=== PATIENT | female | born 1950 | race Two or more races ===

== ENCOUNTER 2020-11-07 08:40 | Outpatient (REF) | payer MEDICARE, SELFPAY ==
--- NOTE | ~2020-11-07 | MM_ITS ---
EXAMINATION: MM SCREENING DIGITAL BREAST TOMOSYNTHESIS, BILATERAL CLINICAL INFORMATION: Screening. Asymptomatic. Family history breast cancer, 2 sisters. The lifetime risk of breast cancer based on the Tyrer-Cuzick Model is 8%. COMPARISON: Mammography: 11/02/2019, 10/28/2018, 10/08/2017 TECHNIQUE: Digital breast tomosynthesis is performed in both the craniocaudal and mediolateral oblique views along with computer-aided detection (CAD). Synthesized 2D images are generated from the tomosynthesis. FINDINGS: There are scattered areas of fibroglandular density (ACR BI-RADS breast composition Category b). There are no significant masses, abnormal calcifications, or other abnormalities. There are scattered bilateral round, coarse, ductal, and vascular calcifications. No significant changes from prior studies. MM/MM tomosynthesis screening BI IMPRESSION: No mammographic evidence of malignancy. ASSESSMENT: BI-RADS 2: Benign RECOMMENDATION: Routine annual mammography screening. This patient's information was entered into a reminder system with a target due date for their next mammogram.
== END 2020-11-07 08:41 | disposition home or self-care (01) ==
LOC: HO.MAMMO 08:40
PROVIDERS: PCP General Practice; Visit Provider General Practice
DX: Z12.31 Encounter for screening mammogram for malignant neoplasm of breast (principal)
CPT/HCPCS: 77063; 77067

== ENCOUNTER → 2021-04-18 10:02 | Outpatient (BNVA) | payer MEDICARE, SELFPAY | PROVIDERS: PCP General Practice; Referring Provider General Practice; Visit Provider Nurse Practitioner | DX: K31.89 Other diseases of stomach and duodenum (principal); K59.00 Constipation, unspecified; K21.9 Gastro-esophageal reflux disease without esophagitis | CPT/HCPCS: 99212 ==

== ENCOUNTER 2021-06-08 09:55 | Outpatient (REF) | payer MEDICARE, SELFPAY ==
--- NOTE | 2021-06-08 14:35 | MHC.AU.ANR ---
Adult Audiological Evaluation Date of Visit: 06/08/21 Surveillance Director Used: Kosovan- By Phone Reason for Appointment: Audiological evaluation due to history of hearing loss. Ms. Philip reports bilateral hearing loss, worse in her right ear. She notes that she previously used a hearing aid in the left ear only. She notes that the hearing aid has been lost and she is interested in obtaining a new one. She notes that she struggles to hear in most situations and often has to ask people for repetition. Does patient feel they have a hearing loss?: Yes If Yes, Which Ear?: Both Ears Has hearing been tested previously?: Yes Previous Hearing Test Results: She notes that she was previously tested somewhere in [place], [place], but results are not available to be reviewed today. Ear History: Bothersome Tinnitus/Ringing/Noises in Ears: Both Ears Medical History: Medical History: Diabetes, Thyroid Disease, Arthritis, poor circulation Allergies: Acetaminophen, ibuprofen, tramadol Medication List: See list Otoscopy: Right Ear: Unremarkable Left Ear: Unremarkable Tympanometry: Tympanometry performed due to: To assess integrity of the middle ear system Right Ear: Non-compliant Middle Ear System (Type B) Left Ear: Reduced Middle Ear Compliance (Type As) Hearing Evaluation: Transducer(s) Used: Circumaural Headphones, Bone Conduction Method: Conventional Audiometry Stimuli Used: Pure Tones Right Ear: Description of Hearing: Severe to profound sensorineural hearing loss from 250-8000 Hz. Hearing in the right ear is 15-80+ dBHL worse than that in the left ear across the frequency range. Left Ear: Description of Hearing: Moderately-severe sensorineural hearing loss from 250-500 Hz, rising to moderate sensorineural hearing loss from 750-1000 Hz and mild sensorineural hearing loss from 6448-0933 Hz, then sloping to severe hearing loss from 3321-5959 Hz. Speech Recognition Threshold (SRT): Method Used: Recorded Lists Stimuli Used: Spondee Words Right Ear: 95 dBHL Left Ear: 55 dBHL Word Discrimination: Method: Recorded Lists Word Lists Used: Lista Bisil?bica (Kosovan) Right Ear: 28% at 100 dBHL with masking Left Ear: 92% at 90 dBHL Recommendations: Audiological re-evaluation in one year. Trial with amplification is recommended. Medical clearance from a physician is required before fitting. Referral to Ear, Nose, and Throat is recommended due to asymmetrical hearing loss. Discussed hearing aid options with Ms. Philip. Recommend a CROS system, with a hearing aid on the left ear and a CROS aid on the right ear given poor speech discrimination in the right ear. She was agreeable to this plan. Medical clearance is being requested from her PCP and prior authorization will be submitted to [facility]. Diagnosis: Primary Diagnosis: H90.3 Bilateral Sensorineural Hearing Loss Services Performed: Services Performed: Comprehensive Audiological Evaluation (CPT 57545) Tympanometry (CPT 70774) Signature: Provider: Tanya Mendiola, CCC-A
--- NOTE | 2021-06-08 14:37 | MHC.AU.HAS ---
Hearing Aid Evaluation Date of Visit: 06/08/21 Faculty Member Used: Telugu- By Phone Historical Information: Description of Hearing: Severe to profound sensorineural hearing loss in the right ear with poor speech discrimination. Moderately severe rising to mild SNHL hearing, then sloping to severe hearing loss. Current personal amplification information, if applicable: States she had an ITE style aid in the left ear only. Summary: Given the type, degree, and configuration of Ms. Philip's hearing loss, a BiCROS hearing aid system is recommended to help facilitate improved communication. Recommend rechargeable REBEL style aids. Ms. Philip was agreeable to this plan. Hearing Aid Prescription: Based on the individual?s shared listening needs, communication environments, dexterity, desire for connectivity, and personal preferences, the following prescription for amplification has been made: Right ear: Spot Worker: Phonak Model: CROS P-R Battery Size: Rechargeable Color: P6 - Silver Owens Institutional Research Director: Size 0 CROS wire Type of Dome: Open Left ear: Left ear prescription to be same as Right Hearing Aid above: Spot Worker: Phonak Model: Audeo P70-R Battery Size: Rechargeable Color: P6 - Silver Owens Institutional Research Director: Size 0 M Type of Dome: Power Plan of Care: Prior authorization to be requested. Medical Clearance to be requested from PCP/ENT. Hearing Instrument Fitting to be scheduled when materials arrive. Hearing aids will be ordered once PA is approved. Primary Diagnosis: H90.3 Bilateral Sensorineural Hearing Loss Signature: Provider: aTnya Mendiola, CCC-A
--- NOTE | 2021-06-08 14:39 | MHC.AU.MED ---
Medical Clearance for Hearing Instrumentation Date: 06/08/21 Patient Name: Tennille hPilip Date of : 1950 Referring Provider: Germaine Martinez MD We have seen your patient on 06/08/21 and have determined that they are a candidate for amplification (See accompanying report). Specifically, they would benefit from: Hearing aid use in both ears (BiCROS system) There is a statute that addresses Medical Evaluation Requirements prior to fitting a patient with a hearing aid. According to [place] statute 265 CMR:6.03(1), (a) General. Except as provided in 265 CMR 6.03(1)(b), a hearing aid assembly supervisor shall not sell a hearing aid unless the prospective user has presented to the hearing aid assembly supervisor a written statement signed by a licensed physician that states that the patient's hearing loss has been medically evaluated and the patient may be considered a candidate for a hearing aid. The medical evaluation must have taken place within the preceding six months. Please note: Due to the [place] Statute referenced above, we cannot accept a signature other than that of a licensed physician. SOCIAL STUDIES DEPARTMENT CHAIR and PA signatures cannot be accepted. I am in agreement with the above recommendation. There is no medical contraindication for hearing instrumentation. Physician Signature Date Physician Name (Printed)
== END 2021-06-08 09:56 | disposition home or self-care (01) ==
LOC: HO.SH 09:55
PROVIDERS: Visit Provider General Practice
DX: H91.91 Unspecified hearing loss, right ear (principal)
CPT/HCPCS: 92557; 92567; 92591

== ENCOUNTER 2021-07-26 09:09 | Outpatient (REF) | payer MEDICARE, SELFPAY | END 2021-07-26 09:10 | disposition home or self-care (01) | LOC: HO.HAP 09:09 | PROVIDERS: Visit Provider General Practice | DX: Z46.1 Encounter for fitting and adjustment of hearing aid (principal); H90.3 Sensorineural hearing loss, bilateral | CPT/HCPCS: V5011; V5020; V5221; V5240 ==

== ENCOUNTER 2021-08-17 11:03 | Outpatient (REF) | payer MEDICARE, SELFPAY | END 2021-08-17 11:04 | disposition home or self-care (01) | LOC: HO.HAP 11:03 | PROVIDERS: Visit Provider General Practice | DX: Z46.1 Encounter for fitting and adjustment of hearing aid (principal); H90.3 Sensorineural hearing loss, bilateral | CPT/HCPCS: V5275 ==

== ENCOUNTER 2021-08-21 10:56 | Outpatient (REF) | payer MEDICARE, SELFPAY | END 2021-08-21 10:57 | disposition home or self-care (01) | LOC: HO.HAP 10:56 | PROVIDERS: Visit Provider General Practice | DX: Z13.89 Encounter for screening for other disorder (principal) ==

== ENCOUNTER 2021-09-21 10:37 | Outpatient (REF) | payer MEDICARE, SELFPAY ==
--- NOTE | 2021-09-21 11:36 | MHC.AU.HFU ---
Hearing Instrument Follow-Up- Binaural Date of Visit: 09/21/21 Machine Plug Shaper Used: Urdu- In Person Right Ear: Patrol Police Lieutenant: Phonak Model: CROS P-R Serial Number: [id number] Repair Warranty: 10/12/2024 Loss and Damage Warranty: 10/12/2024 Battery Size: Rechargeable Color: P6 - Silver Owens Acute Dialysis Registered Nurse: Size 0 CROS wire Type of Mold: CROS Tip #[id number] Warranty 12/22/2021 Type of Wax Guard: Cerushield Dispensed By: [facility] Date of Fittin07/26/2021 Left Ear: Patrol Police Lieutenant: Phonak Model: Audeo P70-R Serial Number: [id number] Repair Warranty: 10/12/2024 Loss and Damage Warranty: 10/12/2024 Battery Size: Rechargeable Color: P6 - Silver Owens Acute Dialysis Registered Nurse: Size 0 M Type of Mold: cShell #[id number] Warranty 12/22/2021 Type of Wax Guard: Cerushield Dispensed By: [facility] Date of Fittin07/26/2021 Follow-Up Summary: Patient arrived to slate picker her loss and damage replacement instrument (left hearing aid) and the new cShell/CROS tips. The CROS tip was placed on the right instrument. Patient reports they feel comfortable and more secure. When the patient handed me the right instrument, it would not turn on. Plugged it in using her bead supervisor, and it began blinking red. Patient reports that she had charged the CROS last night so it would be ready for today's appointment. When she first plugged it in, it was blinking red, but then after a few hours turned solid green as expected. The battery should not have drained that fast if it was fully charged last night. The right instrument will be sent for repair. Recommendations: Recommendations: Patient will be contacted when materials have arrived. Diagnosis Code(s): Primary Diagnosis: H90.3 Bilateral Sensorineural Hearing Loss Signature: Provider: Tanya Renee, [facility]
== END 2021-09-21 10:38 | disposition home or self-care (01) ==
LOC: HO.HAP 10:37
PROVIDERS: Visit Provider General Practice
DX: Z46.1 Encounter for fitting and adjustment of hearing aid (principal); H90.3 Sensorineural hearing loss, bilateral
CPT/HCPCS: V5264

== ENCOUNTER 2021-10-11 10:49 | Outpatient (REF) | payer SELFPAY | END 2021-10-11 10:50 | disposition home or self-care (01) | LOC: HO.HAP 10:49 | PROVIDERS: Visit Provider General Practice | DX: Z13.89 Encounter for screening for other disorder (principal) ==

== ENCOUNTER 2021-11-10 07:58 | Outpatient (REF) | payer MEDICARE, SELFPAY ==
--- NOTE | ~2021-11-10 | MM_ITS ---
EXAMINATION: MM SCREENING DIGITAL BREAST TOMOSYNTHESIS, BILATERAL CLINICAL INFORMATION: Screening. Asymptomatic. Remote history benign bilateral excisional biopsy 2004. Family history breast cancer, 2 views sisters. The lifetime risk of breast cancer based on the Tyrer-Cuzick Model is 7%. COMPARISON: Mammography: The 11/07/2020, 8 11/02/2019, 10/28/2018 TECHNIQUE: Digital breast tomosynthesis is performed in both the craniocaudal and mediolateral oblique views along with computer-aided detection (CAD). Synthesized 2D images are generated from the tomosynthesis. FINDINGS: There are scattered areas of fibroglandular density (ACR BI-RADS breast composition Category b). There are no significant masses, abnormal calcifications, or other abnormalities. Parenchymal pattern is similar to prior studies. Again, there are scattered bilateral round and vascular, coarse, and some ductal secretory calcifications. There are no significant changes. MM/MM tomosynthesis screening BI IMPRESSION: No mammographic evidence of malignancy. ASSESSMENT: BI-RADS 2: Benign RECOMMENDATION: Routine annual mammography screening. This patient's information was entered into a reminder system with a target due date for their next mammogram.
== END 2021-11-10 07:59 | disposition home or self-care (01) ==
LOC: HO.MAMMO 07:58
PROVIDERS: Visit Provider General Practice
DX: Z12.31 Encounter for screening mammogram for malignant neoplasm of breast (principal)
CPT/HCPCS: 77063; 77067

== ENCOUNTER → 2021-11-23 08:57 | Outpatient (BNVA) | payer MEDICARE, SELFPAY | PROVIDERS: PCP General Practice; Visit Provider Nurse Practitioner | DX: K21.9 Gastro-esophageal reflux disease without esophagitis (principal); K59.00 Constipation, unspecified; K31.89 Other diseases of stomach and duodenum | CPT/HCPCS: 99212 ==

== ENCOUNTER → 2022-05-22 08:56 | Outpatient (BNVA) | payer MEDICARE, SELFPAY | PROVIDERS: PCP General Practice; Visit Provider Nurse Practitioner | DX: K21.9 Gastro-esophageal reflux disease without esophagitis (principal); K59.00 Constipation, unspecified; K31.89 Other diseases of stomach and duodenum; Z79.899 Other long term (current) drug therapy | CPT/HCPCS: 99212 ==

== ENCOUNTER 2022-06-27 09:11 | Outpatient (REF) | payer OTHER, SELFPAY ==
[2022-06-27 10:11] LABS: Alanine Aminotransferase 14 U/L (0-31); Albumin Level 4.2 g/dL (3.5-5.0); Alkaline Phosphatase 91 U/L (39-117); Anion Gap 14 (12-20); Aspartate Amino Transferase 18 U/L (5-31); Bilirubin Total 0.8 mg/dL (0.0-1.0); Blood Urea Nitrogen 15 mg/dL (9-16); Calcium 9.7 mg/dL (8.4-10.2); Carbon Dioxide 28 mmol/L (22-29); Chloride 103 mmol/L (96-108); Estimated Glomerular Filt Rate 57; Glucose Random 181 mg/dL (60-115); Potassium 4.7 mmol/L (3.3-5.1); Sodium 140 mmol/L (135-145); Total Protein 7.4 g/dL (6.5-8.0)
== END 2022-06-27 09:12 | disposition home or self-care (01) ==
LOC: HO.LAB 09:11
PROVIDERS: PCP General Practice; Visit Provider Nurse Practitioner
DX: Z01.818 Encounter for other preprocedural examination (principal)
CPT/HCPCS: 36415; 80053

== ENCOUNTER 2022-10-18 06:58 | Day surgery (SDC) | payer OTHER, SELFPAY ==
[2022-10-18 07:08] VITALS: BP 144/69; PULSE 70; RESP 16; TEMP 36; O2SAT 97
[2022-10-18 07:33] VITALS: BMI 31.8
--- NOTE | 2022-10-18 07:42 | HO.ANESPROP2 ---
HPI - Anesthesia Eval Consult details Narrative: [facility] Active Problems Active Problems: All Active Problems (Updated 10/12/22 @ 11:00 by Radha Vazquez RN) GERD (gastroesophageal reflux disease) (Acute) Constipation (Acute) Intestinal metaplasia of gastric mucosa (Acute) Pre-op examination (Acute) Diabetes (Acute) Peripheral vascular disease (Acute) Hypothyroid (Acute) Diabetic neuropathy (Acute) Multiple lipomas (Acute) Past Medical History Medical History Chronic back pain DM type 2 (diabetes mellitus, type 2) Elevated cholesterol GERD (gastroesophageal reflux disease) H/O degenerative disc disease [place] (hard of hearing) Hypothyroid Osteoarthritis Family History Family History Father Cardiac arrest Mother No problems noted. Son Diabetes Sister Diabetes Stomach cancer Family history of problems with anesthesia: No Surgical History Surgical History H/O breast biopsy H/O esophagogastroduodenoscopy History of section History of varicose vein ligation and stripping Hx of colonoscopy S/P cataract extraction History of Problems with Anesthesia: No Social History Social History Household Members: Spouse Alcohol intake: current Alcohol intake frequency: does not drink Patient Tobacco Use Status: Never used Tobacco Use of substances other than those prescribed or required for medical reasons: No Are you DNR?: No Advance Directives: No Advance Directives Information Provided: Yes Meds Allergies Allergy/AdvReac Type Severity Reaction Status Date / Time naproxen Allergy Itching Verified 10/18/22 07:24 Active Medications: Current Medications Lactated Ringer's (Lr) 1,000 mls @ 50 mls/hr IVCONT .Q20H [facility] Home Medications Medication Instructions Recorded Confirmed Last Taken Type calcium carbonate 200 mg calcium 200 mg PO BID 08/15/20 10/12/22 Unknown History (500 mg) chewable tablet (Tums) methylcellulose (laxative) 500 mg 500 mg PO DAILY 08/15/20 10/12/22 Unknown History tablet (Citrucel) cholecalciferol (vitamin D3) 25 25 mcg PO QAM 04/18/21 10/12/22 Unknown History mcg (1,000 unit) tablet metformin 500 mg tablet 500 mg PO BID 04/18/21 10/12/22 Unknown History ramelteon 8 mg tablet 8 mg PO BEDTIME PRN insomnia 04/18/21 10/12/22 Unknown History sertraline 25 mg tablet 50 mg PO QAM 04/18/21 10/12/22 Unknown History aspirin 81 mg tablet,delayed 81 mg PO DAILY 11/23/21 10/12/22 10/15/22 History release levothyroxine 75 mcg tablet 75 mcg PO DAILY 11/23/21 10/12/22 Unknown History nortriptyline 10 mg capsule 10 mg PO BID 11/23/21 10/12/22 Unknown History cilostazol 100 mg tablet 100 mg PO 05/22/22 Unknown History doxepin 25 mg capsule 25 mg PO BEDTIME 05/22/22 10/12/22 Unknown History fluticasone propionate 50 1 spray intranasal BID 05/22/22 10/12/22 Unknown History mcg/actuation nasal spray,suspension gabapentin 400 mg capsule 400 mg PO TID 05/22/22 10/12/22 Unknown History insulin aspart U-100 100 unit/mL 15 unit subcut TID 05/22/22 10/12/22 Unknown History (3 mL) subcutaneous pen (Novolog FlexPen U-100 Insulin aspart) insulin glargine 100 unit/mL (3 12 unit subcut BEDTIME 05/22/22 10/12/22 Unknown History mL) subcutaneous pen (Lantus Solostar U-100 Insulin) oxycodone 5 mg tablet 5 - 10 mg PO Q8H 05/22/22 10/12/22 Unknown History rosuvastatin 40 mg tablet 40 mg PO DAILY 05/22/22 10/12/22 Unknown History Exam Exam Date and Time: October 18, 2022 0742 Height,Weight and Vital Signs: Height 5 ft Weight 73.936 kg Last Vital Signs Temp 96.8 F 10/18/22 07:08 Pulse 70 10/18/22 07:08 Resp 16 10/18/22 07:08 BP 144/69 H 10/18/22 07:08 Pulse Ox 97 10/18/22 07:08 O2 Del Method 10/18/22 07:08 Airway Mallampati Class: II TM Dist: >3cm Neck ROM: Limited Heart: rrr Lungs: cta Assessment and Plan Assessment Anesthesia Assessment: Anesthesia Plan Discussed and Chart Reviewed Final Anesthetic Review Family History of Problems with Anesthesia: No History of Problems with Anesthesia: No NPO: Yes ASA Class: III Final Preanesthetic Review: No Changes in Pt Med Stat, Meds/Allgs Chart Reviewed and Anes Risks/Benef Reviewed Patient Risk: Intermediate Procedure Risk: Low Anesthetic Plan Anesthetic Plan: MAC: and Agree w/ Assess. and Plan Disposition: Standard PACU
[2022-10-18] MEDS: Lactated Ringers 1,000 ML 50 ML IVCONT (07:47)
[2022-10-18 08:01] LABS: Glucose, Whole Blood 229 mg/dL (60-115)
--- NOTE | 2022-10-18 08:09 | MHC.SHP ---
Pre-Procedural Eval Section A Date of Service: 10/18/22 Section B Chief Complaint: Gastro-esophageal reflux disease without esophagit Relevant Family History (Specify if Yes): No Relevant Social History: None Present Medications: see Short Stay Collaborative assessment Medical History: Significant History (Chronic back pain DM type 2 (diabetes mellitus, type 2) Elevated cholesterol GERD (gastroesophageal reflux disease) H/O degenerative disc disease [place] (hard of hearing) Hypothyroid Osteoarthritis) History of Previous Operations: Relevant previous surgery/procedure and date(s) (H/O breast biopsy H/O esophagogastroduodenoscopy History of section History of varicose vein ligation and stripping Hx of colonoscopy S/P cataract extraction) Allergies: Allergies Allergy/AdvReac Type Severity Reaction Status Date / Time naproxen Allergy Itching Verified 10/18/22 07:24 Review of Systems Sugical H&P ROS: Negative: Constitution, Cardiovascular, Respiratory, Neurological, Psychiatric, Hem-Onc, Allergic/Immunologic, Gastrointestinal, Genitourinary, Musculoskeletal, Integumentary, Endocrine and Eyes/Ears/Nose/Throat Exam Surgical H&P Exam: Normal: HEENT, Normal: Heart, Normal: Lungs, Normal: Extremities, Normal: Abdomen, Normal: Skin and Normal: Neurological Plan Diagnosis/Plan: Unchanged I have reviewed the history and physical and performed a pertinent physical examination on my patient. No changes have occurred unless specified. Time Spent With Patient Time: Total time managing care of this patient today ____ minutes.
--- NOTE | 2022-10-18 08:10 | W.PM.OPN ---
Operative Note Operative Note Date of Service: 10/18/22 Narrative: Procedure Description: EGD Indication: hx of GERD and intestinal metaplasia Anesthesia: MAC FLEXIBLE TRANSORAL UPPER GASTROINTESTINAL ENDOSCOPY UPPER ENDOSCOPY Consent: Indications for the procedure and potential complications of bleeding, perforation, reaction to medications and missed diagnosis were discussed with the patient and informed consent was obtained. Instrument: Olympus GIF H 190 J mid size upper endoscope Monitoring: Vital signs and clinical assessment, continuous EKG monitoring, Pulse oximetry, Carbon Dioxide monitoring and blood pressure monitoring were done throughout the procedure. Procedure: The patient was placed in the left lateral decubitis position and pre-procedure medications were administered and a bite block was placed. The endoscope was inserted into the mouth and advanced under direct vision to the third part of duodenum. A careful inspection was made as the upper endoscope was withdrawn including a retroflexed examination of the proximal stomach; Findings and interventions are described below. Findings: Larynx:normal Esophagus: GE junction at 31 cm, diaphragm hiatus at 34 cm, consistent with 3 cm sliding hiatal hernia. Irregular z line with patches of salmon pink tissue, bx taken to r/o barretts esophagus. There was also an incompetent LES with tertiary contractions. Stomach: Patchy gastric erythema. Biopsies were obtained. Grade 2 flap valve on retroflexed examination of the cardia. There appeared to be reduced gastric movement Duodenum: Normal bulb and descending duodenum, bx taken Intervention: Biopsies as noted above Impression/Findings: gastritis haital hernia incompetent LES possible barretts possible gastroparesis esophageal dysmotility probably from acid reflux and diabetes, maybe opiate use as well PLAN: reflux precautions optimize PPI consider gastric emptying study
--- NOTE | 2022-10-18 08:13 | P.CONAN_ITS ---
HPI - Anesthesia Eval Consult details Narrative: egd [facility] Active Problems Active Problems: All Active Problems (Updated 10/12/22 @ 11:00 by Radha Vazquez RN) GERD (gastroesophageal reflux disease) (Acute) Constipation (Acute) Intestinal metaplasia of gastric mucosa (Acute) Pre-op examination (Acute) Diabetes (Acute) Peripheral vascular disease (Acute) Hypothyroid (Acute) Diabetic neuropathy (Acute) Multiple lipomas (Acute) Past Medical History Medical History Chronic back pain DM type 2 (diabetes mellitus, type 2) Elevated cholesterol GERD (gastroesophageal reflux disease) H/O degenerative disc disease [place] (hard of hearing) Hypothyroid Osteoarthritis Family History Family History Father Cardiac arrest Mother No problems noted. Son Diabetes Sister Diabetes Stomach cancer Family history of problems with anesthesia: No Surgical History Surgical History H/O breast biopsy H/O esophagogastroduodenoscopy History of section History of varicose vein ligation and stripping Hx of colonoscopy S/P cataract extraction History of Problems with Anesthesia: No Social History Social History Household Members: Spouse Alcohol intake: current Alcohol intake frequency: does not drink Patient Tobacco Use Status: Never used Tobacco Use of substances other than those prescribed or required for medical reasons: No Are you DNR?: No Advance Directives: No Advance Directives Information Provided: Yes Meds Allergies Allergy/AdvReac Type Severity Reaction Status Date / Time naproxen Allergy Itching Verified 10/18/22 07:24 Active Medications: Current Medications Lactated Ringer's (Lr) 1,000 mls @ 50 mls/hr IVCONT .Q20H [place] Last Admin: 10/18/22 07:47 Dose: 50 mls/hr Home Medications Medication Instructions Recorded Confirmed Last Taken Type calcium carbonate 200 mg calcium 200 mg PO BID 08/15/20 10/12/22 Unknown History (500 mg) chewable tablet (Tums) methylcellulose (laxative) 500 mg 500 mg PO DAILY 08/15/20 10/12/22 Unknown History tablet (Citrucel) cholecalciferol (vitamin D3) 25 25 mcg PO QAM 04/18/21 10/12/22 Unknown History mcg (1,000 unit) tablet metformin 500 mg tablet 500 mg PO BID 04/18/21 10/12/22 Unknown History ramelteon 8 mg tablet 8 mg PO BEDTIME PRN insomnia 04/18/21 10/12/22 Unknown History sertraline 25 mg tablet 50 mg PO QAM 04/18/21 10/12/22 Unknown History aspirin 81 mg tablet,delayed 81 mg PO DAILY 11/23/21 10/12/22 10/15/22 History release levothyroxine 75 mcg tablet 75 mcg PO DAILY 11/23/21 10/12/22 Unknown History nortriptyline 10 mg capsule 10 mg PO BID 11/23/21 10/12/22 Unknown History cilostazol 100 mg tablet 100 mg PO 05/22/22 Unknown History doxepin 25 mg capsule 25 mg PO BEDTIME 05/22/22 10/12/22 Unknown History fluticasone propionate 50 1 spray intranasal BID 05/22/22 10/12/22 Unknown History mcg/actuation nasal spray,suspension gabapentin 400 mg capsule 400 mg PO TID 05/22/22 10/12/22 Unknown History insulin aspart U-100 100 unit/mL 15 unit subcut TID 05/22/22 10/12/22 Unknown History (3 mL) subcutaneous pen (Novolog FlexPen U-100 Insulin aspart) insulin glargine 100 unit/mL (3 12 unit subcut BEDTIME 05/22/22 10/12/22 Unknown History mL) subcutaneous pen (Lantus Solostar U-100 Insulin) oxycodone 5 mg tablet 5 - 10 mg PO Q8H 05/22/22 10/12/22 Unknown History rosuvastatin 40 mg tablet 40 mg PO DAILY 05/22/22 10/12/22 Unknown History Exam Exam Date and Time: October 18, 2022812 Height,Weight and Vital Signs: Height 5 ft Weight 73.936 kg Last Vital Signs Temp 96.8 F 10/18/22 07:08 Pulse 70 10/18/22 07:08 Resp 16 10/18/22 07:08 BP 144/69 H 10/18/22 07:08 Pulse Ox 97 10/18/22 07:08 O2 Del Method 10/18/22 07:08 Pertinent Lab Results Pertinent Lab Results: Laboratory Tests 10/18/22 07:32 POC Glucose 229 H Airway Mallampati Class: II Heart: rrr Lungs: cta Assessment and Plan Assessment Anesthesia Assessment: Anesthesia Plan Discussed and Chart Reviewed Final Anesthetic Review Family History of Problems with Anesthesia: No History of Problems with Anesthesia: No NPO: Yes ASA Class: III Final Preanesthetic Review: No Changes in Pt Med Stat, Meds/Allgs Chart Reviewed , Consent Obtained/Reviewed and Anes Risks/Benef Reviewed Patient Risk: Intermediate Procedure Risk: Low Anesthetic Plan Anesthetic Plan: MAC: Disposition: Standard PACU
[2022-10-18 08:42] VITALS: BP 103/51; PULSE 75; RESP 16; TEMP 36.6; O2SAT 100
[2022-10-18 08:53] VITALS: BP 114/73; PULSE 72; RESP 16; TEMP 36.6; O2SAT 97
== END 2022-10-18 09:20 | disposition home or self-care (01) ==
PROVIDERS: PCP General Practice; Visit Provider Internal Medicine Gastroenterology
PROC: 0DJ08ZZ Inspection of Upper Intestinal Tract, Via Natural or Artificial Opening Endoscopic (ICD-10-PCS; CPT 43235; principal; 2022-10-18 08:20)
DX: K21.9 Gastro-esophageal reflux disease without esophagitis (principal); K29.50 Unspecified chronic gastritis without bleeding; K22.70 Barrett's esophagus without dysplasia; K22.4 Dyskinesia of esophagus; K44.9 Diaphragmatic hernia without obstruction or gangrene; E11.9 Type 2 diabetes mellitus without complications; E78.00 Pure hypercholesterolemia, unspecified; G89.29 Other chronic pain; M54.9 Dorsalgia, unspecified; Z79.82 Long term (current) use of aspirin; Z79.4 Long term (current) use of insulin; Z79.899 Other long term (current) drug therapy; Z88.8 Allergy status to other drugs, medicaments and biological substances
CPT/HCPCS: 43239; 82947; 88305; 88342

== ENCOUNTER → 2022-10-30 08:48 | Outpatient (BNVA) | payer OTHER, SELFPAY | PROVIDERS: PCP Internal Medicine; Visit Provider Nurse Practitioner | DX: K22.70 Barrett's esophagus without dysplasia (principal); K21.9 Gastro-esophageal reflux disease without esophagitis; K59.00 Constipation, unspecified | CPT/HCPCS: 99212 ==

== ENCOUNTER 2022-11-12 10:05 | Outpatient (REF) | payer OTHER, SELFPAY ==
--- NOTE | ~2022-11-12 | MM_ITS ---
EXAMINATION: MM SCREENING DIGITAL BREAST TOMOSYNTHESIS, BILATERAL CLINICAL INFORMATION: Screening. Asymptomatic. History bilateral remote excisional biopsy, 2004. Family history breast cancer. TC score 5%. COMPARISON: Mammography: 11/10/2021, 11/07/2020, 11/02/2019 TECHNIQUE: Digital breast tomosynthesis is performed in both the craniocaudal and mediolateral oblique views along with computer-aided detection (CAD). Synthesized 2D images are generated from the tomosynthesis. FINDINGS: There are scattered areas of fibroglandular density (ACR BI-RADS breast composition Category b). There are no significant masses, abnormal calcifications, or other abnormalities. Parenchymal pattern is similar to prior studies. There is no developing density or architectural abnormality. There are scattered bilateral round, ductal secretory, coarse, and some vascular calcifications. The axilla and skin contours are unremarkable. No significant changes from prior studies. MM/MM tomosynthesis screening BI IMPRESSION: No mammographic evidence of malignancy. ASSESSMENT: BI-RADS 2: Benign RECOMMENDATION: Routine annual mammography screening. This patient's information was entered into a reminder system with a target due date for their next mammogram.
== END 2022-11-12 10:06 | disposition home or self-care (01) ==
LOC: HO.MAMMO 10:05
PROVIDERS: PCP General Practice; Visit Provider General Practice
DX: Z12.31 Encounter for screening mammogram for malignant neoplasm of breast (principal)
CPT/HCPCS: 77063; 77067

== ENCOUNTER 2023-04-23 08:58 | Outpatient (AMB) | payer OTHER, SELFPAY ==
--- NOTE | 2023-04-23 09:02 | MHC.OFFVIS ---
Intake Vital Signs 04/23/23 09:03 Height 5 ft Weight 171 lb BMI 33.4 BP 153/69 H Blood Pressure Location Lt brachial Position Sitting Pulse 76 Intake Visit Reasons: 6 month follow up Intake Note: Patient presents to in office visit today in follow up of constipation. CC: Patient reports constipation. Denies any new GI symptoms or concerns. 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 She tolerated the procedure well. She says that her swallowing is doing well with the Dexilant and she has not had N/V. The bisacodyl continues to control her CIC.? She denies nausea or vomiting so I do not think a gastric emptying study is necessary at this time. ROV 6 mos. (2) GERD (gastroesophageal reflux disease): ?Code(s): K21.9 - Gastro-esophageal reflux disease without esophagitis (3) Constipation: ?Code(s): K59.00 - Constipation, unspecified TODAY'S VISIT Oscar Mccloud LIve She says she is much better on the Dexilant w/o any N/V. We again review the EGD since her dtr was not here at the last visit - all ok but she does have SSBE. She has not received the bisacodyl yet, so she is not moving her bowels well. She may need to buy it OTC. She was advised of this it is agreeable if it is not dispense by her pharmacy. She has her medications dispensed in tell pack so she is not exactly sure if it is not covered or if she simply has not received her newest refills. ROV 4 weeks. [facility] Medical History Chronic back pain DM type 2 (diabetes mellitus, type 2) Elevated cholesterol GERD (gastroesophageal reflux disease) H/O degenerative disc disease [place] (hard of hearing) Hypothyroid Intestinal metaplasia of gastric mucosa Osteoarthritis Surgical History H/O breast biopsy H/O esophagogastroduodenoscopy History of section History of varicose vein ligation and stripping Hx of colonoscopy S/P cataract extraction Family History Father Cardiac arrest Mother No problems noted. Son Diabetes Sister Diabetes Stomach cancer Social History Household Members: Spouse Alcohol intake: current Alcohol intake frequency: does not drink Patient Tobacco Use Status: Never used Tobacco Review of Systems Const Denies fatigue, Denies fever(s), Denies night sweats, Denies poor appetite and Denies weight loss ENT Reports Normal hearing present, Denies dental pain, Denies dysphagia, Denies hearing loss, Denies mouth pain, Denies odynophagia, Denies throat swelling, Denies tongue swelling and Reports other (Dentition adequate) Card Reports no additional complaints Resp Reports no additional complaints GI Denies abdominal pain, Denies melena, Denies bloating, Denies hematochezia, Reports constipation, Denies GI cramping, Denies dysphagia, Denies excessive flatus, Denies early satiety, Reports heartburn, Denies diarrhea, Denies nausea, Denies odynophagia, Denies vomiting and Denies hematemesis Skin/Breast Denies pruritus, Denies lesions, Denies rash and Denies jaundice Neuro Reports Normal hearing present and Denies Abnormal speech present Endo Denies fatigue Aller/Immun Denies throat swelling and Denies tongue swelling Physical Exam Vital Signs: Last Vital Signs Pulse 76 04/23/23 09:03 BP 153/69 H 04/23/23 09:03 BMI result Body Mass Index 33.4 Const General: cooperative, no acute distress, well developed and well groomed Nutritional Appearance: well nourished and obese Orientation/consciousness: oriented to person, oriented to place and oriented to time Limitations: language barrier HEENT Head: Yes normocephalic and Yes atraumatic Eyes General: appearance normal, both eyes and all related structures Pupils: Equal, round and reactive pupils present Neck Neck: Yes normal visual inspection and Yes no lymphadenopathy Thyroid: Thyroid normal Resp Effort & Inspection: normal respiratory effort and able to speak in complete sentences Auscultation: clear to auscultation bilaterally Cardio Rate: regular rate Rhythm: regular rhythm Heart sounds: Normal, physiologic split S2 sound present Peripheral pulses: radial pulses present and posterior tibial pulses present GI Inspection: No distended, No Abdominal panniculus present and Yes obesity Palpation (GI): Soft to palpation, nontender, no guarding, not rigid and No hepatosplenomegaly present Percussion: Yes normal to percussion Auscultation: normal bowel sounds Rectal Exam - Female: deferred Skin General skin exam: no rashes or lesions noted, turgor normal, skin not dry, no jaundice, No spider nevi and no striae Rashes: no rashes Nails: normal Neuro General: oriented to person, oriented to place and oriented to time Cranial nerves: Yes Equal, round and reactive pupils present and Yes Normal hearing present Speech: No Abnormal speech present Extrem General: Yes normal to inspection, No clubbing, No cyanosis and No edema Psych Appearance: grossly normal and well kempt Mental Status: mental status grossly normal Speech and movement: Normal speech and movement present Affect: normal affect Attitude: cooperative Thought process: Normal thought process present and not confabulating Thought content: Normal thought content present Insight: Limited insight present (Psych) Judgement: Limited judgement present (Psych) Assessment & Plan Assessment & Plan (1) Constipation: Code(s): K59.00 - Constipation, unspecified Plan: [place] #Tyler LIve She says she is much better on the Dexilant w/o any N/V. We again review the EGD since her dtr was not here at the last visit - all ok but she does have SSBE. She has not received the bisacodyl yet, so she is not moving her bowels well. She may need to buy it OTC. She was advised of this it is agreeable if it is not dispense by her pharmacy. She has her medications dispensed in tell pack so she is not exactly sure if it is not covered or if she simply has not received her newest refills. ROV 4 weeks. (2) GERD (gastroesophageal reflux disease): Code(s): K21.9 - Gastro-esophageal reflux disease without esophagitis (3) Esposito's esophagus determined by biopsy: Comment: Last EGD 10/2022 and there was Barretts metaplasia with no dysplasia, repeat in 2024 Code(s): K22.70 - Esposito's esophagus without dysplasia Coding Level of Care Code Est Pt Level 3 (07764) Diagnoses Constipation K59.00 GERD (gastroesophageal reflux disease) K21.9 Esposito's esophagus determined by biopsy K22.70
[2023-04-23 09:03] VITALS: BP 153/69; PULSE 76; BMI 33.4
== END 2023-04-23 09:30 | disposition home or self-care (01) ==
PROVIDERS: Visit Provider Nurse Practitioner
DX: K59.00 Constipation, unspecified (principal); K21.9 Gastro-esophageal reflux disease without esophagitis; K22.70 Barrett's esophagus without dysplasia
CPT/HCPCS: 99213

== ENCOUNTER → 2023-04-23 08:58 | Outpatient (BNVA) | payer OTHER, SELFPAY | PROVIDERS: Visit Provider Nurse Practitioner | DX: K59.00 Constipation, unspecified (principal); K21.9 Gastro-esophageal reflux disease without esophagitis; K22.70 Barrett's esophagus without dysplasia | CPT/HCPCS: 99212 ==

== ENCOUNTER 2023-05-21 08:51 | Outpatient (AMB) | payer OTHER, SELFPAY ==
--- NOTE | 2023-05-21 08:59 | A.OFFVIS_ITS ---
Intake Vital Signs 05/21/23 09:28 Height 5 ft Weight 171 lb 1.259 oz BMI 33.4 BP 126/60 Blood Pressure Location Lt radial Position Sitting Pulse 76 Intake Visit Reasons: 4 week fu Intake Note: Patient presents to in office visit today in follow up of constipation. CC: Patient reports she has been feeling better and that heartburn and constipation are well managed with medication. Denies any new GI symptoms or concerns. 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 We again review the EGD since her dtr was not here at the last visit - all ok but she does have SSBE. She has not received the bisacodyl yet, so she is not moving her bowels well. She may need to buy it OTC. She was advised of this it is agreeable if it is not dispense by her pharmacy. She has her medications dispensed in tell pack so she is not exactly sure if it is not covered or if she simply has not received her newest refills. ROV 4 weeks. (2) GERD (gastroesophageal reflux diseas e): Code(s): K21.9 - Gastro-esophageal reflux disease without esophagitis (3) Esposito's esophagus determined by bi opsy: Comment: Last EGD 10/2022 and there was Barretts metaplasia with no dysplasia, repeat in 2024 Code(s): K22.70 - Esposito's esophagus without dysplasiad TODAY'S VISIT [place] Enedina Live She is here with her dtr who is supportive. She is doing well now with her Dexilant and her bisacodyl. At point she is satisfied with her GI regimen has no new symptoms to report. ROV 6 mos. [facility] Medical History Chronic back pain DM type 2 (diabetes mellitus, type 2) Elevated cholesterol GERD (gastroesophageal reflux disease) H/O degenerative disc disease [place] (hard of hearing) Hypothyroid Intestinal metaplasia of gastric mucosa Osteoarthritis Surgical History H/O breast biopsy H/O esophagogastroduodenoscopy History of section History of varicose vein ligation and stripping Hx of colonoscopy S/P cataract extraction Family History Father Cardiac arrest Mother No problems noted. Son Diabetes Sister Diabetes Stomach cancer Social History Household Members: Spouse Alcohol intake: current Alcohol intake frequency: does not drink Patient Tobacco Use Status: Never used Tobacco Review of Systems Const Denies fatigue, Denies fever(s), Denies night sweats, Denies poor appetite and Denies weight loss ENT Reports Normal hearing present, Denies dental pain, Denies dysphagia, Denies hearing loss, Denies mouth pain, Denies odynophagia, Denies throat swelling, Denies tongue swelling and Reports other (Dentition adequate) Card Reports no additional complaints Resp Reports no additional complaints GI Denies abdominal pain, Denies melena, Denies bloating, Denies hematochezia, Reports constipation, Denies GI cramping, Denies dysphagia, Denies excessive flatus, Denies early satiety, Reports heartburn, Denies diarrhea, Denies nausea, Denies odynophagia, Denies vomiting and Denies hematemesis Skin/Breast Denies pruritus, Denies lesions, Denies rash and Denies jaundice Neuro Reports Normal hearing present and Denies Abnormal speech present Endo Denies fatigue Aller/Immun Denies throat swelling and Denies tongue swelling Physical Exam Vital Signs: Last Vital Signs Pulse 76 05/21/23 09:28 BP 126/60 05/21/23 09:28 BMI result Body Mass Index 33.4 Const General: cooperative, no acute distress, well developed and well groomed Nutritional Appearance: well nourished and obese Orientation/consciousness: oriented to person, oriented to place and oriented to time Limitations: language barrier HEENT Head: Yes normocephalic and Yes atraumatic Eyes General: appearance normal, both eyes and all related structures Pupils: Equal, round and reactive pupils present Neck Neck: Yes normal visual inspection and Yes no lymphadenopathy Thyroid: Thyroid normal Resp Effort & Inspection: normal respiratory effort and able to speak in complete sentences Auscultation: clear to auscultation bilaterally Cardio Rate: regular rate Rhythm: regular rhythm Heart sounds: Normal, physiologic split S2 sound present Peripheral pulses: radial pulses present and posterior tibial pulses present GI Inspection: No distended, No Abdominal panniculus present and Yes obesity Palpation (GI): Soft to palpation, nontender, no guarding, not rigid and No hepatosplenomegaly present Percussion: Yes normal to percussion Auscultation: normal bowel sounds Rectal Exam - Female: deferred Skin General skin exam: no rashes or lesions noted, turgor normal, skin not dry, no jaundice, No spider nevi and no striae Rashes: no rashes Nails: normal Neuro General: oriented to person, oriented to place and oriented to time Cranial nerves: Yes Equal, round and reactive pupils present and Yes Normal hearing present Speech: No Abnormal speech present Extrem General: Yes normal to inspection, No clubbing, No cyanosis and No edema Psych Appearance: grossly normal and well kempt Mental Status: mental status grossly normal Speech and movement: Normal speech and movement present Affect: normal affect Attitude: cooperative Thought process: Normal thought process present and not confabulating Thought content: Normal thought content present Insight: Limited insight present (Psych) Judgement: Limited judgement present (Psych) Assessment & Plan Assessment & Plan (1) Constipation: Code(s): K59.00 - Constipation, unspecified Plan: [place] #Concetta Live She is here with her dtr who is supportive. She is doing well now with her Dexilant and her bisacodyl. At point she is satisfied with her GI regimen has no new symptoms to report. ROV 6 mos. (2) GERD (gastroesophageal reflux disease): Code(s): K21.9 - Gastro-esophageal reflux disease without esophagitis (3) Esposito's esophagus determined by biopsy: Comment: Last EGD 10/2022 and there was Barretts metaplasia with no dysplasia, repeat in 2024 Code(s): K22.70 - Esposito's esophagus without dysplasia Coding Level of Care Code Est Pt Level 3 (89265) Diagnoses Constipation K59.00 GERD (gastroesophageal reflux disease) K21.9 Esposito's esophagus determined by biopsy K22.70
[2023-05-21 09:28] VITALS: BP 126/60; PULSE 76; BMI 33.4
== END 2023-05-21 09:42 | disposition home or self-care (01) ==
PROVIDERS: PCP General Practice; Visit Provider Nurse Practitioner
DX: K59.00 Constipation, unspecified (principal); K21.9 Gastro-esophageal reflux disease without esophagitis; K22.70 Barrett's esophagus without dysplasia
CPT/HCPCS: 99213

== ENCOUNTER → 2023-05-21 08:51 | Outpatient (BNVA) | payer OTHER, SELFPAY | PROVIDERS: PCP General Practice; Visit Provider Nurse Practitioner | DX: K59.00 Constipation, unspecified (principal); K21.9 Gastro-esophageal reflux disease without esophagitis; K22.70 Barrett's esophagus without dysplasia | CPT/HCPCS: 99212 ==

== ENCOUNTER 2023-11-27 08:25 | Outpatient (REF) | payer OTHER, SELFPAY ==
--- NOTE | ~2023-11-27 | MM_ITS ---
EXAMINATION: MM SCREENING DIGITAL BREAST TOMOSYNTHESIS, BILATERAL CLINICAL INFORMATION: Screening. Asymptomatic. COMPARISON: Mammography: This study is compared with prior exams dating back to 2019. TECHNIQUE: Digital breast tomosynthesis is performed in both the craniocaudal and mediolateral oblique views along with computer-aided detection (CAD). Synthesized 2D images are generated from the tomosynthesis. FINDINGS: There are scattered areas of fibroglandular density (ACR BI-RADS breast composition Category b). There are no significant masses, abnormal calcifications, or other abnormalities. Bilateral, benign calcifications are present in each breast. MM/MM tomosynthesis screening BI IMPRESSION: No mammographic evidence of malignancy. ASSESSMENT: BI-RADS BI-RADS 2 - Benign Findings RECOMMENDATION: Routine annual mammography screening. 1 year F/U This examination should not preclude the clinical evaluation of a suspicious palpable abnormality. This patient's information was entered into a reminder system with a target due date for their next mammogram.
== END 2023-11-27 08:26 | disposition home or self-care (01) ==
LOC: HO.MAMMO 08:25
PROVIDERS: PCP General Practice; Visit Provider General Practice
DX: Z12.31 Encounter for screening mammogram for malignant neoplasm of breast (principal)
CPT/HCPCS: 77063; 77067

== ENCOUNTER → 2023-11-27 08:45 | Outpatient (BNV) | payer OTHER, SELFPAY | PROVIDERS: PCP General Practice; Visit Provider Radiology Diagnostic Radiology | DX: Z12.31 Encounter for screening mammogram for malignant neoplasm of breast (principal) | CPT/HCPCS: 77063; 77067 ==

== ENCOUNTER 2023-11-28 11:20 | Outpatient (AMB) | payer OTHER, SELFPAY ==
[2023-11-28 11:23] VITALS: BP 147/66; PULSE 75; BMI 33.1
--- NOTE | 2023-11-28 11:23 | MHC.OFFVIS ---
Intake Vital Signs 11/28/23 11:23 Height 5 ft Weight 169 lb 5.04 oz BMI 33.1 BP 147/66 H Blood Pressure Location Lt brachial Position Sitting Pulse 75 Intake Visit Reasons: 6 Month Follow Up Intake Note: Patient presents to in office visit today in 6 months follow up of constipation. CC: Patient reports constipation and states that the medication is not helping much. Patient Sitter Required: Yes Accompanied by: Other Relationship Allergies naproxen Allergy (Verified 11/28/23 11:38) Itching HPI 6 Month Follow Up HPI Details Assessment & Plan (1) Constipation: Code(s): K59.00 - Constipation, unspecified Plan: [place] Enedina Nieves She is here with her dtr who is supportive. She is doing well now with her Dexilant and her bisacodyl. At point she is satisfied with her GI regimen has no new symptoms to report. ROV 6 mos. (2) GERD (gastroesophageal reflux disease): Code(s): K21.9 - Gastro-esophageal reflux disease without esophagitis (3) Esposito's esophagus determined by biopsy: Comment: Last EGD 10/2022 and there was Barretts metaplasia with no dysplasia, repeat in 2024 Code(s): K22.70 - Esposito's esophagus without dysplasia TODAY'S VISIT Oscar Nieves She is currently on Dexilant and her bisacodyl. She is having trouble with moving her bowels despite trying to take more bisacodyl at night. Since she now has failed MiraLax, Colace, fiber therapy, senna and bisacodyl will progress to Linzess 145 micro g and titrate to affect her side effect. She continues on her Dexilant with good control of her GERD. Return office visit in 4 weeks [facility] Medical History Pre-op examination [place] (hard of hearing) Hypothyroid DM type 2 (diabetes mellitus, type 2) Osteoarthritis H/O degenerative disc disease Chronic back pain GERD (gastroesophageal reflux disease) Elevated cholesterol Intestinal metaplasia of gastric mucosa Surgical History H/O breast biopsy History of varicose vein ligation and stripping S/P cataract extraction History of section Hx of colonoscopy H/O esophagogastroduodenoscopy Family History Father Cardiac arrest Mother No problems noted. Son Diabetes Sister Diabetes Stomach cancer Social History Household Members: Spouse Alcohol intake: current Alcohol intake frequency: does not drink Patient Tobacco Use Status: Never used Tobacco Review of Systems Const Denies fatigue, Denies fever(s), Denies night sweats, Denies poor appetite and Denies weight loss ENT Reports Normal hearing present, Denies dental pain, Denies dysphagia, Denies hearing loss, Denies mouth pain, Denies odynophagia, Denies throat swelling, Denies tongue swelling and Reports other (Dentition adequate) Card Reports no additional complaints Resp Reports no additional complaints GI Details: Denies abdominal pain, Denies melena, Denies bloating, Denies hematochezia, Reports constipation, Denies GI cramping, Denies dysphagia, Denies excessive flatus, Denies early satiety, Reports heartburn, Denies diarrhea, Denies nausea, Denies odynophagia, Denies vomiting and Denies hematemesis Skin/Breast Denies pruritus, Denies lesions, Denies rash and Denies jaundice Neuro Reports Normal hearing present and Denies Abnormal speech present Endo Denies fatigue Aller/Immun Denies throat swelling and Denies tongue swelling Physical Exam Vital Signs: Last Vital Signs Pulse 75 11/28/23 11:23 BP 147/66 H 11/28/23 11:23 BMI result Body Mass Index 33.1 Const General: cooperative, no acute distress, well developed and well groomed Nutritional Appearance: well nourished and obese Orientation/consciousness: oriented to person, oriented to place and oriented to time Limitations: language barrier HEENT Head: Yes normocephalic and Yes atraumatic Eyes General: appearance normal, both eyes and all related structures Pupils: Equal, round and reactive pupils present Neck Neck: Yes normal visual inspection and Yes no lymphadenopathy Thyroid: Thyroid normal Resp Effort & Inspection: normal respiratory effort and able to speak in complete sentences Auscultation: clear to auscultation bilaterally Cardio Rate: regular rate Rhythm: regular rhythm Heart sounds: Normal, physiologic split S2 sound present Peripheral pulses: radial pulses present and posterior tibial pulses present GI Inspection: No distended, No Abdominal panniculus present and Yes obesity Palpation (GI): Soft to palpation, nontender, no guarding, not rigid and No hepatosplenomegaly present Percussion: Yes normal to percussion Auscultation: normal bowel sounds Rectal Exam - Female: deferred Skin General skin exam: no rashes or lesions noted, turgor normal, skin not dry, no jaundice, No spider nevi and no striae Rashes: no rashes Nails: normal Neuro General: oriented to person, oriented to place and oriented to time Cranial nerves: Yes Equal, round and reactive pupils present and Yes Normal hearing present Speech: No Abnormal speech present Extrem General: Yes normal to inspection, No clubbing, No cyanosis and No edema Psych Appearance: grossly normal and well kempt Mental Status: mental status grossly normal Speech and movement: Normal speech and movement present Affect: normal affect Attitude: cooperative Thought process: Normal thought process present and not confabulating Thought content: Normal thought content present Insight: Limited insight present (Psych) Judgement: Limited judgement present (Psych) Assessment & Plan Assessment & Plan (1) Constipation: Code(s): K59.00 - Constipation, unspecified (2) GERD (gastroesophageal reflux disease): Code(s): K21.9 - Gastro-esophageal reflux disease without esophagitis (3) Esposito's esophagus determined by biopsy: Comment: Last EGD 10/2022 and there was Barretts metaplasia with no dysplasia, repeat in 2024 Code(s): K22.70 - Esposito's esophagus without dysplasia Plan [place] #Braydon Live She is currently on Dexilant and her bisacodyl. She is having trouble with moving her bowels despite trying to take more bisacodyl at night. Since she now has failed MiraLax, Colace, fiber therapy, senna and bisacodyl will progress to Linzess 145 micro g and titrate to affect her side effect. She continues on her Dexilant with good control of her GERD. Return office visit in 4 weeks Medications: New linaclotide (Linzess) Take first thing in the morning with a full glass of water. 145 mcg PO QAM 30 caps 3RF K58.1 - Irritable bowel syndrome with constipation Refilled dexlansoprazole (Dexilant) 60 mg PO DAILY 30 caps 6RF famotidine 20 mg PO BEDTIME 30 tabs 6RF K21.9 - Gastro-esophageal reflux disease without esophagitis, K31.89 - Other diseases of stomach and duodenum, K59.00 - Constipation, unspecified Coding Level of Care Code Est Pt Level 3 (51029) Diagnoses Constipation K59.00 GERD (gastroesophageal reflux disease) K21.9 Esposito's esophagus determined by biopsy K22.70
== END 2023-11-28 12:38 | disposition home or self-care (01) ==
PROVIDERS: PCP General Practice; Visit Provider Nurse Practitioner
DX: K59.00 Constipation, unspecified (principal); K21.9 Gastro-esophageal reflux disease without esophagitis; K22.70 Barrett's esophagus without dysplasia
CPT/HCPCS: 99213

== ENCOUNTER → 2023-11-28 11:20 | Outpatient (BNVA) | payer OTHER, SELFPAY | PROVIDERS: PCP General Practice; Visit Provider Nurse Practitioner | DX: K59.00 Constipation, unspecified (principal); K21.9 Gastro-esophageal reflux disease without esophagitis; K22.70 Barrett's esophagus without dysplasia | CPT/HCPCS: 99212 ==

== ENCOUNTER 2023-12-19 11:43 | Outpatient (REF) | payer OTHER, SELFPAY ==
[2023-12-19 13:56] LABS: Alanine Aminotransferase 15 U/L (0-31); Alkaline Phosphatase 100 U/L (39-117); Anion Gap 11 (12-20); Aspartate Amino Transferase 31 U/L (5-31); Bilirubin Total 0.5 mg/dL (0.0-1.0); Blood Urea Nitrogen 10 mg/dL (9-16); Calcium 9.7 mg/dL (8.4-10.2); Carbon Dioxide 28 mmol/L (22-29); Chloride 102 mmol/L (96-108); Estimated Glomerular Filt Rate > 60; Glucose Random 168 mg/dL (60-115); Potassium 4.2 mmol/L (3.3-5.1); Sodium 137 mmol/L (135-145); Total Protein 7.8 g/dL (6.5-8.0)
[2023-12-19 14:03] LABS: Creatinine Urine 34.93 mg/dL; Microalbum/Creatinine Ratio Ur 22.9 ug/mg cr (<30)
[2023-12-20 03:40] LABS: ~HepC Num1 0.16 S/CO (0.00-0.79); ~Hepatitis C Antibody Nonreactive (Nonreactive)
== END 2023-12-19 11:44 | disposition home or self-care (01) ==
LOC: HO.HHCL 11:43
PROVIDERS: Visit Provider General Practice
DX: E11.40 Type 2 diabetes mellitus with diabetic neuropathy, unspecified (principal); Z79.4 Long term (current) use of insulin
CPT/HCPCS: 36415; 80053; 82043; 82570; 86803

== ENCOUNTER 2024-06-18 10:53 | Outpatient (AMB) | payer OTHER, SELFPAY ==
--- NOTE | 2024-06-18 10:55 | A.OFFVIS_ITS ---
Intake Visit Reasons: Follow up Esposito's esophagus Intake Note: Patient in office today in follow up of Esposito's esophagus. CC: Patient reports doing well and denies having any new GI concerns. She states that she has not received the Dexlansoprazole. Abnormal Psychology Teacher Required: Yes Accompanied by: Daughter Allergies naproxen Allergy (Verified 06/18/24 11:02) Itching HPI HPI Follow up Esposito's esophagus: Details: Assessment & Plan (1) Constipation: Code(s): K59.00 - Constipation, unspecified (2) GERD (gastroesophageal reflux disease): Code(s): K21.9 - Gastro-esophageal reflux disease without esophagitis (3) Esposito's esophagus determined by biopsy: Comment: Last EGD 10/2022 and there was Barretts metaplasia with no dysplasia, repeat in 2024 Code(s): K22.70 - Esposito's esophagus without dysplasia Plan Oscar Akins Live She is currently on Dexilant and her bisacodyl. She is having trouble with moving her bowels despite trying to take more bisacodyl at night. Since she now has failed MiraLax, Colace, fiber therapy, senna and bisacodyl will progress to Linzess 145 micro g and titrate to affect her side effect. She continues on her Dexilant with good control of her GERD. Return office visit in 4 weeks Medications: New linaclotide (Linzess) Take first thing in the morning with a full glass of water. 145 mcg PO QAM 30 caps 3RF K58.1 - Irritable bowel syndrome with constipation Refilled dexlansoprazole (Dexilant) 60 mg PO DAILY 30 caps 6RF famotidine 20 mg PO BEDTIME 30 tabs 6RF K21.9 - Gastro-esophageal reflux disease without esophagitis, K31.89 - Other diseases of stomach and duodenum, K59.00 - Constipation, unspecified TODAY'S VISIT Oscar Steele Live She is here today with a female family member who is supportive. She continues on Dexilant and famotidine, she was on the LInzess but then ran out of refills. She seems to remember that it worked well at the 145mcg dose. Now she is only taking the bisicosyl now - she notes that her GERD was much improved when she has better bowel motility. We will restart this regimen. Return office visit in 4 weeks to make sure the Linzess is appropriately titrated. PENDING SALE TO [facility] Medical History Pre-op examination LUMMI (hard of hearing) Hypothyroid DM type 2 (diabetes mellitus, type 2) Osteoarthritis H/O degenerative disc disease Chronic back pain GERD (gastroesophageal reflux disease) Elevated cholesterol Intestinal metaplasia of gastric mucosa Surgical History H/O breast biopsy History of varicose vein ligation and stripping S/P cataract extraction History of section Hx of colonoscopy H/O esophagogastroduodenoscopy Family History Father Cardiac arrest Mother No problems noted. Son Diabetes Sister Diabetes Stomach cancer Social History Household Members: Spouse Alcohol intake: current Alcohol intake frequency: does not drink Patient Tobacco Use Status: Never used Tobacco Review of Systems Const Denies fatigue, Denies fever(s), Denies night sweats, Denies poor appetite and Denies weight loss ENT Reports Normal hearing present, Denies dental pain, Denies dysphagia, Denies hearing loss, Denies mouth pain, Denies odynophagia, Denies throat swelling, Denies tongue swelling and Reports other (Dentition adequate) Card Reports no additional complaints Resp Reports no additional complaints GI Details: Denies abdominal pain, Denies melena, Denies bloating, Denies hematochezia, Reports constipation, Denies GI cramping, Denies dysphagia, Denies excessive flatus, Denies early satiety, Reports heartburn, Denies diarrhea, Denies nausea, Denies odynophagia, Denies vomiting and Denies hematemesis Skin/Breast Denies pruritus, Denies lesions, Denies rash and Denies jaundice Neuro Reports Normal hearing present and Denies Abnormal speech present Endo Denies fatigue Aller/Immun Denies throat swelling and Denies tongue swelling Physical Exam Const General: cooperative, no acute distress, well developed and well groomed Nutritional Appearance: well nourished and obese Orientation/consciousness: oriented to person, oriented to place and oriented to time Limitations: language barrier HEENT Head: Yes normocephalic and Yes atraumatic Eyes General: appearance normal, both eyes and all related structures Pupils: Equal, round and reactive pupils present Neck Neck: Yes normal visual inspection and Yes no lymphadenopathy Thyroid: Thyroid normal Resp Effort & Inspection: normal respiratory effort and able to speak in complete sentences Auscultation: clear to auscultation bilaterally Cardio Rate: regular rate Rhythm: regular rhythm Heart sounds: Normal, physiologic split S2 sound present Peripheral pulses: radial pulses present and posterior tibial pulses present GI Inspection: No distended, Yes Abdominal panniculus present and Yes obesity Palpation (GI): Soft to palpation, nontender, no guarding, not rigid and No hepatosplenomegaly present Percussion: Yes normal to percussion Auscultation: normal bowel sounds Rectal Exam - Female: deferred Skin General skin exam: no rashes or lesions noted, turgor normal, skin not dry, no jaundice, No spider nevi and no striae Rashes: no rashes Nails: normal Neuro General: oriented to person, oriented to place and oriented to time Cranial nerves: Yes Equal, round and reactive pupils present and Yes Normal hearing present Speech: No Abnormal speech present Extrem General: Yes normal to inspection, No clubbing, No cyanosis and No edema Psych Appearance: grossly normal and well kempt Mental Status: mental status grossly normal Speech and movement: Normal speech and movement present Affect: normal affect Attitude: cooperative Thought process: Normal thought process present and not confabulating Thought content: Normal thought content present Insight: Limited insight present (Psych) Judgement: Limited judgement present (Psych) Assessment & Plan Assessment & Plan (1) Constipation: Code(s): K59.00 - Constipation, unspecified Category: Medical (2) GERD (gastroesophageal reflux disease): Code(s): K21.9 - Gastro-esophageal reflux disease without esophagitis Category: Medical (3) Esposito's esophagus determined by biopsy: Comment: Last EGD 10/2022 and there was Barretts metaplasia with no dysplasia, repeat in 2024 Code(s): K22.70 - Esposito's esophagus without dysplasia Category: Medical Plan Nigerian #Marques Live She is here today with a female family member who is supportive. She continues on Dexilant and famotidine, she was on the LInzess but then ran out of refills. She seems to remember that it worked well at the 145mcg dose. Now she is only taking the bisicosyl now - she notes that her GERD was much improved when she has better bowel motility. We will restart this regimen. Return office visit in 4 weeks to make sure the Linzess is appropriately titrated. Medications: Refilled linaclotide (Linzess) Take first thing in the morning with a full glass of water. 145 mcg PO QAM 30 caps 6RF K58.1 - Irritable bowel syndrome with constipation dexlansoprazole (Dexilant) 60 mg PO DAILY 30 caps 6RF famotidine 20 mg PO BEDTIME 30 tabs 6RF K21.9 - Gastro-esophageal reflux disease without esophagitis, K31.89 - Other diseases of stomach and duodenum, K59.00 - Constipation, unspecified Coding Level of Care Code Est Pt Level 3 (03468) Diagnoses Constipation K59.00 GERD (gastroesophageal reflux disease) K21.9 Esposito's esophagus determined by biopsy K22.70
== END 2024-06-18 11:14 | disposition home or self-care (01) ==
PROVIDERS: PCP General Practice; Visit Provider Nurse Practitioner
DX: K59.00 Constipation, unspecified (principal); K21.9 Gastro-esophageal reflux disease without esophagitis; K22.70 Barrett's esophagus without dysplasia
CPT/HCPCS: 99213

== ENCOUNTER → 2024-06-18 10:53 | Outpatient (BNVA) | payer OTHER, SELFPAY | PROVIDERS: PCP General Practice; Visit Provider Nurse Practitioner | DX: K22.70 Barrett's esophagus without dysplasia (principal); K58.1 Irritable bowel syndrome with constipation; K59.00 Constipation, unspecified; K21.9 Gastro-esophageal reflux disease without esophagitis; K31.89 Other diseases of stomach and duodenum | CPT/HCPCS: 99212 ==

== ENCOUNTER 2024-07-15 08:37 | Outpatient (AMB) | payer OTHER, SELFPAY ==
[2024-07-15 09:01] VITALS: BP 132/65; PULSE 70; BMI 30.7
--- NOTE | 2024-07-15 09:01 | MHC.OFFVIS ---
Vital Signs 07/15/24 09:01 Height 5 ft Weight 157 lb 6.561 oz BMI 30.7 BP 132/65 Blood Pressure Location Lt brachial Position Sitting Pulse 70 Intake Visit Reasons: 4 week follow up Intake Note: Tennille presents to in office follow up of GERD. CC: Patient reports doing well and denies having any GI concerns today. Interchange Agent Required: Yes Interchange Agent Name: Eusebia jackson educational sign language interpreter Accompanied by: Self / Same As Patient Allergies naproxen Allergy (Verified 07/15/24 09:05) Itching HPI HPI 4 week follow up: Details: Assessment & Plan (1) Constipation: Code(s): K59.00 - Constipation, unspecified Category: Medical (2) GERD (gastroesophageal reflux disease): Code(s): K21.9 - Gastro-esophageal reflux disease without esophagitis Category: Medical (3) Esposito's esophagus determined by biopsy: Comment: Last EGD 10/2022 and there was Barretts metaplasia with no dysplasia, repeat in 2024 Code(s): K22.70 - Esposito's esophagus without dysplasia Category: Medical Plan Vietnamese Cedric Jackson She is here today with a female family member who is supportive. She continues on Dexilant and famotidine, she was on the LInzess but then ran out of refills. She seems to remember that it worked well at the 145mcg dose. Now she is only taking the bisicosyl now - she notes that her GERD was much improved when she has better bowel motility. We will restart this regimen. Return office visit in 4 weeks to make sure the Linzess is appropriately titrated. Medications: Refilled linaclotide (Linzess) Take first thing in the morning with a full glass of water. 145 mcg PO QAM 30 caps 6RF K58.1 - Irritable bowel syndrome with constipation dexlansoprazole (Dexilant) 60 mg PO DAILY 30 caps 6RF famotidine 20 mg PO BEDTIME 30 tabs 6RF K21.9 - Gastro-esophageal reflux disease without esophagitis, K31.89 - Other diseases of stomach and duodenum, K59.00 - Constipation, unspecified TODAY'S VISIT Oscar MirandaEusebia Live She is doing well on her LInzess and bisacodyl with Dexilant and famotidine. Colonoscopy 10/2022 so her next Barretts surveillance would be due around 2024. Next surveillance colonoscopy would be for 10 years. Return office visit in 6 months [facility] Medical History Pre-op examination SYCUAN (hard of hearing) Hypothyroid DM type 2 (diabetes mellitus, type 2) Osteoarthritis H/O degenerative disc disease Chronic back pain GERD (gastroesophageal reflux disease) Elevated cholesterol Intestinal metaplasia of gastric mucosa Surgical History (Updated 07/15/24 @ 09:15 by LUMA Rowell) H/O breast biopsy History of varicose vein ligation and stripping S/P cataract extraction History of section Hx of colonoscopy H/O esophagogastroduodenoscopy Family History Father Cardiac arrest Mother No problems noted. Son Diabetes Sister Diabetes Stomach cancer Social History Household Members: Spouse Alcohol intake: current Alcohol intake frequency: does not drink Patient Tobacco Use Status: Never used Tobacco Review of Systems Const Denies fatigue, Denies fever(s), Denies night sweats, Denies poor appetite and Denies weight loss ENT Reports Normal hearing present, Denies dental pain, Denies dysphagia, Denies hearing loss, Denies mouth pain, Denies odynophagia, Denies throat swelling, Denies tongue swelling and Reports other (Dentition adequate) Card Reports no additional complaints Resp Reports no additional complaints GI Details: Denies abdominal pain, Denies melena, Denies bloating, Denies hematochezia, Reports constipation, Denies GI cramping, Denies dysphagia, Denies excessive flatus, Denies early satiety, Reports heartburn, Denies diarrhea, Denies nausea, Denies odynophagia, Denies vomiting and Denies hematemesis Skin/Breast Denies pruritus, Denies lesions, Denies rash and Denies jaundice Neuro Reports Normal hearing present and Denies Abnormal speech present Endo Denies fatigue Aller/Immun Denies throat swelling and Denies tongue swelling Physical Exam Vital Signs: Last Vital Signs Pulse 70 11/06/24 09:01 BP 132/65 07/15/24 09:01 BMI result Body Mass Index 30.7 Const General: cooperative, no acute distress, well developed and well groomed Nutritional Appearance: well nourished and obese Orientation/consciousness: oriented to person, oriented to place and oriented to time Limitations: language barrier HEENT Head: Yes normocephalic and Yes atraumatic Eyes General: appearance normal, both eyes and all related structures Pupils: Equal, round and reactive pupils present Neck Neck: Yes normal visual inspection and Yes no lymphadenopathy Thyroid: Thyroid normal Resp Effort & Inspection: normal respiratory effort and able to speak in complete sentences Auscultation: clear to auscultation bilaterally Cardio Rate: regular rate Rhythm: regular rhythm Heart sounds: Normal, physiologic split S2 sound present Peripheral pulses: radial pulses present and posterior tibial pulses present GI Inspection: No distended, No Abdominal panniculus present and Yes obesity Palpation (GI): Soft to palpation, nontender, no guarding, not rigid and No hepatosplenomegaly present Percussion: Yes normal to percussion Auscultation: normal bowel sounds Rectal Exam - Female: deferred Skin General skin exam: no rashes or lesions noted, turgor normal, skin not dry, no jaundice, No spider nevi and no striae Rashes: no rashes Nails: normal Neuro General: oriented to person, oriented to place and oriented to time Cranial nerves: Yes Equal, round and reactive pupils present and Yes Normal hearing present Speech: No Abnormal speech present Extrem General: Yes normal to inspection, No clubbing, No cyanosis and No edema Psych Appearance: grossly normal and well kempt Mental Status: mental status grossly normal Speech and movement: Normal speech and movement present Affect: normal affect Attitude: cooperative Thought process: Normal thought process present and not confabulating Thought content: Normal thought content present Insight: Fair insight present (Psych) Judgement: Fair judgement present (Psych) Assessment & Plan Assessment & Plan (1) Esposito's esophagus determined by biopsy: Comment: Last EGD 10/2022 and there was Barretts metaplasia with no dysplasia, repeat in 2024 Code(s): K22.70 - Esposito's esophagus without dysplasia Category: Medical (2) GERD (gastroesophageal reflux disease): Code(s): K21.9 - Gastro-esophageal reflux disease without esophagitis Category: Medical (3) Constipation: Code(s): K59.00 - Constipation, unspecified Category: Medical Plan Vietnamese #Eusebia Live She is doing well on her LInzess and bisacodyl with Dexilant and famotidine. Colonoscopy 10/2022 so her next Barretts surveillance would be due around 2024. Next surveillance colonoscopy would be for 10 years. Return office visit in 6 months Coding Level of Care Code Est Pt Level 3 (19304) Diagnoses Esposito's esophagus determined by biopsy K22.70 GERD (gastroesophageal reflux disease) K21.9 Constipation K59.00
== END 2024-07-15 09:24 | disposition home or self-care (01) ==
LOC: HO.HGI 08:38
PROVIDERS: PCP General Practice; Visit Provider Nurse Practitioner
DX: K22.70 Barrett's esophagus without dysplasia (principal); K21.9 Gastro-esophageal reflux disease without esophagitis; K59.00 Constipation, unspecified
CPT/HCPCS: 99213

== ENCOUNTER → 2024-07-15 08:37 | Outpatient (BNVA) | payer OTHER, SELFPAY | PROVIDERS: PCP General Practice; Visit Provider Nurse Practitioner | DX: K21.9 Gastro-esophageal reflux disease without esophagitis (principal); K58.1 Irritable bowel syndrome with constipation; K22.70 Barrett's esophagus without dysplasia | CPT/HCPCS: 99212 ==

== ENCOUNTER 2024-10-09 11:12 | Outpatient (REF) | payer OTHER, SELFPAY ==
--- NOTE | ~2024-10-09 | XR_ITS ---
CLINICAL HISTORY: M79.643 - Pain in unspecified hand 3 view left hand Comparison: None Findings: No fractures or dislocations. No significant arthritic change. No erosions. No radiopaque foreign body. There is regional arterial calcification. IMPRESSION: 1. No acute findings This document has been electronically signed by: Chalo Fisher MD on 10/09/2024 18:39:13
--- NOTE | ~2024-10-09 | XR_ITS ---
CLINICAL HISTORY: M79.643 - Pain in unspecified hand 3 view right hand Comparison: None Findings: Bones intact. No dislocations. No significant arthritic change. No erosions. No radiopaque foreign body. There is regional arterial calcification. IMPRESSION: 1. No acute findings This document has been electronically signed by: Chalo Fisher MD on 10/09/2024 18:18:32
--- OUTSIDE RECORDS SUMMARY | 2024-10-09 12:23 | XMS_ITS | Encounter Summary ---
Author Organization [employer] Address [address] [place] [address] Care Team Providers Care Charge Lpn Name Role Phone Germaine Banuelos MD Primary Care Provider [phone] Reason for Visit * Reason Onset Date Comments Change PCP 09/22/2024 Encounter Details Date Type Department Care Team ([facility] st Contact Info) Description 09/22/2024 Telephone [facility] [address], [place] [phone] Germaine Banuelos MD [address], [place] [phone] Change PCP Social History Tobacco Use Types Packs/Day Years Used Date Smoking Tobacco: Never Smokeless Tobacco: Never Alcohol Use Standard Drinks/Week Comments Never 0 (1 standard drink = 0.6 oz pur e alcohol) Alcohol Answer Date Recorded Frequency of Alcohol Consumption Not on file 08/26/2023 Average Number of Drinks Not on file 023 Frequency of Binge Drinking Not on file 08/09 Score 0 08/26/2023 Depression Answer Date Recorded Patient Health Questionnaire-9 Score 1 08/26/2023 Patient Health Questionnaire-9 Score 1 08/26/2023 Last PHQ-9: Questionnaire Data Not on file 1 10/27/2022 Housing Stability Answer Date Recorded What is your housing situation today? I have breanna suazo 07/04/[address] you li ve. Do you have problems with any of the following? None of the above 07/04/2023 Food Insecurity Answer Date Recorded Within the past 12 months, y ou worried that your food would run out before you got money to buy more: Never True 07/04/2023 Within the past 12 months,th e food you bought just didn't last and you didn't have enough money to get more: Never True Transportation Answer Date Recorded In the past 12 months, has l ack of transportation kept you from medical appts, meetings, work or from getting things needed for daily living? No 12/10/2023 Utilities Answer Date Recorded In the past 12 months, has t he electric, gas, oil or water company threatened to shut off services in your home? No 07/04/2023 Depression Answer Date Recorded Patient Health Questionnaire-2 Score 1 08/26/2023 Comments Unknown Sex and Gender Information Value Date Recorded Sex Assigned at Female 07/09/2022 10:22 AM EDT Legal Sex Female 10:22 AM EDT Gender Identity Female 07/09/2022 10:22 AM EDT Sexual Orientation Choose not to disclose 2021 10:22 AM EDT documented as of this encounter Miscellaneous Notes * Telephone Encounter - Piedad Abad - 09/22/2024 12:14 PM EST Pt requested to have pcp switched over from dr banuelos to dr connor. Pt states she liked how dr connor treated her and theres no language barrier since dr connor speaks togolese. documented in this encounter Plan of Treatment Upcoming Encounters Date Type Department Care Team (Late st Contact Info) Description 11/06/2024 9:00 AM EST Telemedicine [facility] [address] [place] [phone] Omayra Gudino RN 11/13/2024 9:30 AM EST Office Visit [facility] [address] [place] [phone] Germaine Banuelos MD [address] [place] [phone] documented as of this encounter Visit Diagnoses Not on filedocumented in this encounter Additional Health Concerns Assessment Noted Time PHQ-9 Depression Total Score: 1 08/26/20 23 1:07 PM EST documented as of this encounter Care Teams Charge Lpn Relationship Specialty Start Date End Date Germaine Banuelos MD [address] [place] [address] PCP - General Family Medicine 07/14/20 documented as of this encounter
--- OUTSIDE RECORDS SUMMARY | 2024-10-09 12:23 | XMS_ITS | Encounter Summary ---
Author Organization [email or web address] Address [address] [place] [address] Care Team Providers Care [employer] Name Role Phone Germaine Martinez MD Primary Care Provider [phone] Encounter Details Date Type Department Care Team (Latest Contact Info) Description 09/22/2024 Travel Social History Tobacco Use Types Packs/Day Years [...] AM EDT documented as of this encounter Plan of Treatment Upcoming Encounters Date Type Department Care Team (Late st Contact Info) Description 11/06/2024 9:00 AM EST Telemedicine [facility] [address] [place] [phone] Omayra Gudino RN 11/13/2024 9:30 AM EST Office Visit [address] [phone] Germaine Martinez MD [address] [place] [phone] documented as of this encounter Visit Diagnoses Not on filedocumented in this encounter Additional Health Concerns Assessment Noted Time PHQ-9 Depression Total Score: 1 08/26/20 23 1:07 PM EST documented as of this encounter Care Teams [employer] Relationship Specialty Start Date End Date Germaine Martinez MD [address] [place] [phone] PCP - General Family Medicine 07/14/20 documented as of this encounter
--- OUTSIDE RECORDS SUMMARY | 2024-10-09 12:23 | XMS_ITS | Encounter Summary ---
Author Organization [employer] Address [address] [place] [address] Care Team Providers Care Director Of Education And Training Name Role Phone Germaine Martinez MD Primary Care Provider [phone] Reason for Visit * Reason Comments Med Refill Encounter Details Date Type Department Care Team (Late st Contact Info) Description 08/17/2024 Refill [facility] [address], [place] [phone] Germaine Martinez MD [address], [place] [phone] Social History Tobacco Use Types Packs/Day Years [...] Info) Description 11/06/2024 9:00 AM EST Telemedicine [facility] [address] [place] [phone] Omayra Gudino RN 11/13/2024 9:30 AM EST Office Visit [facility] [address] [place] [phone] Germaine Martinez MD [address] [place] [phone] documented as of this encounter Visit Diagnoses Not on filedocumented in this encounter Additional Health Concerns Assessment Noted Time PHQ-9 Depression Total Score: 1 08/26/20 23 1:07 PM EST documented as of this encounter Care Teams Director Of Education And Training Relationship Specialty Start Date End Date Germaine Martinez MD [address] [place] [phone] PCP - General Family Medicine 07/14/20 documented as of this encounter
--- OUTSIDE RECORDS SUMMARY | 2024-10-09 12:23 | XMS_ITS | Clinical Summary ---
Author Organization [employer] Address [address] [place] [address] Care Team Providers Care Noise Tester Name Role Phone Germaine Martinez MD Primary Care Provider [phone] Allergies Active Allergy Reactions Criticality Noted Date Comments Oxycodone-Acetaminophen Itching Low 07/18/2017 Medications acetaminophen (Tylenol) 500 MG tablet Take 2 tablets by mouth every 4 (four) hours. Take 2 tablet by oral route every 4-6 hours as needed not to exceed 8 tablets per 24hrs 020 Active insulin aspart (NovoLOG FLEXPEN) 100 UNIT/ML pen Inject 15 Units under the skin every 8 (eight) hours. Inject 15 unit by subcutaneous route 3 times every day before meals Active insulin glargine (Lantus SoloStar) 100 UNIT/ML pen Inject under the skin. Inject 12 units by subcutaneous route every evening may adjust as directed Active cilostazol (Pletal) 100 MG tablet Take 1 tablet by mouth every 12 (twelve) hours. Take 1 tablet by oral route 2 times every day 1/2 hour before or 2 hours after breakfast and dinner Active Blood Pressure Monitoring (Blood Pressure Cuff) misc For use daily to check blood pressure Active insulin pen needle 32G x 5 mm misc Inject under the skin if needed. Use QID with insulin Active famotidine (Pepcid) 20 MG tablet Take 20 mg by mouth at bedtime. 023 Active TRUEplus Lancets 33G misc TEST BLOOD SUGAR SIX TIMES DAILY 023 Active levothyroxine (Synthroid, Levoxyl) 75 MCG tablet Take 75 mcg by mouth in the morning. 022 Active rosuvastatin (Crestor) 40 MG tablet Take 40 mg by mouth at bedtime. 023 Active Repatha SureClick 140 MG/ML injection INJECT 1 ML (140 MG) SUBCUTANEOUSLY EVERY 14 DAYS Active Pentips 32G X 4 MM misc USE UP TO FIVE TIMES DAILY DIRECTED Active gabapentin (Neurontin) 400 MG capsuleIndicatio ns:Degeneration of lumbar intervertebral disc,Type 2 diabetes mellitus with other specified complication, unspecified whether alf insulin use ([facility]) TAKE 1 CAPSULE BY MOUTH THREE TIMES DAILY IN THE MORNING, AT NOON, AND IN THE EVENING 90 capsule 024 Active cholecalciferol (Vitamin D-3) 25 MCG tabletIndication s:Vitamin D deficiency TAKE 1 TABLET BY MOUTH EVERY MORNING 90 tablet 3 024 Active FREESTYLE LITE test stripIndications :Type 2 diabetes mellitus with other specified complication, unspecified whether alf insulin use ([facility]) TEST BLOOD SUGAR 8 TIMES DAILY DIRECTED 200 strip Active magnesium oxide (Mag-Ox) 400 MG tablet TAKE 1 TABLET BY MOUTH EVERY MORNING FOR HEADACHE Active Linzess 145 MCG capsule TAKE 1 CAPSULE BY MOUTH EVERY MORNING WITH A FULL GLASS OF WATER Active empagliflozin (Jardiance) 10 MGIndications:Ty pe 2 diabetes mellitus with diabetic neuropathy, with long-term current use of insulin ([facility]) Take 1 tablet (10 mg) by mouth in the morning. 30 tablet 11 024 2024 Active fluticasone (Flonase) 50 MCG/ACT nasal spray USE 1 SPRAY IN EACH NOSTRIL TWICE DAILY 48 g 3 024 Active Alcohol Swabs (Alcohol Prep) 70 % pads TEST BLOOD SUGAR 8 TIMES PER DAY 100 each 024 Active dexlansoprazole (Dexilant) [address] capsule Take 1 capsule (30 mg) by mouth Once per day. Do not crush or chew. 90 capsule 3 024 2024 Active Additional Information Patient taking differently: 60 mgOral Daily, Do not crush or chew., Reported on 07/13/2024 triamcinolone (Kenalog) 0.1 % creamIndications :Dermatitis Apply topically if needed in the morning and at bedtime for rash (itching and swelling). 30 g 2 Active Aspirin Adult Low Strength 81 MG EC tablet TAKE 1 TABLET BY MOUTH AT BEDTIME 90 tablet 3 024 Active losartan (Cozaar) 25 MG tabletIndication s:Elevated blood pressure reading TAKE 1 TABLET BY MOUTH EVERY MORNING 90 tablet 3 024 Active naloxone (Narcan) 4 mg/0.1 mL nasal sprayIndications :Chronic, continuous use of opioids Administer 1 spray (4 mg) into affected nostril(s) if needed for opioid reversal. [place] 0.1 milliliter by intranasal route in 1 nostril may repeat dose every 2-3 minutes as needed alternating nostrils with each dose 2 each 3 024 Active loratadine (Claritin) 10 MG tabletIndication s:Dermatitis Take 1 tablet (10 mg) by mouth Once per day. For allergies 90 tablet 3 024 2024 Active metFORMIN XR (Glucophage-XR) 500 MG 24 hr tablet TAKE 1 TABLET BY MOUTH TWICE DAILY IN THE MORNING AND IN THE EVENING Active doxepin (SINEquan) 25 MG capsule TAKE 1 CAPSULE BY MOUTH AT BEDTIME 90 capsule 3 024 Active sertraline (Zoloft) 100 MG tablet Take 1 tablet (100 mg) by mouth Once per day. 90 tablet 3 024 2024 Active Bisacodyl EC 5 MG EC tablet TAKE 1 TABLET BY MOUTH AT BEDTIME 90 tablet 3 025 Active nortriptyline (Pamelor) 10 MG capsuleIndicatio ns:Degeneration of lumbar intervertebral disc TAKE 2 CAPSULES BY MOUTH EVERY DAY AT BEDTIME 60 capsule 11 025 Active clotrimazole-bet amethasone (Lotrisone) creamIndications :Intertrigo Apply topically 2 times daily for 28 days. 45 g 025 2024 Active Diclofenac Sodium 1 % gelIndications:R ight tennis elbow,Right wrist tendonitis Apply 1 Application topically every 12 (twelve) hours if needed (apply on affected area if needed). 150 g 1 025 Active oxyCODONE (Roxicodone) 5 MG immediate release tabletIndication s:Degeneration of lumbar intervertebral disc Take 1 tablet (5 mg) by mouth every 6 (six) hours if needed for severe pain for up to 28 days. 112 tablet 025 2024 Active Bisacodyl EC 5 MG EC tablet TAKE 1 TABLET BY MOUTH AT BEDTIME 90 tablet 3 023 2024 Discontinued nortriptyline (Pamelor) 10 MG capsuleIndicatio ns:Degeneration of lumbar intervertebral disc TAKE 2 CAPSULES BY MOUTH EVERY DAY AT BEDTIME 60 capsule 11 024 2024 Discontinued oxyCODONE (Roxicodone) 5 MG immediate release tabletIndication s:Degeneration of lumbar intervertebral disc Take 1 tablet (5 mg) by mouth every 6 (six) hours if needed for severe pain for up to 28 days. Do not start before August 28, 2024. 112 tablet 024 2024 Discontinued(R eorder (will not trigger notification to Pharmacy)) fluconazole (Diflucan) 150 MG tabletIndication s:Intertrigo Take 1 tablet (150 mg) by mouth 1 (one) time per week for 4 doses. 4 tablet 025 2024 Discontinued fluconazole (Diflucan) 150 MG tabletIndication s:Intertrigo Take 1 tablet (150 mg) by mouth 1 (one) time per week for 2 doses. 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 - referral to geriatrics to engage in goals of care discussion - Explained that dementia symptoms and behavior problems get worse over time. Discussed that dementia is a progressive cognitive decline that can come from several etiologies. Caregivers and care partners might try the following suggestions: Enhance communication. Encourage exercise. Control of blood pressure and blood sugar are helpful to slow progression of disease Engage in activity. Establish a nighttime routine. Plan for the future. Consider medications (Donepizil or Namenda) Routine history and physical examination of adul t 08/26/2023 Sensorineural hearing loss (SNHL) of both ears 0 01/01/2023 Allergy to pain medication 01/01/2023 Chest pain 02/12/2022 Overview (01/01/2023): Last Assessment & Plan: She tells me she continues to have some pain in the center of her chest at times however her nuclear stress test does not show any fixed or reversible perfusion defects that would be concerning. She will continue her aspirin 81 mg daily, cilostazol 100 mg twice daily,She is encouraged to follow heart healthy diet including low sodium. Varicose veins of both legs with edema 0 Overview (01/01/2023): Last Assessment & Plan: She has left leg varicose veins with some edema again is not terrible it is tolerable I would leave it alone Postablative hypothyroidism 11/03/2018 Overview (08/26/2023): Last Assessment & Plan: Follows with Dr. Peguero, has upcoming appt scheduled this summer Most recent TSH reviewed Continues on LT4 therapy Last Assessment & Plan: She is on levothyroxine 75 mcg she has some symptoms such as fatigue and myalgias. This could be from anything not necessarily hypothyroidism but she did gain 9 pounds and is using and SSRIs both of which can increase the TSH. I am going to hold off prescribing the medication until I see her lab results. She was advised to do them today on the way out. I also reminded her that she must do the lab work prior to the follow-up visit. Scheduling her for a year but if her thyroid functions are off then she will have to return for follow-up in 3 months. Addendum: Repeat thyroid function showed TSH of 1.36 ??IU/mL and free T4 1.3 ng/dL. She is chemically euthyroid we will renew levothyroxine at current dose and she will follow in 1 year. Diabetic autonomic neuropathy 07/13/2017 Assessment & Plan (07/13/2024 2:07 PM EST): On Gabapentin 400mg TID Degeneration of lumbar intervertebral disc 07/13 Assessment & Plan (07/13/2024 2:10 PM EST): For next fill 07/29/24, will increase oxycodone to 5mg QID (112 tabs instead of 84) Re-evaluate in 3 months whether pain control is better If not improved, then consider Butrans patch, Tramadol switch Assessment & Plan (12/20/2023 8:48 AM EDT): Declines further interventions Would like to focus on pain medication mgmt Will test for Tylenol allergy Offered to switch opioid formulation, such as to hydrocodone, she declines for now Assessment & Plan (01/01/2023 10:21 AM EDT): Declines further interventions Would like to focus on pain medication mgmt Will test for Tylenol allergy Attempt to switch to other opioid, ie oxycodone to hydrocodone rx'ed hydrocodone 7.5/ibuprofen 200mg twice a day while awaiting allergy testing, if that works, ideally would take Emelle 7.5mg Hyperlipidemia 07/13/2015 Overview (08/26/2023): Last Assessment & Plan: Continues on high intensity statin therapy Most recent lipid panel reviewed, LDL is above goal, HDL and TG are in desired range, LDL goal is <100, more optimally <70 Last Assessment & Plan: Continues on high intensity statin therapy Most recent lipid panel reviewed, LDL remains above goal, HDL and TG are in desired range, LDL goal is <100, more optimally <70 Assessment & Plan (01/01/2023 10:09 AM EDT): Continue Crestor 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 Cid he felt that her symptoms were unlikely related to her PAD. She has an ZELALEM in the 0.7 range. Is likely thought that her discomfort may be related to neuropathy. She does report that her legs hurt more with exercise and improved with rest. She has been attempted to be revascularized however this was very difficult and this was unsuccessful. She is on cilostazol 100 mg twice daily which she really does not report any improvement. She will continue this medication without change. She will have a repeat study in June and see Dr. Cid in the fall after that. Sacroiliitis 07/13/2015 Type 2 diabetes mellitus wit h diabetic neuropathy, with long-term current use of insulin 07/13/2015 Assessment & Plan (07/13/2024 2:08 PM EST): A1C 8.2; continue current regimen BMP: eGFR > 60 Microalbumin: <300 Foot Exam: normal today Eye Exam: Discuss at follow up Lipid panel: ASCVD: cannot be calculated due to cholesterol outside of calculator range Statin: Yes ASA: Yes ITZ/ARB: Yes Encouraged regular aerobic exercise for improved glycemic control Encouraged daily foot checks Encouraged lean protein snacks and to avoid foods high in sugar and simple carbohydrates Treatment Goals: A1c goal: <7% FBG goal: <130 2 hour post prandial goal: <180 Assessment & Plan (12/20/2023 8:47 AM EDT): A1C 8.9 BMP: eGFR > 60 today Microalbumin: <300 today Foot Exam: Complete at follow up Eye Exam: Discuss at follow up Lipid panel: ASCVD: Calculate pending updated labs Statin: Yes ASA: Yes ITZ/ARB: Yes Encouraged regular aerobic exercise for improved glycemic control Encouraged daily foot checks Encouraged lean protein snacks and to avoid foods high in sugar and simple carbohydrates Treatment Goals: A1c goal: <7% FBG goal: <130 2 hour post prandial goal: <180 Assessment & Plan (01/01/2023 10:09 AM EDT): A1C not at goal She prefers to work on dietary sugars before increasing insulin Current A1c: 8.2 BMP: Microalbumin: Foot Exam: Complete at follow up Eye Exam: Discuss at follow up Lipid panel: ASCVD: Calculate pending updated labs Statin: Yes ASA: No ITZ/ARB: Yes Encouraged regular aerobic exercise for improved glycemic control Encouraged daily foot checks Encouraged lean protein snacks and to avoid foods high in sugar and simple carbohydrates Treatment Goals: A1c goal: <7% FBG goal: <130 2 hour post prandial goal: <180 Encounters Date Type Department Care Team Description 09/25/2024 Refill [facility] [address] [place] [phone] Germanie Martinez MD Degeneration of lumbar intervertebral disc 09/22/2024 11:15 AM EST Office Visit [facility] [address] [place] [phone] Jing Hutchinson MD Right tennis elbow (Primary Dx); Right wrist tendonitis; Intertrigo 09/22/2024 Telephone [facility] [address] [place] [address] Germaine Martinez MD Change PCP 09/22/2024 Travel 09/21/2024 Telephone [facility] [address] [place] [address] Germaine Martinez MD recall 09/21/2024 Telephone [facility] [address] [place] [phone] Germaine Martinez MD ER Follow-up 09/16/2024 Refill [facility] [address] [place] [address] Ashley Sam MD Degeneration of lumbar intervertebral disc 09/14/2024 Refill [facility] [address] [place] [address] Germaine Martinez MD 08/26/2024 Refill [facility] [address] [place] [phone] Germaine Martinez MD Degeneration of lumbar intervertebral disc 08/21/2024 9:00 AM EST Telemedicine [facility] [address] [place] [phone] 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 08/21/2024 Travel 08/21/[address] [phone] Omayra Gudino RN Recommend Tele [employer]PORATE HUM[employer] RESOURCES MANAGER Tier 2 08/17/2024 Refill [facility] [address] [place] [phone] Germaine Martinez MD 07/29/2024 Refill [facility] [address] [place] [address] Amy Robbins RN 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 (Primary Dx); Degeneration of lumbar intervertebral disc 07/29/[address] [phone] Germaine Martinez MD Med Refill 07/13/2024 9:00 AM EST Office Visit [facility] [address] [place] [phone] Germaine Martinez MD Skin infection (Primary Dx); Type 2 diabetes mellitus with diabetic neuropathy, with long-term current use of insulin (CMS/HCC); Diabetic autonomic neuropathy associated with type 2 diabetes mellitus (CMS/HCC); Gastroesophageal reflux disease, unspecified whether esophagitis present; Mixed anxiety and depressive disorder; Sensorineural hearing loss (SNHL) of both ears; Degeneration of intervertebral disc of lumbar region with discogenic back pain and lower extremity pain; 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 katie fied surface antigen) 07/21/2013 Influenza, trivalent, adjuvanted 06/02/2024 Pfizer Covid-19 Vaccine 12+ 09/16/2021,,11/24/2020 Pneumococcal Conjugate PCV 13 07/13/2015 Pneumococcal Polysaccharide PPSV23 07/12/2016, TD (adult), 2 Lf tetanus tox oid, preservative free, adsorbed 05/01/2006 Tdap 05/08/2013 Typhoid, ViCPs 01/02/2016 Zoster, Recombinant 12/28/2021,10/23/2021 Zoster, live 10/14/2014 Social History Tobacco Use Types Packs/Day Years Used Date Smoking Tobacco: Never Smokeless Tobacco: Never Tobacco Cessation:Counseling Given: Not Answered Alcohol Use Standard Drinks/Week Comments Never 0 [...] not to disclose 2021 10:22 AM EDT Last Filed Vital Signs Vital Sign Reading Time Taken Comments Blood Pressure 144/70 09/22/2024 11:16 AM EST Pulse 76 09/22/2024 11:16 AM EST Temperature 37.1 ??C (98.8 ??F) 09/22/2024 11:[address] Respiratory Rate 17 09/22/2024 11:16 AM EST Oxygen Saturation 98% 03/27/2024 9:47 AM EDT Inhaled Oxygen Concentration - - Weight 71 kg (156 lb 9.6 oz) 09/22/2024 11:16 AM EST Height 152.4 cm (5') 09/22/2024 11:16 AM EST Body Mass Index 30.58 09/22/2024 11:16 AM EST Plan of Treatment Upcoming Encounters Date Type Department Care Team (Late st Contact Info) Description 11/06/2024 9:00 AM EST Telemedicine [facility] [address] [place] [phone] Omayra Gudino, [place] 11/13/2024 9:30 AM EST Office Visit [facility] [address] [place] [phone] Germaine Martinez MD [address] [place] [address] Health Maintenance Due Date Last Done Comments Eye Exam 1960 Alcohol/Substance Use Screening 1962 DTaP/Tdap/Td Vaccines (2 - Td or Tdap) 05/08/2023 05/08/2013, 05/01/2006 RSV Patients and Patients Aged 60 years or older (1 - 1-dose 75+ series) 2023 Lipid Panel 01/31/2024 01/30/2023, 04/11, 11/01/2020 COVID-19 Vaccine (2023- season) 2024 09/16/2021, 12/15/2020, 11/24/2020 Depression Screening 08/26/2024 08/26/2023, 08/26/20 23 Diabetes: Hemoglobin A1C 10/13/2024 024, 04/10/2024, 03/27/2024, Additional history exists Mammogram 11/26/2024 11/27/2023, 03/0 02/2023, 11/12/2022, Additional history exists SDOH Screening 12/09/2024 12/10/2023 Diabetes: Urine Protein Screening 12/18/2024 12/19/2023, 05/09/2021, 11/02/2020, Additional history exists Diabetes: Foot Exam 07/13/2025 07/13/2024, 07/13/2024, 12/19/2023 Tobacco Screening 09/22/2025 09/22/2024 Colonoscopy Discontinued 03/23/2013 Colorectal Cancer Screening Discontinued Hepatitis B Vaccines Completed 05/03/2016, 02/01/2016, 12/29/2015 Hepatitis A Vaccines Aged Out 06/29/2016, 12/29/19 16 No longer eligible based on patient's age to complete this topic Pneumococcal Vaccine: 50+ Years Completed 07/12/2016, 07/13/2015, 03/13/2007 Zoster Vaccines Completed 12/28/2021, 10/10, 10/14/2014 Hepatitis C Screening Completed 12/19/2023 Influenza Vaccine Completed 06/02/2024, , 06/27/2022, Additional history exists CT Colonography Discontinued FIT DNA/Cologuard Discontinued FIT Discontinued FOBT Discontinued HIB Vaccines Aged Out No longer eligi ble based on patient's age to complete this topic HPV Vaccines Aged Out No longer eligi ble based on patient's age to complete this topic IPV Vaccines Aged Out No longer eligi ble based on patient's age to complete this topic Meningococcal Vaccine Aged Out No elise dedrick eligible based on patient's age to complete this topic RSV under 20 months Aged Out No longe r eligible based on patient's age to complete this topic Rotavirus Vaccines Aged Out No longer eligible based on patient's age to complete this topic Sigmoidoscopy Discontinued Procedures Procedure Name Priority Date/Time Associated Diagnosis Comments POCT GLYCATED HEMOGLOBIN, TOTAL Routine 07/13/2024 9:26 AM EST Type 2 diabetes mellitus with diabetic neuropathy, with long-term current use of insulin (CMS/HCC) POCT GLUCOSE Routine 07/13/2024 9:24 AM EST Type 2 diabetes mellitus with diabetic neuropathy, with long-term current use of insulin (CMS/HCC) HEPATITIS C AB W/REFL TO HCV RNA, QN, PCR Routine 12/19/2023 11:46 AM EDT Type 2 diabetes mellitus with diabetic neuropathy, with long-term current use of insulin (CMS/HCC) ALBUMIN, RANDOM URINE W/CREATININE Routine 12/19/2023 11:46 AM EDT Type 2 diabetes mellitus with diabetic neuropathy, with long-term current use of insulin (CMS/HCC) BI MAMMOGRAM SCREENING TOMOSYNTHESIS BILATERAL Routine 11/27/2023 8:50 AM EDT LIPID PANEL, STANDARD Routine 01/30/2023 9:44 AM EDT Type 2 diabetes mellitus without complication, unspecified whether 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 (CMS/HCC) HM COLONOSCOPY Routine 03/23/2013 8:10 AM EDT from Last 3 Months or Most Recently Relevant to Health Maintenance Results * (ABNORMAL) POCT A1C (07/13/2024 9:26 AM EST) Hemoglobin A1C 8.2(A) 4.0 - 6.0 % QC Media Lot # [id number] Lot# Expiration Date Blood 07/13/2024 9:26 AM EST Germaine Martinez MD POINT OF CARE TEST ENTER/EDIT ORDERABLES Final Result * (ABNORMAL) POCT glucose manually resulted (07/13/2024 9:24 AM EST) Glucose Blood, POC 271(A) 60 - 200 mg/dL Comment:random QC Media Lot # [id number] Lot# Expiration Date Blood Capillary blood specimen / Unknown 07/13/2024 9:24 AM EST Germaine Martinez MD POINT OF CARE TEST ENTER/EDIT ORDERABLES Final Result * Albumin, Random Urine W/Creatinine (12/19/2023 11:46 AM EDT) Creatinine, Urine 34.93 mg/dL [facility] Microalbumin Urine 8.0 mg/L [facility] Microalbum Creatinine Ratio Ur 22.9 <30 ug/mg cr [facility] Comment:Albumin/Creatinine R atio Reference Ranges: Normal: < 30 ug/mg creatinine Microalbuminuria: 30 - 300 ug/mg creatinineClinical Albuminuria: > 300 ug/mg creatinine Urine (Urine, Random) 12/19/2023 11:46 AM EDT 12/19/2023 1:10 PM EDT Germaine Martinez MD LAB URINE ORDERABLES Final Res ult [facility] [address] [place] [phone] * Hepatitis C Antibody with Reflex to HCV, RNA, Quantitative, Real-Time PCR (12/19/2023 11:46 AM EDT) Hepatitis C Antibody Nonreactive Nonreactive [facility] Comment:Antibodies to HCV no t detected; does not exclude early acuteHCV infection. Blood Venous blood specimen / Unknown 12/19/2023 11:46 AM EDT 12/19/2023 1:16 PM EDT us Germaine Martinez MD LAB BLOOD ORDERABLES Final Res ult [facility] [address] [place] [address] [phone] * BI Mammogram Screening Tomosynthesis Bilateral (11/27/2023 8:50 AM EDT) Anatomical Region Laterality Modality Breast Bilateral Mammography 11/27/2023 8:50 AM EDT Narrative 12/19/2023 5:29 AM EDT ? [facility] ? [address] ?[place] [address] ? Mammography Report ? Signed ? Patient: Philip,Tennille ?MR#: [id number] ?? [id number] ? : 1950 ?Acct:[id number] ? Age/Sex: 73 / F ?ADM Date: 03/20/24 ? Loc: HO.MAMMO ? Attending Dr: Germaine Martinez MD ? Ordering Physician: Germaine Martinez ?Results: 2Benign F ?? indings ? Date of Service: //24 ?Follow Up: 1 Year From Orig ?? inal Mammogram ? Procedure(s): MM tomosynthesis screening BI ?? Accession Number(s): [id number] ? cc: Germaine Martinez ? EXAMINATION: ?? MM SCREENING DIGITAL BREAST TOMOSYNTHESIS, BILATERAL ? CLINICAL INFORMATION: ? Screening. Asymptomatic. ? COMPARISON: ?? Mammography: This study is compared with prior exams dating back to ?? 2018. ? TECHNIQUE: ?? Digital breast tomosynthesis is performed in both the craniocaudal and ?? mediolateral oblique views along with computer-aided detection (CAD). ?? Synthesized 2D images are generated from the tomosynthesis. ? FINDINGS: ?? There are scattered areas of fibroglandular density (ACR BI-RADS breast ?? composition Category b). ? There are no significant masses, abnormal calcifications, or other ?? abnormalities. ?? Bilateral, benign calcifications are present in each breast. ? MM/MM tomosynthesis screening BI ?? IMPRESSION: ?? No mammographic evidence of malignancy. ? ASSESSMENT: ? BI-RADS BI-RADS 2 - Benign Findings ? RECOMMENDATION: ?? Routine annual mammography screening. ? 1 year F/U ? This examination should not preclude the clinical evaluation of a ?? suspicious palpable abnormality. ? This patient's information was entered into a reminder system with a ?? target due date for their next mammogram. ? Dictated By: ?Tierra Leahy MD ? Signed By: ?<Electronically signed by Tierra Leahy MD in OV> ? 12/19/23 05 ? DD/ 0850 ? TD/TT: ? Laser Operator: ? Procedure Note Jayden, Robin - 12/19/2023 [facility] [address] [place] [address] Mammography Report Signed Patient: Darrell PhilipAmina#: [id number] : 8Acct:[id number] Age/Sex: 73 / FADM Date: 11/27/23 Loc: HO.MAMMO Attending Dr: Germaine Martinez MD Ordering Physician: Abdirizak Martinezults: 2Bwes tapia Date of Service: 11/27/23Follow Up: 1 Year From Orig ina Mammogram Procedure(s): MM tomosynthesis screening BI Accession Number(s): [id number] cc: Germaine Martinez EXAMINATION: MM SCREENING DIGITAL BREAST TOMOSYNTHESIS, BILATERAL CLINICAL INFORMATION: Screening. Asymptomatic. COMPARISON: Mammography: This study is compared with prior exams dating back to 2019. TECHNIQUE: Digital breast tomosynthesis is performed in both the craniocaudal and mediolateral oblique views along with computer-aided detection (CAD). Synthesized 2D images are generated from the tomosynthesis. FINDINGS: There are scattered areas of fibroglandular density (ACR BI-RADS breast composition Category b). There are no significant masses, abnormal calcifications, or other abnormalities. Bilateral, benign calcifications are present in each breast. MM/MM tomosynthesis screening BI IMPRESSION: No mammographic evidence of malignancy. ASSESSMENT: BI-RADS BI-RADS 2 - Benign Findings RECOMMENDATION: Routine annual mammography screening. 1 year F/U This examination should not preclude the clinical evaluation of a suspicious palpable abnormality. This patient's information was entered into a reminder system with a target due date for their next mammogram. Dictated By: Tierra Leahy MD Signed By: <Electronically signed by Tierra Leahy MD in OV> 12/19/23 0525 DD/ 0850 TD/TT: Laser Operator: Germaine Martinez MD IM BI PROCEDURES Final Result * (ABNORMAL) Lipid Panel, Standard (01/30/2023 9:44 AM EDT) Cholesterol, Total 333(H) <200 mg/dL [facility] HDL Cholesterol 73 > OR = 50 mg/dL [facility] Triglycerides 107 <150 mg/dL [facility] LDL Cholesterol 236(H) mg/dL (calc) [facility] Comment: LDL-C levels > or = 190 mg/dL may indicate familial hypercholesterolemia (FH). Clinical assessment and measurement of blood lipid levels should be considered for all first degree relatives of patients with an FH diagnosis. LDL Cholesterol (LDL-C) levels > or = 300 mg/dL may indicate homozygous familial hypercholesterolemia (HoFH). Untreated, these extremely high LDL-C levels can result in premature CV events and mortality. Patients should be identified early and provided appropriate interventions to reduce the cumulative LDL-C burden from . For questions about testing for familial hypercholesterolemia, please call [facility] at [email or web address].INFO. Lawrence Dejesus, et al. J National Lipid Association Recommendations for Patient-Centered Management of Dyslipidemia: Part 1 Journal of Clinical Lipidology 2015;9(2), 129-169. Timothy Perez. et al. (2014). Homozygous familial hypercholesterolaemia: new insights and guidance for clinicians to improve detection and clinical management. Heart Journal, 35(32), 5355-1530. Reference range: <100 Desirable range <100 mg/dL for primary prevention; ?? <70 mg/dL for patients with CHD or diabetic patients with > or = 2 CHD risk factors. LDL-C is now calculated using the Lokesh-Ohara calculation, which is a validated novel method providing better accuracy than the Friedewald equation in the estimation of LDL-C. Lokesh SS et al. ESTHER. 2013;310(19): 2876-7948 (http://education.[employer]/faq/EXF455) Chol/HDLC Ratio 4.6 <5.0 (calc) [facility] Non-HDL Cholesterol 260(H) <130 mg/dL (calc) STEARCLEAR Comment: Non-HDL level > or = 220 is very high and may indicate genetic familial hypercholesterolemia (FH). Clinical assessment and measurement of blood lipid levels should be considered for all first-degree relatives of patients with an FH diagnosis. For patients with diabetes plus 1 major ASCVD risk factor, treating to a non-HDL-C goal of <100 mg/dL (LDL-C of <70 mg/dL) is considered a therapeutic option. Blood Venous blood specimen / Unknown 01/30/2023 9:44 AM EDT 01/30/2023 9:45 AM EDT Narrative [facility] - 01/30/2023 7:51 PM EDT FASTING:YES PATIENT UNABLE TO VOID; ADVISED TO RETURN FOR COLLECTION. FASTING: YES us Germaine Martinez MD LAB BLOOD ORDERABLES Final Res ult [facility] [address] [facility], [facility], [place] [address] [facility] [address] [place] [address] * Hm Colonoscopy (03/23/2013 8:10 AM EDT) us Historical Provider HEALTH MAINTENANCE Final Result from Last 3 Months or Most Recently Relevant to Health Maintenance Insurance Care Teams Noise Tester Relationship Specialty Start Date End Date Germaine Martinez MD [address] [place] [address] PCP - General Family Medicine 07/14/20
--- OUTSIDE RECORDS SUMMARY | 2024-10-09 12:23 | XMS_ITS | Encounter Summary ---
Author Organization [employer] Address [address] [place] [address] Care Team Providers Care Director Food Safety Name Role Phone Germaine Martinez MD Primary Care Provider [phone] Reason for Visit * Reason Onset Date Comments Med Refill 07/29/2024 Encounter Details Date Type Department Care Team ([facility] st Contact Info) Description 07/29/2024 Telephone [facility] MEDICINE [address] [place], [place] [phone] Germaine Martinez MD [address] [place], [place] [phone] Med Refill Social History Tobacco Use Types Packs/Day Years [...] encounter Miscellaneous Notes * Telephone Encounter - Austen Hanson - 07/29/2024 10:16 AM EST TC from pt requesting medication refill. Medications needing refill : oxyCODONE (Roxicodone) 5 MG immediate release tablet To be sent to: [facility] - [place], [place] - [address] [place] [address] documented in this encounter Plan of Treatment Upcoming Encounters Date Type Department Care Team ([facility] st Contact Info) Description 11/06/2024 9:00 AM EST Telemedicine [facility] MEDICINE [address] [place] [phone] Omayra Gudino RN 11/13/2024 9:30 AM EST Office Visit [facility] MEDICINE [address] [place] [phone] Germaine Martinez MD [address] [place] [address] documented as of this encounter Visit Diagnoses Not on filedocumented in this encounter Additional Health Concerns Assessment Noted Time PHQ-9 Depression Total Score: 1 08/26/20 23 1:07 PM EST documented as of this encounter Care Teams Director Food Safety Relationship Specialty Start Date End Date Germaine Martinez MD [address] [place] [address] PCP - General Family Medicine 07/14/20 documented as of this encounter
--- OUTSIDE RECORDS SUMMARY | 2024-10-09 12:23 | XMS_ITS | Encounter Summary ---
Author Organization [employer] Address [address] [facility] 7t [place] [address] Care Team Providers Care Television Analyzer Name Role Phone Germaine Martinez MD Primary Care Provider [phone] Reason for Referral * Consultation (Routine) - Authorized Specialty Diagnoses / Procedures Referred By Nadira reeves Referred To Contact Orthopaedic Surgery Diagnoses Right tennis elbow Right wrist tendonitis Jing Hutchinson MD [address] [place] [address] Phone: tel: fax: [facility] [address] [place] [address] Drive [address] [place], [place] Phone: tel: fax: Referral ID Status Reason Start Date Expiration Date Visits Requested Visits Authorized [id number] Authorized Specialty Services Required 09/22/2024 09/22/2025 1 1 Encounter Details Date Type Department Care Team ([facility] st Contact Info) Description 09/22/2024 11:15 AM EST Office Visit [facility] MEDICINE [address] [place], [place] [phone] Jing Hutchinson MD [address] [place] [address] Right tennis elbow (Primary Dx); Right wrist tendonitis; Intertrigo Social History Tobacco Use Types Packs/Day Years [...] AM EDT documented as of this encounter Last Filed Vital Signs Vital Sign Reading Time Taken Comments Blood Pressure 144/70 09/22/2024 11:16 AM EST Pulse 76 09/22/2024 11:16 AM EST Temperature 37.1 ??C (98.8 ??F) 09/22/2024 11:[address] Respiratory Rate 17 09/22/2024 11:16 AM EST Oxygen Saturation - - Inhaled Oxygen Concentration - - Weight 71 kg (156 lb 9.6 oz) 09/22/2024 11:16 AM EST Height 152.4 cm (5') 09/22/2024 11:16 AM EST Body Mass Index 30.58 09/22/2024 11:16 AM EST documented in this encounter Progress Notes * Jing Reyes MD - 09/22/2024 11:15 AM EST Images from the original note were not included. SUBJECTIVE: Tennille Philip is a 74 y.o. year old female who presents for sick visit . 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 Review of Systems Constitutional: Negative. HENT: Negative. Respiratory: Negative. Cardiovascular: Negative. Musculoskeletal: Positive for arthralgias and myalgias. Skin: Positive for rash. OBJECTIVE: Vitals: 09/22/24 1116 BP: (!) 144/70 BP Location: Right arm Patient Position: Sitting BP Cuff Size: Adult Pulse: 76 Resp: 17 Temp: 98.8 ??F (37.1 ??C) TempSrc: Oral Weight: 156 lb 9.6 oz (71 kg) Height: 5' (1.524 m) Physical Exam Constitutional: Appearance: Normal appearance. Cardiovascular: Rate and Rhythm: Normal rate and regular rhythm. Pulmonary: Effort: Pulmonary effort is normal. Breath sounds: Normal breath sounds. Abdominal: General: Abdomen is flat. Palpations: Abdomen is soft. Musculoskeletal: Right elbow: Decreased range of motion. Tenderness present. Right wrist: Tenderness present. Arms: Comments: Tenderness Skin: Findings: Rash present. Rash is urticarial. Comments: Severe eythema Neurological: Mental Status: She is alert. Follow Up: No follow-ups on file. Current Outpatient Medications on File Prior to Visit Medication Sig Dispense Refill acetaminophen (Tylenol) 500 MG tablet Take 2 tablets by mouth every 4 (four) hours. Take 2 tablet by oral route every 4-6 hours as needed not to exceed 8 tablets per 24hrs Alcohol Swabs (Alcohol Prep) 70 % pads TEST BLOOD SUGAR 8 TIMES PER DAY 100 each 11 Aspirin Adult Low Strength 81 MG EC tablet TAKE 1 TABLET BY MOUTH AT BEDTIME 90 tablet 3 Bisacodyl EC 5 MG EC tablet TAKE 1 TABLET BY MOUTH AT BEDTIME 90 tablet 3 Blood Pressure Monitoring (Blood Pressure Cuff) [facility] [place] daily to check blood pressure cholecalciferol (Vitamin D-3) 25 MCG tablet TAKE 1 TABLET BY MOUTH EVERY MORNING 90 tablet 3 cilostazol (Pletal) 100 MG tablet Take 1 tablet by mouth every 12 (twelve) hours. Take 1 tablet by oral route 2 times every day 1/2 hour before or 2 hours after breakfast and dinner dexlansoprazole (Dexilant) [address] capsule Take 1 capsule (30 mg) by mouth Once per day. Do not crush or chew. (Patient taking differently: Take 60 mg by mouth Once per day. Do not crush or chew.) 90 capsule 3 doxepin (SINEquan) 25 MG capsule TAKE 1 CAPSULE BY MOUTH AT BEDTIME 90 capsule 3 empagliflozin (Jardiance) 10 MG Take 1 tablet (10 mg) by mouth in the morning. 30 tablet 11 famotidine (Pepcid) 20 MG tablet Take 20 mg by mouth at bedtime. fluticasone (Flonase) 50 MCG/ACT nasal spray USE 1 SPRAY IN EACH NOSTRIL TWICE DAILY 48 g 3 FREESTYLE LITE test strip TEST BLOOD SUGAR 8 TIMES DAILY DIRECTED 200 strip 11 gabapentin (Neurontin) 400 MG capsule TAKE 1 CAPSULE BY MOUTH THREE TIMES DAILY IN THE MORNING, AT NOON, AND IN THE EVENING 90 capsule 11 insulin aspart (NovoLOG FLEXPEN) 100 UNIT/ML pen Inject 15 Units under the skin every 8 (eight) hours. Inject 15 unit by subcutaneous route 3 times every day before meals insulin glargine (Lantus SoloStar) 100 UNIT/ML pen Inject under the skin. Inject 12 units by subcutaneous route every evening may adjust as directed insulin pen needle 32G x 5 mm misc Inject under the skin if needed. Use QID with insulin levothyroxine (Synthroid, Levoxyl) 75 MCG tablet Take 75 mcg by mouth in the morning. Linzess 145 MCG capsule TAKE 1 CAPSULE BY MOUTH EVERY MORNING WITH A FULL GLASS OF WATER loratadine (Claritin) 10 MG tablet Take 1 tablet (10 mg) by mouth Once per day. For allergies 90 tablet 3 losartan (Cozaar) 25 MG tablet TAKE 1 TABLET BY MOUTH EVERY MORNING 90 tablet 3 magnesium oxide (Mag-Ox) 400 MG tablet TAKE 1 TABLET BY MOUTH EVERY MORNING FOR HEADACHE metFORMIN XR (Glucophage-XR) 500 MG 24 hr tablet TAKE 1 TABLET BY MOUTH TWICE DAILY IN THE MORNING AND IN THE EVENING naloxone (Narcan) 4 mg/0.1 mL nasal spray Administer 1 spray (4 mg) into affected nostril(s) if needed for opioid reversal. Gould 0.1 milliliter by intranasal route in 1 nostril may repeat dose every2-3 minutes as needed alternating nostrils with each dose 2 each 3 nortriptyline (Pamelor) 10 MG capsule TAKE 2 CAPSULES BY MOUTH EVERY DAY AT BEDTIME 60 capsule 11 oxyCODONE (Roxicodone) 5 MG immediate release tablet Take 1 tablet (5 mg) by mouth every 6 (six) hours if needed for severe pain for up to 28 days. Do not start before August 28, 2024. 112 tablet 0 Pentips 32G X 4 MM misc USE UP TO FIVE TIMES DAILY DIRECTED Repatha SureClick 140 MG/ML injection INJECT 1 ML (140 MG) SUBCUTANEOUSLY EVERY 14 DAYS rosuvastatin (Crestor) 40 MG tablet Take 40 mg by mouth at bedtime. sertraline (Zoloft) 100 MG tablet Take 1 tablet (100 mg) by mouth Once per day. 90 tablet 3 triamcinolone (Kenalog) 0.1 % cream Apply topically if needed in the morning and at bedtime for rash (itching and swelling). 30 g 2 TRUEplus Lancets 33G misc TEST BLOOD SUGAR SIX TIMES DAILY [DISCONTINUED] nortriptyline (Pamelor) 10 MG capsule TAKE 2 CAPSULES BY MOUTH EVERY DAY AT BEDTIME 60 capsule 11 No current facility-administered medications on file prior to visit. Problem List Items Addressed This Visit Right tennis elbow - Primary Relevant Medications Diclofenac Sodium 1 % gel Other Relevant Orders Referral to Orthopaedic Surgery Right wrist tendonitis Relevant Medications Diclofenac Sodium 1 % gel Other Relevant Orders Referral to Orthopaedic Surgery Intertrigo Maintain area dry and clean Relevant Medications clotrimazole-betamethasone (Lotrisone) cream fluconazole (Diflucan) 150 MG tablet documented in this encounter Miscellaneous Notes * Assessment & Plan Note - Jing Reyes MD - 09/22/2024 4:29 PM EST Associated Problem(s): Intertrigo Maintain area dry and clean documented in this encounter Plan of Treatment Upcoming Encounters Date Type Department Care Team (Late st Contact Info) Description 11/06/2024 9:00 AM EST Telemedicine [facility] MEDICINE [address] [place] [phone] Omayra Gudino RN 11/13/2024 9:30 AM EST Office Visit [address] [address] Germaine Martinez MD [address] [place] [address] Scheduled Referrals Name Type Priority Associated Diagnoses Order Schedule Referral to Orthopaedic Surgery Outpatient Referral Routine Right tennis elbow Right wrist tendonitis Expected: 09/22/2024 (Approximate), Expires: 09/22/2025 documented as of this encounter Visit Diagnoses Diagnosis Right tennis elbow- Primary Right wrist tendonitis Intertrigo Other specified erythematous condition documented in this encounter Additional Health Concerns Assessment Noted Time PHQ-9 Depression Total Score: 1 08/26/20 23 1:07 PM EST documented as of this encounter Care Teams Television Analyzer Relationship Specialty Start Date End Date Germaine Martinez MD [address] [place] [phone] PCP - General Family Medicine 07/14/20 documented as of this encounter
--- OUTSIDE RECORDS SUMMARY | 2024-10-09 12:23 | XMS_ITS | Encounter Summary ---
Author Organization [facility] Address [address] [place] [address] Care Team Providers Care Food Packer Name Role Phone Germaine Martinez MD Primary Care Provider [phone] Encounter Details Date Type Department Care Team (Late st Contact Info) Description 09/05/2022 Telephone [facility] MEDICINE [address] [place] [address] [phone] Germaine Martinez MD [address] [place] [address] [phone] Social History Tobacco Use Types Packs/Day Years Used Date Smoking Tobacco: Never Assessed Comments Unknown Sex and Gender Information Value Date Recorded Sex Assigned at Female 07/09/2022 10:22 AM EDT Legal Sex Female 10:22 AM EDT Gender Identity Female 07/09/2022 10:22 AM EDT Sexual Orientation Choose not to disclose 2021 10:22 AM EDT COVID-19 Exposure Response Date Recorded In the last 10 days, have yo u been in contact with someone who was confirmed or suspected to have Coronavirus/COVID-19? No / Unsure 08/21/2022 8:52 AM EST documented as of this encounter Plan of Treatment Upcoming Encounters Date Type Department Care Team (Late st Contact Info) Description 11/06/2024 9:00 AM EST Telemedicine [facility] MEDICINE [address] [place] [address] [phone] Omayra Gudino RN 11/13/2024 9:30 AM EST Office Visit [facility] MEDICINE [address] [place] [address] [phone] Germaine Martinez MD [address] [place] [phone] documented as of this encounter Visit Diagnoses Not on filedocumented in this encounter Care Teams Food Packer Relationship Specialty Start Date End Date Germaine Martinez MD [address] [place] [address] [place] [address] PCP - General Family Medicine 07/14/20 documented as of this encounter
--- OUTSIDE RECORDS SUMMARY | 2024-10-09 12:23 | XMS_ITS | Encounter Summary ---
Author Organization [employer] Address [address] [place] [address] Care Team Providers Care Heat Treating Operator Name Role Phone Germaine Martinez MD Primary Care Provider [phone] Reason for Visit * Reason Comments Med Refill Encounter Details Date Type Department Care Team (Late st Contact Info) Description 09/16/2024 Refill [facility] MEDICINE [address] [place], [place] [phone] Ashley Sam MD [address] [place], [place] [phone] Degeneration of lumbar intervertebral disc Social History Tobacco Use Types Packs/Day Years [...] Info) Description 11/06/2024 9:00 AM EST Telemedicine [facility] MEDICINE [address] [place] [phone] Omarya Gudino RN 11/13/2024 9:30 AM EST Office Visit [facility] MEDICINE [address] [place] [phone] Germaine Martinez MD [address] [place] [phone] documented as of this encounter Visit Diagnoses Diagnosis Degeneration of lumbar intervertebral disc Degeneration of lumbar or lumbosacral intervertebral disc documented in this encounter Additional Health Concerns Assessment Noted Time PHQ-9 Depression Total Score: 1 08/26/20 23 1:07 PM EST documented as of this encounter Care Teams Heat Treating Operator Relationship Specialty Start Date End Date Germaine Martinez MD [address] [place] [phone] PCP - General Family Medicine 07/14/20 documented as of this encounter
--- OUTSIDE RECORDS SUMMARY | 2024-10-09 12:23 | XMS_ITS | Encounter Summary ---
Author Organization [employer] Address [address] [place] [address] Care Team Providers Care Contact Center Professional Name Role Phone Germaine Martinez MD Primary Care Provider [phone] Reason for Visit * Reason Comments Med Refill Encounter Details Date Type Department Care Team (Late st Contact Info) Description 09/14/2024 Refill [facility] [address] [place], [place] [phone] Germaine Martinez MD [address] [place] [address] Social History Tobacco Use Types Packs/Day Years [...] 11/06/2024 9:00 AM EST Telemedicine [facility] MEDICINE [address] [place] [phone] Omayra Gudino RN 11/13/2024 9:30 AM EST Office Visit [facility] MEDICINE [address] [place] [phone] Germaine Martinez MD [address] [place] [phone] documented as of this encounter Visit Diagnoses Not on filedocumented in this encounter Additional Health Concerns Assessment Noted Time PHQ-9 Depression Total Score: 1 08/26/20 23 1:07 PM EST documented as of this encounter Care Teams Contact Center Professional Relationship Specialty Start Date End Date Germaine Martinez MD [address] [place] [address] [phone] PCP - General Family Medicine 07/14/20 documented as of this encounter
--- OUTSIDE RECORDS SUMMARY | 2024-10-09 12:23 | XMS_ITS | Encounter Summary ---
Author Organization [employer] Address [address] [facility] [address] 7t [place] [address] Care Team Providers Care Peoplesoft Business Analyst Name Role Phone Germaine Martinez MD Primary Care Provider Reason for Visit * Reason Onset Date Comments ER Follow-up 09/21/2024 Encounter Details Date Type Department Care Team ([facility] st Contact Info) Description 09/21/2024 Telephone [facility] MEDICINE [address] [place], [place] [phone] Germaine Martinez MD 230 [place], [place] [phone] ER Follow-up Social History Tobacco Use Types Packs/Day Years [...] encounter Miscellaneous Notes * Telephone Encounter - Neva Huitron RN - 09/21/2024 1:02 PM EST TC placed to daughter [phone] (on HIPAA) in regards to below message. Daughter reports the patient was seen at [facility] on 09/15/24 and dx with fungal infection. Patient was given powder RX to use TID (note in chart)however daughter reports no improvement in rash. Daughter advised patient is scheduled for an appointment with PCP tomorrow and rash will be evaluated to see if POC should be changed orif new RX can be given. Daughter verbalized understanding and did not have any further questions. Daughter to f/u PRN. * Telephone Encounter - Tyree Shahid - 09/21/2024 11:21 AM EST Patient calling to report ED visit on : Date: 09/15/2024 [facility]: [facility] Seen for: RASH Symptomatic No *if yes message should go to Triage Patient advised will forward to team nurse for follow up documented in this encounter Plan of Treatment Upcoming Encounters Date Type Department Care Team (Late st Contact Info) Description 11/06/2024 9:00 AM EST Telemedicine [facility] MEDICINE [address] [place] [address] Omayra Gudino, RN 11/13/2024 9:30 AM EST Office Visit [facility] MEDICINE [address] [place] [address] Germaine Martinez MD [address] [place] [address] documented as of this encounter Visit Diagnoses Not on filedocumented in this encounter Additional Health Concerns Assessment Noted Time PHQ-9 Depression Total Score: 1 08/26/20 23 1:07 PM EST documented as of this encounter Care Teams Peoplesoft Business Analyst Relationship Specialty Start Date End Date Germaine Martinez MD [address] [place] [address] PCP - General Family Medicine 07/14/20 documented as of this encounter
--- OUTSIDE RECORDS SUMMARY | 2024-10-09 12:23 | XMS_ITS | Encounter Summary ---
Author Organization [employer] Address [address] [facility] [address] 7t [place] [address] Care Team Providers Care Communication Manager Name Role Phone Germaine Martinez MD Primary Care Provider [phone] Reason for Visit * Reason Onset Date Comments Med Refill 09/25/2024 Encounter Details Date Type Department Care Team (Late st Contact Info) Description 09/25/2024 Refill [facility] MEDICINE 230 [place], [place] [phone] Germaine Martinez MD 230 [place], [place] [phone] Degeneration of lumbar intervertebral disc Social History [...] encounter Miscellaneous Notes * Telephone Encounter - Alex Andino - 09/25/2024 11:58 AM EST TC from pt requesting medication refill. Medications needing refill : oxyCODONE (Roxicodone) 5 MG immediate release tablet To be sent to: [facility] documented in this encounter Plan of Treatment Upcoming Encounters Date Type Department Care Team (Late st Contact Info) Description 11/06/2024 9:00 AM EST Telemedicine [facility] MEDICINE [address] [place] [address] Omayra Gudino RN 11/13/2024 9:30 AM EST Office Visit [facility] MEDICINE [address] [place] [address] Germaine Martinez MD [address] [place] [address] documented as of this encounter Visit Diagnoses Diagnosis Degeneration of lumbar intervertebral disc Degeneration of lumbar or lumbosacral intervertebral disc documented in this encounter Additional Health Concerns Assessment Noted Time PHQ-9 Depression Total Score: 1 08/26/20 23 1:07 PM EST documented as of this encounter Care Teams Communication Manager Relationship Specialty Start Date End Date Germaine Martinez MD 230 [place] [address] PCP - General Family Medicine 07/14/20 documented as of this encounter
--- OUTSIDE RECORDS SUMMARY | 2024-10-09 12:23 | XMS_ITS | Encounter Summary ---
Author Organization [employer] Address [address] [facility] [address] 7t [place] [address] Care Team Providers Care Cold Rolling Coordinator Name Role Phone Germaine Martinez MD Primary Care Provider [phone] Reason for Visit * Reason Onset Date Comments recall 09/21/2024 Encounter Details Date Type Department Care Team ([facility] st Contact Info) Description 09/21/2024 Telephone [facility] MEDICINE 230 [place], [place] [phone] Germaine Martinez MD 230 [place], [place] [phone] recall Social History Tobacco Use Types Packs/Day Years [...] encounter Miscellaneous Notes * Telephone Encounter - Deidre Chilel MA - 09/24/2024 2:09 PM EST T/C placed spoke with pt, pt agreed to come in on 11/13/24 at 9:30am * Telephone Encounter - Niecy Ceja RN - 09/21/2024 11:59 AM EST Triage call with [facility] [place] [place] [id number], [place]. Pt daughter , Sylvia, is speaking for Pt. Pt reports bilateral hand pain which includes right elbow and wrist. Pt does have some swelling of joints in bilateral hands, and the veins on top are dark and swollen . Pt denies numbness, has some immobility but, is able to hold a cup in hand though it is painful. Pt isn't dropping things. Pt is taking oxycodone for pain with little to no relief . ASK apt with Dr. Whittaker 09/22/24 @ 1115am. Pt agrees with disposition. Insurance is verified as active prior to booking. Protocol Used: Hand Pain (Adult) Protocol-Based Disposition: See in Office or Video Visit within 3 Days Video visit not offered Positive Triage Questions: * Moderate pain (e.g., interferes with normal activities) and present > 3 days * Patient wants to be seen * All higher-acuity triage questions were negative Care Advice Discussed: * Reassurance and Education - Hand Pain * Pain Medicines * Reasons To Call Back - Moderate pain (such as interferes with normal activities) lasts over 3 days - Mild pain lasts over 7 days - Signs of infection occur (such as spreading redness, warmth, fever) - You become worse * Telephone Encounter - Tyree Shahid - 09/21/2024 11:22 AM EST Symptom: Hand or Wrist Pain - Not From Injury Outcome: Schedule an urgent appointment (within 1 hour) or talk to a nurse or provider soon Reason: Severe pain now The caller accepted this outcome. documented in this encounter Plan of Treatment Upcoming Encounters Date Type Department Care Team (Late st Contact Info) Description 11/06/2024 9:00 AM EST Telemedicine [facility] MEDICINE [address] [place] [address] Omayra Gudino RN 11/13/2024 9:30 AM EST Office Visit [facility] MEDICINE [address] [place] [address] Germaine Martinez MD [address] [place] [address] documented as of this encounter Visit Diagnoses Not on filedocumented in this encounter Additional Health Concerns Assessment Noted Time PHQ-9 Depression Total Score: 1 08/26/20 23 1:07 PM EST documented as of this encounter Care Teams Cold Rolling Coordinator Relationship Specialty Start Date End Date Germaine Martinez MD [address] [place] [address] PCP - General Family Medicine 07/14/20 documented as of this encounter
--- OUTSIDE RECORDS SUMMARY | 2024-10-09 12:24 | XMS_ITS | Encounter Summary ---
Author Organization [facility] [facility] Address [address] [facility] 7t [place] [address] Care Team Providers Care Highway Worker Name Role Phone Germaine Martinez MD Primary Care Provider [phone] Reason for Visit * Reason Comments Med Refill Encounter Details Date Type Department Care Team ([facility] Contact Info) Description 12/03/2022 Refill [facility] MEDICINE [address] [place] [address] [phone] Germaine Martinez MD [address] [place] [address] [phone] Sacroiliitis (CMS/HCC) Social History Tobacco Use Types Packs/Day Years [...] Upcoming Encounters Date Type Department Care Team ([facility] Contact Info) Description 11/06/2024 9:00 AM EST Telemedicine [facility] MEDICINE [address] [place] [address] [phone] Omayra Gudino RN 11/13/2024 9:30 AM EST Office Visit [facility] MEDICINE [address] [place] [address] [phone] Germaine Martinez MD [address] [place] [address] [phone] documented as of this encounter Visit Diagnoses Diagnosis Sacroiliitis (CMS/HCC) Sacroiliitis, not elsewhere classified documented in this encounter Care Teams Highway Worker Relationship Specialty Start Date End Date Germaine Martinez MD 230 [place] [address] PCP - General Family Medicine 07/14/20 documented as of this encounter
--- OUTSIDE RECORDS SUMMARY | 2024-10-09 12:24 | XMS_ITS | Encounter Summary ---
Author Organization [employer] Address [address] [facility] [address] 7t [place] [address] Care Team Providers Care Re Recording Mixer Name Role Phone Germaine Martinez MD Primary Care Provider [phone] Encounter Details Date Type Department Care Team (Late st Contact Info) Description 01/15/2024 Orders Only [facility] MEDICINE 230 [place], [place] [phone] ProviderRodrigo MD Social History Tobacco Use Types Packs/Day Years [...] 11/06/2024 9:00 AM EST Telemedicine [facility] MEDICINE [address] [place] [address] Omayra Gudino RN 11/13/2024 9:30 AM EST Office Visit [facility] MEDICINE [address] [place] [address] Germaine Martinez MD [address] [place] [address] documented as of this encounter Procedures Procedure Name Priority Date/Time Associated Diagnosis Comments HM COLONOSCOPY Routine 03/23/2013 8:10 AM EDT documented in this encounter Results * Hm Colonoscopy (03/23/2013 8:10 AM EDT) Historical Provider HEALTH MAINTENANCE Final Result documented in this encounter Visit Diagnoses Not on filedocumented in this encounter Additional Health Concerns Assessment Noted Time PHQ-9 Depression Total Score: 1 08/26/20 23 1:07 PM EST documented as of this encounter Care Teams Re Recording Mixer Relationship Specialty Start Date End Date Germaine Martinez MD [address] [place] [address] PCP - General Family Medicine 07/14/20 documented as of this encounter
--- OUTSIDE RECORDS SUMMARY | 2024-10-09 12:24 | XMS_ITS | Encounter Summary ---
Author Organization [employer] Address [address] [facility] [facility] [address] 7t [place] [address] Care Team Providers Care Maintenance Department Technician Name Role Phone Germaine Martinez MD Primary Care Provider [phone] Reason for Visit * Reason Onset Date Comments Med Refill 09/04/2022 Encounter Details Date Type Department Care Team ([facility] st Contact Info) Description 09/04/2022 Telephone [facility] MEDICINE 230 [place], [place] [phone] Germaine Martinez MD 230 [place], [place] [phone] Med Refill Social History Tobacco Use Types Packs/Day Years Used Date Smoking Tobacco: Never Assessed Alcohol Answer Date Recorded Frequency of Alcohol [...] suspected to have Coronavirus/COVID-19? No / Unsure 12/27/2022 11:06 AM EDT documented as of this encounter Miscellaneous Notes * Telephone Encounter - Madeleine Ruby - 09/04/2022 11:54 AM EST Tc from pt requesting a med refill for oxycodone 5 mg. Please contact at [phone] Spe[employer] K[place]z documented in this encounter Plan of Treatment Upcoming Encounters Date Type Department Care Team (Late st Contact Info) Description 11/06/2024 9:00 AM EST Telemedicine [facility] MEDICINE [address] [place] [address] Omayra Gudino RN 11/13/2024 9:30 AM EST Office Visit [facility] MEDICINE [address] [place] [address] Germaine Martinez MD [address] [place] [address] documented as of this encounter Visit Diagnoses Not on filedocumented in this encounter Care Teams Maintenance Department Technician Relationship Specialty Start Date End Date Germaine Martinez MD 230 [place] [address] PCP - General Family Medicine 07/14/20 documented as of this encounter
--- OUTSIDE RECORDS SUMMARY | 2024-10-09 12:24 | XMS_ITS | Encounter Summary ---
Author Organization [email or web address] [facility] Address [address] [facility] [address] 7t [place] [address] Care Team Providers Care Wet Cotton Feeder Name Role Phone Germaine Martinez MD Primary Care Provider Encounter Details Date Type Department Care Team (Late st Contact Info) Description 01/02/2023 Orders Only [facility] MEDICINE [address] [place] [address] [phone] Germaine Martinez MD [address] [place] [address] [phone] Degeneration of lumbar intervertebral disc (Primary Dx) Social History Tobacco Use Types Packs/Day Years Used Date Smoking Tobacco: Never Smokeless Tobacco: Never Alcohol Use Standard Drinks/Week Comments Never 0 (1 standard drink = 0.6 oz pur e alcohol) PHQ-2 Answer Date Recorded Patient Health Questionnaire-2 Score 2 12/27/2022 Depression Answer Date Recorded Patient Health Questionnaire-2 Score 2 12/27/2022 Comments Unknown Sex and Gender Information Value [...] Info) Description 11/06/2024 9:00 AM EST Telemedicine [facility] MEDICINE [address] [place] [phone] Omayra Gudino, RN 11/13/2024 9:30 AM EST Office Visit [facility] MEDICINE [address] [place] [address] Germaine Martinez MD 230 [place] [address] documented as of this encounter Visit Diagnoses Diagnosis Degeneration of lumbar intervertebral disc- Primary Degeneration of lumbar or lumbosacral intervertebral disc documented in this encounter Care Teams Wet Cotton Feeder Relationship Specialty Start Date End Date Germaine Martinez MD [address] [place] [address] PCP - General Family Medicine 07/14/20 documented as of this encounter
--- OUTSIDE RECORDS SUMMARY | 2024-10-09 12:24 | XMS_ITS | Encounter Summary ---
Author Organization [employer] Address [address] [facility] [address] 7t [place] [address] Care Team Providers Care Crossing Guard Name Role Phone Germaine Martinez MD Primary Care Provider [phone] Reason for Visit * Reason Comments Med Refill Encounter Details Date Type Department Care Team (Late st Contact Info) Description 06/20/2023 Refill [facility] MEDICINE 230 [place], [place] [phone] Germaine Martinez MD 230 [place], [place] [phone] Degeneration of lumbar intervertebral disc Social History Tobacco Use Types Packs/Day Years Used Date Smoking Tobacco: Never Smokeless Tobacco: Never Alcohol Use Standard Drinks/Week Comments Never 0 (1 standard drink = 0.6 oz pur e alcohol) PHQ-2 Answer Date Recorded Patient Health Questionnaire-2 Score 2 12/27/2022 Housing Stability Answer Date Recorded What is your housing situation today? I have breannakinza suazo 06/17/[address] you li ve. Do you have problems with any of the following? None of the above 06/17/2023 Food Insecurity Answer Date Recorded Within the past 12 months, y ou worried that your food would run out before you got money to buy more: Never True 06/17/2023 Within the past 12 months,th e food you bought just didn't last and you didn't have enough money to get more: Never True 05/2023 Transportation Answer Date Recorded In the past 12 months, has l ack of transportation kept you from medical appts, meetings, work or from getting things needed for daily living? Yes, it has kept me from medical appointments or getting medications. 06/17/2023 Utilities Answer Date Recorded In the past 12 months, has t he electric, gas, oil or water company threatened to shut off services in your home? No 06/17/2023 Depression Answer Date Recorded Patient Health Questionnaire-2 Score 2 12/27/2022 Comments Unknown Sex and Gender Information Value Date Recorded Sex Assigned at Female 07/09/2022 10:22 AM EDT Legal Sex Female 10:22 AM EDT Gender Identity Female 07/09/2022 10:22 AM EDT Sexual Orientation Choose not to disclose 2021 10:22 AM EDT documented as of this encounter Miscellaneous Notes * Telephone Encounter - Elizabeth Valadez - 06/20/2023 1:54 PM EDT Tc from patients daughter requesting the status of script for medication oxyCODONE (Roxicodone) 5 MG immediate release tablet. Marine Geologist sees script sent to pharmacy on 06/14/23, however lead technical writer called pharmacy and they don't have a script on file. Patient has been out of medication since 06/19/23. Please advise. documented in this encounter Plan of Treatment Upcoming Encounters Date Type Department Care Team (Late st Contact Info) Description 11/06/2024 9:00 AM EST Telemedicine [facility] MEDICINE [address] [place] [phone] Omayra Gudino RN 11/13/2024 9:30 AM EST Office Visit [facility] MEDICINE [address] [place] [address] Germaine Martinez MD [address] [place] [address] documented as of this encounter Visit Diagnoses Diagnosis Degeneration of lumbar intervertebral disc Degeneration of lumbar or lumbosacral intervertebral disc documented in this encounter Care Teams Crossing Guard Relationship Specialty Start Date End Date Germaine Martinez MD [address] [place] [address] 11679 PCP - General Family Medicine 07/14/20 documented as of this encounter
--- OUTSIDE RECORDS SUMMARY | 2024-10-09 12:24 | XMS_ITS | Encounter Summary ---
Author Organization [employer] Address [address] [facility] [address] 7t [place] [address] Care Team Providers Care Dental Surgeon Name Role Phone Germaine Martinez MD Primary Care Provider [phone] Reason for Visit * Reason Comments Med Refill Encounter Details Date Type Department Care Team (Late st Contact Info) Description 06/19/2023 Refill [facility] MEDICINE 230 [place], [place] [phone] Germaine Martinez MD 230 [place], [place] [phone] Degeneration of lumbar intervertebral disc Social History [...] Info) Description 11/06/2024 9:00 AM EST Telemedicine [address] [address] Omayra Gudino RN 11/13/2024 9:30 AM EST Office Visit [address] [address] Germaine Martinez MD [address] [place] [address] documented as of this encounter Visit Diagnoses Diagnosis Degeneration of lumbar intervertebral disc Degeneration of lumbar or lumbosacral intervertebral disc documented in this encounter Care Teams Dental Surgeon Relationship Specialty Start Date End Date Germaine Martinez MD [address] [place] [address] PCP - General Family Medicine 07/14/20 documented as of this encounter
--- OUTSIDE RECORDS SUMMARY | 2024-10-09 12:24 | XMS_ITS | Encounter Summary ---
Author Organization [employer] Address [address] [facility] [address] [facility] [address] 7t [place] [address] Care Team Providers Care Woodworking Belt Sander Name Role Phone Germaine Martinez MD Primary Care Provider [phone] Encounter Details Date Type Department Care Team ([facility] st Contact Info) Description 2023 Orders Only [facility] MEDICINE 230 [place], [place] [phone] Germaine Martinez MD 230 [place], [place] [phone] Elevated blood pressure reading (Primary Dx) Social History Tobacco Use Types [...] Info) Description 11/06/2024 9:00 AM EST Telemedicine [address] [address] Omayra Gudino RN 11/13/2024 9:30 AM EST Office Visit [address] [address] Germaine Martinez MD [address] [place] [place] [address] documented as of this encounter Visit Diagnoses Diagnosis Elevated blood pressure reading- Primary Elevated blood pressure reading without diagnosis of hypertension documented in this encounter Care Teams Woodworking Belt Sander Relationship Specialty Start Date End Date Germaine Martinez MD [address] [place] [place] [address] PCP - General Family Medicine 07/14/20 documented as of this encounter
--- OUTSIDE RECORDS SUMMARY | 2024-10-09 12:24 | XMS_ITS | Encounter Summary ---
Author Organization [employer] [facility] Address [address] [facility] 7t [place] [address] Care Team Providers Care Sound Assistant Name Role Phone Germaine Martinez MD Primary Care Provider [phone] Reason for Visit * Reason Comments Med Refill Encounter Details Date Type Department Care Team (Late Contact Info) Description 11/07/2022 Refill [facility] MEDICINE [address] [place] [address] [phone] Germaine Martinez MD [address] [place] [address] [phone] Sacroiliitis (CMS/HCC) Social History Tobacco Use Types [...] suspected to have Coronavirus/COVID-19? No / Unsure 10/23/2022 9:05 AM EST documented as of this encounter Plan of Treatment Upcoming Encounters Date Type Department Care Team (Late Contact Info) Description 11/06/2024 9:00 AM EST Telemedicine [facility] MEDICINE [address] [place] [address] [phone] Omayra Gudino RN 11/13/2024 9:30 AM EST Office Visit [facility] MEDICINE [address] [place] [address] [phone] Germaine Martinez MD 230 [place] [address] documented as of this encounter Visit Diagnoses Diagnosis Sacroiliitis (CMS/HCC) Sacroiliitis, not elsewhere classified documented in this encounter Care Teams Sound Assistant Relationship Specialty Start Date End Date Germaine Martinez MD 230 [place] [address] PCP - General Family Medicine 07/14/20 documented as of this encounter
--- OUTSIDE RECORDS SUMMARY | 2024-10-09 12:24 | XMS_ITS | Encounter Summary ---
Author Organization [employer] Address [address] [facility] [address] 7[address] [place] [address] Care Team Providers Care Preservative Filler Machine Operator Name Role Phone Germaine Martinez MD Primary Care Provider [phone] Reason for Visit * Reason Comments Med Refill Encounter Details Date Type Department Care Team (Late st Contact Info) Description 09/13/2023 Refill [facility] MEDICINE 230 [place], [place] [phone] Germaine Martinez MD 230 [place], [place] [phone] Degeneration of lumbar intervertebral disc; Type 2 diabetes mellitus with other specified complication, unspecified whether bed bug exterminator insulin use ([facility]) Social History Tobacco Use Types Packs/Day Years [...] the past 12 months, has t he [employer], gas, oil or water company threatened to [...] Info) Description 11/06/2024 9:00 AM EST Telemedicine [facility] MEDICINE [address] [place] [address] Omayra Gudino RN 11/13/2024 9:30 AM EST Office Visit [facility] MEDICINE [address] [place] [address] Germaine Martinez MD [address] [place] [address] documented as of this encounter Visit Diagnoses Diagnosis Degeneration of lumbar intervertebral disc Degeneration of lumbar or lumbosacral intervertebral disc Type 2 diabetes mellitus with other specified complication, unspecified whether bed bug exterminator insulin use ([facility]) documented in this encounter Additional Health Concerns Assessment Noted Time PHQ-9 Depression Total Score: 1 08/26/20 23 1:07 PM EST documented as of this encounter Care Teams Preservative Filler Machine Operator Relationship Specialty Start Date End Date Germaine Martinez MD [address] [place] [address] PCP - General Family Medicine 11/5/20 documented as of this encounter
--- OUTSIDE RECORDS SUMMARY | 2024-10-09 12:24 | XMS_ITS | Encounter Summary ---
Author Organization [employer] Address [address] [place] [address] Care Team Providers Care Collar Fuser Name Role Phone Germaine Martinez MD Primary Care Provider [phone] Reason for Visit * Reason Comments Med Refill Encounter Details Date Type Department Care Team (Late st Contact Info) Description 06/18/2023 Refill [facility] [address] [place], [place] [phone] Germaine Martinez MD [address] [place], [place] [phone] Degeneration of lumbar intervertebral disc Social History [...] Info) Description 11/06/2024 9:00 AM EST Telemedicine [address] [address] Omayra Gudino RN 11/13/2024 9:30 AM EST Office Visit [address] [address] Germaine Martinez MD [address] [place] [phone] documented as of this encounter Visit Diagnoses Diagnosis Degeneration of lumbar intervertebral disc Degeneration of lumbar or lumbosacral intervertebral disc documented in this encounter Care Teams Collar Fuser Relationship Specialty Start Date End Date Germaine Martinez MD [address] [place] [phone] PCP - General Family Medicine 07/14/20 documented as of this encounter
--- OUTSIDE RECORDS SUMMARY | 2024-10-09 12:24 | XMS_ITS | Encounter Summary ---
Author Organization [employer] Address [address] [place] [address] Care Team Providers Care Lap Cutter Truer Operator Name Role Phone Germaine Martinez MD Primary Care Provider [phone] Reason for Visit * Reason Comments Med Refill Encounter Details Date Type Department Care Team (Late st Contact Info) Description 07/25/2023 Refill [facility] [address] [place], [place] [phone] Germaine Martinez MD [address] [place] [address] Recurrent major depressive disorder, in partial remission (CMS/HCC) Social History Tobacco Use Types Packs/Day [...] Info) Description 11/06/2024 9:00 AM EST Telemedicine [facility] [address] [place] [phone] Omayra Gudino RN 11/13/2024 9:30 AM EST Office Visit [facility] [address] [place] [phone] Germaine Martinez MD [address] [place] [phone] documented as of this encounter Visit Diagnoses Diagnosis Recurrent major depressive disorder, in partial remission (CMS/HCC) documented in this encounter Care Teams Lap Cutter Truer Operator Relationship Specialty Start Date End Date Germaine Martinez MD [address] [place] [address] [phone] PCP - General Family Medicine 07/14/20 documented as of this encounter
== END 2024-10-09 11:13 | disposition home or self-care (01) ==
LOC: HO.HOSX 11:12
PROVIDERS: PCP General Practice; Visit Provider Physical Medicine & Rehabilitation
DX: M79.641 Pain in right hand (principal); M79.642 Pain in left hand; R20.0 Anesthesia of skin; M79.643 Pain in unspecified hand
CPT/HCPCS: 73130; 99202

== ENCOUNTER → 2024-10-09 11:48 | Outpatient (BNV) | payer OTHER, SELFPAY | PROVIDERS: PCP General Practice; Visit Provider Specialist | DX: M79.642 Pain in left hand (principal); M79.641 Pain in right hand | CPT/HCPCS: 73130 ==

== ENCOUNTER 2025-01-14 10:15 | Outpatient (AMB) | payer OTHER, SELFPAY ==
--- NOTE | 2025-01-14 10:52 | A.OFFVIS_ITS ---
Vital Signs 01/14/25 11:13 Height 5 ft Weight 157 lb BMI 30.7 BP 116/56 L Blood Pressure Location Rt brachial Position Sitting Pulse 68 Pulse Source Pulse Oximeter Pulse Oximetry (%) 100 Oxygen Delivery Method Room Air Intake Visit Reasons: 6 mo Gerd, CIC Intake Note: ESTABLISHED PATIENT for mgmt of GERD + CIC. CC; C/O RLQ and generalized abd pain which seems to be consistent with BMs as of the last few weeks. Pt denies any evidence of hematochezia / melena at this time. No additional sx or concerns. GERD is still well controlled. Shear Assembler Required: Yes Shear Assembler Services: Shear Assembler Present Shear Assembler Name: [facility] Dionne Beck [id number] Information Interpreted: clinical only Accompanied by: Self / Same As Patient Allergies acetaminophen [From Percocet] Allergy (Unknown, Verified 01/14/25 11:08) Hives oxycodone [From Percocet] Allergy (Unknown, Verified 01/14/25 11:08) Hives naproxen Allergy (Verified 01/14/25 11:08) Itching HPI HPI 6 mo Gerd, CIC: Details: Assessment & Plan (1) Esposito's esophagus determined by biopsy: Comment: Last EGD 10/2022 and there was Barretts metaplasia with no dysplasia, repeat in 2024 Code(s): K22.70 - Esposito's esophagus without dysplasia Category: Medical (2) GERD (gastroesophageal reflux disease): Code(s): K21.9 - Gastro-esophageal reflux disease without esophagitis Category: Medical (3) Constipation: Code(s): K59.00 - Constipation, unspecified Category: Medical Plan [place] #Eusebia Live She is doing well on her LInzess and bisacodyl with Dexilant and famotidine. Colonoscopy 10/2022 so her next Barretts surveillance would be due around 2024. Next surveillance colonoscopy would be for 10 years. Return office visit in 6 months TODAY'S VISIT [place] #[id number] She is here today with her daughter who is supportive. She is doing well on her LInzess and bisacodyl with Dexilant and famotidine. She says that the Dexilant works well but the famotidine qhs is not working. They believe this is r/t it coming in a pill pack and she can't separate it out ot take ac. She is agreeable to scheduling her EGD for SSBE surveillance There are no prior problems with anesthesia or sedation. She denies any cardiac or resp problems NO ID problems. Next avail to eval changing famotidine to bottle out of pill pack PFSH Medical History (Updated 01/14/25 @ 11:36 by LUMA Rowell) Pre-op examination [place] (hard of hearing) Hypothyroid DM type 2 (diabetes mellitus, type 2) Osteoarthritis H/O degenerative disc disease Chronic back pain GERD (gastroesophageal reflux disease) Elevated cholesterol Intestinal metaplasia of gastric mucosa Surgical History H/O breast biopsy History of varicose vein ligation and stripping S/P cataract extraction History of section Hx of colonoscopy H/O esophagogastroduodenoscopy Family History Father Cardiac arrest Mother No problems noted. 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 Review of Systems Const Denies fatigue, Denies fever(s), Denies night sweats, Denies poor appetite and Denies weight loss ENT Reports Normal hearing present, Denies dental pain, Denies dysphagia, Denies hearing loss, Denies mouth pain, Denies odynophagia, Denies throat swelling, Denies tongue swelling and Reports other (Dentition adequate) Card Reports no additional complaints Resp Reports no additional complaints GI Details: Denies abdominal pain, Denies melena, Denies bloating, Denies hematochezia, Reports constipation, Denies GI cramping, Denies dysphagia, Denies excessive flatus, Denies early satiety, Reports heartburn, Denies diarrhea, Denies nausea, Denies odynophagia, Denies vomiting and Denies hematemesis Skin/Breast Denies pruritus, Denies lesions, Denies rash and Denies jaundice Neuro Reports Normal hearing present and Denies Abnormal speech present Endo Denies fatigue Aller/Immun Denies throat swelling and Denies tongue swelling Physical Exam Vital Signs: Last Vital Signs Pulse 68 01/14/25 11:13 BP 116/56 L 01/14/25 11:13 Pulse Ox 100 01/14/25 11:13 Oxygen Delivery Method Room Air 01/14/25 11:13 BMI result Body Mass Index 30.7 Const General: cooperative, no acute distress, well developed and well groomed Nutritional Appearance: well nourished and obese Orientation/consciousness: oriented to person, oriented to place and oriented to time Limitations: language barrier HEENT Head: Yes normocephalic and Yes atraumatic Eyes General: appearance normal, both eyes and all related structures Pupils: Equal, round and reactive pupils present Neck Neck: Yes normal visual inspection and Yes no lymphadenopathy Thyroid: Thyroid normal Resp Effort & Inspection: normal respiratory effort and able to speak in complete sentences Auscultation: clear to auscultation bilaterally Cardio Rate: regular rate Rhythm: regular rhythm Heart sounds: Normal, physiologic split S2 sound present Peripheral pulses: radial pulses present and posterior tibial pulses present GI Inspection: No distended and No Abdominal panniculus present Palpation (GI): Soft to palpation, nontender, no guarding, not rigid and No hepatosplenomegaly present Percussion: Yes normal to percussion Auscultation: normal bowel sounds Rectal Exam - Female: deferred Skin General skin exam: no rashes or lesions noted, turgor normal, skin not dry, no jaundice, No spider nevi and no striae Rashes: no rashes Nails: normal Neuro General: oriented to person, oriented to place and oriented to time Cranial nerves: Yes Equal, round and reactive pupils present and Yes Normal hearing present Speech: No Abnormal speech present Extrem General: Yes normal to inspection, No clubbing, No cyanosis and No edema Psych Appearance: grossly normal and well kempt Mental Status: mental status grossly normal Speech and movement: Normal speech and movement present Affect: normal affect Attitude: cooperative Thought process: Normal thought process present and not confabulating Thought content: Normal thought content present Insight: Limited insight present (Psych) Judgement: Limited judgement present (Psych) Assessment & Plan Assessment & Plan (1) GERD (gastroesophageal reflux disease): Code(s): K21.9 - Gastro-esophageal reflux disease without esophagitis Category: Medical (2) Pre-op examination: Code(s): Z01.818 - Encounter for other preprocedural examination Category: Medical (3) Esposito's esophagus determined by biopsy: Comment: Last EGD 10/2022 and there was Barretts metaplasia with no dysplasia, repeat in 2024 Code(s): K22.70 - Esposito's esophagus without dysplasia Category: Medical Plan [place] #[id number] She is here today with her daughter who is supportive. She is doing well on her LInzess and bisacodyl with Dexilant and famotidine. She says that the Dexilant works well but the famotidine qhs is not working. They believe this is r/t it coming in a pill pack and she can't separate it out ot take ac. She is agreeable to scheduling her EGD for SSBE surveillance There are no prior problems with anesthesia or sedation. She denies any cardiac or resp problems NO ID problems. Next avail to pawel changing famotidine to bottle out of pill pack Orders: Orders Comprehensive Met. Panel Today K21.9 - Gastro-esophageal reflux disease without esophagitis, K22.70 - Esposito's esophagus without dysplasia, Z01.818 - Encounter for other preprocedural examination Complete Blood Count Auto Diff Today K21.9 - Gastro-esophageal reflux disease without esophagitis, K22.70 - Esposito's esophagus without dysplasia, Z01.818 - Encounter for other preprocedural examination EGD - GI Use Only Today K21.9 - Gastro-esophageal reflux disease without esophagitis, K22.70 - Esposito's esophagus without dysplasia, Z01.818 - Encounter for other preprocedural examination Medications: New famotidine (Pepcid) PLEASE DO NOT PUT IN PILL PACK, SEND IN A SEPARATE BOTTLE 40 mg PO .qac supper 30 tabs 12RF K21.9 - Gastro-esophageal reflux disease without esophagitis Refilled dexlansoprazole (Dexilant) 60 mg PO DAILY 30 caps 6RF linaclotide (Linzess) 145 mcg PO QAM 30 caps 6RF K58.1 - Irritable bowel syndrome with constipation dexlansoprazole (Dexilant) 60 mg PO DAILY 30 caps 6RF bisacodyl (Dulcolax (bisacodyl)) 10 mg (2 x 5 mg) PO BEDTIME 60 tabs 6RF 30 days K59.00 - Constipation, unspecified Coding Level of Care Code Est Pt Level 3 (64901) Diagnoses GERD (gastroesophageal reflux disease) K21.9 Pre-op examination Z01.818 Esposito's esophagus determined by biopsy K22.70
[2025-01-14 11:13] VITALS: BP 116/56; PULSE 68; O2SAT 100; BMI 30.7
--- OUTSIDE RECORDS SUMMARY | 2025-01-14 11:26 | XMS_ITS | Encounter Summary ---
Author Organization [employer] [facility] Address [address] [facility] [address] [place] [address] Care Team Providers Care Laboratory Immunologist Name Role Phone Germaine Martinez MD Primary Care Provider [phone] Reason for Visit * Reason Comments Med Refill Encounter Details Date Type Department Care Team ([facility] Contact Info) Description 12/03/2022 Refill [facility] [address] [place] [address] [phone] Germaine Martinez MD [address] [place] [address] [phone] Sacroiliitis (CMS/HCC) Social History Tobacco Use Types [...] Upcoming Encounters Date Type Department Care Team ([facility] Contact Info) Description 02/02/2025 11:00 AM EDT Office Visit [facility] [address] [place] [phone] Germaine Martinez MD [address] [place] [address] [phone] documented as of this encounter Visit Diagnoses Diagnosis Sacroiliitis (CMS/HCC) Sacroiliitis, not elsewhere classified documented in this encounter Care Teams Laboratory Immunologist Relationship Specialty Start Date End Date Germaine Martinez MD [address] [place] [address] PCP - General Family Medicine 07/14/20 documented as of this encounter
--- OUTSIDE RECORDS SUMMARY | 2025-01-14 11:26 | XMS_ITS | Encounter Summary ---
Author Organization [employer] Address [address] [place] [address] Care Team Providers Care Mix House Tender Name Role Phone Germaine Martinez MD Primary Care Provider [phone] Encounter Details Date Type Department Care Team (Late Contact Info) Description 01/02/2023 Orders Only [facility]INE [address] [place] [address] [phone] Germaine Martinez MD [address] [place] [address] [phone] Degeneration of lumbar intervertebral disc (Primary Dx) [...] Department Care Team (Late Contact Info) Description 02/02/2025 11:00 AM EDT Office Visit [facility] [address] [place] [address] Germaine Martinez MD [address] [place] [address] documented as of this encounter Visit Diagnoses Diagnosis Degeneration of lumbar intervertebral disc- Primary Degeneration of lumbar or lumbosacral intervertebral disc documented in this encounter Care Teams Mix House Tender Relationship Specialty Start Date End Date Germaine Martinez MD [address] [place] [address] PCP - General Family Medicine 07/14/20 documented as of this encounter
--- OUTSIDE RECORDS SUMMARY | 2025-01-14 11:26 | XMS_ITS | Encounter Summary ---
Author Organization [employer] Address [address] [place] [address] Care Team Providers Care Food Safety Coordinator Name Role Phone Germaine Martinez MD Primary Care Provider [phone] Reason for Visit * Reason Onset Date Comments Med Refill 07/29/2024 Encounter Details Date Type Department Care Team ([facility] st Contact Info) Description 07/29/2024 Telephone [facility] [address] [place], [place] [phone] Germaine Martinez MD [address] [place], [place] [phone] Med Refill Social History Tobacco Use Types [...] immediate release tablet To be sent to: [facility] - [place], [place] - [address] [place] [address] documented in this encounter Plan of Treatment Upcoming Encounters Date Type Department Care Team ([facility] st Contact Info) Description 02/02/2025 11:00 AM EDT Office Visit [facility] [address] [place] [address] Germaine Martinez MD [address] [place] [address] documented as of this encounter Visit Diagnoses Not on filedocumented in this encounter Additional Health Concerns Assessment Noted Time PHQ-9 Depression Total Score: 1 08/26/20 23 1:07 PM EST documented as of this encounter Care Teams Food Safety Coordinator Relationship Specialty Start Date End Date Germaine Martinez MD [address] [place] [address] PCP - General Family Medicine 07/14/20 documented as of this encounter
--- OUTSIDE RECORDS SUMMARY | 2025-01-14 11:26 | XMS_ITS | Clinical Summary ---
Author Organization [employer] Address [address] [facility] 7t [place] [address] Care Team Providers Care Corn Press Operator Name Role Phone Germaine Martinez MD Primary Care Provider [phone] Allergies Active Allergy Reactions Criticality Noted Date [...] Active Blood Pressure Monitoring (Blood Pressure Cuff) [facility] For use daily to check blood pressure [...] Take 40 mg by mouth at bedtime. Active Repatha SureClick 140 MG/ML injection INJECT 1 ML (140 MG) SUBCUTANEOUSLY EVERY 14 DAYS Active Pentips 32G X 4 MM misc USE UP TO FIVE TIMES DAILY DIRECTED Active magnesium oxide (Mag-Ox) 400 MG tablet TAKE 1 TABLET BY MOUTH EVERY MORNING FOR HEADACHE Active Linzess 145 MCG capsule TAKE 1 CAPSULE BY MOUTH EVERY MORNING WITH A FULL GLASS OF WATER Active fluticasone (Flonase) 50 MCG/ACT nasal spray USE 1 SPRAY IN EACH NOSTRIL TWICE DAILY 48 g 3 Active Alcohol Swabs (Alcohol Prep) 70 % pads TEST BLOOD SUGAR 8 TIMES PER DAY 100 each 11 Active dexlansoprazole (Dexilant) [address] capsule [...] BY MOUTH AT BEDTIME 90 tablet 3 Active losartan (Cozaar) 25 MG tabletIndication s:Elevated blood pressure reading TAKE 1 TABLET BY MOUTH EVERY MORNING 90 tablet 3 Active naloxone (Narcan) 4 mg/0.1 mL nasal sprayIndications :Chronic, continuous use of opioids Administer 1 spray (4 mg) into affected nostril(s) if needed for opioid reversal. Compton 0.1 milliliter by intranasal route in 1 nostril may repeat dose every 2-3 minutes as needed alternating nostrils with each dose 2 each 3 Active loratadine (Claritin) 10 MG tabletIndication s:Dermatitis [...] MOUTH EVERY DAY AT BEDTIME 60 capsule Active Diclofenac Sodium 1 % gelIndications:R ight tennis elbow,Right wrist tendonitis Apply 1 Application topically every 12 (twelve) hours if needed (apply on affected area if needed). 150 g 025 Active gabapentin (Neurontin) 400 MG capsuleIndicatio ns:Degeneration of lumbar intervertebral disc,Type 2 diabetes mellitus with other specified complication, unspecified whether intermediate card tender insulin use ([facility]) TAKE 1 CAPSULE BY MOUTH THREE TIMES DAILY IN THE MORNING, AT NOON, AND IN THE EVENING 90 capsule Active cholecalciferol (Vitamin D3) 25 MCG (1000 UT) tabletIndication s:Vitamin D deficiency TAKE 1 TABLET BY MOUTH EVERY MORNING 90 tablet 025 Active FREESTYLE LITE test stripIndications :Type 2 diabetes mellitus with other specified complication, unspecified whether senior care insulin use ([facility]) TEST BLOOD SUGAR 8 TIMES EVERY DAY DIRECTED 200 strip 025 Active Jardiance 10 MGIndications:Ty pe 2 diabetes mellitus with diabetic neuropathy, with long-term current use of insulin ([facility]) TAKE 1 TABLET BY MOUTH EVERY MORNING 30 tablet Active oxyCODONE (Roxicodone) 5 MG immediate release tabletIndication s:Degeneration of lumbar intervertebral disc Take 1 tablet (5 mg) by mouth every 6 (six) hours if needed for severe pain for up to 28 days. 112 tablet 025 2024 Active oxyCODONE (Roxicodone) 5 MG immediate release tabletIndication s:Degeneration of lumbar intervertebral disc Take 1 tablet (5 mg) by mouth every 6 (six) hours if needed for severe pain for up to 28 days. Do not start before November 20, 2024. 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: Tier II (visit every 4 months) [...] testing, if that works, ideally would take [place] 7.5mg Hyperlipidemia 07/13/2015 Overview (08/26/2023): Last Assessment [...] Encounters Date Type Department Care Team Description 01/14/2025 Refill [facility] [address] [place] [phone] Germaine Martinez MD 01/13/2025 Telephone [facility] [address] [place] [address] [phone] Germaine Martinez MD Med Refill 01/07/2025 Refill [facility] [address] [place] [address] [phone] Germaine Martinez MD 12/18/2024 Refill [facility] [address] [place] [address] 46960 Germaine Martinez MD Degeneration of lumbar intervertebral disc 12/17/2024 Telephone [facility] [address] [place] [address] [phone] Germaine Martinez MD telephone call 12/09/2024 Refill [facility] [address] [place] [address] [phone] Germaine Martinez MD Type 2 diabetes mellitus with diabetic neuropathy, with long-term current use of insulin ([facility]) 11/17/2024 Refill [facility] [address] [place] [phone] Germaine Martinez MD Degeneration of lumbar intervertebral disc 11/06/2024 9:00 AM EST Telemedicine [facility] [address] [place] [address] 37594 Omayra Gudino RN halfway current use of opiate analgesic 11/06/2024 Patient Outreach [facility] [address] [place] [address] Germaine Martinez MD Pre-visit Planning ([facility] ) 11/06/2024 Telephone [facility] [address] [place] [address] [phone] Omayra Gudino, RN BPI Scoring 11/06/2024 Travel 11/03/2024 Refill [facility] [address] [place] [address] 6[address] Germaine Martinez MD Type 2 diabetes mellitus with other specified complication, unspecified whether intermediate card tender insulin use ([facility]) 10/22/2024 Refill [facility] [address] [place] [address] Germaine Martinez MD Degeneration of lumbar intervertebral disc from Last 3 Months Immunizations Name Administration [...] Care Team (Late st Contact Info) Description 02/02/2025 11:00 AM EDT Office Visit [facility] [address] [facility] [place] [address] Germaine Martinez MD [address] [place] [address] Health Maintenance Due Date Last Done Comments Eye Exam 1960 Alcohol/Substance Use Screening 1960 DTaP/Tdap/Td Vaccines (2 - Td or Tdap) 05/08/2023 05/08/2013, 05/01/2006 RSV Patients and Patients Aged 60 years or older (1 - 1-dose 75+ series) 2023 Lipid Panel 01/31/2024 01/30/2023, 04/11, 11/01/2020 COVID-19 Vaccine ( season) 2024 09/16/2021, 12/15/2020, 11/24/2020 Depression Screening 08/26/2024 08/26/2023, 08/26/20 23 Mammogram 11/26/2024 11/27/2023, 03/0 02/2023, 11/12/2022, Additional history exists SDOH Screening 12/09/2024 12/10/2023 Diabetes: Urine Protein Screening 12/18/2024 12/19/2023, 05/09/2021, 11/02/2020, Additional history exists Diabetes: Hemoglobin A1C 01/30/2025 025, 07/13/2024, 04/10/2024, Additional history exists Diabetes: Foot Exam 07/13/2025 [...] neuropathy, with long-term current use of insulin ([facility]) HEPATITIS C AB W/REFL TO HCV RNA, QN, PCR Routine 12/19/2023 11:46 AM EDT Type 2 diabetes mellitus with diabetic neuropathy, with long-term current use of insulin ([facility]) ALBUMIN, RANDOM URINE W/CREATININE Routine 12/19/2023 11:46 AM EDT Type 2 diabetes mellitus with diabetic neuropathy, with long-term current use of insulin ([facility]) BI MAMMOGRAM SCREENING TOMOSYNTHESIS BILATERAL Routine 11/27/2023 8:50 AM EDT LIPID PANEL, STANDARD Routine 01/30/2023 9:44 AM EDT Type 2 diabetes mellitus without complication, unspecified whether intermediate card tender insulin use ([facility]) HM COLONOSCOPY Routine 03/23/2013 8:10 AM EDT from Last 3 Months or Most Recently Relevant to Health Maintenance Results * (ABNORMAL) POCT A1C (07/13/2024 9:26 AM EST) Hemoglobin A1C 8.2(A) 4.0 - 6.0 % QC Media Lot # [id number] Lot# Expiration Date ,[id number] Blood 07/13/2024 9:26 AM EST Germaine Martinez MD POINT OF CARE TEST ENTER/EDIT ORDERABLES Final Result * Albumin, Random Urine W/Creatinine (12/19/2023 11:46 AM EDT) Pathologist [facility] Creatinine, Urine 34.93 mg/dL [facility] Microalbumin Urine 8.0 mg/L [facility] Microalbum Creatinine Ratio Ur 22.9 <30 ug/mg cr [facility] Comment:Albumin/Creatinine R atio Reference Ranges: Normal: < 30 ug/mg creatinine Microalbuminuria: 30 - 300 ug/mg creatinineClinical Albuminuria: > 300 ug/mg creatinine Urine (Urine, Random) 12/19/2023 11:46 AM EDT 12/19/2023 1:10 PM EDT Germaine Martinez MD LAB URINE ORDERABLES Final Res ult Performing Organization Address [facility] Co de Phone Number [facility] [address] [place] [phone] * Hepatitis C Antibody with Reflex to HCV, RNA, Quantitative, Real-Time PCR (12/19/2023 11:46 AM EDT) Pathologist [facility] Hepatitis C Antibody Nonreactive Nonreactive [facility] Comment:Antibodies to HCV no t detected; does not exclude early acuteHCV infection. Blood Venous blood specimen / Unknown 12/19/2023 11:46 AM EDT 12/19/2023 1:16 PM EDT Germaine Martinez MD LAB BLOOD ORDERABLES Final Res ult Performing Organization Address [facility]/ZIP Co de Phone Number [facility] [address] [place] [phone] * BI Mammogram Screening Tomosynthesis Bilateral (11/27/2023 8:50 AM EDT) Anatomical Region Laterality Modality Breast Bilateral Mammography 11/27/2023 8:50 AM EDT Narrative 12/19/2023 5:29 AM EDT ? [facility] ? [address] ?[place], [place] [address] ? Mammography Report ? Signed ? Patient: Philip,Tennille ?MR#: [id number] ?? [id number] ? : 1950 ?Acct:[id number] ? Age/Sex: 73 / F ?ADM Date: 11/27/23 ? Loc: HO.MAMMO ? Attending Dr: Germaine Martinez MD ? Ordering Physician: Germaine Martinez ?Results: 2Benign F ?? indings ? Date of Service: 11/27/23 ?Follow Up: 1 Year From Orig ?? inal Mammogram ? Procedure(s): MM tomosynthesis screening BI ?? Accession Number(s): [id number] ? cc: Germaine Martinez ? EXAMINATION: ?? MM SCREENING DIGITAL BREAST TOMOSYNTHESIS, BILATERAL ? CLINICAL INFORMATION: ? Screening. Asymptomatic. ? COMPARISON: ?? Mammography: This study is compared with prior exams dating back to ?? 2019. ? TECHNIQUE: ?? Digital breast tomosynthesis is [...] 05 ? DD/ 0850 ? TD/TT: ? Optoelectronic Technician: ? Procedure Note Jayden, Robin - 12/19/2023 [facility] [address] [place] [address] Mammography Report Signed Patient: Judith Philip#: [id number] : 8Acct:[id number] Age/Sex: 73 / FADM Date: 11/27/23 Loc: HO.MAMMO Attending Dr: Germaine Martinez MD Ordering Physician: Abdirizak Martinezults: 2Benign F indings Date of Service: 11/27/23Follow Up: 1 Year From Orig inal Mammogram Procedure(s): MM tomosynthesis screening BI Accession Number(s): [id number] cc: Germaine Martinez EXAMINATION: MM SCREENING DIGITAL [...] in OV> 12/19/23 0525 DD/ 0850 TD/TT: Optoelectronic Technician: Germaine Martinez MD IMG BI PROCEDURES Final Result * (ABNORMAL) Lipid Panel, Standard (01/30/2023 9:44 AM EDT) Cholesterol, Total 333(H) <200 mg/dL [facility] HDL Cholesterol 73 > OR = 50 mg/dL [facility] Triglycerides 107 <150 mg/dL [facility] LDL Cholesterol 236(H) mg/dL (calc) [facility] Comment: LDL-C levels > or = 190 [...] about testing for familial hypercholesterolemia, please call [facility] at [phone].INFO. Lawrence Dejesus, et al. J National Lipid Association Recommendations for Patient-Centered Management of Dyslipidemia: Part 1 Journal of Clinical Lipidology 2015;9(2), 129-169. Timothy Perez. et al. (2014). Homozygous familial hypercholesterolaemia: new insights and guidance for clinicians to improve detection and clinical management. Heart Journal, 35(32), 3652-3304. Reference range: <100 Desirable range <100 mg/dL for primary prevention; ?? <70 mg/dL for patients with CHD or diabetic patients with > or = 2 CHD risk factors. LDL-C is now calculated using the Lokesh-Lev calculation, which is a validated novel method providing better accuracy than the Friedewald equation in the estimation of LDL-C. Lokesh SS et al. ESTHER. 2013;310(19): 3708-3700 (http://education.Nosopharm/faq/TOF447) Chol/HDLC Ratio 4.6 <5.0 (calc) [facility] Non-HDL Cholesterol 260(H) <130 mg/dL (calc) [facility] Comment: Non-HDL level > or = 220 [...] BLOOD ORDERABLES Final Res ult [facility] [address] [facility], [place] [address] [facility] [address] [place] [address] * Hm Colonoscopy (03/23/2013 8:10 AM EDT) us Historical Provider HEALTH MAINTENANCE Final Result from Last 3 Months or Most Recently Relevant to Health Maintenance Insurance [facility] OPT[employer] (HMO D-SNP) JASON CRAWFORD [id number] Care Teams Corn Press Operator Relationship Specialty Start Date End Date Germaine Martinez MD [address] [place] [phone] PCP - General Family Medicine 07/14/20
--- OUTSIDE RECORDS SUMMARY | 2025-01-14 11:26 | XMS_ITS | Encounter Summary ---
Author Organization [employer] Address [address] [facility] [address] 7[address] [place] [address] Care Team Providers Care Hospice Physician Name Role Phone Germaine Martinez MD Primary Care Provider [phone] Reason for Visit * Reason Comments Med Refill Encounter Details Date Type Department Care Team (Late st Contact Info) Description 01/14/2025 Refill [facility] [address] [place], [place] [phone] Germaine Martinez MD [address] [place], [place] [phone] Social History Tobacco Use Types Packs/Day Years [...] Description 02/02/2025 11:00 AM EDT Office Visit [facility] [address] [place] [address] Germaine Martinez MD [address] [place] [address] documented as of this encounter Visit Diagnoses Not on filedocumented in this encounter Additional Health Concerns Assessment Noted Time PHQ-9 Depression Total Score: 1 08/26/20 23 1:07 PM EST documented as of this encounter Care Teams Hospice Physician Relationship Specialty Start Date End Date Germaine Martinez MD [address] [place] [address] PCP - General Family Medicine 07/14/20 documented as of this encounter
--- OUTSIDE RECORDS SUMMARY | 2025-01-14 11:26 | XMS_ITS | Encounter Summary ---
Author Organization [employer] Address [address] [facility] [address] [place] [address] Care Team Providers Care Spar Machine Operator Helper Name Role Phone Germaine Martniez MD Primary Care Provider [phone] Reason for Visit * Reason Onset Date Comments Med Refill 01/13/2025 Encounter Details Date Type Department Care Team ([facility] st Contact Info) Description 01/13/2025 Telephone [facility] [address] [place], [place] [phone] Germaine Martinez MD [address] [place], [place] [phone] Med Refill Social History Tobacco Use Types [...] Telephone Encounter - Neva Huitron RN - 01/13/2025 1:43 PM EDT [facility] reviewed 01/13/25, patient last p/u medication on 12/21/24 for a 28 day supply. Medication is due on 01/18/25, RN will pend on 01/15/25. * Telephone Encounter - Alex Andino - 01/13/2025 1:25 PM EDT TC from pt requesting medication refill. Medications needing refill : oxyCODONE (Roxicodone) 5 MG immediate release tablet To be sent to: [facility] documented in this encounter Plan of Treatment Upcoming Encounters Date Type Department Care Team (Late st Contact Info) Description 02/02/2025 11:00 AM EDT Office Visit [facility] [address] [place] [phone] Germaine Martinez MD [address] [place], [place] [phone] documented as of this encounter Visit Diagnoses Not on filedocumented in this encounter Additional Health Concerns Assessment Noted Time PHQ-9 Depression Total Score: 1 08/26/20 23 1:07 PM EST documented as of this encounter Care Teams Spar Machine Operator Helper Relationship Specialty Start Date End Date Germaine Martinez MD [address] [place] [address] PCP - General Family Medicine 07/14/20 documented as of this encounter
--- OUTSIDE RECORDS SUMMARY | 2025-01-14 11:26 | XMS_ITS | Encounter Summary ---
Author Organization [facility] Address [address] [facility] 7t [place] [address] Care Team Providers Care Sample Supervisor Name Role Phone Germaine Martinez MD Primary Care Provider [phone] Encounter Details Date Type Department Care Team ([facility] Contact Info) Description 09/05/2022 Telephone [facility] [address] [place] [address] [phone] Germaine Martinez MD [address] [place] [address] [phone] Social History Tobacco Use Types Packs/Day Years [...] Description 02/02/2025 11:00 AM EDT Office Visit [facility] [address] [place] [address] [phone] Germaine Martinez MD [address] [place] [address] [phone] documented as of this encounter Visit Diagnoses Not on filedocumented in this encounter Care Teams Sample Supervisor Relationship Specialty Start Date End Date Germaine Martinez MD [address] [place] [address] PCP - General Family Medicine 07/14/20 documented as of this encounter
--- OUTSIDE RECORDS SUMMARY | 2025-01-14 11:26 | XMS_ITS | Encounter Summary ---
Author Organization [employer] Address [address] [facility] [address] 7[address] [place] [address] Care Team Providers Care Real Estate Asset Manager Name Role Phone Germaine Martinez MD Primary Care Provider [phone] Reason for Visit * Reason Comments Med Refill Encounter Details Date Type Department Care Team (Late st Contact Info) Description 06/19/2023 Refill [facility] [address] [place], [place] [phone] Germaine Martinez MD [address] [place], [place] [phone] Degeneration of lumbar intervertebral disc Social History Tobacco Use Types Packs/Day Years Used Date Smoking Tobacco: Never Smokeless Tobacco: Never Alcohol Use Standard Drinks/Week Comments Never 0 (1 standard drink = 0.6 oz pur e alcohol) PHQ-2 Answer Date Recorded Patient Health Questionnaire-2 Score 2 12/27/2022 Housing Stability Answer Date Recorded What is your housing situation today? I have breanna gabriele 06/17/[address] you li [...] Description 02/02/2025 11:00 AM EDT Office Visit [facility] [address] [place] [address] Germaine Martinez MD [address] [place] [address] documented as of this encounter Visit Diagnoses Diagnosis Degeneration of lumbar intervertebral disc Degeneration of lumbar or lumbosacral intervertebral disc documented in this encounter Care Teams Real Estate Asset Manager Relationship Specialty Start Date End Date Germaine Martinez MD [address] [place] [address] PCP - General Family Medicine 07/14/20 documented as of this encounter
--- OUTSIDE RECORDS SUMMARY | 2025-01-14 11:26 | XMS_ITS | Encounter Summary ---
Author Organization [employer] [facility] Address [address] [facility] 7t [place] [address] Care Team Providers Care Job Estimator Name Role Phone Germaine Martinez MD Primary Care Provider [phone] Reason for Visit * Reason Comments Med Refill Encounter Details Date Type Department Care Team (Late Contact Info) Description 11/07/2022 Refill [facility] [address] [place] [address] [phone] Germaine Martinez MD [address] [place] [address] [phone] Sacroiliitis (CMS/HCC) Social History Tobacco Use Types [...] Description 02/02/2025 11:00 AM EDT Office Visit [facility] [address] [place] [address] [phone] Germaine Martinez MD [address] [place] [address] [phone] documented as of this encounter Visit Diagnoses Diagnosis Sacroiliitis (CMS/HCC) Sacroiliitis, not elsewhere classified documented in this encounter Care Teams Job Estimator Relationship Specialty Start Date End Date Germaine Martinez MD [address] [place] [address] PCP - General Family Medicine 07/14/20 documented as of this encounter
--- OUTSIDE RECORDS SUMMARY | 2025-01-14 11:26 | XMS_ITS | Encounter Summary ---
Author Organization [employer] Address [address] [address] [place] [address] Care Team Providers Care Fly Frame Tender Name Role Phone Germaine Martinez MD Primary Care Provider [phone] Reason for Visit * Reason Comments Med Refill Encounter Details Date Type Department Care Team (Late st Contact Info) Description 06/18/2023 Refill [facility] [address] [place], [place] [phone] Germaine Martinez MD [address] [place], [place] [phone] Degeneration of lumbar intervertebral disc Social History [...] 02/02/2025 11:00 AM EDT Office Visit [facility] [address] [place] [address] Germaine Martinez MD [address] [place] [address] documented as of this encounter Visit Diagnoses Diagnosis Degeneration of lumbar intervertebral disc Degeneration of lumbar or lumbosacral intervertebral disc documented in this encounter Care Teams Fly Frame Tender Relationship Specialty Start Date End Date Germaine Martinez MD [address] [place] [address] PCP - General Family Medicine 07/14/20 documented as of this encounter
--- OUTSIDE RECORDS SUMMARY | 2025-01-14 11:26 | XMS_ITS | Encounter Summary ---
Author Organization [employer] Address [address] [facility] [address] [facility] [address] 7[address] [place] [address] Care Team Providers Care Bicycle Rental Clerk Name Role Phone Germaine Martinez MD Primary Care Provider [phone] Reason for Visit * Reason Comments Med Refill Encounter Details Date Type Department Care Team (Late st Contact Info) Description 01/07/2025 Refill [facility] [address] [place], [place] [phone] Germaine Martinez MD [address] [place], [place] [phone] Social History Tobacco Use Types Packs/Day Years [...] Description 02/02/2025 11:00 AM EDT Office Visit [facility] [address] [place] [address] Germaine Martinez MD [address] [place] [address] documented as of this encounter Visit Diagnoses Not on filedocumented in this encounter Additional Health Concerns Assessment Noted Time PHQ-9 Depression Total Score: 1 08/26/20 23 1:07 PM EST documented as of this encounter Care Teams Bicycle Rental Clerk Relationship Specialty Start Date End Date Germaine Martinez MD [address] [place] [address] PCP - General Family Medicine 07/14/20 documented as of this encounter
--- OUTSIDE RECORDS SUMMARY | 2025-01-14 11:26 | XMS_ITS | Encounter Summary ---
Author Organization [employer] Address [address] [facility] [facility] 7t [place] [address] Care Team Providers Care Locator Name Role Phone Germaine Martinez MD Primary Care Provider [phone] Reason for Visit * Reason Comments Med Refill Encounter Details Date Type Department Care Team (Late st Contact Info) Description 08/17/[address] [facility] [address] [place], [place] [phone] Germaine Martinez MD [address] [place], [place] [phone] Social History Tobacco Use Types Packs/Day Years [...] Description 02/02/2025 11:00 AM EDT Office Visit [facility] [address] [place] [address] Germaine Martinez MD [address] [place] [address] documented as of this encounter Visit Diagnoses Not on filedocumented in this encounter Additional Health Concerns Assessment Noted Time PHQ-9 Depression Total Score: 1 08/26/20 23 1:07 PM EST documented as of this encounter Care Teams Locator Relationship Specialty Start Date End Date Germaine Martinez MD [address] [place] [address] PCP - General Family Medicine 07/14/20 documented as of this encounter
--- OUTSIDE RECORDS SUMMARY | 2025-01-14 11:27 | XMS_ITS | Encounter Summary ---
Author Organization [employer] Address [address] [facility] [address] 7[address] [place] [address] Care Team Providers Care Binding Nicker Name Role Phone Germaine Martinez MD Primary Care Provider [phone] Reason for Visit * Reason Comments Med Refill Encounter Details Date Type Department Care Team (Late st Contact Info) Description 07/25/2023 Refill [facility] [address] [place], [place] [phone] Germaine Martinez MD [address] [place] [address] Recurrent major depressive disorder, in partial remission [...] Description 02/02/2025 11:00 AM EDT Office Visit [facility] [address] [place] [address] Germaine Martinez MD [address] [place] [address] documented as of this encounter Visit Diagnoses Diagnosis Recurrent major depressive disorder, in partial remission (CMS/[facility]) documented in this encounter Care Teams Binding Nicker Relationship Specialty Start Date End Date Germaine Martinez MD [address] [place] [address] [phone] PCP - General Family Medicine 07/14/20 documented as of this encounter
--- OUTSIDE RECORDS SUMMARY | 2025-01-14 11:27 | XMS_ITS | Encounter Summary ---
Author Organization [employer] Address [address] [facility] [address] 7t [place] [address] Care Team Providers Care Business Objects Architect Name Role Phone Germaine Martinez MD Primary Care Provider [phone] Encounter Details Date Type Department Care Team (Late st Contact Info) Description 01/15/2024 Orders Only [facility] [address] [place], [place] [phone] ProviderRodrigo MD Social History Tobacco Use Types [...] Description 02/02/2025 11:00 AM EDT Office Visit [facility] [address] [place] [address] Germaine Martinez MD [address] [place] [address] documented as of this encounter Procedures Procedure [...] documented as of this encounter Care Teams Business Objects Architect Relationship Specialty Start Date End Date Germaine Martinez MD [address] [place] [address] PCP - General Family Medicine 07/14/20 documented as of this encounter
--- OUTSIDE RECORDS SUMMARY | 2025-01-14 11:27 | XMS_ITS | Encounter Summary ---
Author Organization [employer] Address [address] [facility] [address] 7t [place] [address] Care Team Providers Care Informatics Coordinator Name Role Phone Germaine Martinez MD Primary Care Provider [phone] Reason for Visit * Reason Comments Med Refill Encounter Details Date Type Department Care Team (Late st Contact Info) Description 06/20/2023 Refill [facility] 230 [place], [place] [phone] Germaine Martinez MD 230 [place], [place] [phone] Degeneration of lumbar intervertebral disc Social History [...] oxyCODONE (Roxicodone) 5 MG immediate release tablet. Grain Packer sees script sent to pharmacy on 06/14/23, however report writer called pharmacy and they don't have a script on file. Patient has been out of medication since 06/19/23. Please advise. documented in this encounter Plan of Treatment Upcoming Encounters Date Type Department Care Team (Late st Contact Info) Description 02/02/2025 11:00 AM EDT Office Visit [facility] [address] [place] [address] Germaine Martinez MD [address] [place] [address] documented as of this encounter Visit Diagnoses Diagnosis Degeneration of lumbar intervertebral disc Degeneration of lumbar or lumbosacral intervertebral disc documented in this encounter Care Teams Informatics Coordinator Relationship Specialty Start Date End Date Germaine Martinez MD [address] [place] [address] PCP - General Family Medicine 07/14/20 documented as of this encounter
--- OUTSIDE RECORDS SUMMARY | 2025-01-14 11:27 | XMS_ITS | Encounter Summary ---
Author Organization [employer] Address [address] 7t [place] [address] Care Team Providers Care Sock Ironer Name Role Phone Germaine Martinez MD Primary Care Provider [phone] Encounter Details Date Type Department Care Team (Late st Contact Info) Description 2023 Orders Only [facility] 230 [place], [place] [phone] Germaine Martinez MD 230 [place], [place] [phone] Elevated blood pressure reading (Primary Dx) Social [...] Description 02/02/2025 11:00 AM EDT Office Visit [facility] 230 [place], [place] [phone] Germaine Martinez MD 230 [place] [address] documented as of this encounter Visit Diagnoses Diagnosis Elevated blood pressure reading- Primary Elevated blood pressure reading without diagnosis of hypertension documented in this encounter Care Teams Sock Ironer Relationship Specialty Start Date End Date Germaine Martinez MD [address] [place] [address] [phone] PCP - General Family Medicine 07/14/20 documented as of this encounter
--- OUTSIDE RECORDS SUMMARY | 2025-01-14 11:27 | XMS_ITS | Encounter Summary ---
Author Organization [employer] Address [address] 7[address] [place] [address] Care Team Providers Care Manager Marketing Name Role Phone Germaine Martinez MD Primary Care Provider [phone] Reason for Visit * Reason Comments Med Refill Encounter Details Date Type Department Care Team (Late st Contact Info) Description 09/13/2023 Refill [facility] 230 [place], [place] [phone] Germaine Martinez MD 230 [place], [place] [phone] Degeneration of lumbar intervertebral disc; Type 2 diabetes mellitus with other specified complication, unspecified whether correction insulin use ([facility]) Social History Tobacco Use Types Packs/Day Years [...] Description 02/02/2025 11:00 AM EDT Office Visit [facility] 230 [place] [address] Germaine Martinez MD 230 [place] [address] documented as of this encounter Visit Diagnoses Diagnosis Degeneration of lumbar intervertebral disc Degeneration of lumbar or lumbosacral intervertebral disc Type 2 diabetes mellitus with other specified complication, unspecified whether national opelint analyst insulin use ([facility]) documented in this encounter Additional Health Concerns Assessment Noted Time PHQ-9 Depression Total Score: 1 08/26/20 23 1:07 PM EST documented as of this encounter Care Teams Manager Marketing Relationship Specialty Start Date End Date Germaine Martinez MD 230 [place] [address] PCP - General Family Medicine 07/14/20 documented as of this encounter
== END 2025-01-14 11:56 | disposition home or self-care (01) ==
LOC: HO.HGI 10:16
PROVIDERS: PCP General Practice; Visit Provider Nurse Practitioner
DX: K21.9 Gastro-esophageal reflux disease without esophagitis (principal); K22.70 Barrett's esophagus without dysplasia
CPT/HCPCS: 99213

== ENCOUNTER 2025-01-14 10:15 | Outpatient (REF) | payer OTHER, SELFPAY ==
[2025-01-14 12:16] LABS: MANUAL DIFF FLAG NO
[2025-01-14 12:58] LABS: Basophils Percent Auto 0.3 % (0-2); Eosinophils Absolute Auto 0.1 X10*3/uL (0.0-0.4); Eosinophils Percent Auto 1.1 % (0-4); Hematocrit 44.6 % (37.0-47.0); Hemoglobin 15.3 g/dl (12.0-16.0); Imm Gran Abs Auto 0.06 X10*3/uL (0.00-0.03); Imm Gran Pct Auto 0.5 % (0.0-0.4); Lymphocytes Absolute Auto 2.4 X10*3/uL (1.2-4.9); Lymphocytes Percent Auto 20.6 % (20-40); Mean Corpuscular HGB Conc 34.3 g/dl (31.0-35.0); Mean Corpuscular Volume 81.7 fL (80.0-98.0); Mean Platelet Volume 9.7 fL (9.4-12.3); Monocytes Absolute Auto 0.9 X10*3/uL (0.1-1.2); Monocytes Percent Auto 7.7 % (2-11); Neutrophils Percent Auto 69.8 % (45-73); Platelet Count 289 X10*3/uL (160-400); Red Blood Count 5.46 X10*6/uL (4.20-5.50); Red Cell Distribution Width 14.2 % (11.0-16.0); White Blood Count 11.4 X10*3/uL (4.8-10.8)
--- OUTSIDE RECORDS SUMMARY | 2025-01-14 13:29 | XMS_ITS | Encounter Summary ---
Author Organization [employer] Address [address] [facility] [address] [facility] [address] 7[address] [place] [address] Care Team Providers Care Teller Vault Name Role Phone Germaine Martinez MD Primary Care Provider [phone] Reason for Visit * Reason Onset Date Comments Med Refill 07/29/2024 Encounter Details Date Type Department Care Team ([facility] st Contact Info) Description 07/29/2024 Telephone [facility] 230 [place], [place] [phone] Germaine Martinez MD [address] [place], [place] [phone] Med Refill Social History Tobacco Use Types [...] release tablet To be sent to: [facility] - [place], [place] - [address] [place] [address] documented in this encounter Plan of Treatment Upcoming Encounters Date Type Department Care Team ([facility] st Contact Info) Description 02/02/2025 11:00 AM EDT Office Visit [facility] [address] [place] [address] Germaine Martinez MD [address] [place] [address] documented as of this encounter Visit Diagnoses Not on filedocumented in this encounter Additional Health Concerns Assessment Noted Time PHQ-9 Depression Total Score: 1 08/26/20 23 1:07 PM EST documented as of this encounter Care Teams Teller Vault Relationship Specialty Start Date End Date Germaine Martinez MD [address] [place] [address] PCP - General Family Medicine 07/14/20 documented as of this encounter
--- OUTSIDE RECORDS SUMMARY | 2025-01-14 13:29 | XMS_ITS | Clinical Summary ---
Author Organization [employer] Address [address] [facility] 7t [place] [address] Care Team Providers Care Powder Press Operator Name Role Phone Germaine Martinez MD Primary Care Provider [phone] Allergies Active Allergy Reactions Criticality Noted Date [...] Active Blood Pressure Monitoring (Blood Pressure Cuff) [facility] For use daily to check blood pressure [...] affected nostril(s) if needed for opioid reversal. [place] 0.1 milliliter by intranasal route in 1 [...] mellitus with other specified complication, unspecified whether superintendent container terminal insulin use ([facility]) TAKE 1 CAPSULE BY MOUTH THREE TIMES DAILY IN THE MORNING, AT NOON, AND IN THE EVENING 90 capsule Active cholecalciferol (Vitamin D3) 25 MCG (1000 UT) tabletIndication s:Vitamin D deficiency TAKE 1 TABLET BY MOUTH EVERY MORNING 90 tablet 025 Active FREESTYLE LITE test stripIndications :Type 2 diabetes mellitus with other specified complication, unspecified whether snf insulin use ([facility]) TEST BLOOD SUGAR 8 TIMES EVERY DAY DIRECTED 200 strip 025 Active Jardiance 10 MGIndications:Ty pe 2 diabetes mellitus with diabetic neuropathy, with long-term current use of insulin ([facility]) TAKE 1 TABLET BY MOUTH EVERY [...] PM EST): Maintain area dry and clean penitentiary current use of opiate analgesic 2023 Overview (07/29/2024): Dx: discogenic lumbar pain Rx: Oxycodone 5mg, every 6 hours Last HAND COKE DRAWER agreement: Tier II (visit every 4 months) [...] testing, if that works, ideally would take [place] 7.5mg Hyperlipidemia 07/13/2015 Overview (08/26/2023): Last Assessment [...] Date Type Department Care Team Description 01/14/2025 Orders Only GENERIC EXTERNAL DATA DEPARTMENT Provider, Generic External Data 01/14/2025 Refill [facility] [address] [place] [address] Germaine Martinez MD 01/13/2025 Telephone [facility] [address] [place] [address] Germaine Martinez MD Med Refill 01/07/2025 Refill [facility] [address] [place] [address] Germaine Martinez MD 12/18/2024 Refill [facility] [address] [place] [address] Germaine Martinez MD Degeneration of lumbar intervertebral disc 12/17/2024 Telephone [facility] [address] [place] [address] Germaine Martinez MD telephone call 12/09/2024 Refill [facility] [address] [place] [address] Germaine Martinez MD Type 2 diabetes mellitus with diabetic neuropathy, with long-term current use of insulin ([facility]) 11/17/2024 Refill [facility] [address] [place] [address] Germaine Martinez MD Degeneration of lumbar intervertebral disc 11/06/2024 9:00 AM EST Telemedicine [facility] [address] [place] [address] Omayra Gudino RN penitentiary current use of opiate analgesic 11/06/2024 Patient Outreach [facility] [address] [place] [address] Germaine Martinez MD Pre-visit Planning ([facility] appointment changed ) 11/06/2024 Telephone [facility] [address] [place] [phone] Omayra Gudino, STANTON BPI Scoring 11/06/2024 Travel 11/03/2024 Refill [facility] [address] [place] [address] Germaine Martinez MD Type 2 diabetes mellitus with other specified complication, unspecified whether snf insulin use ([facility]) 10/22/2024 Refill [facility] [address] [place] [address] Germaine Martinez MD Degeneration of lumbar intervertebral [...] surface antigen) 07/21/2013 Influenza, trivalent, adjuvanted 06/02/2024 [employer] Covid-19 Vaccine 12+ 09/16/2021,,11/24/2020 Pneumococcal Conjugate PCV [...] EDT Office Visit [facility] [address] [place] [address] Germaine Martinez MD [address] [place] [address] Health Maintenance Due Date Last Done Comments Eye Exam 1960 Alcohol/Substance Use Screening 1960 DTaP/Tdap/Td Vaccines (2 - Td or Tdap) 05/08/2023 05/08/2013, 05/01/2006 RSV Patients and Patients Aged 60 years or older (1 - 1-dose 75+ series) 2023 Lipid Panel 01/31/2024 01/30/2023, 04/11, 11/01/2020 COVID-19 Vaccine ( season) 2024 09/16/2021, 12/15/2020, 11/24/2020 Depression Screening 08/26/2024 08/26/2023, 08/26/20 23 Mammogram 11/26/2024 11/27/2023, 03/02/2023, 11/12/2022, Additional history exists SDOH Screening 12/09/2024 [...] Procedure Name Priority Date/Time Associated Diagnosis Comments CBC WITH AUTO DIFFERENTIAL Routine 01/14/2025 12:15 PM EDT POCT GLYCATED HEMOGLOBIN, TOTAL Routine 07/13/2024 9:26 [...] 2 diabetes mellitus without complication, unspecified whether snf insulin use (CMS/HCC) HM COLONOSCOPY Routine 03/23/2013 8:10 AM EDT from Last 3 Months or Most Recently Relevant to Health Maintenance Results * (ABNORMAL) CBC auto differential (01/14/2025 12:15 PM EDT) White Blood Count 11.4(H) 4.8 - 10.8 X10*3/uL [facility] Red Blood Count 5.46 4.20 - 5.50 X10*6/uL [facility] Hemoglobin 15.3 12.0 - 16.0 g/dl [facility] Hematocrit 44.6 37.0 - 47.0 % [facility] Mean Corpuscular Volume 81.7 80.0 - 98.0 fL [facility] Mean Corpuscular Hemoglobin 28.0 27.0 - 33.0 pg [facility] Mean Corpuscular HGB Conc 34.3 31.0 - 35.0 g/dl [facility] Red Cell Distribution Width 14.2 11.0 - 16.0 % [facility] Platelet Count 289 160 - 400 X10*3/uL [facility] Mean Platelet Volume 9.7 9.4 - 12.3 fL [facility] Neutrophils Percent Auto 69.8 45 - 73 % [facility] Imm Gran Pct Auto 0.5(H) 0.0 - 0.4 % [facility] Lymphocytes Percent Auto 20.6 20 - 40 % [facility] Monocytes Percent Auto 7.7 2 - 11 % [facility] Eosinophils Percent Auto 1.1 0 - 4 % [facility] Basophils Percent Auto 0.3 0 - 2 % [facility] NRBC Pct Auto 0.0 0.0 - 0.2 /100WBC [facility] Neutrophils Absolute Auto 8.0 2.0 - 8.3 x10*3/uL [facility] Imm Gran Abs Auto 0.06(H) 0.00 - 0.03 X10*3/uL [facility] Lymphocytes Absolute Auto 2.4 1.2 - 4.9 X10*3/uL [facility] Monocytes Absolute Auto 0.9 0.1 - 1.2 X10*3/uL [facility] Eosinophils Absolute Auto 0.1 0.0 - 0.4 X10*3/uL [facility] Basophils Absolute Auto 0.0 0.0 - 0.2 X10*3/uL [facility] NRBC Abs Auto 0.000 0.0 - 0.012 X10*3/uL [facility] 01/14/2025 12:1 5 PM EDT 01/14/2025 12:15 PM EDT Generic External Data Provider LAB BLOOD ORDERAB LES Final Result [facility] [address] [place] [phone] * (ABNORMAL) POCT A1C (07/13/2024 9:26 AM EST) Hemoglobin A1C 8.2(A) 4.0 - 6.0 % QC Media Lot # [id number] Lot# Expiration Date ,391,[id number] Blood 07/13/2024 9:26 AM EST Germaine Martinez MD POINT OF CARE TEST ENTER/EDIT ORDERABLES Final Result * Albumin, Random Urine W/Creatinine (12/19/2023 11:46 AM EDT) Creatinine, Urine 34.93 mg/dL [facility] Microalbumin Urine 8.0 mg/L [facility] Microalbum Creatinine Ratio Ur 22.9 <30 ug/mg cr [facility] Comment:Albumin/Creatinine R atio Reference Ranges: Normal: < 30 ug/mg creatinine Microalbuminuria: 30 - 300 ug/mg creatinineClinical Albuminuria: > 300 ug/mg creatinine Urine (Urine, Random) 12/19/2023 11:46 AM EDT 12/19/2023 1:10 PM EDT Germaine Martinez MD LAB URINE ORDERABLES Final Res ult [facility] [address] [place] [address] [phone] * Hepatitis C Antibody with Reflex to HCV, RNA, Quantitative, Real-Time PCR (12/19/2023 11:46 AM EDT) Hepatitis C Antibody Nonreactive Nonreactive [facility] Comment:Antibodies to HCV no t detected; does not exclude early acuteHCV infection. Blood Venous blood specimen / Unknown 12/19/2023 11:46 AM EDT 12/19/2023 1:16 PM EDT Germaine Martinez MD LAB BLOOD ORDERABLES Final Res ult Performing Organization Address [facility] Co de Phone Number [facility] [address] [place] [address] [phone] * BI Mammogram Screening Tomosynthesis Bilateral (11/27/2023 8:50 AM EDT) Anatomical Region Laterality Modality Breast Bilateral Mammography 11/27/2023 8:50 AM EDT Narrative 12/19/2023 5:29 AM EDT ? [facility] [place] ? [address] ?[place] [address] ? Mammography Report ? Signed ? Patient: Philip,Tennille ?MR#: [id number] ?? [id number] ? : 1950 ?Acct:[id number] ? Age/Sex: 73 / F ?ADM Date: 03/20/24 ? Loc: HO.MAMMO ? Attending Marvin Martinez MD ? Ordering Physician: Germaine Martinez ?Results: 2Benign F ?? indings ? Date of Service: 11/27/23 ?Follow Up: 1 Year From Orig ?? inal Mammogram ? Procedure(s): MM tomosynthesis screening BI ?? Accession Number(s): [id number] ? cc: Germaine Martinez ? EXAMINATION: ?? [...] by Tierra Leahy MD in OV> ? 12/19/23524 ? DD/ 0850 ? TD/TT: ? Teasel Gig Operator: ? Procedure Note Jayden, Image - 12/19/2023 [place] [facility] [address] [place], [place] [address] Mammography Report Signed Patient: Judith Philip#: [id number] : 8Acct:[id number] Age/Sex: 73 / FADM Date: 11/27/23 Loc: HO.MAMMO Attending Dr: Germaine Martinez MD Ordering Physician: Abdirizak Martinezults: 2Benign F indings Date of Service: 11/27/23Follow Up: 1 Year From Orig ina Mammogram Procedure(s): MM tomosynthesis screening BI Accession Number(s): [id number] cc: Germaine Martinez EXAMINATION: MM SCREENING DIGITAL [...] in OV> 12/19/23 0525 DD/ 0850 TD/TT: Teasel Gig Operator: Germaine Martinez MD IM BI PROCEDURES Final Result * (ABNORMAL) Lipid Panel, Standard (01/30/2023 9:44 AM EDT) Cholesterol, Total 333(H) <200 mg/dL [facility] HDL Cholesterol 73 > OR = 50 mg/dL [facility] Triglycerides 107 <150 mg/dL [facility] LDL Cholesterol 236(H) mg/dL (calc) [facility] Comment: LDL-C levels > or = 190 [...] about testing for familial hypercholesterolemia, please call [employer] [facility] at [phone]. Lawrence Dejesus, et al. J National Lipid Association Recommendations for Patient-Centered Management of Dyslipidemia: Part 1 Journal of Clinical Lipidology 2015;9(2), 129-169. Dick Perez et al. (2014). Homozygous familial hypercholesterolaemia: new insights and guidance for clinicians to improve detection and clinical management. Heart Journal, 35(32), 0132-1205. Reference range: <100 Desirable range <100 mg/dL for primary prevention; ?? <70 mg/dL for patients with CHD or diabetic patients with > or = 2 CHD risk factors. LDL-C is now calculated using the Lokesh-Lev calculation, which is a validated novel method providing better accuracy than the Friedewald equation in the estimation of LDL-C. Lokesh KEYES et al. ESTHER. 2013;310(19): 0715-7561 (http://education.[employer]/faq/QDR017) Chol/HDLC Ratio 4.6 <5.0 (calc) [facility] Non-HDL Cholesterol 260(H) <130 mg/dL (calc) [facility] Comment: Non-HDL level > or = 220 [...] BLOOD ORDERABLES Final Res ult [facility] [address], [place] [address] [facility] [address] [place] [address] * Colonoscopy (03/23/2013 8:10 AM EDT) Historical Provider HEALTH MAINTENANCE Final Result from Last 3 Months or Most Recently Relevant to Health Maintenance Insurance [facility] [employer] OPTIONS (O D-SNP) JASON CRAWFORD [id number] * Guarantor: Tennille Philip Account Type Relation to Patient Date of Phone Billing Address Personal/Family Self [address] [facility] [address] [place] [address] Care Teams Powder Press Operator Relationship Specialty Start Date End Date Germaine Martinez MD [address] [place] [phone] PCP - General Family Medicine 07/14/20
--- OUTSIDE RECORDS SUMMARY | 2025-01-14 13:29 | XMS_ITS | Encounter Summary ---
Author Organization [employer] Address [address] [facility] [address] [address]t [place] [address] Care Team Providers Care Heel Seat Trimmer Name Role Phone Germaine Martinez MD Primary Care Provider [phone] Reason for Visit * Reason Comments Med Refill Encounter Details Date Type Department Care Team (Late st Contact Info) Description 08/17/2024 Refill [facility] [address] [place], [place] [phone] Germaine Martinez MD [address] [place], [place] [phone] Social History Tobacco Use Types Packs/Day Years [...] Description 02/02/2025 11:00 AM EDT Office Visit [facility] [address] [place] [address] Germaine Martinez MD [address] [place] [address] documented as of this encounter Visit Diagnoses Not on filedocumented in this encounter Additional Health Concerns Assessment Noted Time PHQ-9 Depression Total Score: 1 08/26/20 23 1:07 PM EST documented as of this encounter Care Teams Heel Seat Trimmer Relationship Specialty Start Date End Date Germaine Martinez MD [address] [place] [address] PCP - General Family Medicine 07/14/20 documented as of this encounter
[2025-01-14 13:30] LABS: Alanine Aminotransferase 11 U/L (0-31); Albumin Level 3.9 g/dL (3.5-5.0); Alkaline Phosphatase 108 U/L (39-117); Anion Gap 14 (12-20); Aspartate Amino Transferase 17 U/L (5-31); Bilirubin Total 0.6 mg/dL (0.0-1.0); Blood Urea Nitrogen 15 mg/dL (9-16); Calcium 10.1 mg/dL (8.4-10.2); Carbon Dioxide 30 mmol/L (22-29); Chloride 99 mmol/L (96-108); Estimated Glomerular Filt Rate > 60; Glucose Random 355 mg/dL (60-115); Potassium 4.7 mmol/L (3.3-5.1); Sodium 138 mmol/L (135-145); Total Protein 7.5 g/dL (6.5-8.0)
--- OUTSIDE RECORDS SUMMARY | 2025-01-14 13:30 | XMS_ITS | Encounter Summary ---
Author Organization [employer] [facility] Address [address] [facility] 7t [place] [address] Care Team Providers Care Assessment Nurse Practitioner Name Role Phone Germaine Martinez MD Primary Care Provider [phone] Reason for Visit * Reason Comments Med Refill Encounter Details Date Type Department Care Team (Late Contact Info) Description 11/07/2022 Refill [facility] MEDICINE [address] [place] [address] [phone] Germaine Martinez MD [address] [place] [address] [phone] Sacroiliitis (CMS/HCC) Social History Tobacco Use Types [...] Description 02/02/2025 11:00 AM EDT Office Visit [facility] MEDICINE [address] [place] [address] [phone] Germaine Martinez MD [address] [place] [address] [phone] documented as of this encounter Visit Diagnoses Diagnosis Sacroiliitis (CMS/HCC) Sacroiliitis, not elsewhere classified documented in this encounter Care Teams Assessment Nurse Practitioner Relationship Specialty Start Date End Date Germaine Martinez MD [address] [place] [address] PCP - General Family Medicine 07/14/20 documented as of this encounter
--- OUTSIDE RECORDS SUMMARY | 2025-01-14 13:30 | XMS_ITS | Encounter Summary ---
Author Organization [employer] Address [address] [facility] 7t [place] [address] Care Team Providers Care Dredge Worker Name Role Phone Germaine Martinez MD Primary Care Provider [phone] Reason for Visit * Reason Comments Med Refill Encounter Details Date Type Department Care Team (Late st Contact Info) Description 09/13/2023 Refill [facility] MEDICINE [address] [place], [place] [phone] Germaine Martinez MD 230 [place], [place] [phone] Degeneration of lumbar intervertebral disc; Type 2 diabetes mellitus with other specified complication, unspecified whether penitentiary insulin use ([facility]) Social History Tobacco Use Types [...] Description 02/02/2025 11:00 AM EDT Office Visit [facility] MEDICINE [address] [place] [address] Germaine Martinez MD [address] [place] [address] documented as of this encounter Visit Diagnoses Diagnosis Degeneration of lumbar intervertebral disc Degeneration of lumbar or lumbosacral intervertebral disc Type 2 diabetes mellitus with other specified complication, unspecified whether intermediate frame tender insulin use ([facility]) documented in this encounter Additional Health Concerns Assessment Noted Time PHQ-9 Depression Total Score: 1 08/26/20 23 1:07 PM EST documented as of this encounter Care Teams Dredge Worker Relationship Specialty Start Date End Date Germaine Martinez MD [address] [place] [address] PCP - General Family Medicine 07/14/20 documented as of this encounter
--- OUTSIDE RECORDS SUMMARY | 2025-01-14 13:30 | XMS_ITS | Encounter Summary ---
Author Organization [employer] Address [address] 7t [place] [address] Care Team Providers Care Sprinkler Fitter Name Role Phone Germaine Martinez MD Primary Care Provider [phone] Reason for Visit * Reason Comments Med Refill Encounter Details Date Type Department Care Team (Late st Contact Info) Description 06/19/2023 Refill [facility] MEDICINE [address] [place], [place] [phone] Germaine Martinez MD 230 [place], [place] [phone] Degeneration of lumbar intervertebral disc Social History [...] 02/02/2025 11:00 AM EDT Office Visit [facility] MEDICINE [address] [place] [address] Germaine Martinez MD [address] [place] [address] documented as of this encounter Visit Diagnoses Diagnosis Degeneration of lumbar intervertebral disc Degeneration of lumbar or lumbosacral intervertebral disc documented in this encounter Care Teams Sprinkler Fitter Relationship Specialty Start Date End Date Germaine Martinez MD [address] [place] [address] PCP - General Family Medicine 07/14/20 documented as of this encounter
--- OUTSIDE RECORDS SUMMARY | 2025-01-14 13:30 | XMS_ITS | Encounter Summary ---
Author Organization [employer] Address [address] [facility] [address] 7t [place] [address] Care Team Providers Care House Piping Inspector Name Role Phone Germaine Martinez MD Primary Care Provider [phone] Reason for Visit * Reason Onset Date Comments Med Refill 01/13/2025 Encounter Details Date Type Department Care Team ([facility] st Contact Info) Description 01/13/2025 Telephone [facility] MEDICINE 230 [place], [place] [phone] Germaine Martinez MD [address] [place], [place] [phone] Med Refill Social History Tobacco Use Types [...] immediate release tablet To be sent to: [facility] documented in this encounter Plan of Treatment Upcoming Encounters Date Type Department Care Team (Late st Contact Info) Description 02/02/2025 11:00 AM EDT Office Visit [facility] MEDICINE [address] [place] [phone] Germaine Martinez MD [address] [place], [place] [phone] documented as of this encounter Visit Diagnoses Not on filedocumented in this encounter Additional Health Concerns Assessment Noted Time PHQ-9 Depression Total Score: 1 08/26/20 23 1:07 PM EST documented as of this encounter Care Teams House Piping Inspector Relationship Specialty Start Date End Date Germaine Martinez MD [address] [place] [address] PCP - General Family Medicine 07/14/20 documented as of this encounter
--- OUTSIDE RECORDS SUMMARY | 2025-01-14 13:30 | XMS_ITS | Encounter Summary ---
Author Organization [employer] Address [address] [facility] [address] 7t [place] [address] Care Team Providers Care Studio Coordinator Name Role Phone Germaine Martinez MD Primary Care Provider Encounter Details Date Type Department Care Team (Late st Contact Info) Description 01/15/2024 Orders Only [facility] MEDICINE 230 [place], [place] [phone] ProviderRodrigo MD Social History Tobacco Use Types [...] Description 02/02/2025 11:00 AM EDT Office Visit [facility] MEDICINE [address] [place] [phone] Germaine Martinez MD [address] [place] [address] documented as of this encounter Procedures Procedure [...] documented as of this encounter Care Teams Studio Coordinator Relationship Specialty Start Date End Date Germaine Martinez MD [address] [place] [address] PCP - General Family Medicine 07/14/20 documented as of this encounter
--- OUTSIDE RECORDS SUMMARY | 2025-01-14 13:30 | XMS_ITS | Encounter Summary ---
Author Organization [employer] [facility] Address [address] [facility] 7t [place] [address] Care Team Providers Care Infectious Waste Technician Name Role Phone Germaine Martinez MD Primary Care Provider [phone] Reason for Visit * Reason Comments Med Refill Encounter Details Date Type Department Care Team ([facility] Contact Info) Description 12/03/2022 Refill [facility] MEDICINE [address] [place] [address] [phone] Germaine Martinez MD [address] [place] [address] [phone] Sacroiliitis (CMS/HCC) Social History Tobacco Use Types [...] Encounters Date Type Department Care Team ([facility] Contact Info) Description 02/02/2025 11:00 AM EDT Office Visit [facility] MEDICINE [address] [place] [phone] Germaine Martinez MD [address] [place] [address] [phone] documented as of this encounter Visit Diagnoses Diagnosis Sacroiliitis (CMS/HCC) Sacroiliitis, not elsewhere classified documented in this encounter Care Teams Infectious Waste Technician Relationship Specialty Start Date End Date Germaine Martinez MD 230 [place] [address] PCP - General Family Medicine 07/14/20 documented as of this encounter
--- OUTSIDE RECORDS SUMMARY | 2025-01-14 13:30 | XMS_ITS | Encounter Summary ---
Author Organization [employer] Address [address] 7t [place] [address] Care Team Providers Care Safety Lamp Keeper Name Role Phone Germaine Martinez MD Primary Care Provider Reason for Visit * Reason Comments Med Refill Encounter Details Date Type Department Care Team (Late st Contact Info) Description 01/14/2025 Refill [facility] MEDICINE 230 [place], [place] [phone] Germaine Martinez MD 230 [place], [place] [phone] Social History Tobacco Use Types Packs/Day Years [...] Description 02/02/2025 11:00 AM EDT Office Visit [facility] MEDICINE [address] [place] [address] Germaine Martinez MD 230 [place] [address] documented as of this encounter Visit Diagnoses Not on filedocumented in this encounter Additional Health Concerns Assessment Noted Time PHQ-9 Depression Total Score: 1 08/26/20 23 1:07 PM EST documented as of this encounter Care Teams Safety Lamp Keeper Relationship Specialty Start Date End Date Germaine Martinez MD 230 [place] [address] PCP - General Family Medicine 07/14/20 documented as of this encounter
--- OUTSIDE RECORDS SUMMARY | 2025-01-14 13:30 | XMS_ITS | Encounter Summary ---
Author Organization [employer] Address [address] [address] 7t [place] [address] Care Team Providers Care Noc Engineer Name Role Phone Germaine Martinez MD Primary Care Provider [phone] Encounter Details Date Type Department Care Team (Late st Contact Info) Description 2023 Orders Only [facility] MEDICINE [address] [place], [place] [phone] Germaine Martinez MD 230 [place], [place] [phone] Elevated blood pressure reading (Primary Dx) Social [...] Description 02/02/2025 11:00 AM EDT Office Visit [facility] MEDICINE 230 [place], [place] [phone] Germaine Martinez MD 230 [place] [address] documented as of this encounter Visit Diagnoses Diagnosis Elevated blood pressure reading- Primary Elevated blood pressure reading without diagnosis of hypertension documented in this encounter Care Teams Noc Engineer Relationship Specialty Start Date End Date Germaine Martinez MD [address] [place] [address] [phone] PCP - General Family Medicine 07/14/20 documented as of this encounter
--- OUTSIDE RECORDS SUMMARY | 2025-01-14 13:30 | XMS_ITS | Encounter Summary ---
Author Organization [employer] Address [address] 7t [place] [address] Care Team Providers Care Mobile Paramedical Examiner Name Role Phone Germaine Martinez MD Primary Care Provider [phone] Reason for Visit * Reason Comments Med Refill Encounter Details Date Type Department Care Team (Late st Contact Info) Description 06/18/2023 Refill [facility] 230 [place], [place] [phone] Germaine Martinez MD [address] [place], [place] [phone] Degeneration of lumbar intervertebral disc Social History [...] Description 02/02/2025 11:00 AM EDT Office Visit [facility]IC[facility] 230 [place] [address] Germaine Martinez MD [address] [place] [address] documented as of this encounter Visit Diagnoses Diagnosis Degeneration of lumbar intervertebral disc Degeneration of lumbar or lumbosacral intervertebral disc documented in this encounter Care Teams Mobile Paramedical Examiner Relationship Specialty Start Date End Date Germaine Martinez MD [address] [place] [address] PCP - General Family Medicine 07/14/20 documented as of this encounter
--- OUTSIDE RECORDS SUMMARY | 2025-01-14 13:30 | XMS_ITS | Encounter Summary ---
Author Organization [employer] Address [address] [facility] [address] [address] 7t [place] [address] Care Team Providers Care Artificial Leather Calender Operator Name Role Phone Germaine Martinez MD Primary Care Provider [phone] Reason for Visit * Reason Comments Med Refill Encounter Details Date Type Department Care Team (Late st Contact Info) Description 06/20/2023 Refill [facility] MEDICINE 230 [place], [place] [phone] Germaine Martinez MD 230 [place], [place] [phone] Degeneration of lumbar intervertebral disc Social History [...] oxyCODONE (Roxicodone) 5 MG immediate release tablet. 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 Patient has been out of medication since 06/19/23. Please advise. documented in this encounter Plan of Treatment Upcoming Encounters Date Type Department Care Team (Late st Contact Info) Description 02/02/2025 11:00 AM EDT Office Visit [facility] MEDICINE [address] [place] [phone] Germaine Martinez MD [address] [place] [address] documented as of this encounter Visit Diagnoses Diagnosis Degeneration of lumbar intervertebral disc Degeneration of lumbar or lumbosacral intervertebral disc documented in this encounter Care Teams Artificial Leather Calender Operator Relationship Specialty Start Date End Date Germaine Martinez MD [address] [place] [address] PCP - General Family Medicine 07/14/20 documented as of this encounter
--- OUTSIDE RECORDS SUMMARY | 2025-01-14 13:30 | XMS_ITS | Encounter Summary ---
Author Organization [employer] Address [address] 7[address] [place] [address] Care Team Providers Care Timber Treating Tank Operator Name Role Phone Germaine Martinez MD Primary Care Provider [phone] Encounter Details Date Type Department Care Team (Late Contact Info) Description 01/02/2023 Orders Only [facility] MEDICINE [address] [place] [address] [phone] Germaine Martinez MD [address] [place] [address] [phone] Degeneration of lumbar intervertebral disc (Primary Dx) [...] [facility] 230 [place] [address] Germaine Martinez MD [address] [place] [address] documented as of this encounter Visit Diagnoses Diagnosis Degeneration of lumbar intervertebral disc- Primary Degeneration of lumbar or lumbosacral intervertebral disc documented in this encounter Care Teams Timber Treating Tank Operator Relationship Specialty Start Date End Date Germaine Martinez MD [address] [place] [address] PCP - General Family Medicine 07/14/20 documented as of this encounter
--- OUTSIDE RECORDS SUMMARY | 2025-01-14 13:30 | XMS_ITS | Encounter Summary ---
Author Organization [employer] Address [address] [facility] [address] 7t [place] [address] Care Team Providers Care Commercial Intelligence Manager Name Role Phone Germaine Martinez MD Primary Care Provider [phone] Reason for Visit * Reason Comments Med Refill Encounter Details Date Type Department Care Team (Late st Contact Info) Description 07/25/2023 Refill [facility] [address] [place], [place] [phone] Germaine Martinez MD 230 [place] [address] Recurrent major depressive disorder, in partial remission [...] Description 02/02/2025 11:00 AM EDT Office Visit [facility] MEDICINE [address] [place] [phone] Germaine Martinez MD [address] [place] [phone] documented as of this encounter Visit Diagnoses Diagnosis Recurrent major depressive disorder, in partial remission (CMS/[facility]) documented in this encounter Care Teams Commercial Intelligence Manager Relationship Specialty Start Date End Date Germaine Martinez MD [address] [place] [address] [phone] PCP - General Family Medicine 07/14/20 documented as of this encounter
--- OUTSIDE RECORDS SUMMARY | 2025-01-14 13:30 | XMS_ITS | Encounter Summary ---
Author Organization [employer] Address [address] [facility] [address] 7t [place] [address] Care Team Providers Care Box Toe Buffer Name Role Phone Germaine Martinez MD Primary Care Provider [phone] Encounter Details Date Type Department Care Team (Late st Contact Info) Description 01/14/2025 Orders Only GENERIC EXTERNAL DATA DEPARTMENT Provider, Generic External Data Social History Tobacco Use Types Packs/Day Years [...] Description 02/02/2025 11:00 AM EDT Office Visit [facility] MEDICINE 230 [place], [place] [phone] Germaine Martinez MD 230 [place], [place] [phone] documented as of this encounter Procedures Procedure Name Priority Date/Time Associated Diagnosis Comments CBC WITH AUTO DIFFERENTIAL Routine 01/14/2025 12:15 PM EDT documented in this encounter Results * (ABNORMAL) CBC auto differential (01/14/2025 12:15 PM EDT) White Blood Count 11.4(H) 4.8 - 10.8 X10*3/uL [facility] Red Blood Count 5.46 4.20 - 5.50 X10*6/uL [facility] Hemoglobin 15.3 12.0 - 16.0 g/dl [facility] Hematocrit 44.6 37.0 - 47.0 % [facility] Mean Corpuscular Volume 81.7 80.0 - 98.0 fL [facility] Mean Corpuscular Hemoglobin 28.0 27.0 - 33.0 pg [facility] Mean Corpuscular HGB Conc 34.3 31.0 - 35.0 g/dl [facility] Red Cell Distribution Width 14.2 11.0 - 16.0 % [facility] Platelet Count 289 160 - 400 X10*3/uL [facility] Mean Platelet Volume 9.7 9.4 - 12.3 fL [facility] Neutrophils Percent Auto 69.8 45 - 73 % [facility] Imm Gran Pct Auto 0.5(H) 0.0 - 0.4 % [facility] Lymphocytes Percent Auto 20.6 20 - 40 % [facility] Monocytes Percent Auto 7.7 2 - 11 % [facility] Eosinophils Percent Auto 1.1 0 - 4 % [facility] Basophils Percent Auto 0.3 0 - 2 % [facility] NRBC Pct Auto 0.0 0.0 - 0.2 /100WBC [facility] Neutrophils Absolute Auto 8.0 2.0 - 8.3 x10*3/uL [facility] Imm Gran Abs Auto 0.06(H) 0.00 - 0.03 X10*3/uL [facility] Lymphocytes Absolute Auto 2.4 1.2 - 4.9 X10*3/uL [facility] Monocytes Absolute Auto 0.9 0.1 - 1.2 X10*3/uL [facility] Eosinophils Absolute Auto 0.1 0.0 - 0.4 X10*3/uL [facility] Basophils Absolute Auto 0.0 0.0 - 0.2 X10*3/uL [facility] NRBC Abs Auto 0.000 0.0 - 0.012 X10*3/uL [facility] 01/14/2025 12:1 5 PM EDT 01/14/2025 12:15 PM EDT us Generic External Data Provider LAB BLOOD ORDERAB LES Final Result [facility] [address] [place] [address] [phone] documented in this encounter Visit Diagnoses Not on filedocumented in this encounter Additional Health Concerns Assessment Noted Time PHQ-9 Depression Total Score: 1 08/26/20 23 1:07 PM EST documented as of this encounter Care Teams Box Toe Buffer Relationship Specialty Start Date End Date Germaine Martinez MD [address] [place] [address] PCP - General Family Medicine 07/14/20 documented as of this encounter
--- OUTSIDE RECORDS SUMMARY | 2025-01-14 13:30 | XMS_ITS | Encounter Summary ---
Author Organization [employer] [facility] Address [address] [facility] 7t [place] [address] Care Team Providers Care Carpenter Form Name Role Phone Germaine Martinez MD Primary Care Provider [phone] Encounter Details Date Type Department Care Team ([facility] Contact Info) Description 09/05/2022 Telephone [facility] MEDICINE [address] [place] [address] [phone] Germaine Martinez MD [address] [place] [address] [phone] Social History Tobacco Use Types Packs/Day Years [...] Description 02/02/2025 11:00 AM EDT Office Visit [facility] MEDICINE [address] [place] [address] [phone] Germaine Martinez MD [address] [place] [address] [phone] documented as of this encounter Visit Diagnoses Not on filedocumented in this encounter Care Teams Carpenter Form Relationship Specialty Start Date End Date Germaine Martinez MD [address] [place] [address] PCP - General Family Medicine 07/14/20 documented as of this encounter
--- OUTSIDE RECORDS SUMMARY | 2025-01-14 13:30 | XMS_ITS | Encounter Summary ---
Author Organization [employer] Address [address] 7[address] [place] [address] Care Team Providers Care Recreation Facility Manager Name Role Phone Germaine Martinez MD Primary Care Provider [phone] Reason for Visit * Reason Comments Med Refill Encounter Details Date Type Department Care Team (Late st Contact Info) Description 01/07/2025 Refill [facility] MEDICINE 230 [place], [place] [phone] Germaine Martinez MD [address] [place], [place] [phone] Social History Tobacco Use Types Packs/Day Years [...] Description 02/02/2025 11:00 AM EDT Office Visit [facility] MEDICINE [address] [place] [address] Germaine Martinez MD [address] [place] [address] documented as of this encounter Visit Diagnoses Not on filedocumented in this encounter Additional Health Concerns Assessment Noted Time PHQ-9 Depression Total Score: 1 08/26/20 23 1:07 PM EST documented as of this encounter Care Teams Recreation Facility Manager Relationship Specialty Start Date End Date Germaine Martinez MD [address] [place] [address] PCP - General Family Medicine 07/14/20 documented as of this encounter
== END 2025-01-14 10:16 | disposition home or self-care (01) ==
LOC: HO.LAB 10:15
PROVIDERS: PCP General Practice; Visit Provider Nurse Practitioner
DX: Z01.818 Encounter for other preprocedural examination (principal); K21.9 Gastro-esophageal reflux disease without esophagitis; K22.70 Barrett's esophagus without dysplasia
CPT/HCPCS: 36415; 80053; 85025; 99212

== ENCOUNTER 2025-02-11 08:04 | Outpatient (REF) | payer OTHER, SELFPAY ==
--- NOTE | ~2025-02-11 | MM_ITS ---
EXAMINATION: MM SCREENING DIGITAL BREAST TOMOSYNTHESIS, BILATERAL CLINICAL INFORMATION: Screening. Asymptomatic. COMPARISON: Mammography: Comparison is made with available priors TECHNIQUE: Digital breast mammography with tomosynthesis is performed in both the craniocaudal and mediolateral oblique views along with computer-aided detection (CAD). FINDINGS: There are scattered areas of fibroglandular density (ACR BI-RADS breast composition Category b). There are no significant masses, abnormal calcifications, or other abnormalities. MM/MM tomosynthesis screening BI IMPRESSION: No mammographic evidence of malignancy. ASSESSMENT: BI-RADS BI-RADS 1 - Negative RECOMMENDATION: Routine annual mammography screening. 1 year F/U This examination should not preclude the clinical evaluation of a suspicious palpable abnormality. This patient's information was entered into a reminder system with a target due date for their next mammogram. Electronically signed by: Myra Carver DO 02/14/2025 08:13 PM EDT
--- OUTSIDE RECORDS SUMMARY | 2025-02-11 08:11 | XMS_ITS | Encounter Summary ---
Author Organization [employer] Address [address] 7[address] [place] [address] Care Team Providers Care Hardwood Flooring Specialist Name Role Phone Germaine Martinez MD Primary Care Provider [phone] Reason for Visit * Reason Onset Date Comments Med Refill 07/29/2024 Encounter Details Date Type Department Care Team ([facility] st Contact Info) Description 07/29/2024 Telephone [facility] MEDICINE 230 [place], [place] [phone] Germaine Martinez MD 230 [place], [place] [phone] Med Refill Social History Tobacco Use Types [...] immediate release tablet To be sent to: [facility] - [place], [place] - [address] [place] [address] documented in this encounter Plan of Treatment Upcoming Encounters Date Type Department Care Team (Late st Contact Info) Description 04/02/2025 11:00 AM EDT Telemedicine [facility] MEDICINE [address] [place] [address] Omayra Gudino, RN documented as of this encounter Visit Diagnoses Not on filedocumented in this encounter Additional Health Concerns Assessment Noted Time PHQ-9 Depression Total Score: 1 08/26/20 23 1:07 PM EST documented as of this encounter Care Teams Hardwood Flooring Specialist Relationship Specialty Start Date End Date Germaine Martinez MD 230 [place] [address] PCP - General Family Medicine 07/14/20 documented as of this encounter
== END 2025-02-11 08:05 | disposition home or self-care (01) ==
LOC: HO.MAMMO 08:04
PROVIDERS: PCP General Practice; Visit Provider General Practice
DX: Z12.31 Encounter for screening mammogram for malignant neoplasm of breast (principal)
CPT/HCPCS: 77063; 77067

== ENCOUNTER → 2025-02-11 08:30 | Outpatient (BNV) | payer OTHER, SELFPAY | PROVIDERS: PCP General Practice; Visit Provider Internal Medicine | DX: Z12.31 Encounter for screening mammogram for malignant neoplasm of breast (principal) | CPT/HCPCS: 77063; 77067 ==

== ENCOUNTER → 2025-06-30 10:25 | Day surgery (SDC) | payer OTHER, SELFPAY ==
--- OUTSIDE RECORDS SUMMARY | 2025-06-25 13:30 | XMS_ITS | Encounter Summary ---
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 1 02/03/2025 How many drinks containing a lcohol do you have on a typical day when you are drinking? 0 02/03/2025 How often do you have six or more drinks on one occasion? 0 02/03/2025 Depression Answer Date Recorded Patient Health Questionnaire-9 Score 0 02/02/2025 Patient Health Questionnaire-9 Score 0 02/02/2025 Last PHQ-9: Questionnaire Data Not on file 0 02/02/2025 Housing Stability Answer Date Recorded What is [...] Answer Date Recorded Patient Health Questionnaire-2 Score 0 02/02/2025 Comments Unknown Sex and Gender Information Value Date Recorded Sex Assigned at Female 07/09/2022 10:22 AM EDT Legal Sex Female 10:22 AM EDT Gender Identity Female 07/09/2022 10:22 AM EDT Sexual Orientation Choose not to disclose 2021 10:22 AM EDT documented as of this encounter Progress Notes * Omayra Gudino RN - 06/25/2025 1:30 PM EDT SUBJECTIVE: Tennille Philip is a 74 y.o. 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 Pt states she takes 4-5 doses a day depending on her pain. The patient last took Oxycodone on: 06/25/2025 Medication is: 40% % effective at alleviating pain. OBJECTIVE: PRODUCT MANAGEMENT CONSULTANT checked: 06/25/2025 Pill count completed for Oxycodone , patient reports count today is 75 , anticipated count should be 83, this is not as expected. Reviewed patients Oxycodone order. Advised patient she needs to speak with her PCP before taking her oxycodone differently than prescribed. Advised patient her count was off my 8 pills and she will run out before her refill is due. Patient made aware she can't get another refill until 07/16/25. Pt stated she will speak with her doctor. 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 Tennille Philip will continue taking medication as prescribed and follow up at the next Tele COMPUTER SYSTEMS ENGINEER visit or sooner if needed. Tennille Philip has verbalized understanding of care plan. Future Appointments Date Time Provider Department Center 07/29/2025 9:00 AM Omayra Gudino RN MEDICINE [facility] Omayra Gudino RN [1] Current Outpatient Medications: oxyCODONE (Roxicodone) 5 MG immediate release tablet, Take 1 tablet (5 mg) by mouth every 6 (six) hours if needed for severe pain for up to 28 days. Do not start before June 18, 2025., Disp: 112 tablet, Rfl: 0 acetaminophen (Tylenol) 500 MG tablet, Take 2 tablets by mouth every 4 (four) hours. Take 2 tablet by oral route every 4-6 hours as needed not to exceed 8 tablets per 24hrs, Disp: , Rfl: Alcohol Swabs (Alcohol Prep) 70 % pads, TEST BLOOD SUGAR 8 TIMES PER DAY, Disp: 100 each, Rfl: 11 Aspirin Low Dose 81 MG EC tablet, TAKE 1 TABLET BY MOUTH AT BEDTIME, Disp: 90 tablet, Rfl: 3 Bisacodyl EC 5 MG EC tablet, TAKE 1 TABLET BY MOUTH AT BEDTIME, Disp: 90 tablet, Rfl: 3 Blood Pressure Monitoring (Blood Pressure Cuff) [facility], For use daily to check blood pressure, Disp: , Rfl: cholecalciferol (Vitamin D3) 25 MCG (1000 UT) tablet, TAKE 1 TABLET BY MOUTH EVERY MORNING, Disp: 90 tablet, Rfl: 3 cilostazol (Pletal) 100 MG tablet, Take 1 tablet by mouth every 12 (twelve) hours. Take 1 tablet byoral route 2 times every day 1/2 hour before or 2 hours after breakfast and dinner, Disp: , Rfl: dexlansoprazole (Dexilant) [address] capsule, Take 1 capsule (30 mg) by mouth Once per day. Do not crush or chew. (Patient taking differently: Take 60 mg by mouth Once per day. Do not crush or chew.),Disp: 90 capsule, Rfl: 3 dexlansoprazole (Dexilant) [address] capsule, Take 1 capsule by mouth in the morning., Disp: , Rfl: Diclofenac Sodium 1 % gel, Apply 1 Application topically every 12 (twelve) hours if needed (apply on affected area if needed)., Disp: 150 g, Rfl: 1 doxepin (SINEquan) 25 MG capsule, TAKE 1 CAPSULE BY MOUTH AT BEDTIME, Disp: 90 capsule, Rfl: 3 empagliflozin (Jardiance) 25 MG, Take 1 tablet (25 mg) by mouth Once per day., Disp: 90 tablet, Rfl: 3 famotidine (Pepcid) 20 MG tablet, Take 20 mg by mouth at bedtime., Disp: , Rfl: fluticasone (Flonase) 50 MCG/ACT nasal spray, USE 1 SPRAY IN EACH NOSTRIL TWICE DAILY, Disp: 48 g, Rfl: 3 FREESTYLE LITE test strip, TEST BLOOD SUGAR 8 TIMES EVERY DAY DIRECTED, Disp: 200 strip, Rfl: 11 gabapentin (Neurontin) 400 MG capsule, TAKE 1 CAPSULE BY MOUTH THREE TIMES DAILY IN THE MORNING, ATNOON, AND IN THE EVENING, Disp: 90 capsule, Rfl: 11 insulin aspart (NovoLOG FLEXPEN) 100 UNIT/ML pen, Inject 15 Units under the skin every 8 (eight) hours. Inject 15 unit by subcutaneous route 3 times every day before meals, Disp: , Rfl: insulin glargine (Lantus SoloStar) 100 UNIT/ML pen, Inject under the skin. Inject 12 units by subcutaneous route every evening may adjust as directed, Disp: , Rfl: insulin pen needle 32G x 5 mm misc, Inject under the skin if needed. Use QID with insulin, Disp: , Rfl: levothyroxine (Synthroid, Levoxyl) 75 MCG tablet, Take 75 mcg by mouth in the morning., Disp: , Rfl: Linzess 145 MCG capsule, TAKE 1 CAPSULE BY MOUTH EVERY MORNING WITH A FULL GLASS OF WATER, Disp: , Rfl: loratadine (Claritin) 10 MG tablet, Take 1 tablet (10 mg) by mouth Once per day. For allergies, Disp: 90 tablet, Rfl: 3 losartan (Cozaar) 25 MG tablet, TAKE 1 TABLET BY MOUTH EVERY MORNING, Disp: 90 tablet, Rfl: 3 metFORMIN XR (Glucophage-XR) 500 MG 24 hr tablet, TAKE 1 TABLET BY MOUTH TWICE DAILY IN THE MORNINGAND IN THE EVENING, Disp: , Rfl: naloxone (Narcan) 4 mg/0.1 mL nasal spray, Administer 1 spray (4 mg) into affected nostril(s) if needed for opioid reversal. [place] 0.1 milliliter by intranasal route in 1 nostril may repeat dose every 2-3 minutes as needed alternating nostrils with each dose, Disp: 2 each, Rfl: 3 nortriptyline (Pamelor) 10 MG capsule, TAKE 2 CAPSULES BY MOUTH EVERY DAY AT BEDTIME, Disp: 60 capsule, Rfl: 11 Pentips 32G X 4 MM misc, USE UP TO FIVE TIMES DAILY DIRECTED, Disp: , Rfl: Repatha SureClick 140 MG/ML injection, INJECT 1 ML (140 MG) SUBCUTANEOUSLY EVERY 14 DAYS, Disp: , Rfl: rosuvastatin (Crestor) 40 MG tablet, Take 40 mg by mouth at bedtime., Disp: , Rfl: sertraline (Zoloft) 100 MG tablet, Take 1 tablet (100 mg) by mouth Once per day., Disp: 90 tablet, Rfl: 3 triamcinolone (Kenalog) 0.1 % cream, Apply topically if needed in the morning and at bedtime for rash (itching and swelling)., Disp: 30 g, Rfl: 2 TRUEplus Lancets 33G misc, TEST BLOOD SUGAR SIX TIMES DAILY, Disp: , Rfl: documented in this encounter Plan of Treatment Upcoming Encounters Date Type Department Care Team (Late st Contact Info) Description 07/09/2025 9:00 AM EDT Office Visit [facility] [address] [place] [address] [phone] Germaine Martinez MD [address] [place] [address] 07/29/2025 9:00 AM EST Telemedicine [facility] [address] [place] [address] Omayra Gudino, RN documented as of this encounter 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
--- OUTSIDE RECORDS SUMMARY | 2025-06-25 14:52 | XMS_ITS | Encounter Summary ---
Author Organization [employer] Address [address] [place] [address] Care Team Providers Care Day Habilitation Specialist Name Role Phone Germaine Martinez MD Primary Care Provider [phone] Reason for Visit * Reason Onset Date Comments Med Refill 07/29/2024 Encounter Details Date Type Department Care Team ([facility] st Contact Info) Description 07/29/2024 Telephone [facility] [address] [place], [place] [phone] Germaine Martinez MD [address] [place], [place] [phone] Med Refill Social History Tobacco Use Types [...] immediate release tablet To be sent to: [facility] - [place], [place] - [address] [place] [address] documented in this encounter Plan of Treatment Upcoming Encounters Date Type Department Care Team ([facility] st Contact Info) Description 07/09/2025 9:00 AM EDT Office Visit [facility] [address] [place] [address] Germaine Martinez MD [address] [place] [address] 07/29/2025 9:00 AM EST Telemedicine [facility] [address] [place] [address] Omayra Gudino, STANTON documented as of this encounter Visit Diagnoses Not on filedocumented in this encounter Additional Health Concerns Assessment Noted Time PHQ-9 Depression Total Score: 1 08/26/20 23 1:07 PM EST documented as of this encounter Care Teams Day Habilitation Specialist Relationship Specialty Start Date End Date Germaine Martinez MD [address] [place] [address] PCP - General Family Medicine 07/14/20 documented as of this encounter
--- OUTSIDE RECORDS SUMMARY | 2025-06-25 14:52 | XMS_ITS | Encounter Summary ---
Author Organization [employer] Address [address] 7t [place] [address] Care Team Providers Care Fire And Safety Helper Name Role Phone Germaine Martinez MD Primary Care Provider [phone] Reason for Visit * Reason Comments Med Refill Encounter Details Date Type Department Care Team (Late st Contact Info) Description 08/17/2024 Refill [facility] [address] [place], [place] [phone] Germaine Martinez MD 230 [place], [place] [phone] Social History Tobacco Use Types Packs/Day Years [...] 07/09/2025 9:00 AM EDT Office Visit [facility] [address] [place] [address] Germaine Martinez MD [address] [place] [address] 07/29/2025 9:00 AM EST Telemedicine [address] [address] Omayra Gudino, RN documented as of this encounter Visit Diagnoses Not on filedocumented in this encounter Additional Health Concerns Assessment Noted Time PHQ-9 Depression Total Score: 1 08/26/20 23 1:07 PM EST documented as of this encounter Care Teams Fire And Safety Helper Relationship Specialty Start Date End Date Germaine Martinez MD [address] [place] [address] PCP - General Family Medicine 07/14/20 documented as of this encounter
--- OUTSIDE RECORDS SUMMARY | 2025-06-25 14:53 | XMS_ITS | Encounter Summary ---
Author Organization [employer] Address [address] 7t [place] [address] Care Team Providers Care Ladle Repairer Name Role Phone Germaine Martinez MD Primary Care Provider [phone] Encounter Details Date Type Department Care Team ([facility] st Contact Info) Description 2023 Orders Only [facility] [address] [place], [place] [phone] Germaine Martinez MD 230 [place], [place] [phone] Elevated blood pressure reading (Primary Dx) Social [...] Description 07/09/2025 9:00 AM EDT Office Visit [facility] [address] [place] [phone] Germaine Martinez MD [address] [place] [address] 07/29/2025 9:00 AM EST Telemedicine [address] [address] Omayra Gudino, STANTON documented as of this encounter Visit Diagnoses Diagnosis Elevated blood pressure reading- Primary Elevated blood pressure reading without diagnosis of hypertension documented in this encounter Care Teams Ladle Repairer Relationship Specialty Start Date End Date Germaine Martinez MD [address] [place] [address] PCP - General Family Medicine 07/14/20 documented as of this encounter
--- OUTSIDE RECORDS SUMMARY | 2025-06-25 14:53 | XMS_ITS | Encounter Summary ---
Author Organization [facility] Address [address] [place] [address] Phone Care Team Providers Care Facility Technician Name Role Phone Sanjay James PROGRAMS MANAGER Primary Care Provider [phone] Sanjay James PROGRAMS MANAGER Primary Care Provider [phone] Germaine Martinez MD Primary Care Provider + Germaine Martinez MD Primary Care Provider + Encounter Details Date Type Department Care Team (Latest Contact Info) Description 02/04/2018 Transcribe Orders [facility] [address] [place] [address] Teena Lindsey MD [address] [place] [phone] Hypothyroidism following radioiodine therapy (Primary Dx) Social History Tobacco Use Types Packs/Day Years Used Date Smoking Tobacco: Never Smokeless Tobacco: Never Alcohol Use Standard Drinks/Week Comments No 0 (1 standard drink = 0.6 oz pur e alcohol) Comments Unknown Sex and Gender Information Value Date Recorded Sex Assigned at Female 07/08/2018 10:23 AM EDT Legal Sex Female 10:05 PM EDT Gender Identity Female 07/08/2018 10:23 AM EDT Sexual Orientation Choose not to disclose 2017 10:23 AM EDT documented as of this encounter Plan of Treatment Upcoming Encounters Date Type Department Care Team (Late st Contact Info) Description 10/08/2025 9:20 AM EST Office Visit [facility] [address] 3rd Floor, [address] [place] [address] Ray Cid MD 22 [facility], [address] [address] 11/08/2025 9:40 AM EST Office Visit [facility] [address] [place] [address] Aixa Kong MD [address] [place] [address], 1st [place] [address] 04/21/2026 9:10 AM EDT Office Visit [facility] 22 [place] [address] Hilario Peguero DO 22 [place] [address] documented as of this encounter Results * Free T3 (02/04/2018 8:19 AM EDT) FREE T3 2.3 2.0 - 4.4 pg/mL [facility] Blood 02/04/2018 8:19 AM EDT 02/04/2018 8:20 AM EDT us Teena Winkler MD LAB BLOOD ORDERABLES F inal Result [facility] [address] [place] [address] * Free T4 (02/04/2018 8:19 AM EDT) FREE T4 1.4 0.9 - 1.7 ng/dL [facility] Blood 02/04/2018 8:19 AM EDT 02/04/2018 8:20 AM EDT us Teena Winkler MD LAB BLOOD ORDERABLES F inal Result [address] [address] * TSH (02/04/2018 8:19 AM EDT) TSH 1.65 0.27 - 4.20 uIU/mL [facility] Blood 02/04/2018 8:19 AM EDT 02/04/2018 8:20 AM EDT us Teena Winkler MD LAB BLOOD ORDERABLES F inal Result Performing Organization Address [facility]/ZIP Co de Phone Number [address] [address] documented in this encounter Visit Diagnoses Diagnosis Hypothyroidism following radioiodine therapy- Primary Other postablative hypothyroidism documented in this encounter Care Teams Facility Technician Relationship Specialty Start Date End Date Sanjay James NP [address] [place] [address] PCP - General Family Medicine 07/18/17 03/13/21 Sanjay James NP [address] [place] [address] PCP - General Family Medicine 03/14/21 01/17/22 Germaine Martinez MD 230 [place] [address] PCP - General 01/18/22 09/14/24 Germaine Martinez MD 230 [place] [address] PCP - General Family Medicine 09/15/24 documented as of this encounter Additional Source Comments The information contained in this document represents components of the legal health record. It is not the complete legal health record.[facility]
--- OUTSIDE RECORDS SUMMARY | 2025-06-25 14:53 | XMS_ITS | Encounter Summary ---
Author Organization [facility] Address [address] [place] [address] Phone Care Team Providers Care Ceramic Tile Installation Helper Name Role Phone Sanjay James RESPIRATORY THERAPY ASSISTANT Primary Care Provider [phone] Sanjay James RESPIRATORY THERAPY ASSISTANT Primary Care Provider [phone] Germaine Martinez MD Primary Care Provider + Germaine Martinez MD Primary Care Provider + Encounter Details Date Type Department Care Team (Latest Contact Info) Description 06/15/2020 Ancillary Orders [facility] [address] [facility] [address] [facility] [place] [address] Venessa Kaye MD [address] [place] [address] [email or web address] PVD (peripheral vascular disease) Social History Tobacco Use Types Packs/Day Years [...] Description 10/08/2025 9:20 AM EST Office Visit [facility] [address] [facility] 3rd Floor, [address] [place] [address] Ray Cid MD [address] [place] [address], [address] [address] 11/08/2025 9:40 AM EST Office Visit [facility] [address] [place] [address] Aixa Kong MD [address] [place] [address], 1st [place] [address] 04/21/2026 9:10 AM EDT Office Visit [facility] [address] [place] [address] Hilario Peguero DO 22 [place] [address] documented as of this encounter Results * US Lower Extremity Arteries ([place]) Physio Complete Unilat (06/15/2020 9:15 AM EDT) Anatomical Region Laterality Modality Ultrasound Narrative 06/16/2020 11:08 AM EDT See scanned report us Venesas Kaye MD CV US VASCULAR Final Result documented in this encounter Visit Diagnoses Diagnosis PVD (peripheral vascular disease) Unspecified peripheral vascular disease PVD (peripheral vascular disease) Unspecified peripheral vascular disease documented in this encounter Care Teams Ceramic Tile Installation Helper Relationship Specialty Start Date End Date Sanjay James NP [address] [place] [address] PCP - General Family Medicine 07/18/17 03/13/21 Sanjay James NP [address] [place] [address] PCP - General Family Medicine 03/14/21 01/17/22 Germaine Martinez MD [address] [place] [address] PCP - General 01/18/22 09/14/24 Germaine Martinez MD [address] [place] [address] PCP - General Family Medicine 09/15/24 documented as of this encounter Additional Source Comments The information contained in this document represents components of the legal health record. It is not the complete legal health record.[facility]
--- OUTSIDE RECORDS SUMMARY | 2025-06-25 14:53 | XMS_ITS | Encounter Summary ---
Author Organization [facility] Address [address] [place] [address] Phone Care Team Providers Care Research Worker Encyclopedia Name Role Phone Germaine Martinez MD Primary Care Provider + Germaine Martinez MD Primary Care Provider + Encounter Details Date Type Department Care Team (Late st Contact Info) Description 02/01/2024 Procedure Pass [facility], Ct Scan - [facility] [address] [place] [address] Social History Tobacco Use Types Packs/Day Years Used Date Smoking Tobacco: Never Smokeless Tobacco: Never Alcohol Use Standard Drinks/Week Comments No 0 (1 standard drink = 0.6 oz pur e alcohol) Education Answer Date Recorded Are you interested in more education? Not on ofelia e 01/04/2023 Are you concerned about learning? Not on file 01/04/2023 No 01/04/2023 No 01/04/2023 Digital Access Answer Date Recorded No 02/04/2023 No 02/04/2023 Reliable internet access at home? Not on file 02/04/2023 Device with a working camera? Not on file Comments Unknown Sex and Gender Information Value Date Recorded Sex Assigned at Female 07/08/2018 10:23 AM EDT Legal Sex Female 10:05 PM EDT Gender Identity Female 07/08/2018 10:23 AM EDT Sexual Orientation Choose not to disclose 2017 10:23 AM EDT documented as of this encounter Functional Status * Calculated C-SSRS Risk Score (Lifetime/Recent) Answer Date of Assessment Author No Risk Indicated 02/01/2024 1:03 PM EDT Cathi Jay RN * [place] Suicide Severity Rating Scale (Screener/Recent Self-Report) Question Answer Date of Assessment Author 1. Wish to be (Past 1 Month) No 024 1:03 PM EDT Cathi Jay, [place] 2. Non-Specific Active Suici oni Thoughts (Past 1 Month) No 02/01/2024 1:03 PM EDT Cathi Jay, [place] 6. Suicidal Behavior (Lifetime) No 1:03 PM EDT Cathi Jay RN documented as of this encounter Plan of Treatment Upcoming Encounters Date Type Department Care Team (Late st Contact Info) Description 10/08/2025 9:20 AM EST Office Visit [facility] [address] [place] [address] Floor, [address] [address] Ray Cid MD [address] [place] [address] 11/08/2025 9:40 AM EST Office Visit [facility] [address] [place] [address] Aixa Kong MD [address] [place] [address], 1st [place] [address] 04/21/2026 9:10 AM EDT Office Visit [facility] [address] [place] [address] Hilario Peguero DO [address] [place] [address] documented as of this encounter Visit Diagnoses Not on filedocumented in this encounter Care Teams Research Worker Encyclopedia Relationship Specialty Start Date End Date Germaine Martinez MD PCP - General 01/18/22 09/14/24 Germaine Martinez MD PCP - General Family Medicine 09/15/24 documented as of this encounter Additional Source Comments The information contained in this document represents components of the legal health record. It is not the complete legal health record.[facility]
--- OUTSIDE RECORDS SUMMARY | 2025-06-25 14:53 | XMS_ITS | Clinical Summary ---
Author Organization [employer] Address [address] [facility] 7t [place] [address] Care Team Providers Care Lead Applications Developer Name Role Phone Germaine Martinez MD Primary Care Provider [phone] Allergies Active Allergy Reactions Criticality Noted Date [...] UP TO FIVE TIMES DAILY DIRECTED Active Linzess 145 MCG capsule TAKE 1 CAPSULE BY MOUTH EVERY MORNING WITH A FULL GLASS OF WATER Active Alcohol Swabs (Alcohol Prep) 70 % pads TEST BLOOD SUGAR 8 TIMES PER DAY 100 each 11 Active dexlansoprazole (Dexilant) [address] capsule Take 1 capsule (30 mg) by mouth Once per day. Do not crush or chew. 90 capsule 3 Active Additional Information Patient taking differently: 60 mgOral Daily, Do not crush or chew., Reported on 07/13/2024 triamcinolone (Kenalog) 0.1 % creamIndications :Dermatitis Apply topically if needed in the morning and at bedtime for rash (itching and swelling). 30 g 2 Active naloxone (Narcan) 4 mg/0.1 mL nasal sprayIndications :Chronic, continuous use of opioids Administer 1 spray (4 mg) into affected nostril(s) if needed for opioid reversal. [place] 0.1 milliliter by intranasal route in 1 nostril may repeat dose every 2-3 minutes as needed alternating nostrils with each dose 2 each 3 Active loratadine (Claritin) 10 MG tabletIndication s:Dermatitis Take 1 tablet (10 mg) by mouth Once per day. For allergies 90 tablet 3 Active metFORMIN XR (Glucophage-XR) 500 MG 24 hr tablet TAKE 1 TABLET BY MOUTH TWICE DAILY IN THE MORNING AND IN THE EVENING Active doxepin (SINEquan) 25 MG capsule TAKE 1 CAPSULE BY MOUTH AT BEDTIME 90 capsule 3 Active sertraline (Zoloft) 100 MG tablet Take 1 tablet (100 mg) by mouth Once per day. 90 tablet 3 024 2024 Active Bisacodyl EC 5 MG EC tablet TAKE 1 TABLET BY MOUTH AT BEDTIME 90 tablet 3 01/06/2 025 Active nortriptyline (Pamelor) 10 MG capsuleIndicatio ns:Degeneration of lumbar intervertebral disc TAKE 2 CAPSULES BY MOUTH EVERY DAY AT BEDTIME 60 capsule 11 025 Active Diclofenac Sodium 1 % gelIndications:R ight tennis elbow,Right wrist tendonitis Apply 1 Application topically every 12 (twelve) hours if needed (apply on affected area if needed). 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 (HCC) TAKE 1 CAPSULE BY MOUTH THREE TIMES DAILY IN THE MORNING, AT NOON, AND IN THE EVENING 90 capsule 11 025 Active cholecalciferol (Vitamin D3) 25 MCG (1000 UT) tabletIndication s:Vitamin D deficiency TAKE 1 TABLET BY MOUTH EVERY MORNING 90 tablet 3 025 Active FREESTYLE LITE test stripIndications :Type 2 diabetes mellitus with other specified complication, unspecified whether retirement insulin use (HCC) TEST BLOOD SUGAR 8 TIMES EVERY DAY DIRECTED 200 strip 025 Active fluticasone (Flonase) 50 MCG/ACT nasal spray USE 1 SPRAY IN EACH NOSTRIL TWICE DAILY 48 g 3 025 Active dexlansoprazole (Dexilant) [address] capsule Take 1 capsule by mouth in the morning. 025 Active empagliflozin (Jardiance) 25 MG Take 1 tablet (25 mg) by mouth Once per day. 90 tablet 025 2025 Active Aspirin Low Dose 81 MG EC tablet TAKE 1 TABLET BY MOUTH AT BEDTIME 90 tablet 3 025 Active losartan (Cozaar) 25 MG tabletIndication s:Elevated blood pressure reading TAKE 1 TABLET BY MOUTH EVERY MORNING 90 tablet 3 025 Active oxyCODONE (Roxicodone) 5 MG immediate release tabletIndication s:Degeneration of lumbar intervertebral disc Take 1 tablet (5 mg) by mouth every 6 (six) hours if needed for severe pain for up to 28 days. Do not start before June 18, 2025. 112 tablet 025 2024 Active oxyCODONE (Roxicodone) 5 MG immediate release tabletIndication s:Degeneration of lumbar intervertebral disc Take 1 tablet (5 mg) by mouth every 6 (six) hours if needed for severe pain for up to 28 days. Do not start before May 21, 2025. 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 Consider medications (Donepizil or Namenda) Sensorineural hearing loss (SNHL) of both ears [...] Repeat thyroid function showed TSH of 1.36 IU/mL and free T4 1.3 ng/dL. She is [...] testing, if that works, ideally would take [place] 7.5mg Hyperlipidemia 07/13/2015 Overview (08/26/2023): Last Assessment [...] use of insulin 07/13/2015 Assessment & Plan (02/03/2025 9:18 AM EDT): A1C 9.8; INCREASE Jardiance to 25mg daily, consider titration of Lantus as next step. Discussed diet and exercise modifications BMP: eGFR > 60 Microalbumin: <300 Foot Exam: normal 07/2024 Eye Exam: 03/2024 no evidence of DM2 disease Lipid panel: ASCVD: The ASCVD Risk score (Katherine JOAQUIN, et al., 2019) failed to calculate for the following reasons: The valid total cholesterol range is 130 to 320 mg/dL Unable to determine if patient is Non- Statin: Yes ASA: Yes ITZ/ARB: Yes Encouraged regular aerobic exercise for improved glycemic control Encouraged daily foot checks Encouraged lean protein snacks and to avoid foods high in sugar and simple carbohydrates Treatment Goals: A1c goal: <7% FBG goal: <130 2 hour post prandial goal: <180 Assessment & Plan (07/13/2024 2:08 PM EST): [...] <130 2 hour post prandial goal: <180 DM2 (diabetes mellitus, type 2) 03/19/2013 Essential hypertension, benign 03/19/2013 Resolved Problems Problem Noted Date Diagnosed Date Resolved Date Mechanical low back pain 02/02/2025 Routine history and physical examination of adult 08/26/2023 02/03/2025 Encounters Date Type Department Care Team Description 06/25/2025 1:30 PM EDT Telemedicine [facility] MEDICINE [address] [place] [phone] Omayra Gudino, RN USP current use of opiate analgesic 06/25/2025 Telephone [facility] MED[facility]INE [address] [place] [address] Omayra Gudino, RN Oxycodone count discrepancy 06/25/2025 Travel 06/17/2025 Telephone [facility] MEDICINE [address] [place] [address] Germaine Martinez MD RECALL NOV 06/15/2025 Refill [facility] [address] [place] [address] Germaine Martinez MD Degeneration of lumbar intervertebral disc 05/18/2025 Refill [facility]INE [address] [place] [address] Germaine Martinez MD Degeneration of lumbar intervertebral disc 04/21/2025 10:00 AM EDT Clinical Support [facility]INE [address] [place] [address] Omayra Gudino, RN USP current use of opiate analgesic (Primary Dx) 04/21/2025 Refill [facility]INE [address] [place] [address] Omayra Gudino RN Degeneration of lumbar intervertebral disc 04/21/2025 Telephone [facility] [address] [place] [address] Germaine Martinez MD telephone call 04/21/2025 Travel 04/20/2025 Telephone [facility] [address] [place] [address] Germaine Martinez MD Medication Question 04/19/2025 Refill [facility] [address] [place] [address] Germaine Martinez MD Degeneration of lumbar intervertebral disc 04/07/2025 Refill [facility]INE [address] [place] [address] Germaine Martinez MD Elevated blood pressure reading 03/25/2025 Telephone [facility] [address] [place] [address] Germaine Martinez MD Appointment Request from Last 3 Months Immunizations Immunization Administration Dates Next Due Hep A, Adult [...] Sign Reading Time Taken Comments Blood Pressure 122/72 02/02/2025 10:51 AM EDT Pulse 86 02/02/2025 10:51 AM EDT Temperature 36.9 C (98.4 F) 02/02/2025 10:51 AM EDT Respiratory Rate 20 02/02/2025 10:5 1 AM EDT Oxygen Saturation 98% 03/27/2024 9:47 AM EDT Inhaled Oxygen Concentration - - Weight 75.2 kg (165 lb 12.8 oz) 025 10:51 AM EDT Height 152.4 cm (5') 02/02/2025 10:51 AM EDT Body Mass Index 32.38 02/02/2025 10:51 AM EDT Plan of Treatment Upcoming Encounters Date Type Department Care Team (Late st Contact Info) Description 07/09/2025 9:00 AM EDT Office Visit [facility] MED[facility]INE [address] [place] [phone] Germaine Martinez MD [address] [place] [phone] 07/29/2025 9:00 AM EST Telemedicine [facility] MEDICINE [address] [place] [phone] Omayra Gudino, RN Health Maintenance Due Date Last Done Comments RSV Patients and Patients Aged 60 years or older (1 - 1-dose 75+ series) 2023 Lipid Panel 04/19/2024 04/19/2023, 03/09, 01/30/2023, Additional history exists SDOH Screening 12/09/2024 12/10/2023 Diabetes: Urine Protein Screening 12/18/2024 12/19/2023, 05/09/2021, 11/02/2020, Additional history exists Diabetes: Hemoglobin A1C 05/05/2025 025, 07/13/2024, 04/10/2024, Additional history exists COVID-19 Vaccine ( season) 2025 09/16/2021, 12/15/2020, 11/24/2020 Diabetes: Foot Exam 07/13/2025 07/13/2024, 07/13/2024, 12/19/2023 Depression Screening 02/02/2026 02/02/2025, 02/03/20 Tobacco Screening 02/02/2026 02/02/2025 Alcohol/Substance Use Screening 02/03/2026 02/03/2025 Eye Exam 03/09/2026 03/09/2024 DTaP/Tdap/Td Vaccines (3 - Td or Tdap) 04/23/2035 04/23/2025, 05/08/2013, 05/01/2006 Colonoscopy Discontinued 03/23/2013 Colorectal Cancer Screening Discontinued Hepatitis B Vaccines Completed 05/03/2016, 02/01/2016, 12/29/2015 Hepatitis A Vaccines Aged Out 06/29/2016, 12/29/19 16 No longer eligible based on patient's age to complete this topic Zoster Vaccines Completed 12/28/2021, 10/10, 10/14/2014 Hepatitis C Screening Completed 12/19/2023 Pneumococcal Vaccine: 50+ Years Completed 04/23/2025, 07/12/2016, 07/13/2015, Additional history exists Influenza Vaccine Completed 06/21/2025, , 05/21/2023, Additional history exists CT Colonography Discontinued FIT DNA/Cologuard Discontinued FIT Discontinued FOBT Discontinued HIB Vaccines Aged Out No longer eligi ble based on patient's age to complete this topic HPV Vaccines Aged Out No longer eligi ble based on patient's age to complete this topic IPV Vaccines Aged Out No longer eligi ble based on patient's age to complete this topic Meningococcal B Vaccine Aged Out No l onger eligible based on patient's age to complete [...] Name Priority Date/Time Associated Diagnosis Comments POCT KRUNAL-14 URINE DRUG SCREEN Routine 04/21/2025 10:12 AM EDT USP current use of opiate analgesic POCT GLYCATED HEMOGLOBIN, TOTAL Routine 02/02/2025 10:53 AM EDT Type 2 diabetes mellitus with diabetic neuropathy, with long-term current use of insulin ([facility]/HCC) HEPATITIS C AB W/REFL TO HCV RNA, QN, PCR Routine 12/19/2023 11:46 AM EDT Type 2 diabetes mellitus with diabetic neuropathy, with long-term current use of insulin (CMS/[facility]) ALBUMIN, RANDOM URINE W/CREATININE Routine 12/19/2023 11:46 AM EDT Type 2 diabetes mellitus with diabetic neuropathy, with long-term current use of insulin ([facility]) LIPID PANEL, STANDARD Routine 01/30/2023 9:44 AM EDT Type 2 diabetes mellitus without complication, 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 (CMS/[facility]) HM COLONOSCOPY Routine 03/23/2013 8:10 AM EDT from Last 3 Months or Most Recently Relevant to Health Maintenance Results * POCT KRUNAL-14 Urine Drug Screen (04/21/2025 10:12 AM EDT) THC Negative Negative Cocaine Screen, Urine Negative Negative Opiate Screen, Urine Negative Negative Methamphetamine Screen Urine Negative Negative Amphetamine Screen, Urine Negative Negative Benzodiazepines Screen, Urine Negative Negative Barbiturate Screen, Urine Negative Negative Methadone Screen, Urine Negative Negative Buprenophine Screen, Urine Negative Negative TCA, Urine Positive Negative MDMA Urine Negative Negative ng/mL Oxycodone Screen, Urine Positive Negative Phencyclidine (PCP), Urine Negative Negative Propoxyphene, Urine Negative Negative Fentanyl, Urine Negative Negative Urine Urine specimen obtained by clean catch procedure / Unknown 04/21/2025 10:12 AM EDT Omayra Yip RN - 04/21/2025 10:12 AM EDT UTOX cup Lot#[id number] Exp. 06/15/26 Internal Pass Control Germaine Martinez MD POINT OF CARE TEST ENTER/EDIT ORDERABLES Final Result * (ABNORMAL) POCT HGB A1C (02/02/2025 10:53 AM EDT) Hemoglobin A1C 9.8(A) 4.0 - 6.0 % Blood 02/02/2025 10:5 3 AM EDT Germaine Martinez MD POINT OF CARE TEST ENTER/EDIT ORDERABLES Final Result * Albumin, Random Urine W/Creatinine (12/19/2023 11:46 AM EDT) Creatinine, Urine 34.93 mg/dL [facility] Microalbumin Urine 8.0 mg/L [facility] Microalbum Creatinine Ratio Ur 22.9 <30 ug/mg cr [facility] Comment:Albumin/Creatinine R atio Reference Ranges: Normal: < 30 ug/mg creatinine Microalbuminuria: 30 - 300 ug/mg creatinineClinical Albuminuria: > 300 ug/mg creatinine Urine (Urine, Random) 12/19/2023 11:46 AM EDT 12/19/2023 1:10 PM EDT Germaine Martinez MD LAB URINE ORDERABLES Final Res ult [facility] [address] [place] [phone] * Hepatitis C Antibody with Reflex to HCV, RNA, Quantitative, Real-Time PCR (12/19/2023 11:46 AM EDT) Hepatitis C Antibody Nonreactive Nonreactive [facility] Comment:Antibodies to HCV no t detected; does not exclude early acuteHCV infection. Blood Venous blood specimen / Unknown 12/19/2023 11:46 AM EDT 12/19/2023 1:16 PM EDT us Germaine Martinez MD LAB BLOOD ORDERABLES Final Res ult [facility] [address] [place] [address] [phone] * (ABNORMAL) Lipid Panel, Standard (01/30/2023 9:44 AM EDT) Cholesterol, Total 333(H) <200 mg/dL [facility] HDL Cholesterol 73 > OR = 50 mg/dL [facility] Triglycerides 107 <150 mg/dL [facility] LDL Cholesterol 236(H) mg/dL (calc) [facility] Comment: LDL-C levels > or = 190 [...] about testing for familial hypercholesterolemia, please call [address] [facility] at [phone]. Lawrence Dejesus, et al. J National Lipid Association Recommendations for Patient-Centered Management of Dyslipidemia: Part 1 Journal of Clinical Lipidology 2015;9(2), 129-169. Dick Perez et al. (2014). Homozygous familial hypercholesterolaemia: new insights and guidance for clinicians to improve detection and clinical management. Heart Journal, 35(32), 1693-8962. Reference range: <100 Desirable range <100 mg/dL for primary prevention; <70 mg/dL for patients with CHD or diabetic patients with > or = 2 CHD risk factors. LDL-C is now calculated using the Lokesh-Lev calculation, which is a validated novel method providing better accuracy than the Friedewald equation in the estimation of LDL-C. Lokesh KEYES et al. ESTHER. 2013;310(19): 3854-0377 (http://education.ActivityHero/faq/YLV352) Chol/HDLC Ratio 4.6 <5.0 (calc) [facility] Non-HDL Cholesterol 260(H) <130 mg/dL (calc) [employer] Comment: Non-HDL level > or = 220 [...] ADVISED TO RETURN FOR COLLECTION. FASTING: YES Germaine Martinez MD LAB BLOOD ORDERABLES Final Res ult [facility] [address], [place] [address] [facility] [address] [place] [phone] * Hm Colonoscopy (03/23/2013 8:10 AM EDT) Historical Provider HEALTH MAINTENANCE Final Result from Last 3 Months or Most Recently Relevant to Health Maintenance Insurance * Guarantor: Tennille Philip Account Type Relation to Patient Date of Phone Billing Address Personal/Family Self [address] [place] [address] [facility] [employer] (HMO D-SNP) [facility] STANDARD * Guarantor: Tennille Philip Account Type Relation to Patient Date of Phone Billing Address Personal/Family Self [address] [place] [address] Care Teams Lead Applications Developer Relationship Specialty Start Date End Date Germaine Martinez MD [address] [place] [address] PCP - General Family Medicine 07/14/20
--- OUTSIDE RECORDS SUMMARY | 2025-06-25 14:53 | XMS_ITS | Encounter Summary ---
Author Organization [facility] Address [address] [place] [address] Phone Care Team Providers Care Sheriff'S Sergeant Name Role Phone Sanjay James MUSHROOM GROWER Primary Care Provider [phone] Sanjay James MUSHROOM GROWER Primary Care Provider [phone] Germaine Martinez MD Primary Care Provider + Germaine Martinez MD Primary Care Provider + Encounter Details Date Type Department Care Team (Latest Contact Info) Description 08/12/2018 Ancillary Orders [facility] [address], [address] [place] [address] Venessa Kaye MD [address] [place] [address] [email or web address] PVD (peripheral vascular disease); Other specified symptoms and signs involving the circulatory and respiratory systems Social History Tobacco Use Types Packs/Day Years [...] Description 10/08/2025 9:20 AM EST Office Visit [facility] [address] [place] [address] 3rd Floor, [address] [place] [address] Ray Cid MD [address] [place] [address], [address] [address] 11/08/2025 9:40 AM EST Office Visit [facility] [address] [place] [address] Aixa Kong MD [address] [place] [address], 1st [place] [address] 04/21/2026 9:10 AM EDT Office Visit [facility] [address] [place] [phone] Hilario Peguero DO [address] [place] [phone] documented as of this encounter Results * US Aorta Duplex Scan Arterial/Venous Flow (Includes IVC Iliacs Grafts) Limited Study (08/12/2018 11:13 AM EST) Anatomical Region Laterality Modality Heart, Vascular, Thoracic Vasculature Ultrasound Narrative 08/13/2018 8:18 AM EST See scanned document. us Venessa Kaye MD IMG US ABDOMEN Final Result * US Ankle/Brachial Indices (08/12/2018 11:13 AM EST) Anatomical Region Laterality Modality Ankle Left, Ankle Right Ultrasou nd Narrative 08/13/2018 8:18 AM EST See scanned document. Procedure Note Ray Cid MD - 08/13/2018 See scanned document. us Venessa Kaye MD US VASCULAR Final Result documented in this encounter Visit Diagnoses Diagnosis PVD (peripheral vascular disease) Unspecified peripheral vascular disease Other specified symptoms and signs involving the circulatory and respiratory systems PVD (peripheral vascular disease) Unspecified peripheral vascular disease Other specified symptoms and signs involving the circulatory and respiratory systems documented in this encounter Care Teams Sheriff'S Sergeant Relationship Specialty Start Date End Date Sanjay James NP [address] [place] [address] PCP - General Family Medicine 07/18/17 03/13/21 Sanjay James NP [address] [place] [address] PCP - General Family Medicine 03/14/21 01/17/22 Germiane Martinez MD [address] [place] [address] PCP - General 01/18/22 09/14/24 Germaine Martinez MD [address] [place] [address] PCP - General Family Medicine 09/15/24 documented as of this encounter Additional Source Comments The information contained in this document represents components of the legal health record. It is not the complete legal health record.[facility]
--- OUTSIDE RECORDS SUMMARY | 2025-06-25 14:53 | XMS_ITS | Encounter Summary ---
Author Organization [employer] [facility] Address [address] 7t [place] [address] Care Team Providers Care Shoe Cobbler Name Role Phone Germaine Martinez MD Primary Care Provider [phone] Encounter Details Date Type Department Care Team (Late st Contact Info) Description 09/05/2022 Telephone [facility] MEDICINE [address] [place] [address] [phone] Germaine Martinez MD [address] [place] [address] [phone] Social History Tobacco Use Types Packs/Day Years [...] Description 07/09/2025 9:00 AM EDT Office Visit [address] [phone] Germaine Martinez MD [address] [place] [address] [phone] 07/29/2025 9:00 AM EST Telemedicine [facility] MEDICINE [address] [place] [address] Omayra Gudino, RN documented as of this encounter Visit Diagnoses Not on filedocumented in this encounter Care Teams Shoe Cobbler Relationship Specialty Start Date End Date Germaine Martinez MD [address] [place] [address] PCP - General Family Medicine 07/14/20 documented as of this encounter
--- OUTSIDE RECORDS SUMMARY | 2025-06-25 14:53 | XMS_ITS | Encounter Summary ---
Author Organization [employer] [facility] Address [address] [facility] 7t [place] [address] Care Team Providers Care Industrial Tractor Driver Name Role Phone Germaine Martinez MD Primary Care Provider [phone] Reason for Visit * Reason Comments Med Refill Encounter Details Date Type Department Care Team (Late Contact Info) Description 11/07/2022 Refill [facility] MEDICINE [address] [place] [address] [phone] Germaine Martinez MD [address] [place] [address] [phone] Sacroiliitis (CMS/HCC) Social History Tobacco Use Types [...] Department Care Team (Late Contact Info) Description 07/09/2025 9:00 AM EDT Office Visit [facility] MED[facility]INE [address] [place] [address] [phone] Germaine Martinez MD [address] [place] [address] [phone] 07/29/2025 9:00 AM EST Telemedicine [facility] [address] [place] [address] Omayra Gudino RN documented as of this encounter Visit Diagnoses Diagnosis Sacroiliitis (CMS/HCC) Sacroiliitis, not elsewhere classified documented in this encounter Care Teams Industrial Tractor Driver Relationship Specialty Start Date End Date Germaine Martinez MD [address] [place] [address] PCP - General Family Medicine 07/14/20 documented as of this encounter
--- OUTSIDE RECORDS SUMMARY | 2025-06-25 14:53 | XMS_ITS | Encounter Summary ---
Author Organization [employer] Address [address] [facility] 7t [place] [address] Care Team Providers Care Manager Instrumentation Name Role Phone Germaine Martinez MD Primary Care Provider [phone] Encounter Details Date Type Department Care Team (Late Contact Info) Description 01/02/2023 Orders Only [facility] MEDICINE [address] [place] [address] [phone] Germaine Martinez MD [address] [place] [address] [phone] Degeneration of lumbar intervertebral disc (Primary Dx) [...] Description 07/09/2025 9:00 AM EDT Office Visit [facility]INE [address] [place] [address] Germaine Martinez MD [address] [place] [address] 07/29/2025 9:00 AM EST Telemedicine [facility] MEDICINE [address] [place] [address] Omayra Gudino RN documented as of this encounter Visit Diagnoses Diagnosis Degeneration of lumbar intervertebral disc- Primary Degeneration of lumbar or lumbosacral intervertebral disc documented in this encounter Care Teams Manager Instrumentation Relationship Specialty Start Date End Date Germaine Martinez MD [address] [place] [phone] PCP - General Family Medicine 07/14/20 documented as of this encounter
--- OUTSIDE RECORDS SUMMARY | 2025-06-25 14:53 | XMS_ITS | Encounter Summary ---
Author Organization [employer] Address [address] [place] [address] Care Team Providers Care Interior Wall Assembler Name Role Phone Germaine Martinez MD Primary Care Provider [phone] Reason for Visit * Reason Comments Med Refill Encounter Details Date Type Department Care Team (Late st Contact Info) Description 06/18/2023 Refill [facility] [address] [place], [place] [phone] Germaine Martinez MD [address] [place], [place] [phone] Degeneration of lumbar intervertebral disc Social History [...] Description 07/09/2025 9:00 AM EDT Office Visit [facility] [address] [place] [address] Germaine Martinez MD [address] [place] [address] 07/29/2025 9:00 AM EST Telemedicine [facility] [address] [place] [address] Omayra Gudino, ST[place] documented as of this encounter Visit Diagnoses Diagnosis Degeneration of lumbar intervertebral disc Degeneration of lumbar or lumbosacral intervertebral disc documented in this encounter Care Teams Interior Wall Assembler Relationship Specialty Start Date End Date Germaine Martinez MD [address] [place] [id number] PCP - General Family Medicine 07/14/20 documented as of this encounter
--- OUTSIDE RECORDS SUMMARY | 2025-06-25 14:53 | XMS_ITS | Encounter Summary ---
Author Organization [facility] Address [address] [place] [address] Phone Care Team Providers Care Purchasing Administrator Name Role Phone Sanjay James CARTON COUNTER FEEDER Primary Care Provider [phone] Sanjay James CARTON COUNTER FEEDER Primary Care Provider [phone] Germaine Martinez MD Primary Care Provider + Germaine Martinez MD Primary Care Provider + Encounter Details Date Type Department Care Team (Late st Contact Info) Description 09/07/2020 Procedure Pass [facility], [address] [place] [address] Social History Tobacco Use Types Packs/Day Years [...] Description 10/08/2025 9:20 AM EST Office Visit [facility] [address] Floor, [address] [place] [address] Ray Cid MD [address] [place] [address], [address] [place] [address] 11/08/2025 9:40 AM EST Office Visit [facility] [address] [place] [address] [place] [address] Aixa Kong MD [address] [place] [address], 1st [place] [address] 04/21/2026 9:10 AM EDT Office Visit [facility] [address] [place] [address] [place] [address] Hilario Peguero DO [address] [place] [address] documented as of this encounter Visit Diagnoses Not on filedocumented in this encounter Care Teams Purchasing Administrator Relationship Specialty Start Date End Date Sanjay James NP [address] [place] [address] PCP - General Family Medicine 07/18/17 03/13/21 Sanjay James NP [address] [place] [address] PCP - General Family Medicine 03/14/21 01/17/22 Germaine Martinez MD [address] [place] [address] PCP - General 01/18/22 09/14/24 Germaine Martinez MD [address] [place] [address] PCP - General Family Medicine 09/15/24 documented as of this encounter Additional Source Comments The information contained in this document represents components of the legal health record. It is not the complete legal health record.[facility]
--- OUTSIDE RECORDS SUMMARY | 2025-06-25 14:53 | XMS_ITS | Encounter Summary ---
Author Organization [employer] Address [address] [place] [address] Care Team Providers Care Dog Or Animal Sitter Name Role Phone Germaine Martinez MD Primary Care Provider [phone] Encounter Details Date Type Department Care Team (Latest Contact Info) Description 06/25/2025 Travel Social History Tobacco Use Types Packs/Day [...] Description 07/09/2025 9:00 AM EDT Office Visit [facility] [address] [place] [address] Germaine Martinez MD [address] [place] [address] 07/29/2025 9:00 AM EST Telemedicine [facility] [address] [place] [address] Omayra Gudino RN documented as of this encounter Visit Diagnoses Not on filedocumented in this encounter Additional Health Concerns Assessment Noted Time PHQ-9 Depression Total Score: 0 02/03/20 25 10:52 AM EDT documented as of this encounter Care Teams Dog Or Animal Sitter Relationship Specialty Start Date End Date Germaine Martinez MD [address] [place] [address] PCP - General Family Medicine 07/14/20 documented as of this encounter
--- OUTSIDE RECORDS SUMMARY | 2025-06-25 14:53 | XMS_ITS | Encounter Summary ---
Author Organization [facility] Address [address] [place] [address] Phone Care Team Providers Care Uranium Processing Supervisor Name Role Phone Sanjay James BOW STRING MAKER Primary Care Provider [phone] Sanjay James BOW STRING MAKER Primary Care Provider [phone] Germaine Martinez MD Primary Care Provider + Germaine Martinez MD Primary Care Provider + Encounter Details Date Type Department Care Team (Latest Contact Info) Description 03/27/2018 Transcribe Orders [facility] [address], [address] [place] [address] Venessa Kaye MD [address] [place] [address] [email or web address] Deep vein thrombosis (DVT) of distal vein of lower extremity, unspecified chronicity, unspecified laterality (Primary Dx) Social History Tobacco Use Types [...] Description 10/08/2025 9:20 AM EST Office Visit [facility] [address] [place] [address] 3rd Floor, [address] [place] [address] Ray Cid MD [address] [place] [address], [address] [address] 11/08/2025 9:40 AM EST Office Visit [facility] [address] [place] [address] [place] [address] Aixa Kong MD [address] [place] [address], 1[address] [place] [address] 04/21/2026 9:10 AM EDT Office Visit [facility] [address] [place] [address] [place] [address] Hilario Peguero DO [address] [place] [address] documented as of this encounter Visit Diagnoses Diagnosis Deep vein thrombosis (DVT) of distal vein of lower extremity, unspecified chronicity, unspecified laterality- Primary documented in this encounter Care Teams Uranium Processing Supervisor Relationship Specialty Start Date End Date Sanjay James NP [address] [place] [address] PCP - General Family Medicine 07/18/17 03/13/21 Sanjay James NP [address] [place] [address] PCP - General Family Medicine 03/14/21 01/17/22 Germaine Martinez MD [address] [place] [address] PCP - General 01/18/22 09/14/24 Germaine Martinez MD [address] [place] [address] PCP - General Family Medicine 09/15/24 documented as of this encounter Additional Source Comments The information contained in this document represents components of the legal health record. It is not the complete legal health record.[facility]
--- OUTSIDE RECORDS SUMMARY | 2025-06-25 14:53 | XMS_ITS | Clinical Summary ---
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 Active ramelteon (ROZEREM) 8 mg tablet Take 8 mg by mouth nightly. Active pantoprazole (PROTONIX) 40 MG tablet Take 40 mg by mouth daily. Active oxyCODONE 5 MG immediate release tablet Take 5 mg by mouth every 4 (four) hours as needed for moderate pain or 4-6 (on a general 0-10 scale). Active glucose 4 GM chewable tablet Take 4 tablets (16 g total) by mouth as needed for low blood sugar (provide value). 120 tablet 11 07/22/20 18 Active cholecalciferol (VITAMIN D3) 25 MCG (1,000 unit) tablet Take 1,000 Units by mouth daily. Active gabapentin (NEURONTIN) 400 MG capsule 1 tab at 8am and 12n and then 2 tabs at 6pm 120 capsule 12 08/23/20 20 Active famotidine (PEPCID) 20 MG tablet Take 20 mg by mouth. 12/12/19 23 Active doxepin (SINEQUAN) 25 MG capsule Take 1 capsule by mouth nightly at bedtime. 03/01/20 23 Active losartan (COZAAR) 25 MG tablet Take 25 mg by mouth every morning. Active magnesium oxide (MAG-OX) 400 mg (241.3 mg elemental) tablet TAKE 1 TABLET BY MOUTH EVERY MORNING FOR HEADACHE 11/14/19 24 Active sertraline (ZOLOFT) 100 MG tablet Take 100 mg by mouth every morning. Active empagliflozin (JARDIANCE) 10 mg tablet Take 10 mg by mouth daily. Active linaCLOtide (LINZESS) 145 mcg Cap Take 145 mcg by mouth daily before breakfast. Active dexlansoprazole delayed release (DEXILANT) 60 mg capsule Take 60 mg by mouth daily. Active lancets (TRUEPLUS LANCETS) 33 gauge MiscIndications:T ype 2 diabetes mellitus with diabetic neuropathy, with long-term current use of insulin Inject 1 each into the skin 6 (six) times a day. 200 each 11 08/10/20 24 Active nystatin (NYSTOP) powder Apply topically 3 (three) times a day. 15 g 09/15/19 25 Active NOVOLOG FLEXPEN U-100 INSULIN 100 unit/mL (3 mL) flexpenIndication s:Type 2 diabetes mellitus with diabetic neuropathy, with long-term current use of insulin Inject 15 Units under the skin 3 (three) times a day with meals. 45 mL 3 10/12/19 25 Active insulin pen needles, disposable, (BD ULTRA-FINE AGUILAR PEN NEEDLE) 32 gauge x 5/32 NdleIndications:T ype 2 diabetes mellitus with diabetic neuropathy, with long-term current use of insulin USE DIRECTED UP TO 5 TIMES DAILY DIRECTED. 150 each 11 11/02/19 25 Active rosuvastatin (CRESTOR) 40 MG tablet TAKE 1 TABLET BY MOUTH AT BEDTIME 90 tablet 3 01/08/20 25 Active cilostazol (PLETAL) 100 MG tabletIndications :PVD (peripheral vascular disease) TAKE 1 TABLET BY MOUTH TWICE DAILY IN THE MORNING AND IN THE EVENING 180 tablet 3 04/08/20 25 Active levothyroxine (SYNTHROID, LEVOTHROID) 75 MCG tabletIndications :Postablative hypothyroidism Take 1 tablet (75 mcg total) by mouth every morning. 90 tablet 4 04/22/20 25 Active insulin glargine (LANTUS SOLOSTAR U-100 INSULIN) 100 unit/mL (3 mL) InPn injection penIndications:Ty pe 2 diabetes mellitus with diabetic neuropathy, with long-term current use of insulin Inject 12 units daily as directed. 15 mL 04/26/20 25 Active REPATHA SURECLICK 140 mg/mL PnIj subcutaneous pen injectorIndicatio ns:Medication refill INJECT 1 ML SUBCUTANEOUSLY EVERY 14 DAYS 6 mL 04/29/20 25 Active FREESTYLE CARLIN 3 READER MiscIndications:T ype 2 diabetes mellitus with diabetic neuropathy, with long-term current use of insulin by Miscellaneous route daily. 1 each 05/12/20 25 Active FREESTYLE CARLIN 3 PLUS SENSOR DeviIndications:T ype 2 diabetes mellitus with diabetic neuropathy, with long-term current use of insulin,Hypoglyce brandyn due to insulin,Long-term insulin use Apply as directed every 15 days E11.42 Z79.4 2 each 05/12/20 25 Active metFORMIN (GLUCOPHAGE-XR) 500 MG 24 hr tabletIndications :Type 2 diabetes mellitus with diabetic neuropathy, with long-term current use of insulin Take 1 tablet (500 mg total) by mouth 2 (two) times a day. E11.42 180 tablet 3 06/02/20 25 Active metFORMIN (GLUCOPHAGE-XR) 500 MG 24 hr tabletIndications :Type 2 diabetes mellitus with diabetic neuropathy, with long-term current use of insulin Take 1 tablet (500 mg total) by mouth 2 (two) times a day. E11.42 180 tablet 3 06/08/20 24 025 Disconti duarte(Elviao rder) Active Problems Problem Noted Date Diagnosed Date Benign essential hypertension 03/22/2025 Assessment & Plan (05/12/2025 1:42 PM EDT): Blood pressure is well controlled today SGLT2i therapy is likely to support blood pressure management and provide general CV risk reduction Continues on ARB Assessment & Plan (03/22/2025 11:00 AM EDT): Blood pressure remains very well-controlled on losartan 25 mg daily. Chest pain 02/12/2022 Assessment & Plan (02/27/2022 2:46 PM EDT): She tells me she continues to have some pain in the center of her chest at times however her nuclear stress test does not show any fixed or reversible perfusion defects that would be concerning. She will continue her aspirin 81 mg daily, cilostazol 100 mg twice daily,She is encouraged to follow heart healthy diet including low sodium. Assessment & Plan (02/12/2022 9:15 AM EDT): She presented to [facility] ED on 01/18/2022 with chest pain. Her cardiac work-up at the hospital was negative for ACS. She was discharged home. However, she reports having chest pain in the past but not as intense as this episode was that prompted her to go to the emergency room. Given her vascular disease and diabetes type 2 we will opt for pharmacological nuclear stress test as she will be unable to exercise due to her claudication symptoms. We will see her in follow-up after this. Varicose veins of both legs with edema 0 Assessment & Plan (03/22/2025 3:18 PM EDT): Patient has ongoing bilateral lower extremity complaints which do sound like a combination of claudication and some venous stasis. Her recent venous duplex confirms significant venous insufficiency in the right GSV and left SSV. Her left is bothering her much more than her right at this time. She really has no edema at all on exam today, she does have a superficial varicose vein on the left anterior louie. But she is extremely bothered by these symptoms. She does endorse intermittent swelling sometimes more than what it is on exam today. We discussed initiating compression regularly and elevation along with regular walking regimen. She does wish to proceed with a venous seal/ablation if possible on the left, will discuss with SW before scheduling this to ensure appropriate treatment plan based on u/s and if agreeable, will get this scheduled for patient with appropriate ultrasounds thereafter. Assessment & Plan (12/18/2019 9:02 AM EDT): She has left leg varicose veins with some edema again is not terrible it is tolerable I would leave it alone Postablative hypothyroidism 11/03/2018 Assessment & Plan (05/12/2025 1:36 PM EDT): Follows with Dr. Peguero regularly Most recent TSH reviewed, this is at goal Continues on LT4 therapy Assessment & Plan (04/22/2025 9:34 AM EDT): Chemically and clinically euthyroid continue levothyroxine 75 mcg repeat thyroid function studies prior to the follow-up visit in 1 year. Assessment & Plan (11/02/2024 12:54 PM EST): Follows with Dr. Peguero, has upcoming appt scheduled this summer Most recent TSH reviewed, this is at goal Continues on LT4 therapy Assessment & Plan (06/08/2024 3:17 PM EDT): Follows with Dr. Peguero, has upcoming appt scheduled this summer Most recent TSH reviewed, this is at goal Continues on LT4 therapy Assessment & Plan (04/20/2024 8:45 AM EDT): Chemically and clinically euthyroid continue levothyroxine 75 mcg repeat thyroid function studies in 1 year. Assessment & Plan (04/22/2023 2:40 PM EDT): She is on levothyroxine 75 mcg she [...] and she will follow in 1 year. Assessment & Plan (12/14/2022 10:40 AM EDT): Follows with Dr. Peguero, has upcoming appt scheduled this summer Most recent TSH reviewed Continues on LT4 therapy Assessment & Plan (06/05/2022 10:26 AM EDT): Follows with Dr. Peguero Most recent TSH reviewed Continues on LT4 therapy Assessment & Plan (04/19/2022 8:42 AM EDT): Chemically and clinically euthyroid on levothyroxine 75 mcg continue the current regimen repeat thyroid function studies prior to the follow-up visit in 1 year. Assessment & Plan (04/19/2021 12:19 PM EDT): The patient is chemically and clinically euthyroid on levothyroxine 75 mcg we will continue the current dose and repeat thyroid function studies in 1 year. Assessment & Plan (11/25/2020 11:19 AM EDT): Followed by Dr. Peguero Consistent with LT4 therapy Recent labs reviewed Assessment & Plan (03/15/2020 10:27 AM EDT): Patient is clinically euthyroid I cannot state that she is chemically euthyroid since then have the results. The labs are being processed. I renewed levothyroxine 75 mcg and she has refills for the entire year she will follow-up in 1 years time. Assessment & Plan (11/13/2019 12:30 PM EST): Clinically euthyroid today Continues on L-thyroxine Follows with Dr. Peguero regularly Assessment & Plan (04/09/2019 1:24 PM EDT): Followed by Dr. Peguero We adjusted Tennille' L-thyroxine to 75mcg once daily so she does not have to split her 50mcg tabs which crumble and she is likely not getting a consistent dosage from day to day Assessment & Plan (11/10/2018 9:16 AM EST): The patient is clinically euthyroid for the most part she is chemically euthyroid the free T3 is a temp of a point below reference range but I really have to go by the TSH results which is in the lower side of normal. If I were to increase the dose of levothyroxine it was suppressed that even further and it may not help with the T3 level. She is not complaining of any serious hypothyroid symptoms other than dry skin and occasional fatigue. There is no need to add Cytomel. I will renew her medications levothyroxine 75 mcg daily for 90 days with 3 refills and she can return for follow-up in a year she was advised to repeat thyroid function studies prior to the year. Assessment & Plan (11/03/2018 2:44 PM EST): This is a patient who I suspect has Graves' disease and underwent radioactive iodine ablation with resultant hypothyroidism who is currently on levothyroxine 75 mcg daily. She appears for the most part to be clinically euthyroid and I suspect that she may also be chemically euthyroid. She should repeat thyroid function studies and follow-up in 1 week. I will not prescribe any medications onto I reviewed lab work. PVD (peripheral vascular disease) 01/31/2018 Assessment & Plan (03/22/2025 10:58 AM EDT): Pt has bilateral SFA occlusions but previous attempts at revascularization were unsuccessful. We will continue medical therapy at this time with aspirin, cilostazol. Question remains as to if this is truly vascular pain versus neuropathy as patient has both anterior and posterior distal lower extremity pain and sometimes with exertion but sometimes at rest. Her ZELALEM and duplex were recently updated and have been unchanged. Continue to optimize cardiovascular risk factors. Her diabetes control is suboptimal, she works with Dr. Kong. Will follow-up in 6 months with her molder machine. Assessment & Plan (07/14/2024 5:03 PM EST): Pt has bilateral SFA occlusions but previous attempts at revascularization were unsuccessful. We will continue medical therapy at this time with aspirin, cilostazol. Question remains as to if this is truly vascular pain versus neuropathy as patient has both anterior and posterior distal lower extremity pain and sometimes with exertion but sometimes at rest. I have requested that she update ZELALEM and duplex as this has been over 1 year since checked to see if her ZELALEM has changed. Continue to optimize cardiovascular risk factors. Lipids are under much better control, A1c continues to be high, working with Dr. Kong. We will see patient back when testing is completed. Assessment & Plan (02/27/2022 2:46 PM EDT): After speaking with Dr. Cid he felt [...] Dr. Cid in the fall after that. Assessment & Plan (02/12/2022 9:14 AM EDT): She has stable claudication symptoms which have been ongoing. She was recently increased on her cilostazol to 100 mg twice daily, she reports a slight improvement to her legs feeling better but they still w are painful. I will send a message to Dr. Cid to see if there is anything else we can do for her however she is very difficult revascularization patient. Repeat ABIs and arterial duplex studies in a year from her last. Assessment & Plan (07/01/2020 10:09 AM EDT): Stable symptoms significant claudication but not worse. Recheck her scans once a year unless things get worse continue walking protocol like we discussed continue current medications Assessment & Plan (12/18/2019 9:01 AM EDT): Stable vascular status now for several years. Claudication is tolerable. Would legs are perfused. No changes in medical therapy right now. Assessment & Plan (11/13/2019 12:32 PM EST): Follows with Dr. Kaye Encouraged to stay active as tolerated Continues on ASA and statin Assessment & Plan (02/27/2019 9:30 AM EDT): Stable claudication. Continue current medical therapy. Continue walking. I would not try to re-intervene on her given small caliber vessels. Continue aspirin and statin. Repeat scan 6 months in follow-up. Assessment & Plan (08/29/2018 9:34 AM EST): Overall stable PVD bilateral SFA occlusions. Recent attempt at recanalization from another physician that was unsuccessful. At this point I do not want to reattempt opening these. I think the likelihood of it staying open is low even if we succeeded. Her ABIs are mild to moderately reduced her claudication is stable as it was years ago. We will continue surveillance and watching for change in symptoms. Assessment & Plan (06/03/2018 9:59 AM EDT): Encouraged to exercise regularly as tolerated Followed by [facility] specialist Assessment & Plan (01/31/2018 9:40 AM EDT): Her peripheral vascular disease is stable. She is no bilateral SFA occlusions but her ABIs are only mildly reduced. Most of her pains in her legs seem to be from arthritis and neuropathy not even claudication. She also has a component of sciatica. I'm not do anything different. She has no good options for revascularization we will continue to follow her scans periodically and I will see her back in 6 months. Hyperlipidemia 07/18/2017 Assessment & Plan (05/12/2025 1:38 PM EDT): Continues on high intensity statin therapy and on PCSK9i Most recent lipid panel reviewed, LDL is much improved compared to the past, HDL and TG are in desired range, LDL goal is <100, more optimally <70 Assessment & Plan (03/22/2025 11:00 AM EDT): Most recent LDL on file 77, she is on both rosuvastatin and Repatha which she states compliance with and is tolerating well. If repeat this year remains above 70/goal, could consider ezetimibe. Continue lifestyle modifications. Her previous LFTs were unremarkable. Assessment & Plan (11/02/2024 12:56 PM EST): Continues on high intensity statin therapy and on PCSK9i Most recent lipid panel reviewed, LDL is much improved compared to the past, HDL and TG are in desired range, LDL goal is <100, more optimally <70 Assessment & Plan (07/14/2024 12:59 PM EST): LDL is significantly improved to 77 with the addition of Repatha which patient is tolerating well. She has also continued on rosuvastatin 40 mg daily. Labs up-to-date. Continue current meds and doses. Assessment & Plan (06/08/2024 3:16 PM EDT): Continues on high intensity statin therapy Most recent lipid panel reviewed, LDL is just above optimal goal but much improved compared to the past, HDL and TG are in desired range, LDL goal is <100, more optimally <70 Assessment & Plan (06/18/2023 10:37 AM EDT): Continues on high intensity statin therapy Most recent lipid panel reviewed, LDL remains above goal, HDL and TG are in desired range, LDL goal is <100, more optimally <70 Assessment & Plan (06/05/2022 10:27 AM EDT): Continues on high intensity statin therapy Most recent lipid panel reviewed, LDL is above goal, HDL and TG are in desired range, LDL goal is <100, more optimally <70 Assessment & Plan (12/03/2021 10:03 PM EDT): Continues on high intensity statin therapy Most recent lipid panel reviewed, LDL is above goal, HDL and TG are in desired range, LDL goal is <100, more optimally <70 Assessment & Plan (06/02/2021 10:58 AM EDT): Continues on high intensity statin therapy No recent lipid panel on file, LDL goal is <100, more optimally <70 Assessment & Plan (11/25/2020 10:53 AM EDT): Continues on high intensity statin therapy No recent lipid panel on file, LDL goal is <100 Assessment & Plan (05/23/2020 1:03 PM EDT): Continues on high intensity statin therapy No recent lipid panel on file, LDL goal is <100 Assessment & Plan (11/13/2019 12:32 PM EST): Continues on high intensity statin therapy No recent lipid panel on file, LDL goal is <100 Assessment & Plan (06/03/2018 9:57 AM EDT): Continues on high intensity statin therapy Assessment & Plan (01/31/2018 10:57 AM EDT): Continues on high dose statin therapy Most recent LDL on file is from 2014, routine labs up to date with PCP Goal LDL <100 Type 2 diabetes mellitus wit h diabetic neuropathy, with long-term current use of insulin 07/13/2017 Assessment & Plan (05/12/2025 3:42 PM EDT): Doing well overall, remains consistent with insulin dosing, also consistent with Metformin use bid daily and tolerating 500mg bid Control is stable compared to our last visit per A1c, has not been using CGM recently due to broken reader, we did not have glucose data to review today We discussed change to FSL3+, using CGM consistently has been helpful in managing low glucose risk, Tennille has found this very helpful We did not change insulin therapy today, Tennille is advised to continue to adjust mealtime insulin based on her meal size/quality and premeal glucose Advised to call with any questions or concerns, we will follow up in 6 months, Tennille is aware that per Medicare criteria for CGM supply we need to meet at least every 6 months and they have been consistent with this This patient has diabetes This patient has been using a blood glucose meter and performing 4 or more blood glucose readings daily or is now using CGM This patient is insulin-treated with 3 or more daily injections OR a continuous subcutaneous insulin infusion pump This patient's insulin treatment regimen requires frequent adjustment by the patient on the basis of blood glucose meter readings or continuous glucose monitoring results This patient has had an in-person visit with the treating provider to evaluate diabetes control and determine criteria for CGM use This patient will return for follow up visits at least every 6 months to assess adherence to CGM regimen, the effect of the current diabetes treatment regimen and to have insulin and medication therapy adjusted as needed for optimal outcome Assessment & Plan (11/02/2024 12:58 PM EST): Doing well overall, remains consistent with insulin dosing, also consistent with Metformin use bid daily and tolerating 500mg bid much more than previous optimized dosage Control is stable compared to our last visit per A1c, but CGM data indicates some improvement in TIR in the recent past, there remains fairly significant prandial excursions occur nearly daily Has been able to use CGM more consistently which has been helpful in managing low glucose risk, has found this very helpful Advised to call with any questions or concerns, we will follow up in 6 months, Tennille is aware that per Medicare criteria for CGM supply we need to meet at least every 6 months and they have been consistent with this This patient has diabetes This patient has been using a blood glucose meter and performing 4 or more blood glucose readings daily or is now using CGM This patient is insulin-treated with 3 or more daily injections OR a continuous subcutaneous insulin infusion pump This patient's insulin treatment regimen requires frequent adjustment by the patient on the basis of blood glucose meter readings or continuous glucose monitoring results This patient has had an in-person visit with the treating provider to evaluate diabetes control and determine criteria for CGM use This patient will return for follow up visits at least every 6 months to assess adherence to CGM regimen, the effect of the current diabetes treatment regimen and to have insulin and medication therapy adjusted as needed for optimal outcome Assessment & Plan (06/08/2024 3:20 PM EDT): Doing well overall, remains consistent with insulin dosing, also consistent with Metformin use bid daily but not tolerating optimized dosage, we discussed reducing this back to 500mg bid, new rx for Metformin XR sent which should also be better tolerated, advised to cut current Metformin 1000mg tabs in half and continue bid Control is stable compared to our last visit per A1c, fairly significant prandial excursions occur nearly daily Has been able to use CGM more consistently which has been helpful in managing low glucose risk, has found this very helpful Advised to call with any questions or concerns, we will follow up in 6 months, Tennille is aware that per Medicare criteria for CGM supply we need to meet at least every 6 months and they have been consistent with this Assessment & Plan (04/22/2024 10:01 PM EDT): CGM data reviewed Recommendations: Fairly consistent prandial rise and this is frequently but not always significant; would benefit from all mealtime insulin prior to eating Continue same dose of Lantus and Metformin Ok to proceed with upcoming tooth extraction, worsening control may be related to extensive dental decay/inflammation Assessment & Plan (06/18/2023 10:42 AM EDT): Doing well overall, remains consistent with insulin dosing, now also consistent with Metformin use bid daily Control is worsened compared to our last visit per A1c and this may have to do with recent several week unavailability of CGM and likely more variability in glucose Has been able to use CGM more consistently which has been helpful in managing low glucose risk, has found this very helpful, recent CGM supply issues due to mix up in prescriptions resulted in more frequent hypoglycemia Advised to call with any questions or concerns, we will follow up in 6 months, Tennille and her daughter are advised that per Medicare criteria for CGM supply we need to meet at least every 6 months and they have been consistent with this Assessment & Plan (12/14/2022 10:46 AM EDT): Doing well overall, insulin dosing reviewed, reports rarely taking insulin prior to eating, more often corrects elevated readings postprandially which then result in rapid drop in glucose often approaching hypoglycemia We discussed the importance of premeal dosing and how this may prevent significant blood sugar spikes while the timing prior to meals also will reduce risk for hypoglycemia when dosing after meals, given SSI plan to follow Has been able to use CGM more consistently which has been helpful in managing low glucose risk Advised to take Metformin bid daily, Tennille reported through the park interpreter today that she only takes this when her glucose is elevated, we discussed the rationale for taking this on a regular basis twice daily, advised to take with meals to help reduce risk of GI upset Advised to call with any questions or concerns, we will follow up in 6 months Assessment & Plan (06/05/2022 10:30 AM EDT): Doing well overall, insulin dosing reviewed, advised to not take insulin if not eating which Tennille states she has not been doing, and also to eat on a consistent schedule, if not hungry for meal then to have a snack to maintain glucose in safe range, but likely will not need insulin for a smaller snack Has used CGM more consistently but now having technical issues with this, we discussed contacting [employer] for replacement sensors if these do not last 14 days for any reason We did not adjust insulin doses today, encouraged to continue the same doses and to take mealtime insulin only when having a meal Will continue Metformin bid Advised to call with any questions or concerns, we will follow up in 6 months Assessment & Plan (12/03/2021 10:13 PM EDT): Still having some issues with insulin dosing, we had discussed dosing insulin after eating but has not been doing this Has used CGM more consistently but still fights this, daughter continues to encourage Tennille to use this and we revisited the benefits today, we set low alerts as noted CGM data was not available for review today, Tennille has not been wearing FSL in recent past We did not adjust insulin doses today Will continue Metformin bid Advised to call with any questions or concerns, we will follow up in 6 months Assessment & Plan (06/02/2021 10:56 AM EDT): Less hypoglycemia per daughter Still having some issues with insulin dosing, has been encouraged to take insulin after eating but has not been doing this Has used CGM briefly in the past but developed adhesive irritation (Dexcom) 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, agreeable to trial of FSL2 and given sensor/reader today We did not adjust insulin doses today Will continue Metformin bid We will check in with Tennille in one week to see how she is doing on CGM, advised again to take mealtime insulin after eating Advised to call with any questions or concerns Assessment & Plan (11/25/2020 11:17 AM EDT): Daughter reports that this is most often due to long duration of time between meals, Tennille is often not interested in evening snacks and we discussed the benefits of intuitive eating, if she does not want a snack in evening then she is advised to be very careful with Lantus dosing, if blood sugar is <150 then she can consider not taking any, skipped doses due to lower blood sugars in evening often do not result in hyperglycemia on waking We discussed Metformin dosing, Tennille' prescription is written for 1 tab bid, she states that she takes 1 tab tid, advised to reduce to bid Laceration on left leg evaluated, Tennille is reassured that this appears to be healing well Encouraged to call with any questions or concerns, we will follow up in 6 months Assessment & Plan (05/23/2020 1:08 PM EDT): Continues to fairly wide variability in glucose readings Using sliding scale dosing for Novolog at meals, we did not adjust this today but since there is higher hypoglycemia risk due to skipped or small meals early in the day then advised to take insulin after eating at breakfast and possibly also lunch We discussed dosing of Lantus insulin, ok to reduce dose if blood sugar in mid 100s or lower but should take no more than 10 units otherwise, currently taking up to 12 units in evening We discussed effect of pain, inflammation and poor sleep in glucose levels, encouraged to seek referral to another can closing machine tender and/or pain management to help with medication therapy for OA and Fibromyalgia, may be able to optimize Gabapentin or perhaps change to Lyrica and/or Cymbalta for more optimal pain management Encouraged to call with any questions or concerns Assessment & Plan (11/13/2019 12:34 PM EST): A1c is stable, hypoglycemia frequency remains modest We discussed change to Metformin dosing, will take only once daily with evening meal; advised to call if she notices significant rise in blood sugars related to this We did not adjust insulin doses today Continues on Gabapentin daily Advised to call with any questions or concerns Assessment & Plan (04/09/2019 1:30 PM EDT): We discussed the modest rise in A1c which may reflect less overall hypoglycemia or more hyperglycemia or some combination of the two Variability still remains an issue Tennille is skipping basal insulin dosage in evening if blood sugar is <150, this seems to be working well and keeps blood sugar stable overnight, she is encouraged to continue this Also encouraged to take mealtime insulin AFTER eating, we have discussed this in the past and Tennille and her daughter are reminded that this may help her reduce her risk and overall frequency of low blood sugars We increased evening dose of Gabapentin to help improve neuropathy pain control, renal function is ok Advised to call with any questions or concerns Assessment & Plan (10/07/2018 12:03 PM EST): Overall very reasonable control, A1c stable 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 on current dose of gabapentin We discussed current insulin dosing, it's certainly unconventional but Tennille seems to do well when she does not take any lantus insulin when evening blood sugars are less than 140, she is advised to continue this, we discussed her sensitivity to insulin as indicated by the very good control she is having on a small dose basal insulin, her current SSI dosing at meals seems to be working well but she is strongly urged to not take her meal dose until her meal is prepared and she is ready to eat Encouraged to call with any questions or concerns, we will follow up in 6 months Assessment & Plan (06/03/2018 10:03 AM EDT): 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 Taking Gabapentin 900mg/day divided TID, this could be optimized further if renal function is normal Also on Nortriptyline which is at a very low dosage, optimizing this may also be more effective for pain control Encouraged to continue current dose of Lantus We discussed a Novolog sliding scale for meals, encouraged to call if this does not seem to be effective or if low blood sugars continue to occur This patient has diabetes This patient has been using a blood glucose meter and performing 4 or more blood glucose readings daily This patient is insulin-treated with 3 or more daily injections OR a continuous subcutaneous insulin infusion pump This patient's insulin treatment regimen requires frequent adjustment by the patient on the basis of blood glucose meter readings or continuous glucose monitoring results This patient has had an in-person visit with the treating provider to evaluate diabetes control and determine criteria for CGM use This patient will return for follow up visits at least every 6 months to assess Adherence to CGM regimen, the effect of the current diabetes treatment regimen and to have insulin and medication therapy adjusted as needed for optimal outcome Assessment & Plan (01/31/2018 11:03 AM EDT): Overall stable glycemic control Continues to have occasional hypoglycemia episodes Monitoring blood sugars frequently throughout the day, we again discussed the likely value of Freestyle Carlin system We did not make adjustments in insulin dosing today We discussed dosing adjustment of gabapentin to help neuropathic pain in the evening, will change from tid to bid dosing, increase evening dose to 600mg, continue morning dose at 300mg and omit midday dose, if increased pain during the day then will increase morning dose to 600mg and continue bid dosing Will return to discuss insulin pump therapy with our educator staff Advised to call with any questions or concerns This patient has diabetes This patient has been using a blood glucose meter and performing 4 or more blood glucose readings daily This patient is insulin-treated with 3 or more daily injections OR a continuous subcutaneous insulin infusion pump This patient's insulin treatment regimen requires frequent adjustment by the patient on the basis of blood glucose meter readings or continuous glucose monitoring results This patient has had an in-person visit with the treating provider to evaluate diabetes control and determine criteria for CGM use This patient will return for follow up visits at least every 6 months to assess Adherence to CGM regimen, the effect of the current diabetes treatment regimen and to have insulin and medication therapy adjusted as needed for optimal outcome Assessment & Plan (10/18/2017 12:16 PM EST): Current insulin dosing is resulting in stable FPG, variability later in the day is based on meal choice/timing Overall improved A1c without increase in hypoglycemia Advised to eat consistently during the day to reduce risk of hypoglycemia Hypoglycemia unaware, daughter is very supportive in helping pt note possible hypoglycemia We discussed Freestyle Carlin personal, this may help increase frequency of glucose monitoring and provide continuous glucose data to help identify patterns, this system will not provide alerts but will help with overall monitoring frequency This patient requires therapeutic CGM for management of diabetes mellitus. This patient has been using a home glucometer for blood sugar monitoring and has been monitoring 4 or more times per day This patient is treated with insulin, this treatment regimen requires frequent adjustments by the patient on the basis of a therapeutic CGM testing results This patient will return for visits at least very 6 months to assess the effect of the current diabetes treatment regimen and to have insulin and medication therapy adjusted as needed for optimal outcome Assessment & Plan (07/18/2017 10:23 AM EST): Increased hypoglycemia risk overnight/early am, pt given instructions regarding insulin adjustments to prevent this Advised not to adjust Lantus dosage significantly due to long duration of action Hypoglycemia due to insulin 07/13/2017 Assessment & Plan (05/12/2025 1:40 PM EDT): Hypoglycemia frequency has been much lower than in the past, largely due to the predictive alerts from CGMS, Tennille is able to effectively prevent low glucose, she is advised to resume CGM, prescriptions for updated sensors and new reader provided Due to hypoglycemia unawareness, CGMS provides safety and is medically necessary Assessment & Plan (11/02/2024 12:56 PM EST): Hypoglycemia frequency continues to be much lower than in the past, largely due to the predictive alerts from CGMS, Tennille is able to effectively prevent low glucose Due to hypoglycemia unawareness, CGMS provides safety and is medically necessary Assessment & Plan (06/08/2024 3:17 PM EDT): Hypoglycemia frequency continues to be much lower than in the past, largely due to the predictive alerts from CGMS, Tennille is able to effectively prevent low glucose Due to hypoglycemia unawareness, CGMS provides safety and is medically necessary Assessment & Plan (06/18/2023 10:38 AM EDT): Hypoglycemia frequency continues to be lower than in the past, largely due to the predictive alerts from CGMS, Tennille is able to effectively prevent low glucose Due to hypoglycemia unawareness, CGMS provides safety and is medically necessary, recent CGM supply issues for a period of one month resulted in more frequent hypoglycemia episodes Assessment & Plan (12/14/2022 10:42 AM EDT): Hypoglycemia frequency continues to be lower than in the past, mostly due to the predictive alerts from CGMS, Tennille is able to effectively prevent low glucose Due to hypoglycemia unawareness, CGMS provides safety and is medically necessary Assessment & Plan (06/05/2022 10:32 AM EDT): Hypoglycemia frequency continues to be lower than in the past however this remains unpredictable and in severe low range at a frequency that remains above goal Continues to benefit from CGM use and more consistent and reliable sensor function would be ideal, advised to contact [employer] for sensors which do not last a full 14 days Assessment & Plan (12/03/2021 10:07 PM EDT): Hypoglycemia frequency continues to be lower than in the past however this remains unpredictable and at times in severe low range We discussed best strategies for FSL2 CGM use as this is helpful to managing and preventing hypoglycemia, we set up audible and vibration alarms on [employer] FSL reader, and adjusted the low alert to occur at bg of 80 in order to allow for more proactive management Assessment & Plan (06/02/2021 10:56 AM EDT): Hypoglycemia frequency appears to be lower Will retry FSL2 CGM as this would be helpful to her in hypoglycemia prevention and proactive management Assessment & Plan (11/25/2020 11:13 AM EDT): Hypoglycemia frequency appears to be lower Unfortunately Tennille did not like CGM therapy, she has trialed both Freestyle Carlin and Dexcom, will continue to self monitor glucose frequently Encouraged to be mindful about Lantus dosing and to not take a dose over 10u Assessment & Plan (05/23/2020 1:10 PM EDT): We revisited dosing Novolog after eating Hypoglycemia tends to occur when she takes mealtime insulin but then does not eat at all or eats very little Would benefit from CGM, did not tolerate Carlin due to irritation from adhesive, may be able to do better with Dexcom G6, we will contact [employer] for a Dexcom G6 Pro evaluation to assess tolerability when we have these in the office Assessment & Plan (04/09/2019 1:23 PM EDT): We revisited dosing Novolog after eating This tends to occur when she takes mealtime insulin but then does not eat at all or if eats then very little Assessment & Plan (10/07/2018 11:58 AM EST): Strongly advised to avoid taking Novolog until sitting down to eat, hypoglycemia occurs only if Tennille takes her mealtime insulin and then forgets to eat Assessment & Plan (06/03/2018 10:00 AM EDT): Current hypoglycemia pattern seems more related to overdosage of Novolog compared to missed/delayed meals in the past We discussed sliding scale which will keep Novolog at judicious doses for elevated blood sugars Encouraged to continue to eat consistently during the day We discussed CGM Assessment & Plan (10/18/2017 11:15 AM EST): Generally rare episodes of hypoglycemia, these tend to occur later in the day and are likely due to delayed meals or small meal Advised to make sure to have consistent meals/snacks to avoid low blood sugars Adjusts Lantus dosage lower if blood sugar are running lower, this may help reduce risk of hypoglycemia as well, advised to continue Diabetic autonomic neuropathy 07/13/2017 Assessment & Plan (11/02/2024 12:54 PM EST): Hypoglycemia unaware, hypoglycemia avoidance is of importance in this patient We discussed continuing current insulin dosing based on most recent CGM patterns Assessment & Plan (07/18/2017 10:30 AM EST): Hypoglycemia unaware, hypoglycemia avoidance is of importance in this patient We discussed insulin dosing changes to prevent this Resolved Problems Problem Noted Date Diagnosed Date Resolved Date Long-term current use of ins ulin for diabetes mellitus 07/13/2017 10/18/2017 Hypothyroidism 11/25/2020 Encounters Date Type Department Care Team Description 06/02/2025 Telephone [facility] [address] [place] [address] Cathy Morales CMA 06/02/2025 Refill [facility] [address] [place] [address] Kita Park MA 05/17/2025 Telephone [facility] [address] [place] [address] Ayesha Doyle MA Medication Prior Authorization 05/12/2025 10:20 AM EDT Office Visit [facility] [address] [place] [address] Aixa Kong MD Type 2 diabetes mellitus with diabetic neuropathy, with long-term current use of insulin (Primary Dx); Hypoglycemia due to insulin; Long-term insulin use; Benign essential hypertension; Hyperlipidemia, unspecified hyperlipidemia type; Postablative hypothyroidism 05/12/[address] [place] [address] Ayesha Doyle MA Medication Prior Authorization 04/29/2025 [facility] [address], [address] [place] [address] Mora Parada CNP Medication Refill 04/26/2025 Refill [facility] [address] [place] [address] Ayesha Doyle MA Medication Refill 04/22/2025 9:10 AM EDT Office Visit [facility] [address] [place] [address] Hilario Peguero DO Postablative hypothyroidism (Primary Dx) 04/22/[address] [place] [address] Hilario Peguero DO 04/22/2025 Orders Only [address] [place] [address] Hilario Peguero DO Type 2 diabetes mellitus with diabetic neuropathy, with long-term current use of insulin (Primary Dx) 04/21/2025 3:59 PM EDT - 04/21/2025 11:59 PM EDT Hospital Encounter [facility] [address] [place] [address] Hilario Peguero DO Discharge Disposition: Home or Self Care 04/07/2025 Refill [facility] [address], [address] [place] [address] Ray Cid MD Medication Refill from Last 3 Months Immunizations Immunization Administration Dates Next Due COVID-19 (Pre-07/01) Pfizer Vaccine, mRNA, PF 11/24/2020 Hepatitis A, Adult 06/29/2016,12/29/2015 Hepatitis B Adult 05/03/2016,02/01/2016,12/29/19 16 INFLUENZA, SPLIT VIRUS, TRIV ALENT W/ PRESERVATIVE IM 06/21/2014,03/10/2012 Influenza High-Dose Quadriva lent Preservative Free IM 06/27/2022,07/18/2020 Influenza High-Dose Trivalen t Preservative Free IM 07/22/2019 Influenza Quadrivalent Adjuv anted Preservative Free IM 06/02/2021 Influenza Quadrivalent Preservative Free IM 02/2017 Influenza Quadrivalent w/ Preservative IM 2015,07/13/2015 Influenza Split (Incl. Purif ied Surface Antigen) 07/21/2013 Pneumococcal conjugate PCV13 07/13/2015 Pneumococcal polysaccharide PPSV23 07/12/2016, Td (adult),2 Lf Tetanus Toxo id, PF, Adsorbed 05/01/2006 Tdap 05/08/2013 Typhoid, ViCPs 01/02/2016 Zoster live 10/14/2014 Zoster recombinant 12/28/2021,10/23/2021 Family History Medical History Relation Comments Diabetes mellitus Brother Diabetes mellitus Father No Known Problems Maternal Grandfather No Known Problems Maternal Grandmother Diabetes mellitus Mother No Known Problems Paternal Grandfather No Known Problems Paternal Grandmother Diabetes mellitus Sister Thyroid disease Sister Diabetes mellitus Son Relation Status Comments Brother Alive Father Maternal Grandfather Maternal Grandmother Mother Paternal Grandfather Paternal Grandmother Sister Alive Son Social History Tobacco Use Types Packs/Day Years Used Date Smoking Tobacco: Never Smokeless Tobacco: Never Tobacco Cessation:Counseling Given: Not Answered Alcohol Use Standard Drinks/Week Comments No 0 [...] with a working camera? Not on file Intimate Partner Violence Answer Date R ecorded Are you denied basic needs s uch as food, clothing, or medical care? No 09/15/2024 In the past 12 months have y ou been in a relationship with a person who hurts, threatens, or tries to control you? No 09/15/2024 Are you denied basic needs s uch as food, clothing, or medical care? No 09/15/2024 In the past 12 months have y ou been in a relationship with a person who hurts, threatens, or tries to control you? No 09/15/2024 Comments Unknown Sex and Gender Information Value Date Recorded Sex Assigned at Female 07/08/2018 10:23 AM EDT Legal Sex Female 10:05 PM EDT Gender Identity Female 07/08/2018 10:23 AM EDT Sexual Orientation Choose not to disclose 2017 10:23 AM EDT Last Filed Vital Signs Vital Sign Reading Time Taken Comments Blood Pressure 122/68 04/22/2025 8:57 AM EDT Pulse 76 04/22/2025 8:57 AM EDT Temperature 36.1 C (97 F) 04/22/2025 8:57 AM EDT Respiratory Rate 18 09/15/2024 6:08 PM EST Oxygen Saturation 97% 04/22/2025 8:57 AM EDT Inhaled Oxygen Concentration - - Weight 74.1 kg (163 lb 6.4 oz) 05/12/2025 10:26 AM EDT Height 154.9 cm (5' 0.98 ) 05/12/2025 10:26 AM E DT Body Mass Index 30.89 05/12/2025 10:26 AM EDT Plan of Treatment Upcoming Encounters Date Type Department Care Team (Late st Contact Info) Description 10/08/2025 9:20 AM EST Office Visit [facility] [address] [place] [address] [address], [address] [place] [address] Ray Cid MD [address] [address] 11/08/2025 9:40 AM EST Office Visit [facility] [address] [place] [address] Aixa Kong MD 22 [facility], [address] [place] [address] 04/21/2026 9:10 AM EDT Office Visit [facility] [address] [place] [address] Hilario Peguero DO 22 [place] [address] [email or web address] Health Maintenance Due Date Last Done Comments DEPRESSION SCREENING 1960 HEPATITIS C SCREENING 1966 OSTEOPOROSIS SCREENING INITIAL (ONE-TIME) 2013 DIABETIC EYE EXAM 07/13/2017 RSV VACCINE (1 - 1-dose 75+ series) 2023 INFLUENZA VACCINE (#1) 2025 , 05/21/2023, 06/27/2022, Additional history exists CREATININE LEVEL 04/10/2025 04/10/2024, , 04/19/2023, Additional history exists POTASSIUM LEVEL 04/10/2025 04/10/2024, 01/08, 04/19/2023, Additional history exists COVID-19 VACCINE ( season) 2025 09/16/2021, 12/15/2020, 11/24/2020 HEMOGLOBIN A1C 08/11/2025 05/12/2025, 052 03/2025, 11/02/2024, Additional history exists BLOOD PRESSURE 11/09/2025 05/12/2025 TSH LEVEL 04/21/2026 04/21/2025, 08/0 10/2023, 04/19/2023, Additional history exists Adult Td,Tdap Booster 04/23/2035 04/23/2025 , 05/08/2013, 05/01/2006 HEPATITIS A VACCINES Aged Out 06/29/2016, 12/29/19 16 No longer eligible based on patient's age to complete this topic ZOSTER VACCINES Completed 12/28/2021, 10/10, 10/14/2014 PNEUMOCOCCAL VACCINES (50+ years) Completed 04/23/2025, 07/12/2016, 07/13/2015, Additional history exists SMOKING STATUS SCREENING (Once After 26 Yrs) Completed 05/12/2025 HIB VACCINES Aged Out No longer eligi ble based on patient's age to complete this topic MENINGOCOCCAL VACCINES (ACWY) Aged Out No longer eligible based on patient's age to complete this topic MENINGOCOCCAL VACCINES (B) Aged Out N o longer eligible based on patient's age to complete this topic Medical Devices Not on file Procedures Procedure Name Priority Date/Time Associated Diagnosis Comments POCT HEMOGLOBIN A1C Routine 05/12/2025 1 0:48 AM EDT Type 2 diabetes mellitus with diabetic neuropathy, with long-term current use of insulin TSH Routine 04/21/2025 4:00 PM EDT Postablative hypothyroidism FREE T4 Routine 04/21/2025 4:00 PM EDT Postablative hypothyroidism COMPREHENSIVE METABOLIC PANEL Routine 04/10/2024 9:01 AM EDT PVD (peripheral vascular disease) Varicose veins of both legs with edema Pure hypercholesterolemia Type 2 diabetes mellitus with diabetic neuropathy, with long-term current use of insulin from Last 3 Months or Most Recently Relevant to Health Maintenance Results * (ABNORMAL) POCT Hemoglobin A1c (05/12/2025 10:48 AM EDT) Hemoglobin A1c 8.8(A) 4.2 - 5.6 % [facility] Other 05/12/2025 10:4 8 AM EDT us Aixa Kong MD POINT OF CARE TEST ORDERABLES F inal Result [employer] [facility] [address] [place] [address], [facility] * TSH (04/21/2025 4:00 PM EDT) TSH 3.80 0.27 - 4.20 uIU/mL [facility] Blood 04/21/2025 4:00 PM EDT 04/21/2025 4:06 PM EDT [facility] LAB BLOOD ORDERABLES Final Resul t Performing Organization Address City/[facility]/ZIP Co de Phone Number [address] [address] * Free T4 (04/21/2025 4:00 PM EDT) Pathologist [facility] FREE T4 1.1 0.9 - 1.7 ng/dL [facility] Blood 04/21/2025 4:00 PM EDT 04/21/2025 4:06 PM EDT [facility] Harrah DO LAB BLOOD ORDERABLES Final Resul t Performing Organization Address City/[facility] Co de Phone Number [address] [address] * (ABNORMAL) Comprehensive metabolic panel (04/10/2024 9:01 AM EDT) Pathologist [facility] SODIUM 141 133 - 146 mmol/L [facility] POTASSIUM 4.4 3.3 - 5.1 mmol/L [facility] CHLORIDE 102 96 - 108 mmol/L [facility] CO2 31 21 - 35 mmol/L [facility] BUN 15 6 - 19 mg/dL [facility] CREATININE 0.70 0.5 - 1.5 mg/dL [facility] GLUCOSE 170(H) 70 - 99 mg/dL [facility] ALBUMIN 3.6(L) 3.9 - 4.8 g/dL [facility] TOTAL PROTEIN 6.9 6.5 - 8.0 g/dL [facility] CALCIUM 9.2 8.4 - 10.3 mg/dL [facility] ALKALINE PHOSPHATASE 88 39 - 117 U/L [facility] TOTAL BILIRUBIN 0.3 0.0 - 1.2 mg/dL [facility] AST 16 0 - 37 U/L [facility] ALT 10 0 - 40 U/L [facility] GLOBULIN 3.3 1 - 4.8 g/dL [facility] EGFR 90 >59 mL/min/1.7 3m2 [facility] Comment:Estimated glomerular filtration rate calculated using the CKD-EPI refit equation. ANION GAP 12 10 - 20 mmol/L [facility] Blood 04/10/2024 9:01 AM EDT 04/10/2024 9:05 AM EDT us Ray Cid MD LAB BLOOD ORDERABLES Final Result Performing Organization Address City/State/[facility] [place] [address] from Last 3 Months or Most Recently Relevant to Health Maintenance Insurance MEDICARE REPLACEMENT JASON CRAWFORD [facility] [employer] MEDICARE REPLACEMENT Care Teams Digital Media Designer Relationship Specialty Start Date End Date Germaine Martinez MD PCP - General Family Medicine 09/15/24 Additional Source Comments The information contained in this document represents components of the legal health record. It is not the complete legal health record.[facility]
--- OUTSIDE RECORDS SUMMARY | 2025-06-25 14:53 | XMS_ITS | Encounter Summary ---
Author Organization [employer] Address [address] 7[address] [place] [address] Care Team Providers Care Sanitarian Name Role Phone Germaine Martinez MD Primary Care Provider [phone] Reason for Visit * Reason Comments Med Refill Encounter Details Date Type Department Care Team (Late st Contact Info) Description 09/13/[address] [facility] [address] [place], [place] [phone] Germaine Martinez MD 230 [place], [place] [phone] Degeneration of lumbar intervertebral disc; Type 2 diabetes mellitus with other specified complication, unspecified whether top polisher insulin use ([facility]) Social History Tobacco Use [...] the past 12 months, has t he [employer], gas, oil or water company threatened to [...] Description 07/09/2025 9:00 AM EDT Office Visit [facility] [address] [place] [address] Germaine Martinez MD [address] [place] [address] 07/29/2025 9:00 AM EST Telemedicine [facility] [address] [place] [address] Omayra Gudino, STANTON documented as of this encounter Visit Diagnoses Diagnosis Degeneration of lumbar intervertebral disc Degeneration of lumbar or lumbosacral intervertebral disc Type 2 diabetes mellitus with other specified complication, unspecified whether intermediate insulin use (HCC) documented in this encounter Additional Health Concerns Assessment Noted Time PHQ-9 Depression Total Score: 1 08/26/20 23 1:07 PM EST documented as of this encounter Care Teams Sanitarian Relationship Specialty Start Date End Date Germaine Martinez MD [address] [place] [address] PCP - General Family Medicine 07/14/20 documented as of this encounter
--- OUTSIDE RECORDS SUMMARY | 2025-06-25 14:53 | XMS_ITS | Encounter Summary ---
Author Organization [employer] Address [address] 7t [place] [address] Care Team Providers Care Gas Station Cashier Name Role Phone Germaine Martinez MD Primary Care Provider [phone] Reason for Visit * Reason Comments Med Refill Encounter Details Date Type Department Care Team (Late st Contact Info) Description 06/19/2023 Refill [facility] MED[facility]INE 230 [place], [place] [phone] Germaine Martinez MD 230 [place], [place] [phone] Degeneration of lumbar intervertebral disc Social History [...] Description 07/09/2025 9:00 AM EDT Office Visit [facility] [address] [place] [address] Germaine Martinez MD [address] [place] [address] 07/29/2025 9:00 AM EST Telemedicine [facility]INE [address] [place] [address] Omayra Gudino, STANTON documented as of this encounter Visit Diagnoses Diagnosis Degeneration of lumbar intervertebral disc Degeneration of lumbar or lumbosacral intervertebral disc documented in this encounter Care Teams Gas Station Cashier Relationship Specialty Start Date End Date Germaine Martinez MD [address] [place] [address] PCP - General Family Medicine 07/14/20 documented as of this encounter
--- OUTSIDE RECORDS SUMMARY | 2025-06-25 14:53 | XMS_ITS | Encounter Summary ---
Author Organization [employer] Address [address] 7t [place] [address] Care Team Providers Care Artist Consultant Name Role Phone Germaine Martinez MD Primary Care Provider [phone] Encounter Details Date Type Department Care Team ([facility] st Contact Info) Description 01/15/2024 Orders Only [facility] MEDICINE 230 [place], [place] [phone] ProviderRodrigo MD Social History Tobacco Use Types [...] Description 07/09/2025 9:00 AM EDT Office Visit [facility] [address] [place] [phone] Germaine Martinez MD [address] [place] [address] 07/29/2025 9:00 AM EST Telemedicine [facility] MEDICINE [address] [place] [address] Omayra Gudino RN documented as of this encounter Procedures Procedure [...] documented as of this encounter Care Teams Artist Consultant Relationship Specialty Start Date End Date Germaine Martinez MD [address] [place] [address] PCP - General Family Medicine 07/14/20 documented as of this encounter
--- OUTSIDE RECORDS SUMMARY | 2025-06-25 14:53 | XMS_ITS | Encounter Summary ---
Author Organization [facility] Address [address] [facility] 7t [place] [address] Care Team Providers Care Instructor Of Sociology Name Role Phone Germaine Martinez MD Primary Care Provider [phone] Reason for Visit * Reason Comments Med Refill Encounter Details Date Type Department Care Team ([facility] Contact Info) Description 12/03/[address] [facility] MED[facility]INE [address] [place] [address] [phone] Germaine Martinez MD [address] [place] [address] [phone] Sacroiliitis ([facility]) Social History Tobacco Use Types [...] Upcoming Encounters Date Type Department Care Team ([facility] Contact Info) Description 07/09/2025 9:00 AM EDT Office Visit [facility] MED[facility] [address] [place] [address] [phone] Germaine Martinez MD [address] [place] [address] [phone] 07/29/2025 9:[address] [facility] MED[facility]INE [address] [place] [address] [phone] Omayra Gudino RN documented as of this encounter Visit Diagnoses Diagnosis Sacroiliitis ([facility]) Sacroiliitis, not elsewhere classified documented in this encounter Care Teams Instructor Of Sociology Relationship Specialty Start Date End Date Germaine Martinez MD 230 [place] [address] PCP - General Family Medicine 07/14/20 documented as of this encounter
--- OUTSIDE RECORDS SUMMARY | 2025-06-25 14:53 | XMS_ITS | Encounter Summary ---
Author Organization [employer] Address [address] 7t [place] [address] Care Team Providers Care Senior Gis Analyst Name Role Phone Germaine Martinez MD Primary Care Provider [phone] Reason for Visit * Reason Onset Date Comments Oxycodone count discrepancy 06/25/2025 Encounter Details Date Type Department Care Team ([facility] Contact Info) Description 06/25/2025 Telephone [facility] MEDICINE 230 [place], [place] [phone] Omayra Gudino RN Oxycodone count discrepancy Social History Tobacco Use Types Packs/Day Years [...] encounter Miscellaneous Notes * Telephone Encounter - Omayra Gudino RN - 06/25/2025 1:52 PM EDT Pt had tele PARKING GARAGE MANAGER RV appointment today Oxycodone count was 75, anticipated 83. Pt stated she uses between 4-5 doses a day. Reviewed patients Oxycodone order. Advised patient she needs to speak with her PCP before taking her oxycodone differently than prescribed. Advised patienther count was off my 8 pills and she will run out before her refill is due. Patient made aware she can't get another refill until 07/16/25. Scheduled for Tele PARKING GARAGE MANAGER RV in one month documented in this encounter Plan of Treatment Upcoming Encounters Date Type Department Care Team (Late st Contact Info) Description 07/09/2025 9:00 AM EDT Office Visit [facility] MED[facility]INE [address] [place] [phone] Germaine Martinez MD 230 [place] [address] 07/29/2025 9:00 AM EST Telemedicine [facility] [address] [place] [address] Omayra Gudino, RN documented as of this encounter Visit Diagnoses Not on filedocumented in this encounter Additional Health Concerns Assessment Noted Time PHQ-9 Depression Total Score: 0 02/03/20 25 10:52 AM EDT documented as of this encounter Care Teams Senior Gis Analyst Relationship Specialty Start Date End Date Germaine Martinez MD 230 [place] [address] PCP - General Family Medicine 07/14/20 documented as of this encounter
--- OUTSIDE RECORDS SUMMARY | 2025-06-25 14:53 | XMS_ITS | Encounter Summary ---
Author Organization [employer] Address [address] [facility] [address] 7t [place] [address] Care Team Providers Care Supervisor Sewing Department Name Role Phone Germaine Martinez MD Primary Care Provider [phone] Reason for Visit * Reason Comments Med Refill Encounter Details Date Type Department Care Team (Late st Contact Info) Description 01/07/2025 Refill [facility] MEDICINE 230 [place], [place] [phone] Germaine Martinez MD 230 [place], [place] [phone] Social History Tobacco Use Types Packs/Day Years [...] 9:00 AM EDT Office Visit [facility] MEDICINE [address] [place] [phone] Germaine Martinez MD [address] [place] [address] 07/29/2025 9:00 AM EST Telemedicine [address] [address] Omayra Gudino, RN documented as of this encounter Visit Diagnoses Not on filedocumented in this encounter Additional Health Concerns Assessment Noted Time PHQ-9 Depression Total Score: 1 08/26/20 23 1:07 PM EST documented as of this encounter Care Teams Supervisor Sewing Department Relationship Specialty Start Date End Date Germaine Martinez MD [address] [place] [address] PCP - General Family Medicine 07/14/20 documented as of this encounter
--- OUTSIDE RECORDS SUMMARY | 2025-06-25 14:53 | XMS_ITS | Encounter Summary ---
Author Organization [facility] Address [address] [place] [address] Phone Care Team Providers Care Foreman Or Supervisor And Operator Name Role Phone Sanjay James NP Primary Care Provider [phone] Germaine Martinez MD Primary Care Provider + Germaine Martinez MD Primary Care Provider + Encounter Details Date Type Department Care Team (Latest Contact Info) Description 07/04/2021 Ancillary Orders [facility] [address] [place] [address] Dr 3rd Floor, [address] [place] [address] Venessa Kaye MD [phone] [place] [address] [email or web address] PVD (peripheral vascular disease) Social History Tobacco [...] Description 10/08/2025 9:20 AM EST Office Visit [facility] [address] [facility] 3rd Floor, [address] [place] [address] Ray Cid MD [address] [place] [address] 11/08/2025 9:40 AM EST Office Visit [facility] [address] [place] [address] [place] [address] Aixa Kong MD [address] [place] [address], 1st [place] [address] 04/21/2026 9:10 AM EDT Office Visit [facility] [address] [place] [address] [place] [address] Hilario Peguero DO [address] [place] [address] documented as of this encounter Results * US Lower Extremity Arteries ([place]) Physio Complete Unilat (07/04/2021 8:15 AM EDT) Anatomical Region Laterality Modality Ultrasound Narrative 07/04/2021 1:39 PM EDT See scanned report Procedure Note Ray Cid MD - 07/04/2021 See scanned report us Venessa Kaye MD CV US VASCULAR Final Result documented in this encounter Visit Diagnoses Diagnosis PVD (peripheral vascular disease) Unspecified peripheral vascular disease PVD (peripheral vascular disease) Unspecified peripheral vascular disease documented in this encounter Care Teams Foreman Or Supervisor And Operator Relationship Specialty Start Date End Date Sanjay James NP [address] [place] [address] PCP - General Family Medicine 03/14/21 01/17/22 Germaine Martinez MD 230 [place] [address] PCP - General 01/18/22 09/14/24 Germaine Martinez MD 230 [place] [address] PCP - General Family Medicine 09/15/24 documented as of this encounter Additional Source Comments The information contained in this document represents components of the legal health record. It is not the complete legal health record.[facility]
--- OUTSIDE RECORDS SUMMARY | 2025-06-25 14:53 | XMS_ITS | Encounter Summary ---
Author Organization [employer] Address [address] 7[address] [place] [address] Care Team Providers Care Internet Sales Manager Name Role Phone Germaine Martinez MD Primary Care Provider [phone] Reason for Visit * Reason Comments Med Refill Encounter Details Date Type Department Care Team (Late st Contact Info) Description 06/20/2023 Refill [facility] MEDICINE 230 [place], [place] [phone] Germaine Martinez MD 230 [place], [place] [phone] Degeneration of lumbar intervertebral disc Social History [...] Miscellaneous Notes * Telephone Encounter - Elizabeth Cloudnez - 06/20/2023 1:54 PM EDT Tc from patients daughter requesting the status of script for medication oxyCODONE (Roxicodone) 5 MG immediate release tablet. Radio Repairman sees script sent to pharmacy on 06/14/23, however abstract writer called pharmacy and they don't have a script on file. Patient has been out of medication since 06/19/23. Please advise. documented in this encounter Plan of Treatment Upcoming Encounters Date Type Department Care Team (Late st Contact Info) Description 07/09/2025 9:00 AM EDT Office Visit [facility] MEDICINE [address] [place] [address] Germaine Martinez MD [address] [place] [address] 07/29/2025 9:00 AM EST Telemedicine [facility] [address] [place] [address] Omayra Gudino RN documented as of this encounter Visit Diagnoses Diagnosis Degeneration of lumbar intervertebral disc Degeneration of lumbar or lumbosacral intervertebral disc documented in this encounter Care Teams Internet Sales Manager Relationship Specialty Start Date End Date Germaine Martinez MD [address] [place] [address] PCP - General Family Medicine 07/14/20 documented as of this encounter
--- OUTSIDE RECORDS SUMMARY | 2025-06-25 14:53 | XMS_ITS | Encounter Summary ---
Author Organization [employer] Address [address] 7t [place] [address] Care Team Providers Care Substation Manager Name Role Phone Germaine [place] MD Primary Care Provider [phone] Reason for Visit * Reason Comments Med Refill Encounter Details Date Type Department Care Team (Late st Contact Info) Description 07/25/2023 Refill [facility] [address] [place], [place] [phone] Germaine [place] MD 230 [place] [address] Recurrent major depressive disorder, in partial remission [...] 07/09/2025 9:00 AM EDT Office Visit [facility] [address] [place] [address] Germaine Martinez MD [address] [place] [address] 07/29/2025 9:00 AM EST Telemedicine [facility] [address] [place] [address] Omayra Gudino RN documented as of this encounter Visit Diagnoses Diagnosis Recurrent major depressive disorder, in partial remission (CMS/HCC) documented in this encounter Care Teams Substation Manager Relationship Specialty Start Date End Date Germaine Martinez MD [address] [place] [address] PCP - General Family Medicine 07/14/20 documented as of this encounter
--- OUTSIDE RECORDS SUMMARY | 2025-06-25 14:54 | XMS_ITS | Encounter Summary ---
Author Organization [facility] Address [address] [place] [address] Phone Care Team Providers Care Batt Machine Operator Name Role Phone Sanjay James ASTRONOMY PROFESSOR Primary Care Provider [phone] Sanjay James ASTRONOMY PROFESSOR Primary Care Provider [phone] Germaine [place] MD Primary Care Provider + Germaine Martinez MD Primary Care Provider + Encounter Details Date Type Department Care Team (Latest Contact Info) Description 11/28/2018 Ancillary [facility] [address] [place] [address] Venessa Kaye MD [phone] [place] [address] [email or web address] PVD (peripheral vascular disease) Social History Tobacco [...] Description 10/08/2025 9:20 AM EST Office Visit [facility] [address] [facility] 3rd Floor, [address] [place] [address] Ray Cid MD [address] [place] [address], [address] [address] 11/08/2025 9:40 AM EST Office Visit [facility] 22 [place] [address] Aixa Kong MD [address] [place] [address], 1st [place] [address] 04/21/2026 9:10 AM EDT Office Visit [facility] 22 [place] [address] Hilario Peguero DO [address] [place] [address] documented as of this encounter Results * US Ankle/Brachial Indices (11/28/2018 11:14 AM EDT) Anatomical Region Laterality Modality Ankle Left, Ankle Right Ultrasou nd Narrative 12/01/2018 12:25 PM EDT See scanned report Procedure Note Levi Sheets DO - 12/01/2018 See scanned report us Venessa Kaye MD CV US VASCULAR Final Result documented in this encounter Visit Diagnoses Diagnosis PVD (peripheral vascular disease) Unspecified peripheral vascular disease PVD (peripheral vascular disease) Unspecified peripheral vascular disease documented in this encounter Care Teams Batt Machine Operator Relationship Specialty Start Date End Date Sanjay James NP [address] [place] [address] PCP - General Family Medicine 07/18/17 03/13/21 Sanjay James NP 230 [place], [place] [phone] PCP - General Family Medicine 03/14/21 01/17/22 Germaine Martinez MD 230 [place], [place] [phone] PCP - General 01/18/22 09/14/24 Germaine Martinez MD 230 [place] [address] PCP - General Family Medicine 09/15/24 documented as of this encounter Additional Source Comments The information contained in this document represents components of the legal health record. It is not the complete legal health record.[facility]
--- OUTSIDE RECORDS SUMMARY | 2025-06-25 14:54 | XMS_ITS | Encounter Summary ---
Author Organization [facility] Address [address] [place] [address] Phone Care Team Providers Care Pv Design And Installation Technician Name Role Phone Sanjay James NP Primary Care Provider [phone] Sanjay James NP Primary Care Provider [phone] Germaine Martinez MD Primary Care Provider + Germaine Martinez MD Primary Care Provider + Reason for Referral * MRI/CAT Scan - Closed Specialty Diagnoses / Procedures Referred By Contac t Referred To Contact Radiology Diagnoses Radiculopathy, lumbar region Procedures MRI Lumbar Spine Lisa Gudino NP Phone: tel: fax: mailto: abraham Referral ID Status Reason Start Date Expiration Date Visits Re quested Visits Authorized [id number] Closed 07/20/2020 10/20/2020 1 1 Encounter Details Date Type Department Care Team (Latest Contact Info) Description 09/07/2020 Transcribe Orders Virtual Department [address] [place] [address] Lisa Gudino NP [address] [place] [phone] [email or web address] Radiculopathy, lumbar region (Primary Dx) Social History Tobacco Use Types [...] Description 10/08/2025 9:20 AM EST Office Visit [facility] [address] [place] [address] 3rd [facility], [address] [place] [phone] Ray Cid MD [address] [place] [address] 11/08/2025 9:40 AM EST Office Visit [facility] [address] [place] [phone] Aixa Kong MD [address] [place] [address], 1st [place] [address] 04/21/2026 9:10 AM EDT Office Visit [facility] [address] [place] [address] [place] [address] Hilario Peguero DO [address] [place] [phone] documented as of this encounter Results * MRI LUMBAR SPINE (NEURO) WITHOUT CONTRAST (09/16/2020 10:04 AM EST) Anatomical Region Laterality Modality L-spine Magnetic Resonan ce 09/16/2020 10:2 0 AM EST Impressions 09/16/2020 10:25 AM EST Multilevel spondylosis with disc protrusions at L3-4 and L4-5 and facet arthropathy most pronounced at L3-4 and L4-5 on the left and L4-5 on the right. This leads to some foraminal narrowing on the left at the L3 and L4 nerve root exits. No high- grade central canal stenosis. Fibroids. Distended bladder. Narrative 09/16/2020 10:25 AM EST HISTORY: Low back pain with right greater than left radiculopathy COMPARISON: Radiographs July 08, 2018 TECHNIQUE: Exam performed on a 1.5 Nasrin high-field MRI scanner. Sagittal T1, T2 and STIR, axial T1 and T2 sequences were obtained. FINDINGS: T11-12: Mild disc desiccation and some trace disc bulging. No canal or foraminal stenosis. T12-L1: Minor disc height loss with some trace disc bulging. No canal or foraminal stenosis. L1-2: No findings of concern. L2-3: Disc desiccation. Broad disc bulging with some minor left-sided lateral recess impingement. No high-grade central or foraminal stenosis. There is some minor lower left foraminal narrowing. L3-4: There is a disc protrusion which is broad-based but or pronounced centrally. Extensive slightly more to the left than right. There is mild trefoil configuration of the thecal sac at this level but no high-grade central canal narrowing. There is some left-sided facet arthropathy which in correlation with the other disc abnormality at least 2 mild foraminal narrowing and some mild mass effect on the left L3 nerve root against the paracolic. L4-5: Degenerative disc disease with small protrusion and annular tear. This is somewhat more pronounced towards the left than right. There is left-sided facet arthropathy and in combination there is left-sided foraminal narrowing which appears similar to slightly less pronounced than L3-4. There is also facet arthropathy on the right at this level but only little if any anterolisthesis. L5-S1: Disc well-maintained. No prominent hypertrophic changes of facets. No canal or foraminal stenosis. No worrisome marrow signal change. Hemangioma type signal noted at L1. No compression deformity. Intrinsic cord signal abnormality in the visualized lower thoracic cord. Multiple fibroids noted dorsally in the uterus with some mass effect on the endometrium from one fibroid at the fundus which measures approximately 2 cm. A larger fibroid at the body below this is incompletely imaged. The bladder appears fairly distended but is incompletely evaluated here. Procedure Note Levi Byers MD - 09/16/2020 HISTORY: Low back pain with right greater than left radiculopathy COMPARISON: Radiographs July 08, 2018 TECHNIQUE: Exam performed on a 1.5 Nasrin high-field MRI scanner. SagittalT1, T2 and STIR, axial T1 and T2 sequences were obtained. FINDINGS: T11-12: Mild disc desiccation and some trace disc bulging. No canal orforaminal stenosis. T12-L1: Minor disc height loss with some trace disc bulging. No canal orforaminal stenosis. L1-2: No findings of concern. L2-3: Disc desiccation. Broad disc bulging with some minor left-sidedlateral recess impingement. No high-grade central or foraminal stenosis.There is some minor lower left foraminal narrowing. L3-4: There is a disc protrusion which is broad-based but or pronouncedcentrally. Extensive slightly more to the left than right. There is mildtrefoil configuration of the thecal sac at this level but no high-gradecentral canal narrowing. There is some left-sided facet arthropathy whichin correlation with the other disc abnormality at least 2 mild foraminalnarrowing and some mild mass effect on the left L3 nerve root against theparacolic. L4-5: Degenerative disc disease with small protrusion and annular tear.This is somewhat more pronounced towards the left than right. There isleft-sided facet arthropathy and in combination there is left-sidedforaminal narrowing which appears similar to slightly less pronounced thanL3-4. There is also facet arthropathy on the right at this level but onlylittle if any anterolisthesis. L5-S1: Disc well-maintained. No prominent hypertrophic changes of facets.No canal or foraminal stenosis. No worrisome marrow signal change. Hemangioma type signal noted at L1. Nocompression deformity. Intrinsic cord signal abnormality in the visualizedlower thoracic cord. Multiple fibroids noted dorsally in the uterus with some mass effect onthe endometrium from one fibroid at the fundus which measuresapproximately 2 cm. A larger fibroid at the body below this isincompletely imaged. The bladder appears fairly distended but isincompletely evaluated here. IMPRESSION: Multilevel spondylosis with disc protrusions at L3-4 and L4-5 and facetarthropathy most pronounced at L3-4 and L4-5 on the left and L4-5 on theright. This leads to some foraminal narrowing on the left at the L3 and F8vinqr root exits. No high-grade central canal stenosis. Fibroids.Distended bladder. Lisa Gudino NP IMG MR XSPECIALTY Final Result documented in this encounter Visit Diagnoses Diagnosis Radiculopathy, lumbar region- Primary Thoracic or lumbosacral neuritis or radiculitis, unspecified Radiculopathy, lumbar region Thoracic or lumbosacral neuritis or radiculitis, unspecified documented in this encounter Care Teams Pv Design And Installation Technician Relationship Specialty Start Date End Date Sanjay James NP [address] [place] [address] PCP - General Family Medicine 07/18/17 03/13/21 Sanjay James NP [address] [place] [address] PCP - General Family Medicine 03/14/21 01/17/22 Germaine Martinez MD [address] [place] [address] PCP - General 01/18/22 09/14/24 Germaine Martinez MD [address] [place] [address] PCP - General Family Medicine 09/15/24 documented as of this encounter Additional Source Comments The information contained in this document represents components of the legal health record. It is not the complete legal health record.[facility]
--- NOTE | 2025-06-28 13:09 | HO.ANESPROP2 ---
HPI - Anesthesia Eval Consult details Narrative: 74yo F for?Upper Endoscopy PMFSH Active Problems Active Problems: All Active Problems Pre-op examination (Acute) Bilateral hand pain (Acute) Numbness in both hands (Acute) Esposito's esophagus determined by biopsy (Acute) GERD (gastroesophageal reflux disease) (Acute) Constipation (Acute) Diabetes (Acute) Peripheral vascular disease (Acute) Hypothyroid (Acute) Diabetic neuropathy (Acute) Multiple lipomas (Acute) Past Medical History Medical History (Updated 01/14/25 @ 11:36 by LUMA Rowell) Pre-op examination CHENEGA (hard of hearing) Hypothyroid DM type 2 (diabetes mellitus, type 2) Osteoarthritis H/O degenerative disc disease Chronic back pain GERD (gastroesophageal reflux disease) Elevated cholesterol Intestinal metaplasia of gastric mucosa Family History Family History Father Cardiac arrest Mother No problems noted. 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 Meds Allergies Allergy/AdvReac Type Severity Reaction Status Date / Time acetaminophen (From Percocet) Allergy Unknown Hives Verified 01/14/25 11:08 oxycodone (From Percocet) Allergy Unknown Hives Verified 01/14/25 11:08 naproxen Allergy Itching Verified 01/14/25 11:08 Home Medications ?Medication ?Instructions ?Recorded ?Confirmed ?Last Taken ?Type calcium carbonate (Tums) 200 mg PO BID 08/15/20 10/09/24 Unknown History methylcellulose (laxative) 500 mg 500 mg PO DAILY 08/15/20 10/09/24 Unknown History tablet (Citrucel) cholecalciferol (vitamin D3) 25 25 mcg PO QAM 04/18/21 10/09/24 Unknown History mcg (1,000 unit) tablet ramelteon 8 mg tablet 8 mg PO BEDTIME PRN insomnia 04/18/21 10/09/24 Unknown History aspirin 81 mg tablet,delayed 81 mg PO DAILY 11/23/21 10/09/24 10/15/22 History release levothyroxine 75 mcg tablet 75 mcg PO DAILY 11/23/21 10/09/24 Unknown History nortriptyline 10 mg capsule 10 mg PO BID 11/23/21 10/09/24 Unknown History cilostazol 100 mg tablet 100 mg PO 05/22/22 10/09/24 Unknown History doxepin 25 mg capsule 25 mg PO BEDTIME 05/22/22 10/09/24 Unknown History fluticasone propionate 50 1 spray intranasal BID 05/22/22 10/09/24 Unknown History mcg/actuation nasal spray,suspension gabapentin 400 mg capsule 400 mg PO TID 05/22/22 10/09/24 Unknown History insulin aspart U-100 100 unit/mL 15 unit subcut TID 05/22/22 10/09/24 Unknown History (3 mL) subcutaneous pen (Novolog FlexPen U-100 Insulin aspart) insulin glargine 100 unit/mL (3 12 unit subcut BEDTIME 05/22/22 10/09/24 Unknown History mL) subcutaneous pen (Lantus Solostar U-100 Insulin) oxycodone 5 mg tablet 5 - 10 mg PO Q8H 05/22/22 10/09/24 Unknown History alcohol swabs (Alcohol Prep Pads) pad topical diabetes mellitus 10/30/22 10/09/24 Unknown History lancets 33 gauge (TRUEplus Lancets) #100 ea 10/30/22 10/09/24 Unknown History pen needle, diabetic 32 gauge x #50 ea 10/30/22 10/09/24 Unknown History (Pentips Pen Needle) evolocumab 140 mg/mL subcutaneous 140 mg subcut Q2W 04/23/23 10/09/24 Unknown History pen injector (Neyda Gonzalez) losartan 25 mg tablet 25 mg PO DAILY 11/28/23 10/09/24 Unknown History magnesium oxide 400 mg PO DAILY 11/28/23 10/09/24 Unknown History rosuvastatin 40 mg tablet 40 mg PO DAILY 11/28/23 10/09/24 Unknown History sertraline 100 mg tablet 100 mg PO DAILY 11/28/23 10/09/24 Unknown History metformin 500 mg tablet,extended 500 mg PO BID 06/18/24 10/09/24 Unknown History release 24 hr empagliflozin 10 mg tablet mg PO DAILY 01/14/25 Unknown History (Jardiance) Exam Pertinent Lab Results Pertinent Lab Results: Laboratory Tests 01/14/25 12:15 WBC 11.4 H Hgb 15.3 Hct 44.6 Plt Count 289 Sodium 138 Potassium 4.7 Chloride 99 Carbon Dioxide 30 H BUN 15 Creatinine 0.87 Assessment and Plan Assessment Anesthesia Assessment: Chart Reviewed Final Anesthetic Review Family History of Problems with Anesthesia: No History of Problems with Anesthesia: No
--- NOTE | 2025-06-30 10:57 | PC.NURSE ---
Patient took her Jardiance on Saturday. Dr. Collins aware. Patient will need to reschedule procedure. No IV was placed. Patient left with all of her belongings.
== END ==
LOC: HO.SSS 10:26
PROVIDERS: PCP General Practice; Visit Provider Internal Medicine
DX: K22.70 Barrett's esophagus without dysplasia (principal); Z53.09 Procedure and treatment not carried out because of other contraindication; Z79.84 Long term (current) use of oral hypoglycemic drugs

== ENCOUNTER 2025-07-20 06:39 | Day surgery (SDC) | payer OTHER, SELFPAY ==
--- OUTSIDE RECORDS SUMMARY | 2025-07-01 15:32 | XMS_ITS | Clinical Summary ---
Author Organization [employer] Address [address] 7t [place] [address] Care Team Providers Care Government Service Executive Name Role Phone Germaine Martinez MD Primary Care Provider [phone] Allergies Active Allergy Reactions Criticality Noted Date [...] affected nostril(s) if needed for opioid reversal. Todd 0.1 milliliter by intranasal route in 1 [...] mellitus with other specified complication, unspecified whether terminal gauger supervisor insulin use (HCC) TAKE 1 CAPSULE BY MOUTH THREE TIMES DAILY IN THE MORNING, AT NOON, AND IN THE EVENING 90 capsule 11 025 Active cholecalciferol (Vitamin D3) 25 MCG (1000 UT) tabletIndication s:Vitamin D deficiency TAKE 1 TABLET BY MOUTH EVERY MORNING 90 tablet 3 025 Active FREESTYLE LITE test stripIndications :Type 2 diabetes mellitus with other specified complication, unspecified whether detention insulin use (HCC) TEST BLOOD SUGAR 8 [...] EST): Maintain 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 dry 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 2023 Overview (07/29/2024): Dx: discogenic lumbar pain Rx: Oxycodone 5mg, every 6 hours Last BISTRO ATTENDANT agreement: Tier II (visit every 4 months) [...] testing, if that works, ideally would take [place] 7.5mg Hyperlipidemia 07/13/2015 Overview (08/26/2023): Last Assessment [...] Team Description 06/25/2025 1:30 PM EDT Telemedicine [facility] [address] [place] [address] Omayra Gudino, RN longterm current use of opiate analgesic 06/25/2025 Telephone [facility] [address] [place] [address] Omayra Gudino, RN Oxycodone count discrepancy 06/25/2025 Travel 06/17/2025 Telephone [facility] [address] [place] [address] Germaine Martinez MD RECALL NOV 06/15/2025 Refill [facility] [address] [place] [address] Germaine Martinez MD Degeneration of lumbar intervertebral disc 05/18/2025 Refill [facility] [address] [place] [address] Germaine Martinez MD Degeneration of lumbar intervertebral disc 04/21/2025 10:00 AM EDT Clinical Support [facility] [address] [place] [address] Omayra Gudino, RN longterm current use of opiate analgesic (Primary Dx) 04/21/2025 Refill [facility] [address] [place] [address] Omayra Gudino RN Degeneration of lumbar intervertebral disc 04/21/2025 Telephone [facility] [address] [place] [address] Germaine Martinez MD telephone call 04/21/2025 Travel 04/20/2025 Telephone [facility] [address] [place] [address] Germaine Martinez MD Medication Question 04/19/2025 Refill [facility] [address] [place] [address] Germaine Martinez MD Degeneration of lumbar intervertebral disc 04/07/2025 Refill [facility] [address] [place] [address] Germaine Martinez MD Elevated blood pressure reading from Last 3 Months Immunizations Immunization Administration [...] Description 07/09/2025 9:00 AM EDT Office Visit [facility] [address] [place] [address] Germaine Martinez MD [address] [place] [phone] 07/29/2025 9:00 AM EST Telemedicine [address] [address] Omayra Gudino, RN Health Maintenance Due Date Last Done Comments RSV Patients and Patients Aged 60 years or older (1 - 1-dose 75+ series) 2023 Lipid Panel 04/19/2024 04/19/2023, 03/09, 01/30/2023, Additional history exists SDOH Screening 12/09/2024 12/10/2023 Diabetes: Urine Protein Screening 12/18/2024 12/19/2023, 05/09/2021, 11/02/2020, Additional history exists Diabetes: Hemoglobin A1C 05/05/2025 025, 07/13/2024, 04/10/2024, Additional history exists COVID-19 Vaccine (2024- season) 2025 09/16/2021, 12/15/2020, 11/24/2020 Diabetes: Foot [...] DRUG SCREEN Routine 04/21/2025 10:12 AM EDT longterm current use of opiate analgesic POCT GLYCATED HEMOGLOBIN, TOTAL Routine 02/02/2025 10:53 AM EDT Type 2 diabetes mellitus with diabetic neuropathy, with long-term current use of insulin (CMS/HCC) HEPATITIS C AB W/REFL TO HCV RNA, QN, PCR Routine 12/19/2023 11:46 AM EDT Type 2 diabetes mellitus with diabetic neuropathy, with long-term current use of insulin ([facility]) ALBUMIN, RANDOM URINE W/CREATININE Routine 12/19/2023 11:46 AM EDT Type 2 diabetes mellitus with diabetic neuropathy, with long-term current use of insulin ([facility]) LIPID PANEL, STANDARD Routine 01/30/2023 9:44 AM EDT Type 2 diabetes mellitus without complication, unspecified whether terminal gauger supervisor insulin use ([facility]) HM COLONOSCOPY Routine 03/23/2013 8:10 AM EDT [...] - 04/21/2025 10:12 AM EDT UTOX cup Lot#[id number] Exp. 06/15/26 Internal Pass Control us Germaine Martinez MD POINT OF CARE TEST ENTER/EDIT ORDERABLES Final Result * (ABNORMAL) POCT HGB A1C (02/02/2025 10:53 AM EDT) Hemoglobin A1C 9.8(A) 4.0 - 6.0 % Blood 02/02/2025 10:5 3 AM EDT Result [facility] Germaine Martinez MD POINT OF CARE TEST ENTER/EDIT ORDERABLES Final Result * Albumin, Random Urine W/Creatinine (12/19/2023 11:46 AM EDT) Creatinine, Urine 34.93 mg/dL [facility] Microalbumin Urine 8.0 mg/L [facility] Microalbum Creatinine Ratio Ur 22.9 <30 ug/mg cr [facility] Comment:Albumin/Creatinine R atio Reference Ranges: Normal: < 30 ug/mg creatinine Microalbuminuria: 30 - 300 ug/mg creatinineClinical Albuminuria: > 300 ug/mg creatinine Urine (Urine, Random) 12/19/2023 11:46 AM EDT 12/19/2023 1:10 PM EDT Result [facility] eGrmaine Martinez MD LAB URINE ORDERABLES Final Res ult Performing Organization Address [facility] Co de Phone Number [facility] [address] [place] [phone] * Hepatitis C Antibody with Reflex to HCV, RNA, Quantitative, Real-Time PCR (12/19/2023 11:46 AM EDT) Hepatitis C Antibody Nonreactive Nonreactive [facility] Comment:Antibodies to HCV no t detected; does not exclude early acuteHCV infection. Blood Venous blood specimen / Unknown 12/19/2023 11:46 AM EDT 12/19/2023 1:16 PM EDT Germaine Martinez MD LAB BLOOD ORDERABLES Final Res ult [facility] [address] [place] [phone] [phone] * (ABNORMAL) Lipid Panel, Standard (01/30/2023 9:44 AM EDT) Cholesterol, Total 333(H) <200 mg/dL Not iT [place] [facility] HDL Cholesterol 73 > OR = 50 mg/dL Not iT [place] [facility] Triglycerides 107 <150 mg/dL Not iT [place] [facility] LDL Cholesterol 236(H) mg/dL (calc) Not iT [place] [facility] Comment: LDL-C levels > or = 190 [...] about testing for familial hypercholesterolemia, please call [employer] [facility] at [email or web address]. Lawrence T, et al. J National Lipid Association Recommendations for Patient-Centered Management of Dyslipidemia: Part 1 Journal of Clinical Lipidology 2015;9(2), 129-169. Dick Perez et al. (2014). Homozygous familial hypercholesterolaemia: new insights and guidance for clinicians to improve detection and clinical management. Heart Journal, 35(32), 9883-7438. Reference range: <100 Desirable range <100 mg/dL for primary prevention; <70 mg/dL for patients with CHD or diabetic patients with > or = 2 CHD risk factors. LDL-C is now calculated using the Lokesh-Lev calculation, which is a validated novel method providing better accuracy than the Friedewald equation in the estimation of LDL-C. Lokesh KEYES et al. ESTHER. 2013;310(19): 5506-0023 (http://education.Skwibl/faq/KXW959) Chol/HDLC Ratio 4.6 <5.0 (calc) Not iT [place] [facility] Non-HDL Cholesterol 260(H) <130 mg/dL (calc) Not iT [place] [facility] Comment: Non-HDL level > or = 220 [...] BLOOD ORDERABLES Final Res ult [facility] [address], [place] [address] Not iT [place] [facility] [address] [place] [address] * Hm Colonoscopy (03/23/2013 8:10 AM EDT) Historical Provider HEALTH MAINTENANCE Final Result from Last 3 Months or Most Recently Relevant to Health Maintenance Insurance * Guarantor: Tennille Philip Account Type Relation to Patient Date of Phone Billing Address Personal/Family Self 1950 [address] [place] [address] [facility] DETENTION OPTIONS (HMO D-SNP) JASON CRAWFORD [id number] [facility] STANDARD Care Teams Government Service Executive Relationship Specialty Start Date End Date Germaine Martinez MD [address] [place] [address] PCP - General Family Medicine 07/14/20
--- OUTSIDE RECORDS SUMMARY | 2025-07-01 15:32 | XMS_ITS | Encounter Summary ---
Author Organization [employer] [facility] Address [address] 7t [place] [address] Care Team Providers Care Ballistics Expert Forensic Name Role Phone Germaine Martinez MD Primary Care Provider [phone] Reason for Visit * Reason Comments Med Refill Encounter Details Date Type Department Care Team ([facility] Contact Info) Description 12/03/2022 Refill [facility] [address] [place] [address] [phone] Germaine Martinez MD [address] [place] [address] [phone] Sacroiliitis ([facility]) Social History Tobacco Use Types Packs/Day Years [...] Upcoming Encounters Date Type Department Care Team ([facility] Contact Info) Description 07/09/2025 9:00 AM EDT Office Visit [facility] [address] [place] [address] [phone] Germaine Martinez MD [address] [place] [address] [phone] 07/29/2025 9:00 AM EST Telemedicine [facility] [address] [place] [address] [phone] Omayra Gudino RN documented as of this encounter Visit Diagnoses Diagnosis Sacroiliitis ([facility]) Sacroiliitis, not elsewhere classified documented in this encounter Care Teams Ballistics Expert Forensic Relationship Specialty Start Date End Date Germaine Martinez MD [address] [place] [address] PCP - General Family Medicine 07/14/20 documented as of this encounter
--- OUTSIDE RECORDS SUMMARY | 2025-07-01 15:32 | XMS_ITS | Encounter Summary ---
Author Organization [employer] Address [address] 7t [place] [address] Care Team Providers Care Food And Beverage Intern Name Role Phone Germaine Martinez MD Primary Care Provider [phone] Reason for Visit * Reason Onset Date Comments Med Refill 07/29/2024 Encounter Details Date Type Department Care Team ([facility] st Contact Info) Description 07/29/2024 Telephone [facility] 230 [place], [place] [phone] Germaine Martinez MD 230 [place], [place] [phone] Med Refill Social History Tobacco Use Types [...] immediate release tablet To be sent to: [facility] - [place], [place] - [address] [place] [address] documented in this encounter Plan of Treatment Upcoming Encounters Date Type Department Care Team ([facility] st Contact Info) Description 07/09/2025 9:00 AM EDT Office Visit [facility] [address] [place] [address] Germaine Martinez MD 230 [place] [address] 07/29/2025 9:00 AM EST Telemedicine [facility] [address] [place] [address] Omayra Gudino, STANTON documented as of this encounter Visit Diagnoses Not on filedocumented in this encounter Additional Health Concerns Assessment Noted Time PHQ-9 Depression Total Score: 1 08/26/20 23 1:07 PM EST documented as of this encounter Care Teams Food And Beverage Intern Relationship Specialty Start Date End Date Germaine Martinez MD 230 [place] [address] PCP - General Family Medicine 07/14/20 documented as of this encounter
--- OUTSIDE RECORDS SUMMARY | 2025-07-01 15:32 | XMS_ITS | Encounter Summary ---
Author Organization [employer] [facility] Address [address] 7t [place] [address] Care Team Providers Care Milk Vendor Name Role Phone Germaine Martinez MD Primary Care Provider [phone] Encounter Details Date Type Department Care Team (Late st Contact Info) Description 09/05/2022 Telephone [facility] [address] [place] [address] [phone] Germaine Martinez MD [address] [place] [address] [phone] Social History Tobacco Use Types Packs/Day Years [...] Description 07/09/2025 9:00 AM EDT Office Visit [address] [phone] Germaien Martinez MD [address] [place] [address] [phone] 07/29/2025 9:00 AM EST Telemedicine [facility] 230 [place] [address] Omayra Gudino, RN documented as of this encounter Visit Diagnoses Not on filedocumented in this encounter Care Teams Milk Vendor Relationship Specialty Start Date End Date Germaine Martinez MD 230 [place] [address] PCP - General Family Medicine 07/14/20 documented as of this encounter
--- OUTSIDE RECORDS SUMMARY | 2025-07-01 15:32 | XMS_ITS | Encounter Summary ---
Author Organization [employer] Address [address] 7t [place] [address] Care Team Providers Care Adobe Cq Developer Name Role Phone Germaine Martinez MD Primary Care Provider [phone] Reason for Visit * Reason Comments Med Refill Encounter Details Date Type Department Care Team (Late st Contact Info) Description 08/17/2024 Refill [facility] 230 [place], [place] [phone] Germaine Martinez MD 230 [place], [place] [phone] Social History Tobacco Use Types Packs/Day Years [...] Description 07/09/2025 9:00 AM EDT Office Visit [facility] [address] [place] [address] Germaine Martinez MD [address] [place] [address] 07/29/2025 9:00 AM EST Telemedicine [address] [address] Omayra Gudino, RN documented as of this encounter Visit Diagnoses Not on filedocumented in this encounter Additional Health Concerns Assessment Noted Time PHQ-9 Depression Total Score: 1 08/26/20 23 1:07 PM EST documented as of this encounter Care Teams Adobe Cq Developer Relationship Specialty Start Date End Date Germaine Martinez MD [address] [place] [address] PCP - General Family Medicine 07/14/20 documented as of this encounter
--- OUTSIDE RECORDS SUMMARY | 2025-07-01 15:32 | XMS_ITS | Encounter Summary ---
Author Organization [employer] [facility] Address [address] [facility] 7t [place] [address] Care Team Providers Care Cleaner And Trimmer Name Role Phone Germaine Martinez MD Primary Care Provider [phone] Reason for Visit * Reason Comments Med Refill Encounter Details Date Type Department Care Team (Late Contact Info) Description 11/07/2022 Refill [facility] [address] [place] [address] [phone] Germaine Martinez MD [address] [place] [address] [phone] Sacroiliitis (CMS/HCC) Social History Tobacco Use Types [...] Description 07/09/2025 9:00 AM EDT Office Visit [facility] [address] [place] [address] [phone] Germaine Martinez MD [address] [place] [address] [phone] 07/29/2025 9:00 AM EST Telemedicine [facility] 230 [place] [address] Omayra Gudino RN documented as of this encounter Visit Diagnoses Diagnosis Sacroiliitis (CMS/HCC) Sacroiliitis, not elsewhere classified documented in this encounter Care Teams Cleaner And Trimmer Relationship Specialty Start Date End Date Germaine Martinez MD 230 [place] [address] PCP - General Family Medicine 07/14/20 documented as of this encounter
--- OUTSIDE RECORDS SUMMARY | 2025-07-01 15:33 | XMS_ITS | Encounter Summary ---
Author Organization [email or web address] Address [address] 7t [place] [address] Care Team Providers Care Gis Software Engineer Name Role Phone Germaine Martinez MD Primary Care Provider [phone] Encounter Details Date Type Department Care Team ([facility] st Contact Info) Description 2023 Orders Only [facility] MED[facility]INE [address] [place], [place] [phone] Germaine Martinez MD 230 [place], [place] [phone] Elevated blood pressure reading (Primary Dx) Social [...] Description 07/09/2025 9:00 AM EDT Office Visit [facility] [address] [place] [address] Germaine Martinez MD [address] [place] [address] 07/29/2025 9:00 AM EST Telemedicine [address] [address] Omayra Gudino, STANTON documented as of this encounter Visit Diagnoses Diagnosis Elevated blood pressure reading- Primary Elevated blood pressure reading without diagnosis of hypertension documented in this encounter Care Teams Gis Software Engineer Relationship Specialty Start Date End Date Germaine Martinez MD [address] [place] [address] PCP - General Family Medicine 07/14/20 documented as of this encounter
--- OUTSIDE RECORDS SUMMARY | 2025-07-01 15:33 | XMS_ITS | Encounter Summary ---
Author Organization [facility] Address [address] [place] [address] Phone Care Team Providers Care Agriculture Technician Name Role Phone Sanjay James NP Primary Care Provider [phone] Germaine Martinez MD Primary Care Provider + Germaine Martinez MD Primary Care Provider + Encounter Details Date Type Department Care Team (Latest Contact Info) Description 07/04/2021 Ancillary Orders [facility] [address] [place] [address] Dr 3rd Floor, [address] [place] [address] Venessa Kaye MD [address] [place] [address] [email or web address] PVD (peripheral vascular disease) Social History Tobacco [...] Description 10/08/2025 9:20 AM EST Office Visit [facility] [address] [facility] 3rd Floor, [address] [place] [address] Ray Cid MD [address] [place] [address] 11/08/2025 9:40 AM EST Office Visit [facility] [address] [place] [address] [place] [address] Aixa Kong MD [address] [place] [address], 1st [place] [address] 04/21/2026 9:10 AM EDT Office Visit [facility] [address] [place] [address] [place] [address] Hilario Peguero DO [address] [place] [address] documented as of this encounter Results * US Lower Extremity Arteries (ZELLAEM) Physio Complete Unilat (07/04/2021 8:15 AM EDT) Anatomical Region Laterality Modality Ultrasound Narrative 07/04/2021 1:39 PM EDT See scanned report Procedure Note aRy Cid MD - 07/04/2021 See scanned report us Venessa Kaye MD CV US VASCULAR Final Result documented in this encounter Visit Diagnoses Diagnosis PVD (peripheral vascular disease) Unspecified peripheral vascular disease PVD (peripheral vascular disease) Unspecified peripheral vascular disease documented in this encounter Care Teams Agriculture Technician Relationship Specialty Start Date End Date Sanjay James NP [address] [place] [address] PCP - General Family Medicine 03/14/21 01/17/22 Germaine Martinez MD 230 [place] [address] PCP - General 01/18/22 09/14/24 Germaine Martinez MD 230 [place] [address] PCP - General Family Medicine 09/15/24 documented as of this encounter Additional Source Comments The information contained in this document represents components of the legal health record. It is not the complete legal health record.[facility]
--- OUTSIDE RECORDS SUMMARY | 2025-07-01 15:33 | XMS_ITS | Encounter Summary ---
Author Organization [employer] Address [address] 7t [place] [address] Care Team Providers Care Data Control Assistant Name Role Phone Germaine Martinez MD Primary Care Provider [phone] Reason for Visit * Reason Comments Med Refill Encounter Details Date Type Department Care Team (Late st Contact Info) Description 06/18/2023 Refill [facility] 230 [place], [place] [phone] Germaine Martinez MD 230 [place], [place] [phone] Degeneration of lumbar intervertebral disc Social History [...] 9:00 AM EDT Office Visit [facility] [address] [place] [address] Germaine Martinez MD [address] [place] [address] 07/29/2025 9:00 AM EST Telemedicine [facility] [address] [place] [address] Omayra Gudino, STANTON documented as of this encounter Visit Diagnoses Diagnosis Degeneration of lumbar intervertebral disc Degeneration of lumbar or lumbosacral intervertebral disc documented in this encounter Care Teams Data Control Assistant Relationship Specialty Start Date End Date Germaine Martinez MD [address] [place] [address] PCP - General Family Medicine 07/14/20 documented as of this encounter
--- OUTSIDE RECORDS SUMMARY | 2025-07-01 15:33 | XMS_ITS | Encounter Summary ---
Author Organization [employer] Address [address] 7t [place] [address] Care Team Providers Care Chick Sexer Name Role Phone Germaine Martinez MD Primary Care Provider Encounter Details Date Type Department Care Team ([facility] st Contact Info) Description 01/15/2024 Orders Only [facility]INE 230 [place], [place] [phone] ProviderRodrigo MD Social History Tobacco Use Types [...] Description 07/09/2025 9:00 AM EDT Office Visit [facility] [address] [place] [address] Germaine Martinez MD [address] [place] [address] 07/29/2025 9:00 AM EST Telemedicine [facility] [address] [place] [address] Omayra Gudino RN documented as of this [...] documented as of this encounter Care Teams Chick Sexer Relationship Specialty Start Date End Date Germaine Martinez MD [address] [place] [address] PCP - General Family Medicine 07/14/20 documented as of this encounter
--- OUTSIDE RECORDS SUMMARY | 2025-07-01 15:33 | XMS_ITS | Encounter Summary ---
Author Organization [facility] Address [address] [place] [address] Phone Care Team Providers Care Encephalographer Name Role Phone Sanjay James HAND CLERICAL VERIFIER Primary Care Provider [phone] Sanjay James HAND CLERICAL VERIFIER Primary Care Provider [phone] Germaine Martinez MD Primary Care Provider + Germaine Martinez MD Primary Care Provider + Encounter Details Date Type Department Care Team (Latest Contact Info) Description 03/27/2018 Transcribe Orders [facility] [address] [facility] [address], [address] [place] [address] Venessa Kaye MD [address] [place] [address] [email or web address] Deep vein thrombosis (DVT) of distal vein [...] Description 10/08/2025 9:20 AM EST Office Visit [facility] [address] [place] [address] 3rd Floor, [address] [place] [address] Ray Cid MD [address] [place] [address], [address] [address] 11/08/2025 9:40 AM EST Office Visit [facility] [address] [place] [address] [place] [address] Aixa Kong MD [address] [place] [address], 1st [place] [address] 04/21/2026 9:10 AM EDT Office Visit [facility] [address] [place] [address] [place] [address] Hilario Peguero DO [address] [place] [address] documented as of this encounter Visit Diagnoses Diagnosis Deep vein thrombosis (DVT) of distal vein of lower extremity, unspecified chronicity, unspecified laterality- Primary documented in this encounter Care Teams Encephalographer Relationship Specialty Start Date End Date Sanjay James NP 230 [place] [address] PCP - General Family Medicine 07/18/17 03/13/21 Sanjay James NP 230 [place] [address] PCP - General Family Medicine 03/14/21 01/17/22 Germaine Martinez MD 230 [place] [address] PCP - General 01/18/22 09/14/24 Germaine Martinez MD [address] [place] [address] PCP - General Family Medicine 09/15/24 documented as of this encounter Additional Source Comments The information contained in this document represents components of the legal health record. It is not the complete legal health record.[facility]
--- OUTSIDE RECORDS SUMMARY | 2025-07-01 15:33 | XMS_ITS | Encounter Summary ---
Author Organization [employer] Address [address] 7t [place] [address] Care Team Providers Care Loss Prevention Detective Name Role Phone Germaine Martinez MD Primary Care Provider [phone] Reason for Visit * Reason Onset Date Comments Oxycodone count discrepancy 06/25/2025 Encounter Details Date Type Department Care Team ([facility] Contact Info) Description 06/25/2025 Telephone [facility] MEDICINE 230 [place], [place] [phone] Omayra Gudino RN Oxycodone count discrepancy Social [...] Telephone Encounter - Omayra Gudino RN - 06/28/2025 8:18 AM EDT Per conversation with PCP, PCP will address concerns at patients next PCP appointment. * Telephone Encounter - Omayra Gudino RN - 06/25/2025 1:52 PM EDT Pt had tele THIRD LOADER RV appointment today Oxycodone count was 75, [...] another refill until 07/16/25. Scheduled for Tele THIRD LOADER RV in one month documented in this encounter Plan of Treatment Upcoming Encounters Date Type Department Care Team (Late st Contact Info) Description 07/09/2025 9:00 AM EDT Office Visit [facility] MED[facility]INE [address] [place] [address] Germaine Martinez MD [address] [facility] [address] 07/29/2025 9:00 AM EST Telemedicine [facility] [address] [facility] [place], [place] [phone] Omayra Gudino, ST[place] documented as of this encounter Visit Diagnoses Not on filedocumented in this encounter Additional Health Concerns Assessment Noted Time PHQ-9 Depression Total Score: 0 02/03/20 25 10:52 AM EDT documented as of this encounter Care Teams Loss Prevention Detective Relationship Specialty Start Date End Date Germaine Martinez MD [address] [facility] [place], [place] [phone] PCP - General Family Medicine 07/14/20 documented as of this encounter
--- OUTSIDE RECORDS SUMMARY | 2025-07-01 15:33 | XMS_ITS | Encounter Summary ---
Author Organization [facility] Address [address] [place] [address] Phone Care Team Providers Care Combination Building Inspector Name Role Phone Sanjay James EAP CONSULTANT Primary Care Provider [phone] Sanjay James EAP CONSULTANT Primary Care Provider [phone] Germaine Martinez MD Primary Care Provider + Germaine Martinez MD Primary Care Provider + Encounter Details Date Type Department Care Team (Latest Contact Info) Description 06/15/2020 Ancillary Orders [facility] [address], [address] [place] [address] Venessa Kaye MD [address] [place] [address] [email or web address] PVD (peripheral vascular disease) Social History Tobacco [...] Description 10/08/2025 9:20 AM EST Office Visit [facility] [address] [facility] 3rd Floor, [address] [place] [address] Ray Cid MD [address] [place] [address], [address] [address] 11/08/2025 9:40 AM EST Office Visit [facility] [address] [place] [address] Aixa Kong MD [address] [place] [address], 1st [place] [address] 04/21/2026 9:10 AM EDT Office Visit [facility] [address] [place] [address] Hilario Peguero DO 22 [place] [address] documented as of this encounter Results * US Lower Extremity Arteries (ZELALEM) Physio Complete Unilat (06/15/2020 9:15 AM EDT) Anatomical Region Laterality Modality Ultrasound Narrative 06/16/2020 11:08 AM EDT See scanned report us Venessa Kaye MD CV US VASCULAR Final Result documented in this encounter Visit Diagnoses Diagnosis PVD (peripheral vascular disease) Unspecified peripheral vascular disease PVD (peripheral vascular disease) Unspecified peripheral vascular disease documented in this encounter Care Teams Combination Building Inspector Relationship Specialty Start Date End Date Sanjay James NP 230 [place] [address] PCP - General Family Medicine 07/18/17 03/13/21 Sanjay James NP 230 [place] [address] PCP - General Family Medicine 03/14/21 01/17/22 Germaine Martinez MD 230 [place] [address] PCP - General 01/18/22 09/14/24 Germaine Martinez MD 230 [place] [address] PCP - General Family Medicine 09/15/24 documented as of this encounter Additional Source Comments The information contained in this document represents components of the legal health record. It is not the complete legal health record.[facility]
--- OUTSIDE RECORDS SUMMARY | 2025-07-01 15:33 | XMS_ITS | Encounter Summary ---
Author Organization [facility] Address [address] [facility] [address] [place] [address] Phone Care Team Providers Care Salesperson Driver Name Role Phone Sanjay James NP Primary Care Provider [phone] Sanjay James NP Primary Care Provider [phone] Germaine Martinez MD Primary Care Provider + Germaien Martinez MD Primary Care Provider + Reason for Referral * MRI/CAT Scan - Closed Specialty Diagnoses / Procedures Referred By Contac t Referred To Contact Radiology Diagnoses Radiculopathy, lumbar region Procedures MRI Lumbar Spine Lisa Gudino NP Phone: tel: fax: mailto: abraham Referral ID Status Reason Start Date Expiration Date Visits Re quested Visits Authorized [id number] Closed 07/20/2020 10/20/2020 1 1 Encounter Details Date Type Department Care Team (Latest Contact Info) Description 09/07/2020 Transcribe Orders Virtual Department 30 [place] [address] Lisa Gudino NP [address] [place] [phone] [email or web address] Radiculopathy, lumbar region (Primary Dx) Social [...] Description 10/08/2025 9:20 AM EST Office Visit [facility] [address] [place] [address] [address] [facility], [address] [place] [address] Ray Cid MD [address] [place] [address] 11/08/2025 9:40 AM EST Office Visit [facility] [address] [place] [address] Aixa Kong MD [address] [place] [address], 1st [place] [address] 04/21/2026 9:10 AM EDT Office Visit [facility] [address] [place] [address] [place] [address] Hilario Peguero DO [address] [place] [address] documented as of this encounter Results * [...] on the left at the L3 and S6pqoxb root exits. No high-grade central canal stenosis. Fibroids.Distended bladder. Lisa Gudino NP IMG MR XSPECIALTY Final Result documented in this encounter Visit Diagnoses Diagnosis Radiculopathy, lumbar region- Primary Thoracic or lumbosacral neuritis or radiculitis, unspecified Radiculopathy, lumbar region Thoracic or lumbosacral neuritis or radiculitis, unspecified documented in this encounter Care Teams Salesperson Driver Relationship Specialty Start Date End Date Sanjay James NP 230 [place] [address] PCP - General Family Medicine 07/18/17 03/13/21 Sanjay James NP 230 [place] [address] PCP - General Family Medicine 03/14/21 01/17/22 Germaine Martinez MD 230 [place] [address] PCP - General 01/18/22 09/14/24 Germaine Martinez MD 230 [place] [address] PCP - General Family Medicine 09/15/24 documented as of this encounter Additional Source Comments The information contained in this document represents components of the legal health record. It is not the complete legal health record.[facility]
--- OUTSIDE RECORDS SUMMARY | 2025-07-01 15:33 | XMS_ITS | Encounter Summary ---
Author Organization [facility] Address [address] [place] [address] Phone Care Team Providers Care Electrical And Instrumentation Mechanic Name Role Phone Sanjay James SHACKLER Primary Care Provider [phone] Sanjay James SHACKLER Primary Care Provider [phone] Germaine Martinez MD Primary Care Provider + Germaine Martinez MD Primary Care Provider + Encounter Details Date Type Department Care Team (Latest Contact Info) Description 02/04/2018 Transcribe Orders [facility] [address] [place] [address] Teena Lindsey MD [address] [place] [address] Hypothyroidism following radioiodine therapy (Primary Dx) Social [...] Description 10/08/2025 9:20 AM EST Office Visit [facility] [address] [facility] [address] 3rd Floor, [address] [place] [address] Ray Cid MD 22 [facility], [address] [address] 11/08/2025 9:40 AM EST Office Visit [facility] 22 [place] [address] Aixa Kong MD [address] [place] [address], 1st [place] [address] 04/21/2026 9:10 AM EDT Office Visit [facility] 22 [place] [address] Hilario Peguero DO 22 [place] [address] documented as of this encounter Results * Free T3 (02/04/2018 8:19 AM EDT) FREE T3 2.3 2.0 - 4.4 pg/mL [facility] Blood 02/04/2018 8:19 AM EDT 02/04/2018 8:20 AM EDT us Teena Winkler MD LAB BLOOD ORDERABLES F inal Result [facility] [address] [place] [address] * Free T4 (02/04/2018 8:19 AM EDT) FREE T4 1.4 0.9 - 1.7 ng/dL [facility] Blood 02/04/2018 8:19 AM EDT 02/04/2018 8:20 AM EDT us Teena Winkler MD LAB BLOOD ORDERABLES F inal Result [address] [address] * TSH (02/04/2018 8:19 AM EDT) TSH 1.65 0.27 - 4.20 uIU/mL [facility] Blood 02/04/2018 8:19 AM EDT 02/04/2018 8:20 AM EDT us Teena Winkler MD LAB BLOOD ORDERABLES F inal Result Performing Organization Address [facility]/ZIP Co de Phone Number [address] [address] documented in this encounter Visit Diagnoses Diagnosis Hypothyroidism following radioiodine therapy- Primary Other postablative hypothyroidism documented in this encounter Care Teams Electrical And Instrumentation Mechanic Relationship Specialty Start Date End Date Sanjay James NP [address] [place] [address] PCP - General Family Medicine 07/18/17 03/13/21 Sanjay James NP [address] [place] [address] PCP - General Family Medicine 03/14/21 01/17/22 Germaine Martinez MD [address] [place] [address] PCP - General 01/18/22 09/14/24 Germaine Martinez MD 230 [place] [address] PCP - General Family Medicine 09/15/24 documented as of this encounter Additional Source Comments The information contained in this document represents components of the legal health record. It is not the complete legal health record.[facility]
--- OUTSIDE RECORDS SUMMARY | 2025-07-01 15:33 | XMS_ITS | Encounter Summary ---
Author Organization [facility] Address [address] [place] [address] Phone Care Team Providers Care [employer] Glazer Name Role Phone Sanjay James SURVEY RESEARCH MANAGER Primary Care Provider [phone] Sanjay James SURVEY RESEARCH MANAGER Primary Care Provider [phone] Germaine Martinez MD Primary Care Provider + Germaine Martinez MD Primary Care Provider + Encounter Details Date Type Department Care Team (Late st Contact Info) Description 09/07/2020 Procedure Pass [facility], [address] [place] [address] Social History Tobacco Use Types Packs/Day Years [...] Description 10/08/2025 9:20 AM EST Office Visit [facility] [address] 3rd Floor, [address] [place] [address] Ray Cid MD [address] [place] [address], [address] [place] [address] 11/08/2025 9:40 AM EST Office Visit [facility] [address] [place] [address] [place] [address] Aixa Kong MD [address] [place] [address], 1st [place] [address] 04/21/2026 9:10 AM EDT Office Visit [facility] [address] [place] [address] [place] [address] Hilario Peguero DO 22 [place] [address] documented as of this encounter Visit Diagnoses Not on filedocumented in this encounter Care Teams [employer] Gl[employer] Relationship Specialty Start Date End Date Sanjay James NP 230 [place] [address] PCP - General Family Medicine 07/18/17 03/13/21 Sanjay James NP 230 [place] [address] PCP - General Family Medicine 03/14/21 01/17/22 Germaine Martinez MD 230 [place] [address] PCP - General 01/18/22 09/14/24 Germaine Martinez MD [address] [place] [address] PCP - General Family Medicine 09/15/24 documented as of this encounter Additional Source Comments The information contained in this document represents components of the legal health record. It is not the complete legal health record.[facility]
--- OUTSIDE RECORDS SUMMARY | 2025-07-01 15:33 | XMS_ITS | Encounter Summary ---
Author Organization [facility] Address [address] [place] [address] Phone Care Team Providers Care Husbandry Technician Name Role Phone Sanjay James SWEATBAND SEPARATOR Primary Care Provider [phone] Sanjay James SWEATBAND SEPARATOR Primary Care Provider [phone] Germaine Martinez MD Primary Care Provider + Germaine Martinez MD Primary Care Provider + Encounter Details Date Type Department Care Team (Latest Contact Info) Description 08/12/2018 Ancillary Orders [facility] [address] [facility] 3[address], [address] [place] [address] Venessa Kaye MD [address] [place] [address] [email or web address] PVD (peripheral vascular disease); Other specified symptoms [...] Description 10/08/2025 9:20 AM EST Office Visit [facility] [address] [place] [address] 3rd Floor, [address] [place] [address] Ray Cid MD [address] [place] [address], [address] [address] 11/08/2025 9:40 AM EST Office Visit [facility] [address] [place] [address] Aixa oKng MD [address] [place] [address], 1st [place] [address] 04/21/2026 9:10 AM EDT Office Visit [facility] [address] [place] [address] Hilario Peguero DO [address] [place] [address] documented as of this encounter Results * [...] systems documented in this encounter Care Teams Husbandry Technician Relationship Specialty Start Date End Date Sanjay James NP 230 [place] [address] PCP - General Family Medicine 07/18/17 03/13/21 Sanjay James NP [address] [place] [address] PCP - General Family Medicine 03/14/21 01/17/22 Germaine Martinez MD [address] [place] [address] PCP - General 01/18/22 09/14/24 Germaine Martinez MD 230 [place] [address] PCP - General Family Medicine 09/15/24 documented as of this encounter Additional Source Comments The information contained in this document represents components of the legal health record. It is not the complete legal health record.[facility]
--- OUTSIDE RECORDS SUMMARY | 2025-07-01 15:33 | XMS_ITS | Encounter Summary ---
Author Organization [employer] Address [address] 7t [place] [address] Care Team Providers Care Purchaser Automotive Parts Name Role Phone Germaine Martinez MD Primary Care Provider [phone] Reason for Visit * Reason Comments Med Refill Encounter Details Date Type Department Care Team (Late st Contact Info) Description 01/07/2025 Refill [facility] 230 [place], [place] [phone] Germaine Martinez MD 230 [place], [place] [phone] Social History Tobacco Use Types Packs/Day Years [...] Description 07/09/2025 9:00 AM EDT Office Visit [facility] [address] [place] [address] Germaine Martinez MD [address] [place] [address] 07/29/2025 9:00 AM EST Telemedicine [address] [address] Omayra Gudino, RN documented as of this encounter Visit Diagnoses Not on filedocumented in this encounter Additional Health Concerns Assessment Noted Time PHQ-9 Depression Total Score: 1 08/26/20 23 1:07 PM EST documented as of this encounter Care Teams [employer] Relationship Specialty Start Date End Date Germaine Martinez MD [address] [place] [address] PCP - General Family Medicine 07/14/20 documented as of this encounter
--- OUTSIDE RECORDS SUMMARY | 2025-07-01 15:33 | XMS_ITS | Clinical Summary ---
Author Organization [facility] Address [address] [place] [address] Phone Care Team Providers Care Help Desk Agent Name Role Phone Germaine Martinez MD Primary [...] (02/12/2022 9:15 AM EDT): She presented to [facility] ED on 01/18/2022 with chest pain. [...] Will follow-up in 6 months with her desizing machine operator head end. Assessment & Plan (07/14/2024 5:03 PM EST): [...] to exercise regularly as tolerated Followed by [place] [facility] specialist Assessment & Plan (01/31/2018 9:40 AM [...] Metformin bid daily, Tennille reported through the head lineman today that she only takes this when [...] technical issues with this, we discussed contacting [employer] for replacement sensors if these do not [...] levels, encouraged to seek referral to another air defense specialist and/or pain management to help with medication [...] set up audible and vibration alarms on [email or web address]' FSL reader, and adjusted the low alert [...] better with Dexcom G6, we will contact [email or web address] for a Dexcom G6 Pro evaluation to [...] Team Description 06/02/2025 Telephone [facility] [address] [place] [address] Cathy Morales CMA 06/02/2025 Refill [facility] [address] [place] [address] Kita Park MA 05/17/2025 Telephone [facility] [address] [place] [address] Ayesha Doyle MA Medication Prior Authorization 05/12/2025 10:20 AM EDT Office Visit [facility] [address] [place] [address] Aixa Kong MD Type 2 diabetes mellitus with diabetic neuropathy, with long-term current use of insulin (Primary Dx); Hypoglycemia due to insulin; Long-term insulin use; Benign essential hypertension; Hyperlipidemia, unspecified hyperlipidemia type; Postablative hypothyroidism 05/12/[address] [place] [address] Ayesha Doyle MA Medication Prior Authorization 04/29[facility]2025 [facility] [address]rd Floor, [address] [place] [address] Mora Parada CNP Medication Refill 04/26/2025 Refill [facility] [address] [place] [address] Ayesha Doyle MA Medication Refill 04/22/2025 9:10 AM EDT Office Visit [facility] [address] [place] [address] Hilario Peguero DO Postablative hypothyroidism (Primary Dx) 04/22/[address] [place] [address] Hilario Peguero DO 04/22/2025 Orders Only [address] [place] [address] Hilario Peguero DO Type 2 diabetes mellitus with diabetic neuropathy, with long-term current use of insulin (Primary Dx) 04/21/2025 3:59 PM EDT - 04/21/2025 11:59 PM EDT Hospital Encounter [facility] [address] [place] [address] Hilario Peguero DO Discharge Disposition: Home or Self Care 04/07/2025 Refill [facility] [address] 3rd Floor, [address] [place] [address] Ray Cid MD Medication Refill from Last [...] Description 10/08/2025 9:20 AM EST Office Visit [facility] [address] [place] [address] 3rd Floor, [address] [place] [address] Ray Cid MD [address] [address] 11/08/2025 9:40 AM EST Office Visit [facility] [address] [place] [address] Aixa Kong MD [address] [facility], 1st [place] [address] 04/21/2026 9:10 AM EDT Office Visit [facility] [address] [place] [address] Hilario Peguero DO 22 [place] [address] [email or web address] Health Maintenance Due Date Last Done Comments [...] Hemoglobin A1c 8.8(A) 4.2 - 5.6 % [employer] Other 05/12/2025 10:4 8 AM EDT us Aixa Kong MD POINT OF CARE TEST ORDERABLES F inal Result [employer] [facility] [address] [place] [address], [facility] * TSH (04/21/2025 4:00 PM EDT) TSH 3.80 0.27 - 4.20 uIU/mL [facility] Blood 04/21/2025 4:00 PM EDT 04/21/2025 4:06 PM EDT [facility] LAB BLOOD ORDERABLES Final Resul t Performing Organization Address City/[facility]/ZIP Co de Phone Number [address] [address] * Free T4 (04/21/2025 4:00 PM EDT) Pathologist [facility] FREE T4 1.1 0.9 - 1.7 ng/dL [facility] Blood 04/21/2025 4:00 PM EDT 04/21/2025 4:06 PM EDT [facility] [place] DO LAB BLOOD ORDERABLES Final Resul t Performing Organization Address City/[facility] Co de Phone Number [address] [address] * (ABNORMAL) Comprehensive metabolic panel (04/10/2024 9:01 AM EDT) Pathologist [facility] SODIUM 141 133 - 146 mmol/L [facility] POTASSIUM 4.4 3.3 - 5.1 mmol/L [facility] CHLORIDE 102 96 - 108 mmol/L [facility] CO2 31 21 - 35 mmol/L [facility] BUN 15 6 - 19 mg/dL [facility] CREATININE 0.70 0.5 - 1.5 mg/dL [facility] GLUCOSE 170(H) 70 - 99 mg/dL [facility] ALBUMIN 3.6(L) 3.9 - 4.8 g/dL [facility] TOTAL PROTEIN 6.9 6.5 - 8.0 g/dL [facility] CALCIUM 9.2 8.4 - 10.3 mg/dL [facility] ALKALINE PHOSPHATASE 88 39 - 117 U/L [facility] TOTAL BILIRUBIN 0.3 0.0 - 1.2 mg/dL [facility] AST 16 0 - 37 U/L [facility] ALT 10 0 - 40 U/L [facility] GLOBULIN 3.3 1 - 4.8 g/dL [facility] EGFR 90 >59 mL/min/1.7 3m2 [facility] Comment:Estimated glomerular filtration rate calculated using the CKD-EPI refit equation. ANION GAP 12 10 - 20 mmol/L [facility] Blood 04/10/2024 9:01 AM EDT 04/10/2024 9:05 AM EDT us Ray Cid MD LAB BLOOD ORDERABLES Final Result Performing Organization Address City/State/[facility] [place] [address] from Last 3 Months or Most Recently Relevant to Health Maintenance Insurance MEDICARE REPLACEMENT JASON CRAWFORD [facility] MEDICARE REPLACEMENT Care Teams Help Desk Agent Relationship Specialty Start Date End Date Germaine Martinez MD PCP - General Family Medicine 09/15/24 Additional Source Comments The information contained in this document represents components of the legal health record. It is not the complete legal health record.[facility]
--- OUTSIDE RECORDS SUMMARY | 2025-07-01 15:33 | XMS_ITS | Encounter Summary ---
Author Organization [employer] Address [address] 7t [place] [address] Care Team Providers Care Senior Mechanical Technician Name Role Phone Germaine Martinez MD Primary Care Provider [phone] Reason for Visit * Reason Comments Med Refill Encounter Details Date Type Department Care Team (Late st Contact Info) Description 09/13/2023 Refill [facility] 230 [place], [place] [phone] Germaine Martinez MD 230 [place], [place] [phone] Degeneration of lumbar intervertebral disc; Type 2 diabetes mellitus with other specified complication, 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 ([facility]) Social History Tobacco Use Types [...] the past 12 months, has t he [employer], gas, oil or water company threatened to [...] Description 07/09/2025 9:00 AM EDT Office Visit [facility] [address] [place] [address] Germaine Martinez MD [address] [place] [address] 07/29/2025 9:00 AM EST Telemedicine [facility] [address] [place] [address] Omayra Gudino, [place] documented as of this encounter Visit Diagnoses Diagnosis Degeneration of lumbar intervertebral disc Degeneration of lumbar or lumbosacral intervertebral disc Type 2 diabetes mellitus with other specified complication, unspecified whether senior living insulin use (HCC) documented in this encounter Additional Health Concerns Assessment Noted Time PHQ-9 Depression Total Score: 1 08/26/20 23 1:07 PM EST documented as of this encounter Care Teams Senior Mechanical Technician Relationship Specialty Start Date End Date Germaine Martinez MD [address] [place] [address] PCP - General Family Medicine 07/14/20 documented as of this encounter
--- OUTSIDE RECORDS SUMMARY | 2025-07-01 15:33 | XMS_ITS | Encounter Summary ---
Author Organization [employer] Address [address] 7t [place] [address] Care Team Providers Care Newspaper Clipper Name Role Phone Germaine Martinez MD Primary Care Provider [phone] Reason for Visit * Reason Comments Med Refill Encounter Details Date Type Department Care Team (Late st Contact Info) Description 06/20/2023 Refill [facility] 230 [place], [place] [phone] Germaine Martinez MD 230 [place], [place] [phone] Degeneration of lumbar intervertebral disc Social History [...] oxyCODONE (Roxicodone) 5 MG immediate release tablet. Burial Agent sees script sent to pharmacy on 06/14/23, however ghost writer called pharmacy and they don't have a script on file. Patient has been out of medication since 06/19/23. Please advise. documented in this encounter Plan of Treatment Upcoming Encounters Date Type Department Care Team (Late st Contact Info) Description 07/09/2025 9:00 AM EDT Office Visit [facility] [address] [place] [address] Germaine Martinez MD [address] [place] [address] 07/29/2025 9:00 AM EST Telemedicine [facility] [address] [place] [address] Omayra Gudino RN documented as of this encounter Visit Diagnoses Diagnosis Degeneration of lumbar intervertebral disc Degeneration of lumbar or lumbosacral intervertebral disc documented in this encounter Care Teams Newspaper Clipper Relationship Specialty Start Date End Date Germaine Martinez MD [address] [place] [address] PCP - General Family Medicine 07/14/20 documented as of this encounter
--- OUTSIDE RECORDS SUMMARY | 2025-07-01 15:33 | XMS_ITS | Encounter Summary ---
Author Organization [facility] Address [address] [place] [address] Phone Care Team Providers Care Oil Inspector Name Role Phone Germaine Martinez MD Primary Care Provider + Germaine Martinez MD Primary Care Provider + Encounter Details Date Type Department Care Team (Late st Contact Info) Description 02/01/2024 Procedure Pass [facility] [address] [place] [address] Social History Tobacco Use Types Packs/Day Years [...] 1:03 PM EDT Cathi Jay RN * [place] Suicide Severity Rating Scale (Screener/Recent Self-Report) Question [...] Description 10/08/2025 9:20 AM EST Office Visit [facility] [address] [place]rd Floor, [address] [address] Ray Cid MD [address] [place] [address] 11/08/2025 9:40 AM EST Office Visit [facility] [address] [place] [address] Aixa Kong MD [address] [place] [address], 1st [place] [address] 04/21/2026 9:10 AM EDT Office Visit [facility] [address] [place] [address] Hilario Peguero DO [address] [place] [address] documented as of this encounter Visit Diagnoses Not on filedocumented in this encounter Care Teams Oil Inspector Relationship Specialty Start Date End Date Germaine Martinez MD PCP - General 01/18/22 09/14/24 Germaine Martinez MD PCP - General Family Medicine 09/15/24 documented as of this encounter Additional Source Comments The information contained in this document represents components of the legal health record. It is not the complete legal health record.[facility]
--- OUTSIDE RECORDS SUMMARY | 2025-07-01 15:33 | XMS_ITS | Encounter Summary ---
Author Organization [employer] Address [address] 7t [place] [address] Care Team Providers Care Operating Room Nurse Name Role Phone Germaine Martinez MD Primary Care Provider [phone] Reason for Visit * Reason Comments Med Refill Encounter Details Date Type Department Care Team (Late st Contact Info) Description 07/25/2023 Refill [facility] [address] [place], [place] [phone] Germaine Martinez MD 230 [place] [address] Recurrent major depressive disorder, in partial remission [...] Description 07/09/2025 9:00 AM EDT Office Visit [facility] [address] [place] [address] Germaine Martinez MD [address] [place] [address] 07/29/2025 9:00 AM EST Telemedicine [facility] [address] [place] [address] Omayra Gudino RN documented as of this encounter Visit Diagnoses Diagnosis Recurrent major depressive disorder, in partial remission (CMS/HCC) documented in this encounter Care Teams Operating Room Nurse Relationship Specialty Start Date End Date Germaine Martinez MD [address] [place] [address] PCP - General Family Medicine 07/14/20 documented as of this encounter
--- OUTSIDE RECORDS SUMMARY | 2025-07-01 15:33 | XMS_ITS | Encounter Summary ---
Author Organization [facility] Address [address] [place] [address] Phone Care Team Providers Care Third Loader Name Role Phone Sanjay James PEAR PICKER Primary Care Provider [phone] Sanjay James PEAR PICKER Primary Care Provider [phone] Germaine Martinez MD Primary Care Provider + Germaine Martinez MD Primary Care Provider + Encounter Details Date Type Department Care Team (Latest Contact Info) Description 11/28/2018 Ancillary [facility] [address] [place] [address] Venessa Kaye MD [phone] [place] [address] [email or web address] (peripheral vascular disease) Social History Tobacco [...] Description 10/08/2025 9:20 AM EST Office Visit [facility] [address] [facility] 3rd Floor, [address] [place] [address] Ray Cid MD [address] [place] [address], [address] [address] 11/08/2025 9:40 AM EST Office Visit [facility] [address] [place] [address] Aixa Kong MD [address] [place] [address], 1st [place] [address] 04/21/2026 9:10 AM EDT Office Visit [facility] [address] [place] [address] Hilario Peguero DO [address] [place] [address] documented as of this encounter Results * [...] disease documented in this encounter Care Teams Third Loader Relationship Specialty Start Date End Date Sanjay James NP [address] [place] [address] PCP - General Family Medicine 07/18/17 03/13/21 Sanjay James NP 230 [place], [place] [phone] PCP - General Family Medicine 03/14/21 01/17/22 Germaine Martinez MD [address] [place], [place] [phone] PCP - General 01/18/22 09/14/24 Germaine Martinez MD [address] [place] [address] PCP - General Family Medicine 09/15/24 documented as of this encounter Additional Source Comments The information contained in this document represents components of the legal health record. It is not the complete legal health record.[facility]
--- OUTSIDE RECORDS SUMMARY | 2025-07-01 15:33 | XMS_ITS | Encounter Summary ---
Author Organization [employer] Address [address] [place] [address] Care Team Providers Care Band Instrument Repairer Name Role Phone Germaine Martinez MD Primary Care Provider [phone] Reason for Visit * Reason Comments Med Refill Encounter Details Date Type Department Care Team (Late st Contact Info) Description 06/19/2023 Refill [facility] [address] [place], [place] [phone] Germaine Martinez MD [address] [place], [place] [phone] Degeneration of lumbar intervertebral disc Social History [...] EDT Office Visit [facility] [address] [place] [phone] Germaine Martinez MD [address] [place] [phone] 07/29/2025 9:00 AM EST Telemedicine [facility] [address] [place] [phone] Omayra Gudino, [place] documented as of this encounter Visit Diagnoses Diagnosis Degeneration of lumbar intervertebral disc Degeneration of lumbar or lumbosacral intervertebral disc documented in this encounter Care Teams Band Instrument Repairer Relationship Specialty Start Date End Date Germaine Martinez MD [address] [place] [phone] PCP - General Family Medicine 07/14/20 documented as of this encounter
--- OUTSIDE RECORDS SUMMARY | 2025-07-01 15:33 | XMS_ITS | Encounter Summary ---
Author Organization [employer] Address [address] [facility] [address] [place] [address] Care Team Providers Care Hot Worker Name Role Phone Germaine Martinez MD Primary Care Provider Encounter Details Date Type Department Care Team (Late Contact Info) Description 01/02/2023 Orders Only [facility] [address] [place] [address] [phone] Germaine Martinez MD [address] [place] [address] [phone] Degeneration of lumbar intervertebral disc (Primary Dx) [...] Description 07/09/2025 9:00 AM EDT Office Visit [facility] [address] [place] [phone] Germaine Martinez MD [address] [place] [address] 07/29/2025 9:00 AM EST Telemedicine [facility] [address] [place] [phone] Omayra Gudino RN documented as of this encounter Visit Diagnoses Diagnosis Degeneration of lumbar intervertebral disc- Primary Degeneration of lumbar or lumbosacral intervertebral disc documented in this encounter Care Teams Hot Worker Relationship Specialty Start Date End Date Germaine Martinez MD [address] [place] [phone] PCP - General Family Medicine 07/14/20 documented as of this encounter
--- NOTE | 2025-07-15 11:46 | HO.ANESPROP2 ---
Documented by User: Veda Kaur NP 07/15/25 11:50 HPI - Anesthesia Eval Consult details Narrative: 74 yr old female for upper EGD Hard of hearing Anesthesia Pre-Procedure Meds Is the patient on any of the following meds?: SGLT2 Inhib PMFSH Active Problems Active Problems: All Active Problems (Updated 01/14/25 @ 11:36 by LUMA Roewll) Pre-op examination (Acute) Bilateral hand pain (Acute) Numbness in both hands (Acute) Esposito's esophagus determined by biopsy (Acute) GERD (gastroesophageal reflux disease) (Acute) Constipation (Acute) Diabetes (Acute) Peripheral vascular disease (Acute) Hypothyroid (Acute) Diabetic neuropathy (Acute) Multiple lipomas (Acute) Past Medical History Medical History Pre-op examination [place] (hard of hearing) Hypothyroid DM type 2 (diabetes mellitus, type 2) Osteoarthritis H/O degenerative disc disease Chronic back pain GERD (gastroesophageal reflux disease) Elevated cholesterol Intestinal metaplasia of gastric mucosa Family History Family History Father Cardiac arrest Mother No problems noted. Son Diabetes Sister Diabetes Stomach cancer Family history of problems with anesthesia: No Surgical History Surgical History H/O breast biopsy History of varicose vein ligation and stripping S/P cataract extraction History of section Hx of colonoscopy H/O esophagogastroduodenoscopy History of Problems with Anesthesia: No Social History Social History Household Members: Spouse Alcohol intake: current Alcohol intake frequency: does not drink Patient Tobacco Use Status: Never used Tobacco Use of substances other than those prescribed or required for medical reasons: No Have you been hit, kicked, punched, or otherwise hurt by someone within the past year? 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 Meds Allergies Allergy/AdvReac Type Severity Reaction Status Date / Time acetaminophen (From Percocet) Allergy Intermediate Hives Verified 07/16/25 13:55 naproxen Allergy Intermediate Itching Verified 07/16/25 13:55 Home Medications ?Medication ?Instructions ?Recorded ?Confirmed ?Last Taken ?Type calcium carbonate (Tums) 200 mg PO BID 08/15/20 07/16/25 Unknown History methylcellulose (laxative) 500 mg 500 mg PO DAILY 08/15/20 07/16/25 Unknown History tablet (Citrucel) cholecalciferol (vitamin D3) 25 25 mcg PO QAM 04/18/21 07/16/25 Unknown History mcg (1,000 unit) tablet ramelteon 8 mg tablet 8 mg PO BEDTIME PRN insomnia 04/18/21 07/16/25 Unknown History aspirin 81 mg tablet,delayed 81 mg PO DAILY 11/23/21 07/16/25 10/15/22 History release levothyroxine 75 mcg tablet 75 mcg PO DAILY 11/23/21 07/16/25 Unknown History nortriptyline 10 mg capsule 10 mg PO BID 11/23/21 07/16/25 Unknown History cilostazol 100 mg tablet 100 mg PO DAILY 05/22/22 07/16/25 Unknown History doxepin 25 mg capsule 25 mg PO BEDTIME 05/22/22 07/16/25 Unknown History fluticasone propionate 50 1 spray intranasal BID 05/22/22 07/16/25 Unknown History mcg/actuation nasal spray,suspension gabapentin 400 mg capsule 400 mg PO TID 05/22/22 07/16/25 Unknown History insulin aspart U-100 100 unit/mL 15 unit subcut TID 05/22/22 07/16/25 Unknown History (3 mL) subcutaneous pen (Novolog FlexPen U-100 Insulin aspart) insulin glargine 100 unit/mL (3 12 unit subcut BEDTIME 05/22/22 07/16/25 Unknown History mL) subcutaneous pen (Lantus Solostar U-100 Insulin) oxycodone 5 mg tablet 5 - 10 mg PO Q8H 05/22/22 07/16/25 Unknown History alcohol swabs (Alcohol Prep Pads) pad topical diabetes mellitus 10/30/22 10/09/24 Unknown History lancets 33 gauge (TRUEplus Lancets) #100 ea 10/30/22 10/09/24 Unknown History pen needle, diabetic 32 gauge x #50 ea 10/30/22 10/09/24 Unknown History (Pentips Pen Needle) evolocumab 140 mg/mL subcutaneous 140 mg subcut Q2W 04/23/23 07/16/25 Unknown History pen injector (Neyda Gonzalez) losartan 25 mg tablet 25 mg PO DAILY 11/28/23 07/16/25 Unknown History magnesium oxide 400 mg PO DAILY 11/28/23 07/16/25 Unknown History rosuvastatin 40 mg tablet 40 mg PO DAILY 11/28/23 07/16/25 Unknown History sertraline 100 mg tablet 100 mg PO DAILY 11/28/23 07/16/25 Unknown History metformin 500 mg tablet,extended 500 mg PO BID 06/18/24 07/16/25 Unknown History release 24 hr empagliflozin 10 mg tablet 10 mg PO DAILY 01/14/25 07/16/25 Unknown History (Jardiance) Assessment and Plan Final Anesthetic Review Family History of Problems with Anesthesia: No History of Problems with Anesthesia: No Documented by User: Bebeto Davies MD 07/20/25 07:38 [facility] Past Medical History Medical History Pre-op examination [place] (hard of hearing) Hypothyroid DM type 2 (diabetes mellitus, type 2) Osteoarthritis H/O degenerative disc disease Chronic back pain GERD (gastroesophageal reflux disease) Elevated cholesterol Intestinal metaplasia of gastric mucosa Functional capacity: independent ambulation Family History Family History Father Cardiac arrest Mother No problems noted. Son Diabetes Sister Diabetes Stomach cancer Surgical History Surgical History H/O breast biopsy History of varicose vein ligation and stripping S/P cataract extraction History of section Hx of colonoscopy H/O esophagogastroduodenoscopy Social History Social History Household Members: Spouse Alcohol intake: current Alcohol intake frequency: does not drink Patient Tobacco Use Status: Never used Tobacco Use of substances other than those prescribed or required for medical reasons: No Have you been hit, kicked, punched, or otherwise hurt by someone within the past year? 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 Meds Allergies Allergy/AdvReac Type Severity Reaction Status Date / Time acetaminophen (From Percocet) Allergy Intermediate Hives Verified 07/16/25 13:55 naproxen Allergy Intermediate Itching Verified 07/16/25 13:55 Home Medications ?Medication ?Instructions ?Recorded ?Confirmed ?Last Taken ?Type calcium carbonate (Tums) 200 mg PO BID 08/15/20 07/16/25 Unknown History methylcellulose (laxative) 500 mg 500 mg PO DAILY 08/15/20 07/16/25 Unknown History tablet (Citrucel) cholecalciferol (vitamin D3) 25 25 mcg PO QAM 04/18/21 07/16/25 Unknown History mcg (1,000 unit) tablet ramelteon 8 mg tablet 8 mg PO BEDTIME PRN insomnia 04/18/21 07/16/25 Unknown History aspirin 81 mg tablet,delayed 81 mg PO DAILY 11/23/21 07/16/25 10/15/22 History release levothyroxine 75 mcg tablet 75 mcg PO DAILY 11/23/21 07/16/25 Unknown History nortriptyline 10 mg capsule 10 mg PO BID 11/23/21 07/16/25 Unknown History cilostazol 100 mg tablet 100 mg PO DAILY 05/22/22 07/16/25 Unknown History doxepin 25 mg capsule 25 mg PO BEDTIME 05/22/22 07/16/25 Unknown History fluticasone propionate 50 1 spray intranasal BID 05/22/22 07/16/25 Unknown History mcg/actuation nasal spray,suspension gabapentin 400 mg capsule 400 mg PO TID 05/22/22 07/16/25 Unknown History insulin aspart U-100 100 unit/mL 15 unit subcut TID 05/22/22 07/16/25 Unknown History (3 mL) subcutaneous pen (Novolog FlexPen U-100 Insulin aspart) insulin glargine 100 unit/mL (3 12 unit subcut BEDTIME 05/22/22 07/16/25 Unknown History mL) subcutaneous pen (Lantus Solostar U-100 Insulin) oxycodone 5 mg tablet 5 - 10 mg PO Q8H 05/22/22 07/16/25 Unknown History alcohol swabs (Alcohol Prep Pads) pad topical diabetes mellitus 10/30/22 10/09/24 Unknown History lancets 33 gauge (TRUEplus Lancets) #100 ea 10/30/22 10/09/24 Unknown History pen needle, diabetic 32 gauge x #50 ea 10/30/22 10/09/24 Unknown History /32 (Pentips Pen Needle) evolocumab 140 mg/mL subcutaneous 140 mg subcut Q2W 04/23/23 07/16/25 Unknown History pen injector (Nyeda Samaniegoick) losartan 25 mg tablet 25 mg PO DAILY 11/28/23 07/16/25 Unknown History magnesium oxide 400 mg PO DAILY 11/28/23 07/16/25 Unknown History rosuvastatin 40 mg tablet 40 mg PO DAILY 11/28/23 07/16/25 Unknown History sertraline 100 mg tablet 100 mg PO DAILY 11/28/23 07/16/25 Unknown History metformin 500 mg tablet,extended 500 mg PO BID 06/18/24 07/16/25 Unknown History release 24 hr empagliflozin 10 mg tablet 10 mg PO DAILY 01/14/25 07/16/25 Unknown History (Jardiance) Exam Exam Date and Time: 07/20/2025 Airway Mallampati Class: II TM Dist: >3cm Heart: normal Lungs: normal Other: normal Assessment and Plan Assessment Anesthesia Assessment: Anesthesia Plan Discussed and Chart Reviewed Final Anesthetic Review NPO: Yes ASA Class: III Final Preanesthetic Review: No Changes in Pt Med Stat, Meds/Allgs Chart Reviewed, Consent Obtained/Reviewed and Anes Risks/Benef Reviewed Patient Risk: Intermediate Procedure Risk: Low Anesthetic Plan Anesthetic Plan: MAC: Disposition: Standard PACU
[2025-07-16 13:55] VITALS: BMI 32.2
[2025-07-20 07:10] LABS: Glucose, Whole Blood 146 mg/dL (60-115)
[2025-07-20 07:15] VITALS: BP 144/58; PULSE 73; RESP 20; TEMP 35.8; O2SAT 96
[2025-07-20] MEDS: Lactated Ringers 1,000 ML 100 ML IVCONT (07:17)
--- NOTE | 2025-07-20 08:09 | P.HPSUR_ITS ---
Pre-Procedural Eval Section A - 24 Hr Update-Section A only Date of Service: 07/20/25 Section B - Complete if H&P > 30 days Chief Complaint: Esposito's esophagus without dysplasia Details of Present Illness: [place] (hard of hearing) Hypothyroid DM type 2 (diabetes mellitus, type 2) Osteoarthritis H/O degenerative disc disease Chronic back pain GERD (gastroesophageal reflux disease) Elevated cholesterol Intestinal metaplasia of gastric mucosa Surgical History H/O breast biopsy History of varicose vein ligation and stripping S/P cataract extraction History of section Hx of colonoscopy H/O esophagogastroduodenoscopy Present Medications: see Short Stay Collaborative assessment Allergies: Allergies Allergy/AdvReac Type Severity Reaction Status Date / Time acetaminophen (From Percocet) Allergy Intermediate Hives Verified 07/16/25 13:55 naproxen Allergy Intermediate Itching Verified 07/16/25 13:55 Review of Systems Review of Systems Comment: Ten point ROS negative Exam Exam Comment: Gen appear: No acute distress HEENT: no icterus Chest: No overt resp distress Abd: soft, nontender, nondistended Psych: Stable affect, answering questions appropriately Neuro: A/Ox3 noted to move all extremities spontaneously Ext: no peripheral edema Plan Diagnosis/Plan: Unchanged I have reviewed the history and physical and performed a pertinent physical examination on my patient. No changes have occurred unless specified. Time Spent With Patient Time: Total time managing care of this patient today ____ minutes.
[2025-07-20 08:50] VITALS: BP 106/46; PULSE 56; RESP 16; TEMP 36.1; O2SAT 98
--- NOTE | 2025-07-20 08:54 | P.OP_ITS ---
Operative Note Operative Note Date of Service: 07/20/25 Narrative: Procedure: Esophagogastroduodenoscopy Endoscopist: Connie Vaca MD Indication: Known SSBE Anesthesia Provider: Dr Davies Anesthesia Type: MAC ?? EGD Procedure:?? The procedure, indications, preparation and potential complications were reviewed with the patient with the help of spanish medical interpreter , who indicated understanding and gave written informed consent to proceed. A physical exam was performed. The endoscope was introduced through the mouth, and advanced to the second part of duodenum. The mucosa was carefully examined on slow withdrawal of the endoscope. The patient tolerated the procedure well. There were no immediate complications.? ? EGD Findings:? * Esophagus:? Normal mucosa noted in the entire esophagus. The Z line was at 33 cm and irregular up to 32 cm displaced by a hiatal hernia with the diaphragmatic hiatus at 36 cm. Jumbo forceps biopsies were taken from GE junction to surveil the known BE. A Tissue Cypher will also be sent. * Stomach:? Erythema edema and velveting of mucosa noted focally in antrum and proximal body. Retroflexion was performed in the cardia that showed Hill grade III hiatal hernia. Jumbo forceps biopsies were taken to r/o GIM. * Duodenum:? Normal mucosa was noted in the whole of the examined duodenum. ? EGD Impressions:? * Irregular Z line (biopsy) * Hiatal hernia * Gastritis (biopsy) * Normal duodenum ?? Recommendations:?? * Follow biopsy results. Our office will call or send a letter with results within 7-10 days. * Continue PPI therapy. * If H pylori +, patient will be prescribed eradication therapy followed by test of cure. * Avoid NSAIDs. * If no dysplasia noted and low risk tissue cypher score can review benefit of future surveillance Above has been reviewed with the patient.
[2025-07-20 09:05] VITALS: BP 115/49; PULSE 60; RESP 16; TEMP 36.1; O2SAT 98
== END 2025-07-20 10:02 | disposition home or self-care (01) ==
PROVIDERS: PCP General Practice; Visit Provider Internal Medicine
PROC: 0DJ08ZZ Inspection of Upper Intestinal Tract, Via Natural or Artificial Opening Endoscopic (ICD-10-PCS; CPT 43235; principal; 2025-07-20 08:10)
DX: K22.70 Barrett's esophagus without dysplasia (principal); K21.00 Gastro-esophageal reflux disease with esophagitis, without bleeding; K31.A15 Gastric intestinal metaplasia without dysplasia, involving multiple sites; K44.9 Diaphragmatic hernia without obstruction or gangrene; K29.70 Gastritis, unspecified, without bleeding
CPT/HCPCS: 43239; 82947; 88305; 88313; 88342; J2704; J3010

== ENCOUNTER → 2025-07-20 06:39 | Outpatient (BNV) | payer OTHER, SELFPAY | PROVIDERS: PCP General Practice; Visit Provider Internal Medicine | DX: K22.70 Barrett's esophagus without dysplasia (principal); K29.70 Gastritis, unspecified, without bleeding | CPT/HCPCS: 43239 ==

== ENCOUNTER 2025-08-11 15:04 | Outpatient (AMB) | payer OTHER, SELFPAY ==
--- NOTE | 2025-08-11 15:09 | A.OFFVIS_ITS ---
Vital Signs 08/11/25 15:22 Height 5 ft Weight 168 lb 13.985 oz BMI 33.0 BP 134/61 Blood Pressure Location Lt brachial Position Sitting Pulse 70 Intake Visit Reasons: s/p egd Intake Note: Patient is seen in office for post op assessment post EGD. Pt c/o: denies any concerns post procedure, here for results Dairy Nutrition Specialist Required: Yes Dairy Nutrition Specialist Language: Loom Doffer Services: Dairy Nutrition Specialist Present Dairy Nutrition Specialist Name: Stephanie SCHOFIELD Information Interpreted: non-clinical & clinical Accompanied by: Other Relationship Allergies acetaminophen (From Percocet) Allergy (Intermediate, Verified 08/11/25 15:20) Hives naproxen Allergy (Intermediate, Verified 08/11/25 15:20) Itching HPI HPI s/p egd: Details: Assessment & Plan (1) GERD (gastroesophageal reflux disease): Code(s): K21.9 - Gastro-esophageal reflux disease without esophagitis Category: Medical (2) Pre-op examination: Code(s): Z01.818 - Encounter for other preprocedural examination Category: Medical (3) Esposito's esophagus determined by biopsy: Comment: Last EGD 10/2022 and there was Barretts metaplasia with no dysplasia, repeat in 2024 Code(s): K22.70 - Esposito's esophagus without dysplasia Category: Medical Plan Norwegian #[id number] She is here today with her daughter who is supportive. She is doing well on her LInzess and bisacodyl with Dexilant and famotidine. She says that the Dexilant works well but the famotidine qhs is not working. They believe this is r/t it coming in a pill pack and she can't separate it out ot take ac. She is agreeable to scheduling her EGD for SSBE surveillance There are no prior problems with anesthesia or sedation. She denies any cardiac or resp problems NO ID problems. Next avail to eval changing famotidine to bottle out of pill pack Orders: Orders Comprehensive Met. Panel Today K21.9 - Gastro-esophageal reflux disease without esophagitis, K22.70 - Esposito's esophagus without dysplasia, Z01.818 - Encounter for other preprocedural examination Complete Blood Count Auto Diff Today K21.9 - Gastro-esophageal reflux disease without esophagitis, K22.70 - Esposito's esophagus without dysplasia, Z01.818 - Encounter for other preprocedural examination EGD - GI Use Only Today K21.9 - Gastro-esophageal reflux disease without esophagitis, K22.70 - Esposito's esophagus without dysplasia, Z01.818 - Encounter for other preprocedural examination Medications: New famotidine (Pepcid) PLEASE DO NOT PUT IN PILL PACK, SEND IN A SEPARATE BOTTLE 40 mg PO .qac supper 30 tabs 12RF K21.9 - Gastro-esophageal reflux disease without esophagitis Refilled dexlansoprazole (Dexilant) 60 mg PO DAILY 30 caps 6RF linaclotide (Linzess) 145 mcg PO QAM 30 caps 6RF K58.1 - Irritable bowel syndrome with constipation dexlansoprazole (Dexilant) 60 mg PO DAILY 30 caps 6RF bisacodyl (Dulcolax (bisacodyl)) 10 mg (2 x 5 mg) PO BEDTIME 60 tabs 6RF 30 days K59.00 - C LABS: EGD EGD Findings:? * Esophagus:? Normal mucosa noted in the entire esophagus. The Z line was at 33 cm and irregular up to 32 cm displaced by a hiatal hernia with the diaphragmatic hiatus at 36 cm. Jumbo forceps biopsies were taken from GE junction to surveil the known BE. A Tissue Cypher will also be sent. * Stomach:? Erythema edema and velveting of mucosa noted focally in antrum and proximal body. Retroflexion was performed in the cardia that showed Hill grade III hiatal hernia. Jumbo forceps biopsies were taken to r/o GIM. * Duodenum:? Normal mucosa was noted in the whole of the examined duodenum. ? EGD Impressions:? * Irregular Z line (biopsy) * Hiatal hernia * Gastritis (biopsy) * Normal duodenum ?? Recommendations:?? * Follow biopsy results. Our office will call or send a letter with results within 7-10 days. * Continue PPI therapy. * If H pylori +, patient will be prescribed eradication therapy followed by test of cure. * Avoid NSAIDs. * If no dysplasia noted and low risk tissue cypher score can review benefit of future surveillance BIOPSY Received: 07/20/25 Diagnosis A. Stomach, antrum, biopsy: Antral-type and oxyntic mucosa with moderate chronic inactive inflammation and intestinal metaplasia (incomplete type); negative for dysplasia; no Helicobacter organisms seen. B. Stomach, incisura, biopsy: Antral-type mucosa with moderate chronic inactive inflammation and intestinal metaplasia (incomplete type); negative for dysplasia; no Helicobacter organisms seen. C. Stomach, body, biopsy: Oxyntic mucosa with mild chronic inactive inflammation and intestinal metaplasia (incomplete type); negative for dysplasia; focal atrophy identified; no Helicobacter organisms seen. D. GE junction, biopsy: - Esposito esophagus with background mild chronic inactive inflammation. - No dysplasia seen. - Active esophagitis (maximum eosinophil count 1 per high powered field). TODAY'S VISIT [facility] Medical History Pre-op examination [employer] [place] (hard of hearing) Hypothyroid DM type 2 (diabetes mellitus, type 2) Osteoarthritis H/O degenerative disc disease Chronic back pain GERD (gastroesophageal reflux disease) Elevated cholesterol Intestinal metaplasia of gastric mucosa Surgical History H/O breast biopsy History of varicose vein ligation and stripping S/P cataract extraction History of section Hx of colonoscopy H/O esophagogastroduodenoscopy Family History Father Cardiac arrest Mother No problems noted. 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 * Esophagus:? Normal mucosa noted in the entire esophagus. The Z line was at 33 cm and irregular up to 32 cm displaced by a hiatal hernia with the diaphragmatic hiatus at 36 cm. Jumbo forceps biopsies were taken from GE junction to surveil the known BE. A Tissue Cypher will also be sent. * Stomach:? Erythema edema and velveting of mucosa noted focally in antrum and proximal body. Retroflexion was performed in the cardia that showed Hill grade III hiatal hernia. Jumbo forceps biopsies were taken to r/o GIM. * Duodenum:? Normal mucosa was noted in the whole of the examined duodenum. ? EGD Impressions:? * Irregular Z line (biopsy) * Hiatal hernia * Gastritis (biopsy) * Normal duodenum ?? Recommendations:?? * Follow biopsy results. Our office will call or send a letter with results within 7-10 days. * Continue PPI therapy. * If H pylori +, patient will be prescribed eradication therapy followed by test of cure. * Avoid NSAIDs. * If no dysplasia noted and low risk tissue cypher score can review benefit of future surveillance BIOPSY Received: 07/20/25 Diagnosis A. Stomach, antrum, biopsy: Antral-type and oxyntic mucosa with moderate chronic inactive inflammation and intestinal metaplasia (incomplete type); negative for dysplasia; no Helicobacter organisms seen. B. Stomach, incisura, biopsy: Antral-type mucosa with moderate chronic inactive inflammation and intestinal metaplasia (incomplete type); negative for dysplasia; no Helicobacter organisms seen. C. Stomach, body, biopsy: Oxyntic mucosa with mild chronic inactive inflammation and intestinal metaplasia (incomplete type); negative for dysplasia; focal atrophy identified; no Helicobacter organisms seen. D. GE junction, biopsy: - Esposito esophagus with background mild chronic inactive inflammation. - No dysplasia seen. - Active esophagitis (maximum eosinophil count 1 per high powered field). Assessment & Plan Assessment & Plan (1) GERD (gastroesophageal reflux disease): Code(s): K21.9 - Gastro-esophageal reflux disease without esophagitis Category: Medical (2) Large hiatal hernia: Code(s): K44.9 - Diaphragmatic hernia without obstruction or gangrene Category: Medical (3) Delayed gastric emptying: Code(s): K30 - Functional dyspepsia Category: Medical (4) Diabetes: Code(s): E11.9 - Type 2 diabetes mellitus without complications Category: Medical Plan [place] #Bing Live from Gen surgery LInzess and bisacodyl with Dexilant and famotidine. And now were adding Reglan 5 mg 4 times a day Subjective Patient presents for follow-up of refractory heartburn/GERD after prior medication changes. She underwent recent upper endoscopy that showed significant irritation at the distal esophagus. I explained that persistent reflux could be related to a possible hiatal hernia and/or delayed gastric emptying. She reports episodes of early satiety. She confirms she is still taking Linzess and that it continues to help. She also reports intermittent use of a nasal spray provided at the last visit, with improvement in nasal congestion. Current medications discussed that may slow GI motility include oxycodone, Tums, doxepin, nortriptyline, Jardiance, and metformin. She confirms ongoing use of oxycodone and states she takes all medications prescribed by her clinicians; she believes none have been discontinued. She agrees to bring her medication box/list and loose bottles to the next visit for reconciliation. Relevant Past Medical, Social, and Family History - Diabetes mellitus treated with Jardiance and metformin. Objective - Prior upper endoscopy: significant irritation at the distal esophagus; evolution toward Esposito?s esophagus; possible hiatal hernia noted endoscopically. Assessment & Plan GERD with esophagitis and Esposito?s esophagus (precancerous potential): Endoscopy demonstrates distal esophagitis with evolution to Esposito?s esophagus. I reviewed the risks of progression if reflux is not controlled and the importance of proceeding with further evaluation. - Order barium swallow to better characterize/size suspected hiatal hernia. - Reinforce reflux management importance; counseling provided on Esposito?s risk and need to address underlying causes. - Follow up in 8 weeks to review results and symptoms. Suspected delayed gastric emptying with early satiety: Reports early satiety; multiple concomitant medications may slow GI transit. Will evaluate and initiate empiric therapy. - Order gastric emptying study (nuclear medicine). - Start prokinetic medication, taken four times daily (breakfast, lunch, supper, and bedtime), including when not eating; do not take it on the day of the gastric emptying study. - Reviewed rare adverse effects (e.g., significant tremor or marked motor restlessness); advised to stop the medication and notify me if these occur. Possible hiatal hernia: Suspected on endoscopy; requires external imaging to size and determine significance. - Proceed with barium swallow for anatomical definition; discussed that surgical repair is reserved for select cases depending on size/severity and patient factors. Polypharmacy with overlapping TCAs and medications that slow GI motility: Patient currently on oxycodone, Tums, doxepin, nortriptyline, Jardiance, and metformin; potential duplication of TCAs (doxepin and nortriptyline) noted. - Medication reconciliation at next visit; patient to bring medication box/list and bottles. - Coordinate with primary care regarding duplicate TCA therapy. Chronic constipation, on Linzess: Patient reports Linzess continues to be effective. - Continue Linzess as currently used. Logistics - Both studies to be scheduled through hospital radiology (gastric emptying via nuclear medicine; barium swallow via radiology). Separate appointments likely. - Return visit in 8 weeks to reassess symptoms, review study results, and reconcile medications. Orders: Orders [place] barium swallow Today K21.9 - Gastro-esophageal reflux disease without esophagitis, K44.9 - Diaphragmatic hernia without obstruction or gangrene Hemoglobin A1c Today E11.9 - Type 2 diabetes mellitus without complications, K30 - Functional dyspepsia NM gastric emptying study Today K30 - Functional dyspepsia Medications: New metoclopramide HCl (Reglan) 5 mg PO QIDACHS 120 tabs 6RF K30 - Functional dyspepsia Refilled linaclotide (Linzess) 145 mcg PO QAM 30 caps 6RF K58.1 - Irritable bowel syndrome with constipation dexlansoprazole (Dexilant) 60 mg PO DAILY 30 caps 6RF famotidine (Pepcid) PLEASE DO NOT PUT IN PILL PACK, SEND IN A SEPARATE BOTTLE 40 mg PO .qac supper 30 tabs 12RF K21.9 - Gastro-esophageal reflux disease without es ophagitis Coding Level of Care Code Est Pt Level 3 (96902) Diagnoses GERD (gastroesophageal reflux disease) K21.9 Large hiatal hernia K44.9 Delayed gastric emptying K30 Diabetes E11.9
[2025-08-11 15:22] VITALS: BP 134/61; PULSE 70; BMI 33.0
--- OUTSIDE RECORDS SUMMARY | 2025-08-11 18:06 | XMS_ITS | Encounter Summary ---
Author Organization [facility] Address [address] 7t [place] [address] Care Team Providers Care Special Loan Officer Name Role Phone Germaine Martinez MD Primary Care Provider [phone] Reason for Visit * Reason Comments Med Refill Encounter Details Date Type Department Care Team ([facility] Contact Info) Description 12/03/[address] [facility] MED[facility]INE [address] [place], [place] [phone] Germaine Martinez MD [address] [place] [phone] Sacroiliitis (CMS/HCC) Social History Tobacco Use Types [...] Upcoming Encounters Date Type Department Care Team ([facility] Contact Info) Description 11/05/2025 9:[address] [facility] MEDICINE [address] [place] [address] [phone] Omayra Gudino RN documented as of this encounter Visit Diagnoses Diagnosis Sacroiliitis (CMS/HCC) Sacroiliitis, not elsewhere classified documented in this encounter Care Teams Special Loan Officer Relationship Specialty Start Date End Date Germaine Martinez MD [address] [place] [address] [phone] PCP - General Family Medicine 07/14/20 documented as of this encounter
--- OUTSIDE RECORDS SUMMARY | 2025-08-11 18:06 | XMS_ITS | Encounter Summary ---
Author Organization [facility] Address [address] [place] [address] Phone Care Team Providers Care Leverman Name Role Phone Germaine Martinez MD Primary Care Provider + Reason for Visit * Reason Onset Date Comments Medication Refill 2025 Encounter Details Date Type Department Care Team (Late st Contact Info) Description 2025 Refill [facility] [address] [place] [address] Ayesha Doyle PR [address] [place] [address] [email or web address] Medication Refill Social History Tobacco Use Types Packs/Day [...] Description 10/08/2025 9:20 AM EST Office Visit [facility] [address] [place] [address] 3rd Floor, [address] [place] [address] Ray Cid MD [address] [place] [address] 11/08/2025 9:40 AM EST Office Visit [facility] [address] [place] [address] [place] [address] Aixa Kong MD [address] [place] [address], 1st [place] [address] 04/21/2026 9:10 AM EDT Office Visit [facility] [address] [place] [address] [place] [address] Hilario Peguero DO [address] [place] [phone] documented as of this encounter Visit Diagnoses Diagnosis Type 2 diabetes mellitus with diabetic neuropathy, with long-term current use of insulin Hypoglycemia due to insulin Long-term insulin use documented in this encounter Care Teams Leverman Relationship Specialty Start Date End Date Germaine Martinez MD PCP - General Family Medicine 09/15/24 documented as of this encounter Additional Source Comments The information contained in this document represents components of the legal health record. It is not the complete legal health record.[facility]
--- OUTSIDE RECORDS SUMMARY | 2025-08-11 18:06 | XMS_ITS | Encounter Summary ---
Author Organization [employer] Address [address] 7[address] [place] [address] Care Team Providers Care Nurse Researcher Name Role Phone Germaine Martinez MD Primary Care Provider [phone] Reason for Visit * Reason Comments Med Refill Encounter Details Date Type Department Care Team (Late st Contact Info) Description 06/20/2023 Refill [facility] [address] [place], [place] [phone] Germaine Martinez MD [address] [place], [place] [phone] Degeneration of lumbar intervertebral disc Social History [...] oxyCODONE (Roxicodone) 5 MG immediate release tablet. Agricultural Appraiser sees script sent to pharmacy on 06/14/23, however scenario writer called pharmacy and they don't have a script on file. Patient has been out of medication since 06/19/23. Please advise. documented in this encounter Plan of Treatment Upcoming Encounters Date Type Department Care Team (Late st Contact Info) Description 11/05/2025 9:00 AM EST Telemedicine [facility] [address] [place] [address] Omayra Gudino, [place] documented as of this encounter Visit Diagnoses Diagnosis Degeneration of lumbar intervertebral disc Degeneration of lumbar or lumbosacral intervertebral disc documented in this encounter Care Teams Nurse Researcher Relationship Specialty Start Date End Date Germaine Martinez MD [address] [place] [address] PCP - General Family Medicine 07/14/20 documented as of this encounter
--- OUTSIDE RECORDS SUMMARY | 2025-08-11 18:06 | XMS_ITS | Encounter Summary ---
Author Organization [employer] Address [address] [place] [address] Care Team Providers Care Crime Specialist Name Role Phone Germaine Martinez MD Primary Care Provider [phone] Reason for Visit * Reason Comments Med Refill Encounter Details Date Type Department Care Team (Late st Contact Info) Description 01/07/2025 Refill [facility] MEDICINE [address] [place], [place] [phone] Germaine Martinez MD [address] [place], [place] [phone] Social History Tobacco Use Types Packs/Day Years [...] Info) Description 11/05/2025 9:00 AM EST Telemedicine [facility] MEDICINE [address] [place] [address] Omayra Gudino, [place] documented as of this encounter Visit Diagnoses Not on filedocumented in this encounter Additional Health Concerns Assessment Noted Time PHQ-9 Depression Total Score: 1 08/26/20 23 1:07 PM EST documented as of this encounter Care Teams Crime Specialist Relationship Specialty Start Date End Date Germaine Martinez MD [address] [place] [address] PCP - General Family Medicine 07/14/20 documented as of this encounter
--- OUTSIDE RECORDS SUMMARY | 2025-08-11 18:06 | XMS_ITS | Encounter Summary ---
Author Organization [employer] Address [address] [place] [address] Care Team Providers Care Breast Surgeon Name Role Phone Germaine Martinez MD Primary Care Provider [phone] Reason for Visit * Reason Comments Med Refill Encounter Details Date Type Department Care Team (Late st Contact Info) Description 07/25/[address] [facility] [address] [place], [place] [phone] Germaine Martinez MD [address] [place] [address] Recurrent major depressive disorder, in partial remission [...] Info) Description 11/05/2025 9:00 AM EST Telemedicine [facility] [address] [place] [address] Omayra Gudino RN documented as of this encounter Visit Diagnoses Diagnosis Recurrent major depressive disorder, in partial remission (CMS/HCC) documented in this encounter Care Teams Breast Surgeon Relationship Specialty Start Date End Date Germaine Martinez MD [address] [place] [address] PCP - General Family Medicine 07/14/20 documented as of this encounter
--- OUTSIDE RECORDS SUMMARY | 2025-08-11 18:06 | XMS_ITS | Encounter Summary ---
Author Organization [employer] Address [address] [facility] [address] [place] [address] Care Team Providers Care Phosphoric Acid Operator Name Role Phone Germaine Martinez MD Primary Care Provider [phone] Encounter Details Date Type Department Care Team ([facility] st Contact Info) Description 01/15/2024 Orders Only [facility] MEDICINE [address] [place], [place] [phone] ProviderRodrigo MD Social History Tobacco Use Types [...] Info) Description 11/05/2025 9:00 AM EST Telemedicine [facility] [address] [place] [address] Omayra Gudino RN documented as of this [...] documented as of this encounter Care Teams Phosphoric Acid Operator Relationship Specialty Start Date End Date Germaine Martinez MD [address] [place] [address] PCP - General Family Medicine 07/14/20 documented as of this encounter
--- OUTSIDE RECORDS SUMMARY | 2025-08-11 18:06 | XMS_ITS | Encounter Summary ---
Author Organization [facility] Address [address] [place] [address] Phone Care Team Providers Care Staff Midwife/Apprenticeship Director Name Role Phone Sanjay James MIND READER Primary Care Provider [phone] Sanjay James MIND READER Primary Care Provider [phone] Germaine Martinez MD Primary Care Provider + Germaine Martinez MD Primary Care Provider + Encounter Details Date Type Department Care Team (Latest Contact Info) Description 02/04/2018 Transcribe Orders [facility] [address] [place] [address] Teena Lindsey MD [address] [place] [phone] Hypothyroidism following radioiodine therapy (Primary Dx) Social [...] Description 10/08/2025 9:20 AM EST Office Visit [facility] [address] [facility] 3rd Floor, [address] [place] [address] Ray Cid MD [address] [facility], [address] [address] 11/08/2025 9:40 AM EST Office Visit [facility] [address] [place] [address] Aixa Kong MD [address] [place] [address], 1st [place] [address] 04/21/2026 9:10 AM EDT Office Visit [facility] [address] [place] [address] Hilario Peguero DO [address] [place] [address] documented as of this encounter Results * Free T3 (02/04/2018 8:19 AM EDT) FREE T3 2.3 2.0 - 4.4 pg/mL [facility] Blood 02/04/2018 8:19 AM EDT 02/04/2018 8:20 AM EDT us Teena Winkler MD LAB BLOOD BKR ORDERABL ES Final Result [facility] [address] [place] [address] * Free T4 (02/04/2018 8:19 AM EDT) FREE T4 1.4 0.9 - 1.7 ng/dL [facility] Blood 02/04/2018 8:19 AM EDT 02/04/2018 8:20 AM EDT us Teena Winkler MD LAB BLOOD BKR ORDERABL ES Final Result Performing Organization Address City/[facility]/ZIP Co de Phone Number [address] [address] * TSH (02/04/2018 8:19 AM EDT) TSH 1.65 0.27 - 4.20 uIU/mL [facility] Blood 02/04/2018 8:19 AM EDT 02/04/2018 8:20 AM EDT us Teena Winkler MD LAB BLOOD BKR ORDERABL ES Final Result Performing Organization Address City/[facility]/ZIP Co de Phone Number [address] [address] documented in this encounter Visit Diagnoses Diagnosis Hypothyroidism following radioiodine therapy- Primary Other postablative hypothyroidism documented in this encounter Care Teams Staff Midwife/Apprenticeship Director Relationship Specialty Start Date End Date Sanjay James NP [address] [place] [address] PCP - General Family Medicine 07/18/17 03/13/21 Sanjay James NP [address] [place] [address] PCP - General Family Medicine 03/14/21 01/17/22 Germaine Martinez MD [address] [place] [address] PCP - General 01/18/22 09/14/24 Germaine Martinez MD [address] [place] [address] PCP - General Family Medicine 09/15/24 documented as of this encounter Additional Source Comments The information contained in this document represents components of the legal health record. It is not the complete legal health record.[facility]
--- OUTSIDE RECORDS SUMMARY | 2025-08-11 18:06 | XMS_ITS | Encounter Summary ---
Author Organization [employer] Address [address] 7t [place] [address] Care Team Providers Care Real Estate Assistant Name Role Phone Germaine Martinez MD Primary Care Provider Reason for Visit * Reason Onset Date Comments Med Refill 07/29/2024 Encounter Details Date Type Department Care Team ([facility] st Contact Info) Description 07/29/2024 Telephone [facility] [address] [place], [place] [phone] Germaine Martinez MD [address] [place], [place] [phone] Med Refill Social History Tobacco Use Types [...] immediate release tablet To be sent to: [facility] - [place], [place] - [address] [place] [address] documented in this encounter Plan of Treatment Upcoming Encounters Date Type Department Care Team (Late st Contact Info) Description 11/05/2025 9:00 AM EST Telemedicine [facility] [address] [place] [address] Omayra Gudino, RN documented as of this encounter Visit Diagnoses Not on filedocumented in this encounter Additional Health Concerns Assessment Noted Time PHQ-9 Depression Total Score: 1 08/26/20 23 1:07 PM EST documented as of this encounter Care Teams Real Estate Assistant Relationship Specialty Start Date End Date Germaine Martinez MD [address] [place] [address] PCP - General Family Medicine 07/14/20 documented as of this encounter
--- OUTSIDE RECORDS SUMMARY | 2025-08-11 18:06 | XMS_ITS | Encounter Summary ---
Author Organization [facility] Address [address] [place] [address] Phone Care Team Providers Care Counter Maker Name Role Phone Germaine Martinez MD Primary Care Provider + Reason for Visit * Reason Onset Date Comments Forms & Paperwork 08/10/2025 Encounter Details Date Type Department Care Team (Late st Contact Info) Description 08/10/2025 Telephone [facility] [address] [place] [address] Alexus Prakash [address] [place] [address] [email or web address] Forms & Paperwork Social History Tobacco Use Types Packs/Day Years [...] as of this encounter Progress Notes * Kita Park [place] - 08/10/2025 4:31 PM EST Please see TE from 05/12/25. This is a Medicare Part B renewal.prior auth. * Alexus Prakash - 08/10/2025 4:17 PM EST Received PA request for the Carlin 3 sensors that were just ordered for pt yesterday, will send to our MAC. documented in this encounter Plan of Treatment Upcoming Encounters Date Type Department Care Team (Late st Contact Info) Description 10/08/2025 9:20 AM EST Office Visit [facility] [address] [place] [address] 3rd Floor, [address] [place] [address] Ray Cid MD [address] [place] [address], [address] [place] [address] 11/08/2025 9:40 AM EST Office Visit [facility] [address] [place] [address] [place] [address] Aixa Kong MD [address] [place] [address], 1st [place] [address] 04/21/2026 9:10 AM EDT Office Visit [facility] [address] [place] [address] Hilario Peguero DO [address] [place] [address] documented as of this encounter Visit Diagnoses Not on filedocumented in this encounter Care Teams Counter Maker Relationship Specialty Start Date End Date Germaine Martinez MD PCP - General Family Medicine 09/15/24 documented as of this encounter Additional Source Comments The information contained in this document represents components of the legal health record. It is not the complete legal health record.[facility]
--- OUTSIDE RECORDS SUMMARY | 2025-08-11 18:06 | XMS_ITS | Encounter Summary ---
Author Organization [employer] Address [address] 7t [place] [address] Care Team Providers Care Financial Dealers Name Role Phone Germaine Martinez MD Primary Care Provider [phone] Reason for Visit * Reason Comments Med Refill Encounter Details Date Type Department Care Team (Late st Contact Info) Description 06/19/2023 Refill [facility] MED[facility] [address] [place], [place] [phone] Germaine Martinez MD [address] [place], [place] [phone] Degeneration of lumbar intervertebral disc Social History [...] Info) Description 11/05/2025 9:00 AM EST Telemedicine [facility] [address] [place] [address] Omayra Gudino RN documented as of this encounter Visit Diagnoses Diagnosis Degeneration of lumbar intervertebral disc Degeneration of lumbar or lumbosacral intervertebral disc documented in this encounter Care Teams Financial Dealers Relationship Specialty Start Date End Date Germaine Martinez MD [address] [place] [address] PCP - General Family Medicine 07/14/20 documented as of this encounter
--- OUTSIDE RECORDS SUMMARY | 2025-08-11 18:06 | XMS_ITS | Encounter Summary ---
Author Organization [employer] Address [address] 7t [place] [address] Care Team Providers Care Drug Safety Physician Name Role Phone Germaine Martinez MD Primary Care Provider [phone] Reason for Visit * Reason Comments Med Refill Encounter Details Date Type Department Care Team (Late st Contact Info) Description 08/17/2024 Refill [facility] MED[facility]INE [address] [place], [place] [phone] Germaine Martinez MD [address] [place], [place] [phone] Social History Tobacco Use Types Packs/Day Years [...] Info) Description 11/05/2025 9:00 AM EST Telemedicine [facility] MED[facility]INE [address] [place] [address] Omayra Gudino, [place] documented as of this encounter Visit Diagnoses Not on filedocumented in this encounter Additional Health Concerns Assessment Noted Time PHQ-9 Depression Total Score: 1 08/26/20 23 1:07 PM EST documented as of this encounter Care Teams Drug Safety Physician Relationship Specialty Start Date End Date Germaine Martinez MD [address] [place] [address] PCP - General Family Medicine 07/14/20 documented as of this encounter
--- OUTSIDE RECORDS SUMMARY | 2025-08-11 18:06 | XMS_ITS | Encounter Summary ---
Author Organization [employer] Address [address] 7[address] [place] [address] Care Team Providers Care Machine Sizer Name Role Phone Germaine Martinez MD Primary Care Provider [phone] Encounter Details Date Type Department Care Team ([facility] st Contact Info) Description 2023 Orders Only [facility] MEDICINE [address] [place], [place] [phone] Germaine Martinez MD [address] [place], [place] [phone] Elevated blood pressure reading (Primary Dx) Social [...] Info) Description 11/05/2025 9:00 AM EST Telemedicine [facility] MED[facility]INE [address] [place] [address] Omayra Gudino RN documented as of this encounter Visit Diagnoses Diagnosis Elevated blood pressure reading- Primary Elevated blood pressure reading without diagnosis of hypertension documented in this encounter Care Teams Machine Sizer Relationship Specialty Start Date End Date Germaine Martinez MD [address] [place] [address] PCP - General Family Medicine 07/14/20 documented as of this encounter
--- OUTSIDE RECORDS SUMMARY | 2025-08-11 18:06 | XMS_ITS | Encounter Summary ---
Author Organization [facility] Address [address] [place] [address] Phone Care Team Providers Care Geophysicist Name Role Phone Germaine Martinez MD Primary Care Provider + Encounter Details Date Type Department Care Team (Late st Contact Info) Description 07/14/2025 Telephone [facility] [address], [address] [place] [address] Saima Callejas PA-C [address] [place] [phone] [email or web address] Social History Tobacco Use Types Packs/Day Years [...] as of this encounter Progress Notes * Mai Tran - 07/16/2025 3:58 PM EST Reached out to patient to advise we are waiting on dates & once we have them, we will reach outto schedule. Pt understands & is appreciative. * Mai Tran - 07/14/2025 2:17 PM EST Joseluis Landaverde, This patient states she was told we would be reaching out in regards to a procedure. In your previous office note it does state, she does wish to proceed with a venous seal/ablation if possible on he left, will discuss with SW before scheduling this to ensure appropriate treatment plan based on u/s and if agreeable, will get this scheduled for patient with appropriate u/s thereafter. Is this something we are moving forward with and if so, could you place the order? Thanks!! documented in this encounter Plan of Treatment Upcoming Encounters Date Type Department Care Team (Late st Contact Info) Description 10/08/2025 9:20 AM EST Office Visit [facility] [address] 3rd Floor, [address] [place] [address] Ray Cid MD [address] [place] [address], [address] [address] 11/08/2025 9:40 AM EST Office Visit [facility] [address] [place] [address] Aixa Kong MD [address] [place] [address], 1st [place] [address] 04/21/2026 9:10 AM EDT Office Visit [facility] [address] [place] [address] Hilario Peguero DO [address] [place] [address] documented as of this encounter Visit Diagnoses Not on filedocumented in this encounter Care Teams Geophysicist Relationship Specialty Start Date End Date Germaine Martinez MD PCP - General Family Medicine 09/15/24 documented as of this encounter Additional Source Comments The information contained in this document represents components of the legal health record. It is not the complete legal health record.[facility]
--- OUTSIDE RECORDS SUMMARY | 2025-08-11 18:06 | XMS_ITS | Encounter Summary ---
Author Organization [employer] Address [address] [facility] 7t [place] [address] Care Team Providers Care Director Museum Or Zoo Name Role Phone Germaine Martinez MD Primary Care Provider [phone] Encounter Details Date Type Department Care Team (Late st Contact Info) Description 01/02/2023 Orders Only [facility] MEDICINE [address] [place] [address] [phone] Germaine Martinez MD [address] [place] [address] [phone] Degeneration of lumbar intervertebral disc (Primary Dx) [...] Info) Description 11/05/2025 9:00 AM EST Telemedicine [facility] MEDICINE [address] [place] [address] Omayra Gudino, RN documented as of this encounter Visit Diagnoses Diagnosis Degeneration of lumbar intervertebral disc- Primary Degeneration of lumbar or lumbosacral intervertebral disc documented in this encounter Care Teams Director Museum Or Zoo Relationship Specialty Start Date End Date Germaine Martinez MD 230 [place] [address] PCP - General Family Medicine 07/14/20 documented as of this encounter
--- OUTSIDE RECORDS SUMMARY | 2025-08-11 18:06 | XMS_ITS | Encounter Summary ---
Author Organization [facility] Address [address] [facility] 7t [place] [address] Care Team Providers Care Tire Fabricator Name Role Phone Germaine Martinez MD Primary Care Provider [phone] Reason for Visit * Reason Comments Med Refill Encounter Details Date Type Department Care Team ([facility] Contact Info) Description 11/07/2022 Refill [facility] MEDICINE [address] [place] [address] [phone] Germaine Martinez MD [address] [place] [address] [phone] Sacroiliitis (CMS/HCC) Social History Tobacco Use Types [...] Department Care Team (Late Contact Info) Description 11/05/2025 9:00 AM EST Telemedicine [facility] MEDICINE [address] [place] [address] [phone] Omyara Gudino RN documented as of this encounter Visit Diagnoses Diagnosis Sacroiliitis (CMS/HCC) Sacroiliitis, not elsewhere classified documented in this encounter Care Teams Tire Fabricator Relationship Specialty Start Date End Date Germaine Martinez MD [address] [place] [address] PCP - General Family Medicine 07/14/20 documented as of this encounter
--- OUTSIDE RECORDS SUMMARY | 2025-08-11 18:06 | XMS_ITS | Encounter Summary ---
Author Organization [facility] Address [address] [place] [address] Phone Care Team Providers Care Vending Machine Refiller Name Role Phone Sanjay James LEAD TINNER Primary Care Provider [phone] Sanjay James LEAD TINNER Primary Care Provider [phone] Germaine Martinez MD Primary Care Provider + Germaine Martinez MD Primary Care Provider + Encounter Details Date Type Department Care Team (Latest Contact Info) Description 06/15/2020 Ancillary Orders [facility] [address] [facility] 3rd [address], [address] [place] [address] Venessa Kaye MD [phone] [place] [address] [email or web address] (peripheral vascular disease) Social History Tobacco [...] Description 10/08/2025 9:20 AM EST Office Visit [facility] [address] [facility] 3rd Floor, [address] [place] [address] Ray Cid MD [address] [place] [address], [address] [address] 11/08/2025 9:40 AM EST Office Visit [facility] [address] [place] [address] Aixa Knog MD [address] [place] [address], 1st [place] [address] 04/21/2026 9:10 AM EDT Office Visit [facility] [address] [place] [address] Hilario Peguero DO 22 [place] [address] documented as of this encounter Results * [...] disease documented in this encounter Care Teams Vending Machine Refiller Relationship Specialty Start Date End Date Sanjay James NP [address] [place] [address] PCP - General Family Medicine 07/18/17 03/13/21 Sanjay James NP [address] [place] [address] PCP - General Family Medicine 03/14/21 01/17/22 Germaine Martinez MD [address] [place] [address] PCP - General 01/18/22 09/14/24 Germaine Martinez MD [address] [place] [address] PCP - General Family Medicine 09/15/24 documented as of this encounter Additional Source Comments The information contained in this document represents components of the legal health record. It is not the complete legal health record.[facility]
--- OUTSIDE RECORDS SUMMARY | 2025-08-11 18:06 | XMS_ITS | Encounter Summary ---
Author Organization [facility] Address [address] 7t [place] [address] Care Team Providers Care Boom Stick Man Name Role Phone Germaine Martinez MD Primary Care Provider [phone] Encounter Details Date Type Department Care Team (Late st Contact Info) Description 09/05/2022 Telephone [facility] MEDICINE [address] [place] [address] [phone] Germaine Martinez MD [address] [place] [address] [phone] Social History Tobacco Use Types Packs/Day Years [...] Info) Description 11/05/2025 9:00 AM EST Telemedicine [facility] MED[facility]INE [address] [place] [address] [phone] Omayra Gudino RN documented as of this encounter Visit Diagnoses Not on filedocumented in this encounter Care Teams Boom Stick Man Relationship Specialty Start Date End Date Germaine Martinez MD [address] [place] [address] PCP - General Family Medicine 07/14/20 documented as of this encounter
--- OUTSIDE RECORDS SUMMARY | 2025-08-11 18:06 | XMS_ITS | Encounter Summary ---
Author Organization [employer] Address [address] 7t [place] [address] Care Team Providers Care Solid Waste Collection Worker Name Role Phone Germaine Martinez MD Primary Care Provider [phone] Reason for Visit * Reason Comments Med Refill Encounter Details Date Type Department Care Team (Late st Contact Info) Description 06/18/2023 Refill [facility] MEDICINE [address] [place], [place] [phone] Germaine Martinez MD [address] [place], [place] [phone] Degeneration of lumbar intervertebral disc Social History [...] Info) Description 11/05/2025 9:00 AM EST Telemedicine [facility] MEDICINE [address] [place] [address] Omayra Gudino RN documented as of this encounter Visit Diagnoses Diagnosis Degeneration of lumbar intervertebral disc Degeneration of lumbar or lumbosacral intervertebral disc documented in this encounter Care Teams Solid Waste Collection Worker Relationship Specialty Start Date End Date Germaine Martinez MD 230 [place] [address] PCP - General Family Medicine 07/14/20 documented as of this encounter
--- OUTSIDE RECORDS SUMMARY | 2025-08-11 18:06 | XMS_ITS | Clinical Summary ---
Author Organization [employer] Address [address] [facility] 7[address] [place] [address] Care Team Providers Care Marketing Proposal Coordinator Name Role Phone Germaine Martinez MD Primary Care Provider [phone] Allergies Active Allergy Reactions Criticality Noted Date Comments Acetaminophen 03/22/2025 Other Reaction(s): GI Upset Oxycodone-Acetaminophen Itching Low 07/18/2017 Tramadol 03/22/2025 Other Reaction(s): GI Upset Medications insulin aspart (NovoLOG FLEXPEN) 100 UNIT/ML pen [...] Take 40 mg by mouth at bedtime. 03/06/2 023 Active Repatha SureClick 140 MG/ML injection [...] Reported on 07/13/2024 triamcinolone (Kenalog) 0.1 % creamIndications: Dermatitis Apply topically if needed in the morning and at bedtime for rash (itching and swelling). 30 g 2 024 Active naloxone (Narcan) 4 mg/0.1 mL nasal sprayIndications: Chronic, continuous use of opioids Administer 1 spray (4 mg) into affected nostril(s) if needed for opioid reversal. [place] 0.1 milliliter by intranasal route in 1 nostril may repeat dose every 2-3 minutes as needed alternating nostrils with each dose 2 each 3 Active metFORMIN XR (Glucophage-XR) 500 MG 24 hr tablet TAKE 1 TABLET BY MOUTH TWICE DAILY IN THE MORNING AND IN THE EVENING Active Bisacodyl EC 5 MG EC tablet TAKE 1 TABLET BY MOUTH AT BEDTIME 90 tablet 3 025 Active nortriptyline (Pamelor) 10 MG capsuleIndication s:Degeneration of lumbar intervertebral disc TAKE 2 CAPSULES BY MOUTH EVERY DAY AT BEDTIME 60 capsule 11 025 Active Diclofenac Sodium 1 % gelIndications:Ri ght tennis elbow,Right wrist tendonitis Apply 1 Application topically every 12 (twelve) hours if needed (apply on affected area if needed). 150 g 1 025 Active gabapentin (Neurontin) 400 MG capsuleIndication s:Degeneration of lumbar intervertebral disc,Type 2 diabetes mellitus with other specified complication, unspecified whether rn long term care insulin use (HCC) TAKE 1 CAPSULE BY MOUTH THREE TIMES DAILY IN THE MORNING, AT NOON, AND IN THE EVENING 90 capsule 11 Active cholecalciferol (Vitamin D3) 25 MCG (1000 UT) tabletIndications :Vitamin D deficiency TAKE 1 TABLET BY MOUTH EVERY MORNING 90 tablet 3 025 Active FREESTYLE LITE test stripIndications: Type 2 diabetes mellitus with other specified complication, unspecified whether rn long term care insulin use (HCC) TEST BLOOD SUGAR 8 TIMES EVERY DAY DIRECTED 200 strip 11 025 Active fluticasone (Flonase) 50 MCG/ACT nasal spray USE 1 SPRAY IN EACH NOSTRIL TWICE DAILY 48 g 3 Active dexlansoprazole (Dexilant) [address] capsule Take 1 capsule by mouth in the morning. Active empagliflozin (Jardiance) 25 MG Take 1 tablet (25 mg) by mouth Once per day. 90 tablet 3 08/11/20 25 4:56 PM EST 025 2025 Active Aspirin Low Dose 81 MG EC tablet TAKE 1 TABLET BY MOUTH AT BEDTIME 90 tablet 3 Active losartan (Cozaar) 25 MG tabletIndications :Elevated blood pressure reading TAKE 1 TABLET BY MOUTH EVERY MORNING 90 tablet 3 Active loratadine (Claritin) 10 MG tabletIndications :Dermatitis TAKE 1 TABLET BY MOUTH ONCE DAILY FOR FOR ALLERGIES 90 tablet 3 Active Continuous Glucose Soot Blower (FreeStyle Carlin 3 Elizabeth) device USE DIRECTED TO TEST BLOOD SUGAR EVERY DAY Active Continuous Glucose Sensor (FreeStyle Carlin 3 Plus Sensor) misc USE DIRECTED TO TEST BLOOD SUGAR CHANGE EVERY 15 DAYS Active famotidine (Pepcid) 40 MG tablet TAKE 1 TABLET BY MOUTH BEFORE SUPPER Active acetaminophen (Tylenol Extra Strength) 500 MG tablet Take 1 tablet (500 mg) by mouth every 6 (six) hours if needed for mild pain. 120 tablet 1 025 2024 Active doxepin (SINEquan) 25 MG capsule TAKE 1 CAPSULE BY MOUTH AT BEDTIME 90 capsule 3 08/11/20 25 4:56 PM EST 11/25/2 025 Active sertraline (Zoloft) 100 MG tablet TAKE 1 TABLET BY MOUTH EVERY MORNING 90 tablet 3 08/11/20 4:56 PM EST 025 Active oxyCODONE (Roxicodone) 5 MG immediate release tabletIndications :Lumbar facet joint pain Take 1 tablet (5 mg) by mouth every 6 (six) hours if needed for severe pain. Do not start before August 11, 2025. 112 tablet 08/11/20 4:56 PM EST 025 Active doxepin (SINEquan) 25 MG capsule TAKE 1 CAPSULE BY MOUTH AT BEDTIME 90 capsule 3 024 2024 Discontinued sertraline (Zoloft) 100 MG tablet Take 1 tablet (100 mg) by mouth Once per day. 90 tablet 3 024 2024 Discontinued oxyCODONE (Roxicodone) 5 MG immediate release tabletIndications :Lumbar facet joint pain Take 1 tablet (5 mg) by mouth every 6 (six) hours if needed for severe pain for up to 28 days. 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 Overview (07/09/2025): Dx: discogenic lumbar pain Rx: Oxycodone 5mg, every 6 hours Last [employer] agreement: Tier II (visit every 4 months) Additional considerations: trialed every 8 or 12 hour dosing of oxycodone, was not successful in alleviating pain Timeline: Back to every 6 hours for Aug-Oct 2024, decided to continue this dosing 07/09/25 she reports taking 5 doses of oxycodone daily, denies withdrawal Memory loss 03/28/2024 Assessment & Plan (03/28/2024 [...] loss (SNHL) of both ears 0 01/01/2023 Chest pain 02/12/2022 Overview (01/01/2023): Last [...] lumbar intervertebral disc 07/13 Assessment & Plan (07/09/2025 12:48 PM EDT): Patient has seen pain management and other types of interventionalists Does not want other types of medications including Butrans patch, Tramadol Recommend that she at least try taking Tylenol with her oxycodone (she has stomach upset in 2016 with Percocet and has not taken Tylenol since) Continue Gabapentin 400mg TID Continue Cilostazol 100mg BID Assessment & Plan (07/13/2024 2:10 PM EST): [...] testing, if that works, ideally would take [place] 7.5mg Hyperlipidemia 07/13/2015 Overview (08/26/2023): Last Assessment [...] and physical examination of adult 08/26/2023 02/03/2025 Allergy to pain medication 01/01/2023 1 Encounters Date Type Department Care Team Description 08/04/2025 Refill [facility] MEDICINE [address] [place] [phone] Germaine Martinez MD Lumbar facet joint pain 08/03/[address] [address] Germaine Martinez MD 07/29/2025 9:00 AM EST Telemedicine [address] [address] Omayra Gudino RN FDC current use of opiate analgesic 07/29/2025 Travel 07/20/2025 Orders Only GENERIC EXTERNAL DATA DEPARTMENT Provider, Generic External Data 07/09/2025 9:00 AM EDT Office Visit [address] [address] Germaine Martinez MD Lumbar facet joint pain (Primary Dx); Type 2 diabetes mellitus with diabetic neuropathy, with long-term current use of insulin (HCC); Essential hypertension, benign; Type 2 diabetes mellitus with hyperglycemia, with long-term current use of insulin (HCC); 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; Mixed anxiety and depressive disorder; Degeneration of intervertebral disc of lumbar region with discogenic back pain and lower extremity pain 07/09/2025 Travel 07/08/[address] [address] Germaine Martinez MD chart prep 07/06/2025 Refill [facility] & PEDS [address] [place] [address] Germaine Martinez MD Dermatitis 06/25/2025 1:30 PM EDT Telemedicine [address] [address] Omayra Gudino, RN FDC current use of opiate analgesic 06/25/2025 Telephone [facility] MEDICINE [address] [place] [address] Omayra Gudino, RN Oxycodone count discrepancy 06/25/2025 Travel 06/17/2025 Telephone [facility] MEDICINE [address] [place] [address] Germaine Martinez MD RECALL NOV 06/15/2025 Refill [facility] MEDICINE [address] [place] [address] Germaine Martinez MD Degeneration of lumbar intervertebral disc 05/18/2025 Refill [facility]ICINE [address] [place] [address] Germaine Martinez MD Degeneration of lumbar intervertebral disc from Last 3 Months Immunizations Immunization Administration [...] fied surface antigen) 07/21/2013 Influenza, trivalent, adjuvanted 06/21/2025,05/11 Pfizer Covid-19 Vaccine 12+ 09/16/2021,,11/24/2020 Pneumococcal Conjugate PCV 13 07/13/2015 Pneumococcal Conjugate PCV 20 04/23/2025 Pneumococcal Polysaccharide PPSV23 07/12/2016, TD (adult), 2 Lf tetanus tox oid, preservative free, adsorbed 05/01/2006 Tdap 04/23/2025,05/08/2013 Typhoid, ViCPs 01/02/2016 Zoster, Recombinant 12/28/2021,10/23/2021 Zoster, [...] Sign Reading Time Taken Comments Blood Pressure 130/80 07/09/2025 9:05 AM EDT Pulse 64 07/09/2025 9:05 AM EDT Temperature 36.7 C (98.1 F) 07/09/2025 9:05 AM EDT Respiratory Rate 20 07/09/2025 9:05 AM EDT Oxygen Saturation 98% 03/27/2024 9:47 AM EDT Inhaled Oxygen Concentration - - Weight 75.5 kg (166 lb 6.4 oz) 07/09/2025 9:05 A M EDT Height 152.4 cm (5') 07/09/2025 9:05 AM EDT Body Mass Index 32.5 07/09/2025 9:05 AM EDT Plan of Treatment Upcoming Encounters Date Type Department Care Team (Late st Contact Info) Description 11/05/2025 9:00 AM EST Telemedicine [facility] MEDICINE [address] [place] [address] Omayra Gudino, RN Health Maintenance Due Date Last Done Comments RSV Patients and Patients Aged 60 years or older (1 - 1-dose 75+ series) 2023 Lipid Panel 04/19/2024 04/19/2023, 03/09, 01/30/2023, Additional history exists SDOH Screening 12/09/2024 12/10/2023 Diabetes: Urine Protein Screening 12/18/2024 12/19/2023, 05/09/2021, 11/02/2020, Additional history exists COVID-19 Vaccine ( season) 2025 09/16/2021, 12/15/2020, 11/24/2020 Diabetes: Foot Exam 07/13/2025 07/13/2024, 07/13/2024, 12/19/2023 Diabetes: Hemoglobin A1C 10/09/2025 025, 05/12/2025, 02/02/2025, Additional history exists Depression Screening 02/02/2026 02/02/2025, 02/03/20 25 Alcohol/Substance Use Screening 02/03/2026 02/03/2025 Eye Exam 03/09/2026 03/09/2024 Tobacco Screening 07/09/2026 07/09/2025 DTaP/Tdap/Td Vaccines (3 - Td or Tdap) [...] age to complete this topic Sigmoidoscopy Discontinued Goals Goal Patient Goal Type Associated Problems Recent Progress Patient-Stated? Author Help patients manage their type 2 diabetes Care Plan Help patients manage their type 2 diabetes No Omayra Gudino RN Weekly blood pressure task Care Plan Weekly blood pressure task No Omayra Gudino, [place] Help patients manage their type 2 diabetes Care Plan Help patients manage their type 2 diabetes No Omayra Gudino, [place] Patient has chronic kidney disease Care Plan Patient has chronic kidney disease No Omayra Gudino RN Weekly blood pressure task Care Plan Weekly blood pressure task No Omayra Gudino RN Patient has chronic kidney disease Care Plan Patient has chronic kidney disease No Omayra Gudino RN Weekly blood pressure task Care Plan Weekly blood pressure task No Corry Mehta RN Weekly blood pressure task Care Plan Weekly blood pressure task No Corry Mehta RN Patient has chronic kidney disease Care Plan Patient has chronic kidney disease No Corry Mehta RN Patient has chronic kidney disease Care Plan Patient has chronic kidney disease No Corry Mehta RN Procedures Procedure Name Priority Date/Time Associated Diagnosis Comments HEMATOXYLIN AND EOSIN STAIN Routine 07/20/2025 8:36 AM EST GLUCOSE, WHOLE BLOOD Routine 07/20/2025 7:07 AM EST POCT GLYCATED HEMOGLOBIN, TOTAL Routine 07/09/2025 9:40 AM EDT Type 2 diabetes mellitus with diabetic neuropathy, with long-term current use of insulin (HCC) POCT GLUCOSE Routine 07/09/2025 9:05 AM EDT Type 2 diabetes mellitus with diabetic neuropathy, with long-term current use of insulin (HCC) HEPATITIS C AB W/REFL TO HCV RNA, QN, PCR Routine 12/19/2023 11:46 AM EDT Type 2 diabetes mellitus with diabetic neuropathy, with long-term current use of insulin (CMS/HCC) ALBUMIN, RANDOM URINE W/CREATININE Routine 12/19/2023 11:46 AM EDT Type 2 diabetes mellitus with diabetic neuropathy, with long-term current use of insulin (CMS/HCC) LIPID PANEL, STANDARD Routine 01/30/2023 9:44 AM EDT Type 2 diabetes mellitus without complication, unspecified whether skilled nursing insulin use (CMS/[facility]) HM COLONOSCOPY Routine 03/23/2013 8:10 AM EDT from Last 3 Months or Most Recently Relevant to Health Maintenance Results * Hematoxylin and Eosin Stain (07/20/2025 8:36 AM EST) 07/20/2025 8:36 AM EST 07/20/2025 11:45 AM EST [facility] LABS - 07/22/2025 2:52 PM EST ----- ------- Name: Tennille Philip Age/Sex: 74/F : 1950 [id number] Unit#: [id number] Attend Dr: Connie Vaca MD Re07/20/25 Status: [facility] Location: [facility] Disch: ----- ------- SPEC : [id number] RECD: 07/20/25 STATUS: LAURENCE FUENTES NUM: [id number] ERLINDA: 07/20/[address] [facility] [address]: Connie Vaca MD ENTERED: 07/20/25-1224 SP TYPE: Surgical OTHR DR: Germaine Martinez ORDERED: HE Stain/12, Gross Micro L4/4, IHC/2, Special st. 2/4, H. pylori/2, AB/PAS/4 Diagnosis A. Stomach, antrum, biopsy: Antral-type and oxyntic mucosa with moderate chronic inactive inflammation and intestinal metaplasia (incomplete type); negative for dysplasia; no Helicobacter organisms seen. B. Stomach, incisura, biopsy: Antral-type mucosa with moderate chronic inactive inflammation and intestinal metaplasia (incomplete type); negative for dysplasia; no Helicobacter organisms seen. C. Stomach, body, biopsy: Oxyntic mucosa with mild chronic inactive inflammation and intestinal metaplasia (incomplete type); negative for dysplasia; focal atrophy identified; no Helicobacter organisms seen. D. GE junction, biopsy: - Esposito esophagus with background mild chronic inactive inflammation. - No dysplasia seen. - Active esophagitis (maximum eosinophil count 1 per high powered field). Clinical History Pre-Op Dx: Esposito's esophagus without dysplasia Post-Op Dx: Gastritis, hiatal hernia, r/o Esposito's Microscopic Description A-D. Microscopic sections examined. Intestinal metaplasia is seen in A, B, C and D, supported by AB/PAS stains; no Helicobacter organisms are seen, supported by H. pylori immunostain (A and C). Material Received A. Gastric antrum bxs r/o metaplasia/dysplasia B. Incisura bxs r/o metaplasia/dysplasia C. Gastric body bxs r/o metaplasia/dysplasia D. GE junction bxs r/o Esposito's Gross Description A. Received in formalin are 3 celaya 2-4 mm soft tissue fragments, totally submitted in cassette A1. B. Received in formalin are 3 celaya 2-3 mm soft tissue fragments, totally submitted in cassette B1. C. Received in formalin are multiple celaya 1-3 mm soft tissue fragments, totally submitted in CONTINUED ON NEXT PAGE ----- ------- Name: Tennille Philip Age/Sex: 74/F : 1950 Unit#: [id number] Attend Dr: Connie Vaca MD Re07/20/25 Status: [facility] Location: [facility] Disch: ----- ------- SPEC : [id number] RECD: 07/20/[address] STATUS: LAURENCE FUENTES NUM: [id number] ERLINDA: 07/20/[address] [facility] [address]: Connie Vaca MD ENTERED: 07/20/25-1224 SP TYPE: Surgical OTHR DR: Germaine Martinez ORDERED: HE Stain/12, Gross Micro L4/4, IHC/2, Special st. 2/4, H. pylori/2, AB/PAS/4 Gross Description (Continued) cassette C1. D. Received in formalin are 5 celaya 1-3 mm soft tissue fragments, totally submitted in cassette D1. (DTL) Special studies ordered and performed: Immunostain for H. pylori on A and C; AB/PAS stains on A, B, C and D IHC S/NG Disclaimer NOTE: Unless otherwise stated, all tissue is formalin-fixed and paraffin-embedded. Some or all of the immunohistochemical tests reported herein may have been developed and their performance characteristics determined by [facility]. They have not been cleared or approved by the U.S. Food and Drug Administration (FDA). However, the FDA has determined that such clearance or approval is not necessary. This laboratory is certified under the Clinical Laboratory Improvement Amendments of 1988 (CLIA) as qualified to perform high complexity clinical laboratory testing. Copies To: Germaine Martinez [address] [address] Connie Vaca MD [facility] [address] [place] [id number] [email or web address] ----- ------- Signed (signature on file) Stephane Nguyen MD 07/22/25 1452 ----- ------- END OF REPORT Generic External Data Provider LAB BLOOD ORDERAB LES Final Result Performing Organization Address City/[facility]/ZIP Co de Phone Number [facility] [address] [place] [phone] * (ABNORMAL) Glucose, Whole Blood (07/20/2025 7:07 AM EST) Glucose, Whole Blood 146(H) 60 - 115 mg/dL [facility] Comment:METER #: [id number] 07/20/2025 7:07 AM EST 07/20/2025 7:10 AM EST Generic External Data Provider LAB BLOOD ORDERAB LES Final Result Performing Organization Address [facility] Co de Phone Number [facility] [address] [place] [phone] * (ABNORMAL) POCT Hgb A1c (07/09/2025 9:40 AM EDT) Hemoglobin A1C 8.5(A) 4.0 - 5.7 % QC Media Lot # [id number] Lot# Expiration Date 51,227 Blood 07/09/2025 9:40 AM EDT Result [facility] Germaine Martinez MD POINT OF CARE TEST ENTER/EDIT ORDERABLES Final Result * (ABNORMAL) POCT Glucose (07/09/2025 9:05 AM EDT) Glucose Blood, POC 274(A) 60 - 200 mg/dL QC Media Lot # [id number] Lot# Expiration Date 31,126 Blood Capillary blood specimen / Unknown 07/09/2025 9:05 AM EDT Result [facility] Germaine Martinez MD POINT OF CARE TEST ENTER/EDIT ORDERABLES Final Result * Albumin, Random Urine W/Creatinine (12/19/2023 11:46 AM EDT) Creatinine, Urine 34.93 mg/dL [facility] Microalbumin Urine 8.0 mg/L [facility] Microalbum Creatinine Ratio Ur 22.9 <30 ug/mg cr [facility] Comment:Albumin/Creatinine R atio Reference Ranges: Normal: < 30 ug/mg creatinine Microalbuminuria: 30 - 300 ug/mg creatinineClinical Albuminuria: > 300 ug/mg creatinine Urine (Urine, Random) 12/19/2023 11:46 AM EDT 12/19/2023 1:10 PM EDT Germaine Martinez MD LAB URINE ORDERABLES Final Res ult Performing Organization Address [facility] de Phone Number [facility] [address] [place] [phone] * Hepatitis C Antibody with Reflex to HCV, RNA, Quantitative, Real-Time PCR (12/19/2023 11:46 AM EDT) Hepatitis C Antibody Nonreactive Nonreactive [facility] Comment:Antibodies to HCV no t detected; does not exclude early acuteHCV infection. Blood Venous blood specimen / Unknown 12/19/2023 11:46 AM EDT 12/19/2023 1:16 PM EDT Germaine Martinez MD LAB BLOOD ORDERABLES Final Res ult Performing Organization Address [facility] Co de Phone Number [facility] [address] [place] [phone] * (ABNORMAL) Lipid Panel, Standard (01/30/2023 9:44 AM EDT) Cholesterol, Total 333(H) <200 mg/dL [facility] HDL Cholesterol 73 > OR = 50 mg/dL [facility] Triglycerides 107 <150 mg/dL [facility] LDL Cholesterol 236(H) mg/dL (calc) [facility] Comment: LDL-C levels > or = 190 [...] about testing for familial hypercholesterolemia, please call [facility] at [email or web address]. Lawrence T, et al. J National Lipid Association Recommendations for Patient-Centered Management of Dyslipidemia: Part 1 Journal of Clinical Lipidology 2015;9(2), 129-169. Dick Perez et al. (2014). Homozygous familial hypercholesterolaemia: new insights and guidance for clinicians to improve detection and clinical management. Heart Journal, 35(32), 1585-7725. Reference range: <100 Desirable range <100 mg/dL for primary prevention; <70 mg/dL for patients with CHD or diabetic patients with > or = 2 CHD risk factors. LDL-C is now calculated using the Lokesh-Ohara calculation, which is a validated novel method providing better accuracy than the Friedewald equation in the estimation of LDL-C. Lokesh KEYES et al. ESTHER. 2013;310(19): 7038-5561 (http://education.[employer]/faq/WRA865) Chol/HDLC Ratio 4.6 <5.0 (calc) [facility] Non-HDL Cholesterol 260(H) <130 mg/dL (calc) [facility] Comment: Non-HDL level > or = 220 [...] BLOOD ORDERABLES Final Res ult [facility] [address], [place] [phone] [facility] [address] [place] [phone] * Hm Colonoscopy (03/23/2013 8:10 AM EDT) us Historical Provider HEALTH MAINTENANCE Final Result from Last 3 Months or Most Recently Relevant to Health Maintenance Additional Health Concerns Active Problems Noted Date Diagnosed Date Help patients manage their type 2 diabetes 07/29 Weekly blood pressure task 07/29/2025 Help patients manage their type 2 diabetes 07/29 Patient has chronic kidney disease 07/29/2025 Weekly blood pressure task 07/29/2025 Patient has chronic kidney disease 07/29/2025 Weekly blood pressure task 08/04/2025 Weekly blood pressure task 08/04/2025 Patient has chronic kidney disease 08/04/2025 Patient has chronic kidney disease 08/04/2025 Insurance * Guarantor: Tennille Philip Account Type Relation to Patient Date of Phone Billing Address Personal/Family Self 1950 [address] [place] [address] [facility] [employer]IONS (HMO D-SNP) [facility] STANDARD Care Teams Marketing Proposal Coordinator Relationship Specialty Start Date End Date Germaine Martinez MD [address] [place] [address] PCP - General Family Medicine 07/14/20
--- OUTSIDE RECORDS SUMMARY | 2025-08-11 18:06 | XMS_ITS | Encounter Summary ---
Author Organization [employer] Address [address] [place] [address] Care Team Providers Care Paper Reclaiming Machine Operator Name Role Phone Germaine Martinez MD Primary Care Provider [phone] Reason for Visit * Reason Comments Med Refill Encounter Details Date Type Department Care Team (Late st Contact Info) Description 09/13/2023 Refill [facility] MEDICINE [address] [place], [place] [phone] Germaine Martinez MD [address] [place], [place] [phone] Degeneration of lumbar intervertebral disc; Type 2 diabetes mellitus with other specified complication, unspecified whether 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 insulin use ([facility]) Social History Tobacco Use Types Packs/Day [...] Info) Description 11/05/2025 9:00 AM EST Telemedicine [facility] MEDICINE [address] [place] [address] Omayra Gudino RN documented as of this encounter Visit Diagnoses Diagnosis Degeneration of lumbar intervertebral disc Degeneration of lumbar or lumbosacral intervertebral disc Type 2 diabetes mellitus with other specified complication, unspecified whether mcc insulin use (HCC) documented in this encounter Additional Health Concerns Assessment Noted Time PHQ-9 Depression Total Score: 1 08/26/20 23 1:07 PM EST documented as of this encounter Care Teams Paper Reclaiming Machine Operator Relationship Specialty Start Date End Date Germaine Martinez MD [address] [place] [address] PCP - General Family Medicine 07/14/20 documented as of this encounter
--- OUTSIDE RECORDS SUMMARY | 2025-08-11 18:06 | XMS_ITS | Encounter Summary ---
Author Organization Located Within [facility] Address [address] [place] [address] Phone Care Team Providers Care Retail Shift Manager Name Role Phone Sanjay James NP Primary Care Provider [phone] Germaine Martinez MD Primary Care Provider + Germaine Martinez MD Primary Care Provider + Encounter Details Date Type Department Care Team (Latest Contact Info) Description 07/04/2021 Ancillary Orders [facility] [address] [place] [address] Dr 3rd Floor, [address] [place] [address] Venessa Kaye MD [address] [place] [address] [email or web address] PVD (peripheral vascular disease) Social History Tobacco [...] Description 10/08/2025 9:20 AM EST Office Visit [facility] [address] [facility] 3rd Floor, [address] [place] [address] Ray Cid MD [address] [place] [address] 11/08/2025 9:40 AM EST Office Visit [facility] [address] [place] [address] [place] [address] Aixa Kong MD [address] [place] [address], 1st [place] [address] 04/21/2026 9:10 AM EDT Office Visit [facility] [address] [place] [address] [place] [address] Hilario Peguero DO [address] [place] [address] documented as of this encounter Results * [...] disease documented in this encounter Care Teams Retail Shift Manager Relationship Specialty Start Date End Date Sanjay James NP [address] [place] [address] PCP - General Family Medicine 03/14/21 01/17/22 Germanie Martinez MD [address] [place] [address] PCP - General 01/18/22 09/14/24 Germaine Martinez MD [address] [place] [address] PCP - General Family Medicine 09/15/24 documented as of this encounter Additional Source Comments The information contained in this document represents components of the legal health record. It is not the complete legal health record.[facility]
--- OUTSIDE RECORDS SUMMARY | 2025-08-11 18:06 | XMS_ITS | Clinical Summary ---
Author Organization [facility] Address [address] [facility] [address] [address] [place] [address] Phone Care Team Providers Care Arboreal Scientist Name Role Phone Germaine Martinez MD Primary [...] Take 60 mg by mouth daily. Active nystatin (NYSTOP) powder Apply topically 3 [...] ULTRA-FINE AGUILAR PEN NEEDLE) 32 gauge x 32 NdleIndications:T ype 2 diabetes mellitus with diabetic [...] ML SUBCUTANEOUSLY EVERY 14 DAYS 6 mL 3 04/29/20 25 Active FREESTYLE CARLIN 3 READER MiscIndications:T ype 2 diabetes mellitus with diabetic neuropathy, with long-term current use of insulin by Miscellaneous route daily. 1 each 05/12/20 25 Active metFORMIN (GLUCOPHAGE-XR) 500 MG 24 hr tabletIndications :Type 2 diabetes mellitus with diabetic neuropathy, with long-term current use of insulin Take 1 tablet (500 mg total) by mouth 2 (two) times a day. E11.42 180 tablet 3 06/02/20 25 Active FREESTYLE CARLIN 3 PLUS SENSOR DeviIndications:T ype 2 diabetes mellitus with diabetic neuropathy, with long-term current use of insulin,Hypoglyce brandyn due to insulin,Long-term insulin use Apply as directed every 15 days E11.42 Z79.4 2 each 08/09/20 25 Active lancets (TRUEPLUS LANCETS) 33 gauge MiscIndications:T ype 2 diabetes mellitus with diabetic neuropathy, with long-term current use of insulin Inject 1 each into the skin 6 (six) times a day. 200 each 08/09/20 25 Active lancets (TRUEPLUS LANCETS) 33 gauge MiscIndications:T ype 2 diabetes mellitus with diabetic neuropathy, with long-term current use of insulin Inject 1 each into the skin 6 (six) times a day. 200 each 08/10/20 24 025 Disconti nued(Reo rder) FREESTYLE CARLIN 3 PLUS SENSOR DeviIndications:T ype 2 diabetes mellitus with diabetic neuropathy, with long-term current use of insulin,Hypoglyce brandyn due to insulin,Long-term insulin use Apply as directed every 15 days E11.42 Z79.4 2 each 05/12/20 25 025 Disconti nued(Reo rder) Active Problems Problem Noted Date Diagnosed [...] (02/12/2022 9:15 AM EDT): She presented to [facility] ED on 01/18/2022 with chest pain. [...] Will follow-up in 6 months with her coutierier. Assessment & Plan (07/14/2024 5:03 PM EST): [...] to exercise regularly as tolerated [facility] & Plan (01/31/2018 9:40 AM [...] Metformin bid daily, Tennille reported through the cook fry today that she only takes this when [...] technical issues with this, we discussed contacting [employer] for replacement sensors if these do not [...] levels, encouraged to seek referral to another forest ecology professor and/or pain management to help with medication [...] set up audible and vibration alarms on Tennille' FSL reader, and adjusted the low alert [...] better with Dexcom G6, we will contact Tennille for a Dexcom G6 Pro evaluation to [...] Encounters Date Type Department Care Team Description 08/10/2025 Telephone [facility] [address] [place] [address] Alexus Prakash Forms & Paperwork 2025 Refill [facility] [address] [place] [address] [place] [address] Ayesha Doyle MA Medication Refill 07/15/2025 Telephone [facility] [address] [place] [address] 3rd Floor, [address] [place] [address] Saima Callejas, PA-C 07/14/2025 Telephone [facility] [address] [place] [address] 3rd Floor, [address] [place] [address] Saima Callejas, PA-C 06/02/2025 Telephone [facility] [address] [place] [address] [place] [address] Cathy Morales CMA 06/02/2025 Refill [facility] [address] [place] [address] [place] [address] Kita Park MA 05/17/2025 Telephone [facility] [address] [place] [address] Ayesha Doyle MA Medication Prior Authorization 05/12/2025 10:20 AM EDT Office Visit [facility] [address] [place] [address] Aixa Kong MD Type 2 diabetes mellitus with diabetic neuropathy, with long-term current use of insulin (Primary Dx); Hypoglycemia due to insulin; Long-term insulin use; Benign essential hypertension; Hyperlipidemia, unspecified hyperlipidemia type; Postablative hypothyroidism 05/12/2025 Telephone [facility] [address] [place] [address] Ayesha Doyle MA Medication Prior Authorization from Last 3 Months Immunizations Immunization Administration [...] Description 10/08/2025 9:20 AM EST Office Visit [facility] [address] [place] [address] 3rd Floor, [address] [place] [address] Ray Cid MD [address] [place] [address], [address] [address] 11/08/2025 9:40 AM EST Office Visit [facility] [address] [place] [address] [place] [address] Aixa Kong MD [address] [place] [address], 1st [place] [address] 04/21/2026 9:10 AM EDT Office Visit [facility] [address] [place] [address] Hilario Peguero DO 22 [place] [address] [email or web address] Health Maintenance Due Date Last Done Comments DEPRESSION SCREENING 1960 HEPATITIS C SCREENING 1966 OSTEOPOROSIS SCREENING INITIAL (ONE-TIME) 2013 DIABETIC EYE EXAM 07/13/2017 RSV VACCINE (1 - 1-dose 75+ series) 2023 INFLUENZA VACCINE (#1) 2025 , 05/21/2023, 06/27/2022, Additional history exists CREATININE LEVEL 04/10/2025 04/10/2024, , 04/19/2023, Additional history exists POTASSIUM LEVEL 04/10/2025 04/10/2024, 01/08, 04/19/2023, Additional history exists COVID-19 VACCINE (2024- season) 2025 09/16/2021, 12/15/2020, 11/24/2020 HEMOGLOBIN A1C 08/11/2025 05/12/2025, 01/08, 11/02/2024, Additional history exists BLOOD PRESSURE 11/09/2025 [...] neuropathy, with long-term current use of insulin THYROID STIMULATING HORMONE (TSH) Routine 04/21/2025 4:00 PM EDT Postablative hypothyroidism COMPREHENSIVE METABOLIC PANEL (CMP) Routine 04/10/2024 9:01 AM EDT PVD (peripheral vascular disease) Varicose veins of both legs with edema Pure hypercholesterolemia Type 2 diabetes mellitus with diabetic neuropathy, with long-term current use of insulin from Last 3 Months or Most Recently Relevant to Health Maintenance Results * (ABNORMAL) POCT Hemoglobin A1c (05/12/2025 10:48 AM EDT) Hemoglobin A1c 8.8(A) 4.2 - 5.6 % [facility] Other 05/12/2025 10:4 8 AM EDT us Aixa Kong MD LAB POCT ENTER/EDIT ORDERABLES Final Result Performing Organization Address City/[facility]/ZIP Co de Phone Number [address] [address], [facility] * TSH (04/21/2025 4:00 PM EDT) TSH 3.80 0.27 - 4.20 uIU/mL [facility] Blood 04/21/2025 4:00 PM EDT 04/21/2025 4:06 PM EDT us Hilario Peguero DO LAB BLOOD BKR ORDERABLES Final R esult [address] [place] [address] * (ABNORMAL) Comprehensive metabolic panel (04/10/2024 9:01 AM EDT) SODIUM 141 133 - 146 mmol/L [facility] POTASSIUM 4.4 3.3 - 5.1 mmol/L [facility] CHLORIDE 102 96 - 108 mmol/L [facility] CO2 31 21 - 35 mmol/L [facility] BUN 15 6 - 19 mg/dL [facility] CREATININE 0.70 0.5 - 1.5 mg/dL [facility] GLUCOSE 170(H) 70 - 99 mg/dL [facility] ALBUMIN 3.6(L) 3.9 - 4.8 g/dL [facility] TOTAL PROTEIN 6.9 6.5 - 8.0 g/dL [facility] CALCIUM 9.2 8.4 - 10.3 mg/dL [facility] ALKALINE PHOSPHATASE 88 39 - 117 U/L [facility] TOTAL BILIRUBIN 0.3 0.0 - 1.2 mg/dL [facility] AST 16 0 - 37 U/L [facility] ALT 10 0 - 40 U/L [facility] GLOBULIN 3.3 1 - 4.8 g/dL [facility] EGFR 90 >59 mL/min/1.7 3m2 [facility] Comment:Estimated glomerular filtration rate calculated using the CKD-EPI refit equation. ANION GAP 12 10 - 20 mmol/L [facility] Blood 04/10/2024 9:01 AM EDT 04/10/2024 9:05 AM EDT us Ray Cid MD LAB BLOOD BKR ORDERABLES Fi nal Result [address] [address] from Last 3 Months or Most Recently Relevant to Health Maintenance Insurance [facility] MEDICARE REPLACEMENT MEDICARE REPLACEMENT MEDICARE REPLACEMENT MEDICARE REPLACEMENT MEDICARE REPLACEMENT MEDICARE REPLACEMENT Care Teams Arboreal Scientist Relationship Specialty Start Date End Date Germaine Martinez MD PCP - General Family Medicine 09/15/24 Additional Source Comments The information contained in this document represents components of the legal health record. It is not the complete legal health record.[facility]
--- OUTSIDE RECORDS SUMMARY | 2025-08-11 18:06 | XMS_ITS | Encounter Summary ---
Author Organization [employer] Address [address] 7t [place] [address] Care Team Providers Care Solar Energy Sales Specialist Name Role Phone Germaine Martinez MD Primary Care Provider [phone] Reason for Visit * Reason Comments Med Refill Encounter Details Date Type Department Care Team (Late st Contact Info) Description 08/04/[address] [facility] [address] [place], [place] [phone] Germaine Martinez MD [address] [place], [place] [phone] Lumbar facet joint pain Social History Tobacco Use Types Packs/Day Years [...] encounter Miscellaneous Notes * Telephone Encounter - Corry Mehta RN - 08/04/2025 3:01 PM EST [facility] reviewed, pt. Last picked up 28 day supply 07/14/25. Will be due 08/11/25. Postponing messageto pend to PCP 08/10/25. documented in this encounter Plan of Treatment Upcoming Encounters Date Type Department Care Team (Late st Contact Info) Description 11/05/2025 9:00 AM EST Telemedicine [facility] [address] [place] [address] Omayra Gudino RN documented as of this encounter Goals Goal Patient Goal Type Associated Problems Recent Progress Patient-Stated? Author Help patients manage their type 2 diabetes Care Plan Help patients manage their type 2 diabetes No Oamyra Gudino, [place] Weekly blood pressure task Care Plan Weekly blood pressure task No Omayra Gudino RN Help patients manage their type 2 diabetes Care Plan Help patients manage their type 2 diabetes No Omayra Gudino, RN Patient has chronic kidney disease Care Plan Patient has chronic kidney disease No Omayra Gudino, [place] Weekly blood pressure task Care Plan Weekly [...] chronic kidney disease No Corry Mehta RN documented as of this encounter Visit Diagnoses Diagnosis Lumbar facet joint pain documented in this encounter Additional Health Concerns Active Problems Noted Date [...] 08/04/2025 Patient has chronic kidney disease 08/04/2025 Assessment Noted Time PHQ-9 Depression Total Score: 0 02/03/20 25 10:52 AM EDT documented as of this encounter Care Teams Solar Energy Sales Specialist Relationship Specialty Start Date End Date Germaine Martinez MD [address] [place] [address] PCP - General Family Medicine 07/14/20 documented as of this encounter
--- OUTSIDE RECORDS SUMMARY | 2025-08-11 18:06 | XMS_ITS | Encounter Summary ---
Author Organization [facility] Address [address] [place] [address] Phone Care Team Providers Care Busher Helper Name Role Phone Sanjay James DERIVATIVES TRADER Primary Care Provider [phone] Sanjay James DERIVATIVES TRADER Primary Care Provider [phone] Germaine Martinez MD Primary Care Provider + Germaine Martinez MD Primary Care Provider + Encounter Details Date Type Department Care Team (Latest Contact Info) Description 03/27/2018 Transcribe Orders [facility] [address], [address] [place] [address] Venessa Kaye MD [address] [place] [address] [email or web address] Deep vein thrombosis (DVT) of distal vein [...] Description 10/08/2025 9:20 AM EST Office Visit [facility] [address] [place] [address] 3rd Floor, [address] [place] [address] Ray Cid MD [address] [place] [address], [address] [address] 11/08/2025 9:40 AM EST Office Visit [facility] [address] [place] [address] [place] [address] Aixa Kong MD [address] [place] [address], 1st [place] [address] 04/21/2026 9:10 AM EDT Office Visit [facility] [address] [place] [address] [place] [address] Hilario Peguero DO [address] [place] [address] documented as of this encounter Visit Diagnoses Diagnosis Deep vein thrombosis (DVT) of distal vein of lower extremity, unspecified chronicity, unspecified laterality- Primary documented in this encounter Care Teams Busher Helper Relationship Specialty Start Date End Date Sanjay James NP [address] [place] [address] PCP - General Family Medicine 07/18/17 03/13/21 Sanjay James NP [address] [place] [address] PCP - General Family Medicine 03/14/21 01/17/22 Germaine Martinez MD [address] [place] [address] PCP - General 01/18/22 09/14/24 Germaine Martinez MD [address] [place] [address] PCP - General Family Medicine 09/15/24 documented as of this encounter Additional Source Comments The information contained in this document represents components of the legal health record. It is not the complete legal health record.[facility]
--- OUTSIDE RECORDS SUMMARY | 2025-08-11 18:06 | XMS_ITS | Encounter Summary ---
Author Organization [facility] Address [address] [place] [address] Phone Care Team Providers Care Business Center Representative Name Role Phone Germaine Martinez MD Primary Care Provider + Germaine Martinez MD Primary Care Provider + Encounter Details Date Type Department Care Team (Late st Contact Info) Description 02/01/2024 Procedure Pass [facility], Ct Scan - [facility] [address] [place] [address] Social History Tobacco Use Types Packs/Day Years [...] 1:03 PM EDT Cathi Jay RN * [place] Suicide Severity Rating Scale (Screener/Recent Self-Report) Question [...] Description 10/08/2025 9:20 AM EST Office Visit [facility] [address]rd Floor, [address] [address] Ray Cid MD [address] [place] [address] 11/08/2025 9:40 AM EST Office Visit [facility] [address] [place] [address] Aixa Kong MD [address] [place] [address], 1st [place] [address] 04/21/2026 9:10 AM EDT Office Visit [facility] [address] [place] [address] Hilario Peguero DO [address] [place] [address] documented as of this encounter Visit Diagnoses Not on filedocumented in this encounter Care Teams Business Center Representative Relationship Specialty Start Date End Date Germaine Martinez MD PCP - General 01/18/22 09/14/24 Germaine Martinez MD PCP - General Family Medicine 09/15/24 documented as of this encounter Additional Source Comments The information contained in this document represents components of the legal health record. It is not the complete legal health record.[facility]
--- OUTSIDE RECORDS SUMMARY | 2025-08-11 18:06 | XMS_ITS | Encounter Summary ---
Author Organization [facility] Address [address] [place] [address] Phone Care Team Providers Care Prepared Foods Service Team Member Name Role Phone Sanjay James ROTARY HELPER Primary Care Provider [phone] Sanjay James ROTARY HELPER Primary Care Provider [phone] Germaine Martinez MD Primary Care Provider + Germaine Martinez MD Primary Care Provider + Encounter Details Date Type Department Care Team (Latest Contact Info) Description 08/12/2018 Ancillary Orders [facility] 3[address], [address] [place] [address] Venessa Kaye MD [address] [place] [address] [email or web address] PVD (peripheral vascular disease); Other specified symptoms [...] Description 10/08/2025 9:20 AM EST Office Visit [facility] [address] [place] [address] 3rd Floor, [address] [place] [address] Ray Cid MD [address] [place] [address], [address] [address] 11/08/2025 9:40 AM EST Office Visit [facility] [address] [place] [address] Aixa Kong MD [address] [place] [address], 1st [place] [address] 04/21/2026 9:10 AM EDT Office Visit [facility] [address] [place] [address] Hilario Peguero DO [address] [place] [address] documented as of this encounter Results * [...] systems documented in this encounter Care Teams Prepared Foods Service Team Member Relationship Specialty Start Date End Date Sanjay James NP [address] [place] [address] PCP - General Family Medicine 07/18/17 03/13/21 Sanjay James NP [address] [place] [address] PCP - General Family Medicine 03/14/21 01/17/22 Germaine Martinez MD [address] [place] [address] PCP - General 01/18/22 09/14/24 Germaine Martinez MD 230 [place] [address] PCP - General Family Medicine 09/15/24 documented as of this encounter Additional Source Comments The information contained in this document represents components of the legal health record. It is not the complete legal health record.[facility]
--- OUTSIDE RECORDS SUMMARY | 2025-08-11 18:07 | XMS_ITS | Encounter Summary ---
Author Organization [facility] Address [address] [place] [address] Phone Care Team Providers Care Barrel Turner Name Role Phone Sanjay James ACCOUNT DEVELOPMENT EXECUTIVE Primary Care Provider [phone] Sanjay James ACCOUNT DEVELOPMENT EXECUTIVE Primary Care Provider [phone] Germaine Martinez MD Primary Care Provider + Germaine Martinez MD Primary Care Provider + Encounter Details Date Type Department Care Team (Latest Contact Info) Description 11/28/2018 Ancillary [facility] [address] [place] [address] Venessa Kaye MD [address] [place] [address] [email or web address] PVD (peripheral vascular disease) Social History Tobacco [...] Description 10/08/2025 9:20 AM EST Office Visit [facility] [address] [facility] 3rd Floor, [address] [place] [address] Ray Cid MD [address] [place] [address], [address] [address] 11/08/2025 9:40 AM EST Office Visit [facility] 22 [place] [address] Aixa Kong MD [address] [place] [address], 1st [place] [address] 04/21/2026 9:10 AM EDT Office Visit [facility] 22 [place] [address] Hilario Peguero DO [address] [place] [address] documented as of this encounter Results * [...] disease documented in this encounter Care Teams Barrel Turner Relationship Specialty Start Date End Date Sanjay James NP [address] [place] [address] PCP - General Family Medicine 07/18/17 03/13/21 Sanjay James NP [address] [place], [place] [phone] PCP - General Family Medicine 03/14/21 01/17/22 Germaine Martinez MD [address] [place], [place] [phone] PCP - General 01/18/22 09/14/24 Germaine Martinez MD [address] [place] [address] PCP - General Family Medicine 09/15/24 documented as of this encounter Additional Source Comments The information contained in this document represents components of the legal health record. It is not the complete legal health record.[facility]
--- OUTSIDE RECORDS SUMMARY | 2025-08-11 18:07 | XMS_ITS | Encounter Summary ---
Author Organization [facility] Address [address] [place] [address] Phone Care Team Providers Care Neuroscience Specialist Name Role Phone Sanjay James RETORT LOAD EXPEDITER Primary Care Provider [phone] Sanjay James RETORT LOAD EXPEDITER Primary Care Provider [phone] Germaine Martinez MD Primary Care Provider + Germaine Martinez MD Primary Care Provider + Encounter Details Date Type Department Care Team (Late st Contact Info) Description 09/07/2020 Procedure Pass [facility], [address] [place] [address] Social History Tobacco Use Types Packs/Day Years [...] Description 10/08/2025 9:20 AM EST Office Visit [facility] [address] 3rd Floor, [address] [place] [address] Ray Cid MD [address] [place] [address], [address] [place] [address] 11/08/2025 9:40 AM EST Office Visit [facility] [address] [place] [address] [place] [address] Aixa Kong MD [address] [place] [address], 1st [place] [address] 04/21/2026 9:10 AM EDT Office Visit [facility] [address] [place] [address] [place] [address] Hilario Peguero DO [address] [place] [address] documented as of this encounter Visit Diagnoses Not on filedocumented in this encounter Care Teams Neuroscience Specialist Relationship Specialty Start Date End Date Sanjay James NP [address] [place] [address] PCP - General Family Medicine 07/18/17 03/13/21 Sanjay James NP [address] [place] [address] PCP - General Family Medicine 03/14/21 01/17/22 Germaine Martinez MD 230 [place] [address] PCP - General 01/18/22 09/14/24 Germaine Martinez MD 230 [place] [address] PCP - General Family Medicine 09/15/24 documented as of this encounter Additional Source Comments The information contained in this document represents components of the legal health record. It is not the complete legal health record.[facility]
--- OUTSIDE RECORDS SUMMARY | 2025-08-11 18:07 | XMS_ITS | Encounter Summary ---
Author Organization [facility] Address [address] [facility] [address] [place] [address] Phone Care Team Providers Care Bleach Supervisor Name Role Phone Sanjay James NP Primary Care Provider [phone] Sanjay James NP Primary Care Provider [phone] Germaine Martinez MD Primary Care Provider + Germaine Martinez MD Primary Care Provider + Reason for Referral * MRI/CAT Scan - Closed Specialty Diagnoses / Procedures Referred By Contac t Referred To Contact Radiology Diagnoses Radiculopathy, lumbar region Procedures MRI Lumbar Spine Lisa Gudino NP Phone: tel: fax: mailto: abraham Referral ID Status Reason Start Date Expiration Date Visits Re quested Visits Authorized [id number] Closed 07/20/2020 10/20/2020 1 1 Encounter Details Date Type Department Care Team (Latest Contact Info) Description 09/07/2020 Transcribe Orders Virtual Department [address] [place] [address] Lisa Gudino NP [address] [place] [phone] [email or web address] Radiculopathy, lumbar region (Primary Dx) Social [...] Description 10/08/2025 9:20 AM EST Office Visit [facility] [address] [place] [address] 3rd [facility], [address] [place] [address] Ray Cid MD [address] [place] [address] 11/08/2025 9:40 AM EST Office Visit [facility] [address] [place] [address] Aixa Kong MD [address] [place] [address], 1st [place] [address] 04/21/2026 9:10 AM EDT Office Visit [facility] [address] [place] [address] [place] [address] Hilario Peguero DO [address] [place] [address] documented as of this encounter Results * [...] on the left at the L3 and Q5kginu root exits. No high-grade central canal stenosis. Fibroids.Distended bladder. Lisa Gudino NP IMG MR XSPECIALTY Final Result documented in this encounter Visit Diagnoses Diagnosis Radiculopathy, lumbar region- Primary Thoracic or lumbosacral neuritis or radiculitis, unspecified Radiculopathy, lumbar region Thoracic or lumbosacral neuritis or radiculitis, unspecified documented in this encounter Care Teams Bleach Supervisor Relationship Specialty Start Date End Date Sanjay James NP [address] [place] [address] PCP - General Family Medicine 07/18/17 03/13/21 Sanjay James NP [address] [place] [address] PCP - General Family Medicine 03/14/21 01/17/22 Germaine Martinez MD [address] [place] [address] PCP - General 01/18/22 09/14/24 Germaine Martinez MD [address] [place] [address] PCP - General Family Medicine 09/15/24 documented as of this encounter Additional Source Comments The information contained in this document represents components of the legal health record. It is not the complete legal health record.[facility]
== END 2025-08-11 16:09 | disposition home or self-care (01) ==
LOC: HO.HGI 15:05
PROVIDERS: PCP General Practice; Visit Provider Nurse Practitioner
DX: K21.9 Gastro-esophageal reflux disease without esophagitis (principal); K44.9 Diaphragmatic hernia without obstruction or gangrene; K30 Functional dyspepsia; E11.9 Type 2 diabetes mellitus without complications
CPT/HCPCS: 99213

== ENCOUNTER → 2025-08-11 15:04 | Outpatient (BNVA) | payer OTHER, SELFPAY | PROVIDERS: PCP General Practice; Visit Provider Nurse Practitioner | DX: K21.9 Gastro-esophageal reflux disease without esophagitis (principal); K44.9 Diaphragmatic hernia without obstruction or gangrene; K30 Functional dyspepsia; E11.9 Type 2 diabetes mellitus without complications; Z79.899 Other long term (current) drug therapy | CPT/HCPCS: 99212 ==

== ENCOUNTER → 2025-09-08 08:04 | Outpatient (REF) | payer OTHER, SELFPAY ==
--- NOTE | ~2025-09-08 | NM_ITS ---
EXAMINATION: NM RADIONUCLIDE SOLID FOOD GASTRIC EMPTYING 4-HOUR STUDY CLINICAL INFORMATION: K30 - Functional dyspepsia COMPARISON: There are no prior studies available for comparison. TECHNIQUE: A standard meal consisting of 4 oz of Egg Beaters brand tagged with 0.90 mCi Tc-99m Sulfur Colloid, 6 oz water and 1 slice of toast with jelly was administered orally to the patient. Images were obtained using a dual head gamma camera in the anterior and posterior projections over of the stomach immediately post ingestion and at hourly intervals up to 4 hours post ingestion. The anterior and posterior counts at each time interval were averaged using the geometric mean and expressed as percentage of the immediate post ingestion counts. FINDINGS: There is visualization of activity in the stomach immediately post ingestion. As the study progresses, there is clearance of activity from the stomach and visualization of progressively increasing small bowel activity. Retention in the stomach at each time interval was: 1 hour 80% (normal 37%-90%) 2 hours 14% (normal 30%-60%) 3 hours 5% NM/PR gastric emptying study IMPRESSION: Normal 4-hour solid food gastric emptying study. For solid meal, rapid gastric emptying is less than 30% at 60 minutes. Delayed gastric emptying criteria is more than 60% remaining at 120 minutes or more than 10% at 240 minutes. The 4-hour value is the best discriminator of a normal or abnormal result. Gastric emptying study grading per JNMT Consensus Recommendations in 2008 (https://tech.snmjournals.org/content/36/1/44) Grade 1 (mild retention): 11-20% at 4h Grade 2 (moderate retention): 21-35% at 4h Grade 3 (severe retention): 36-50% at 4h Grade 4 (very severe retention): >50% retention at 4h Electronically signed by: Steve Miller MD 09/08/2025 12:03 PM [facility]
--- OUTSIDE RECORDS SUMMARY | 2025-09-08 08:07 | XMS_ITS | Encounter Summary ---
Author Organization Instant Information [facility] Address [address] [facility] 7t [place] [address] Care Team Providers Care Rolling Mill Operator Name Role Phone Germaine Martinez MD Primary Care Provider [phone] Reason for Visit * Reason Comments Med Refill Encounter Details Date Type Department Care Team ([facility] Contact Info) Description 12/03/2022 Refill [facility] [address] [place], [place] [phone] Germaine Martinez MD [address] [place] [phone] Sacroiliitis (CMS/HCC) Social History Tobacco Use Types [...] Upcoming Encounters Date Type Department Care Team ([facility] Contact Info) Description 11/05/2025 9:00 AM EST Telemedicine [facility] [address] [place] [address] [phone] Omayra Gudino RN documented as of this encounter Visit Diagnoses Diagnosis Sacroiliitis (CMS/HCC) Sacroiliitis, not elsewhere classified documented in this encounter Care Teams Rolling Mill Operator Relationship Specialty Start Date End Date Germaine Martinez MD [address] [place] [address] [phone] PCP - General Family Medicine 07/14/20 documented as of this encounter
--- OUTSIDE RECORDS SUMMARY | 2025-09-08 08:07 | XMS_ITS | Clinical Summary ---
Author Organization [facility] Address [address] [facility] [address] [place] [address] Phone Care Team Providers Care Dry Chain Puller Name Role Phone Germaine Martinez MD Primary [...] FLEXPEN U-100 INSULIN 100 unit/mL (3 mL) flexpenIndications :Type 2 diabetes mellitus with diabetic neuropathy, with long-term current use of insulin Inject 15 Units under the skin 3 (three) times a day with meals. 45 mL 3 10/12/19 25 Active insulin pen needles, disposable, (BD ULTRA-FINE AGUILAR PEN NEEDLE) 32 gauge x 32 NdleIndications:Ty pe 2 diabetes mellitus with diabetic neuropathy, with long-term current use of insulin USE DIRECTED UP TO 5 TIMES DAILY DIRECTED. 150 each 11 11/02/19 25 Active rosuvastatin (CRESTOR) 40 MG tablet TAKE 1 TABLET BY MOUTH AT BEDTIME 90 tablet 3 01/08/20 25 Active cilostazol (PLETAL) 100 MG tabletIndications: PVD (peripheral vascular disease) TAKE 1 TABLET BY MOUTH TWICE DAILY IN THE MORNING AND IN THE EVENING 180 tablet 3 04/08/20 25 Active levothyroxine (SYNTHROID, LEVOTHROID) 75 MCG tabletIndications: Postablative hypothyroidism Take 1 tablet (75 mcg total) by mouth every morning. 90 tablet 4 04/22/20 25 Active insulin glargine (LANTUS SOLOSTAR U-100 INSULIN) 100 unit/mL (3 mL) InPn injection penIndications:Typ e 2 diabetes mellitus with diabetic neuropathy, with long-term current use of insulin Inject 12 units daily as directed. 15 mL 11 04/26/20 25 Active REPATHA SURECLICK 140 mg/mL PnIj subcutaneous pen injectorIndication s:Medication refill INJECT 1 ML SUBCUTANEOUSLY EVERY 14 DAYS 6 mL 3 04/29/20 25 Active FREESTYLE CARLIN 3 READER MiscIndications:Ty pe 2 diabetes mellitus with diabetic neuropathy, with long-term current use of insulin by Miscellaneous route daily. 1 each 05/12/20 25 Active metFORMIN (GLUCOPHAGE-XR) 500 MG 24 hr tabletIndications: Type 2 diabetes mellitus with diabetic neuropathy, with long-term current use of insulin Take 1 tablet (500 mg total) by mouth 2 (two) times a day. E11.42 180 tablet 3 06/02/20 25 Active FREESTYLE CARLIN 3 PLUS SENSOR DeviIndications:Ty pe 2 diabetes mellitus with diabetic neuropathy, with long-term current use of insulin,Hypoglycem ia due to insulin,Long-term insulin use Apply as directed every 15 days E11.42 Z79.4 2 each 08/09/20 25 Active lancets (TRUEPLUS LANCETS) 33 gauge MiscIndications:Ty pe 2 diabetes mellitus with diabetic neuropathy, with long-term current use of insulin Inject 1 each into the skin 6 (six) times a day. 200 each 08/09/20 25 Active Active Problems Problem Noted Date Diagnosed Date [...] (02/12/2022 9:15 AM EDT): She presented to [facility] ED on 01/18/2022 with chest pain. 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 Assessment & Plan (07/14/2024 5:03 PM EST): [...] to exercise regularly as tolerated Followed by [facility] specialist Assessment & Plan (01/31/2018 9:40 AM [...] Metformin bid daily, Tennille reported through the nuclear equipment design engineer today that she only takes this when [...] technical issues with this, we discussed contacting [facility] for replacement sensors if these do not [...] levels, encouraged to seek referral to another tube heater and/or pain management to help with medication [...] Encounters Date Type Department Care Team Description 08/18/2025 Telephone [facility] Endocrinology [facility] [address] [place] [address] Brigitte Calabrese LPN Medication Prior Authorization (FREESTYLE CARLIN 3 PLUS SENSOR Brianna) 08/10/2025 Telephone [facility] Diabetes [facility] [address] [place] [address] Alexus Prakash Forms & Paperwork 2025 Refill [facility] Endocrin[facility] [address] [place] [address] Ayesha Doyle MA Medication Refill 07/15/2025 Telephone [facility] [address] [place] [address] 3rd Floor, [address] [place] [address] Saima Callejas PA-C 07/14/2025 Telephone [facility] [address]rd Floor, [address] [place] [address] Saima Callejas PA-C from Last 3 Months Immunizations Immunization Administration [...] Description 10/08/2025 9:20 AM EST Office Visit [facility] [address] Floor, [address] [place] [address] Ray Cid MD [address] [facility], [address] [place] [address] 11/08/2025 9:40 AM EST Office Visit [facility] [address] [place] [address] Aixa Kong MD [address] [facility], 1st [place] [address] 04/21/2026 9:10 AM EDT Office Visit [facility] [address] [place] [address] Hilario Peguero DO [address] [place] [address] Health Maintenance Due Date Last Done Comments [...] PRESSURE 11/09/2025 05/12/2025 TSH LEVEL 04/21/2026 04/21/2025, 10/2023, 04/19/2023, Additional history exists Adult Td,Tdap [...] Hemoglobin A1c 8.8(A) 4.2 - 5.6 % [facility] Other 05/12/2025 10:4 8 AM EDT us Aixa Kong MD LAB POCT ENTER/EDIT ORDERABLES Final Result [facility] [address] [place] [address], [facility] * TSH (04/21/2025 4:00 PM EDT) TSH 3.80 0.27 - 4.20 uIU/mL [facility] Blood 04/21/2025 4:00 PM EDT 04/21/2025 4:06 PM EDT Hilario Peguero LAB BLOOD BKR ORDERABLES Final R esult [address] [address] * (ABNORMAL) Comprehensive metabolic panel (04/10/2024 9:01 AM EDT) SODIUM 141 133 - 146 mmol/L [facility] POTASSIUM 4.4 3.3 - 5.1 mmol/L [facility] CHLORIDE 102 96 - 108 mmol/L [facility] CO2 31 21 - 35 mmol/L [facility] BUN 15 6 - 19 mg/dL [facility] CREATININE 0.70 0.5 - 1.5 mg/dL [facility] GLUCOSE 170(H) 70 - 99 mg/dL [facility] ALBUMIN 3.6(L) 3.9 - 4.8 g/dL [facility] TOTAL PROTEIN 6.9 6.5 - 8.0 g/dL [facility] CALCIUM 9.2 8.4 - 10.3 mg/dL [facility] ALKALINE PHOSPHATASE 88 39 - 117 U/L [facility] TOTAL BILIRUBIN 0.3 0.0 - 1.2 mg/dL [facility] AST 16 0 - 37 U/L [facility] ALT 10 0 - 40 U/L [facility] GLOBULIN 3.3 1 - 4.8 g/dL [facility] EGFR 90 >59 mL/min/1.7 3m2 [facility] Comment:Estimated glomerular filtration rate calculated using the CKD-EPI refit equation. ANION GAP 12 10 - 20 mmol/L [facility] Blood 04/10/2024 9:01 AM EDT 04/10/2024 9:05 AM EDT us Ray Cid MD LAB BLOOD BKR ORDERABLES Fi nal Result [facility] [address] [place] [address] from Last 3 Months or Most Recently Relevant to Health Maintenance Insurance [place]ON [place]WFORD [id number] MEDICARE REPLACEMENT MEDICARE REPLACEMENT MEDICARE REPLACEMENT Care Teams Dry Chain Puller Relationship Specialty Start Date End Date Germaine Martinez MD PCP - General Family Medicine 09/15/24 Additional Source Comments The information contained in this document represents components of the legal health record. It is not the complete legal health record.[facility]
--- OUTSIDE RECORDS SUMMARY | 2025-09-08 08:07 | XMS_ITS | Encounter Summary ---
Author Organization [employer] Address [address] 7t [place] [address] Care Team Providers Care Carpenters Helper Name Role Phone Germaine Martinez MD Primary Care Provider [phone] Reason for Visit * Reason Comments Med Refill Encounter Details Date Type Department Care Team ([facility] st Contact Info) Description 08/17/2024 Refill [facility] MEDICINE [address] [place], [place] [phone] Germaine Martinez MD [address] [place], [place] [phone] Social History Tobacco Use Types Packs/Day Years [...] Info) Description 11/05/2025 9:00 AM EST Telemedicine [facility] MEDICINE [address] [place] [address] Omayra Gudino, [place] documented as of this encounter Visit Diagnoses Not on filedocumented in this encounter Additional Health Concerns Assessment Noted Time PHQ-9 Depression Total Score: 1 08/26/20 23 1:07 PM EST documented as of this encounter Care Teams Carpenters Helper Relationship Specialty Start Date End Date Germaine Martinez MD [address] [place] [address] PCP - General Family Medicine 07/14/20 documented as of this encounter
--- OUTSIDE RECORDS SUMMARY | 2025-09-08 08:07 | XMS_ITS | Encounter Summary ---
Author Organization [facility] Address [address] 7t [place] [address] Care Team Providers Care Vault Attendant Name Role Phone Germaine Martinez MD Primary Care Provider [phone] Encounter Details Date Type Department Care Team (Late st Contact Info) Description 09/05/2022 Telephone [facility] [address] [place] [phone] Germaine Martinez MD [address] [place] [address] [phone] Social History Tobacco Use Types Packs/Day Years [...] Info) Description 11/05/2025 9:00 AM EST Telemedicine [facility] [address] [place] [address] [phone] Omayra Gudino RN documented as of this encounter Visit Diagnoses Not on filedocumented in this encounter Care Teams Vault Attendant Relationship Specialty Start Date End Date Germaine Martinez MD [address] [place] [address] PCP - General Family Medicine 07/14/20 documented as of this encounter
--- OUTSIDE RECORDS SUMMARY | 2025-09-08 08:07 | XMS_ITS | Encounter Summary ---
Author Organization [facility] Address [address] [place] [address] Phone Care Team Providers Care Roading Engineer Name Role Phone Sanjay James NP Primary Care Provider [phone] Germaine Martinez MD Primary Care Provider + Germaine Martinez MD Primary Care Provider + Encounter Details Date Type Department Care Team (Latest Contact Info) Description 07/04/2021 Ancillary Orders [facility] [address] 3[address] Floor, [address] [place] [address] Venessa Kaye MD [phone] [place] [address] [email or web address] PVD (peripheral vascular disease) Social History Tobacco [...] Description 10/08/2025 9:20 AM EST Office Visit [facility] [address] [place] [address] 3rd Floor, [address] [place] [address] Ray Cid MD [address] [place] [address], [address] [address] 11/08/2025 9:40 AM EST Office Visit [facility] Diabetes [address] [address] Axia Kong MD [address] [place] [address], 1st [place] [address] 04/21/2026 9:10 AM EDT Office Visit [facility] [address] [place] [address] Hilario Peguero DO [address] [place] [address] documented as of this encounter Results * US Lower Extremity Arteries ([place]) Physio Complete Unilat (07/04/2021 8:15 AM EDT) Anatomical Region Laterality Modality Ultrasound Narrative 07/04/2021 1:39 PM EDT See scanned report Procedure Note Ray Cid MD - 07/04/2021 See scanned report Venessa Kaye MD CV US VASCULAR Final Result documented in this encounter Visit Diagnoses Diagnosis PVD (peripheral vascular disease) Unspecified peripheral vascular disease PVD (peripheral vascular disease) Unspecified peripheral vascular disease documented in this encounter Care Teams Roading Engineer Relationship Specialty Start Date End Date Sanjay James NP [address] [place] [address] PCP - General Family Medicine 03/14/21 01/17/22 Germaine Martinez MD [address] [place] [address] PCP - General 01/18/22 09/14/24 Germaine Martinez MD [address] [place] [address] PCP - General Family Medicine 09/15/24 documented as of this encounter Additional Source Comments The information contained in this document represents components of the legal health record. It is not the complete legal health record.[facility]
--- OUTSIDE RECORDS SUMMARY | 2025-09-08 08:07 | XMS_ITS | Encounter Summary ---
Author Organization [employer] Address [address] [facility] 7t [place] [address] Care Team Providers Care Dice Manager Name Role Phone Germaine Martinez MD Primary Care Provider [phone] Encounter Details Date Type Department Care Team (Late st Contact Info) Description 01/02/2023 Orders Only [facility] MEDICINE [address] [place] [address] [phone] Germaine Martinez MD [address] [place] [address] [phone] Degeneration of lumbar intervertebral disc (Primary Dx) [...] Info) Description 11/05/2025 9:00 AM EST Telemedicine [facility] MEDICINE [address] [place] [address] Omayra Gudino, RN documented as of this encounter Visit Diagnoses Diagnosis Degeneration of lumbar intervertebral disc- Primary Degeneration of lumbar or lumbosacral intervertebral disc documented in this encounter Care Teams Dice Manager Relationship Specialty Start Date End Date Germaine Martinez MD [address] [place] [address] PCP - General Family Medicine 07/14/20 documented as of this encounter
--- OUTSIDE RECORDS SUMMARY | 2025-09-08 08:07 | XMS_ITS | Encounter Summary ---
Author Organization [employer] [facility] Address [address] [facility] 7t [place] [address] Care Team Providers Care Algebraist Name Role Phone Germaine Martinez MD Primary Care Provider [phone] Reason for Visit * Reason Comments Med Refill Encounter Details Date Type Department Care Team ([facility] Contact Info) Description 11/07/2022 Refill [facility] MEDICINE [address] [place] [address] [phone] Germaine Martinez MD [address] [place] [address] [phone] Sacroiliitis (CMS/HCC) Social History Tobacco Use Types [...] Info) Description 11/05/2025 9:00 AM EST Telemedicine [facility] MEDICINE [address] [place] [address] [phone] Omayra Gudino RN documented as of this encounter Visit Diagnoses Diagnosis Sacroiliitis (CMS/HCC) Sacroiliitis, not elsewhere classified documented in this encounter Care Teams Algebraist Relationship Specialty Start Date End Date Germaine Martinez MD [address] [place] [address] PCP - General Family Medicine 07/14/20 documented as of this encounter
--- OUTSIDE RECORDS SUMMARY | 2025-09-08 08:07 | XMS_ITS | Clinical Summary ---
Author Organization [employer] Address [address] 7t [place] [address] Care Team Providers Care Mysql Dba Name Role Phone Germaine Martinez MD Primary Care Provider [phone] Allergies Active Allergy Reactions Criticality Noted Date [...] USE UP TO FIVE TIMES DAILY DIRECTED 023 Active Linzess 145 MCG capsule TAKE 1 CAPSULE BY MOUTH EVERY MORNING WITH A FULL GLASS OF WATER Active Alcohol Swabs (Alcohol Prep) 70 % pads TEST BLOOD SUGAR 8 TIMES PER DAY 100 each 11 024 Active dexlansoprazole (Dexilant) [address] [...] affected nostril(s) if needed for opioid reversal. Clio 0.1 milliliter by intranasal route in 1 [...] AT BEDTIME 90 tablet 3 025 Active Diclofenac Sodium 1 % gelIndications:R ight tennis elbow,Right wrist tendonitis Apply 1 Application topically every 12 (twelve) hours if needed (apply on affected area if needed). 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 control servicer insulin use (HCC) TAKE 1 CAPSULE BY MOUTH THREE TIMES DAILY IN THE MORNING, AT NOON, AND IN THE EVENING 90 capsule 11 025 Active cholecalciferol (Vitamin D3) 25 MCG (1000 UT) tabletIndication s:Vitamin D deficiency TAKE 1 TABLET BY MOUTH EVERY MORNING 90 tablet 3 025 Active FREESTYLE LITE test stripIndications :Type 2 diabetes mellitus with other specified complication, unspecified whether termite control servicer insulin use (HCC) TEST BLOOD SUGAR 8 [...] EVERY MORNING 90 tablet 3 025 Active loratadine (Claritin) 10 MG tabletIndication s:Dermatitis TAKE 1 TABLET BY MOUTH ONCE DAILY FOR FOR ALLERGIES 90 tablet 3 025 Active Continuous Glucose Outdoor Studies Director (FreeStyle Carlin 3 [place]) device USE DIRECTED TO TEST BLOOD SUGAR EVERY DAY Active Continuous Glucose Sensor (FreeStyle Carlin 3 Plus Sensor) misc USE DIRECTED TO TEST BLOOD SUGAR CHANGE EVERY 15 DAYS Active famotidine (Pepcid) 40 MG tablet TAKE 1 TABLET BY MOUTH BEFORE SUPPER Active doxepin (SINEquan) 25 MG capsule TAKE 1 CAPSULE BY MOUTH AT BEDTIME 90 capsule 3 08/11/20 25 4:56 PM EST 025 Active sertraline (Zoloft) 100 MG tablet TAKE 1 TABLET BY MOUTH EVERY MORNING 90 tablet 3 08/11/20 25 4:56 PM EST 025 Active nortriptyline (Pamelor) 10 MG capsuleIndicatio ns:Degeneration of lumbar intervertebral disc TAKE 2 CAPSULES BY MOUTH EVERY DAY AT BEDTIME 180 capsule 3 025 Active oxyCODONE (Roxicodone) 5 MG immediate release tabletIndication s:Lumbar facet joint pain Take 1 tablet (5 mg) by mouth every 6 (six) hours if needed for severe pain for up to 28 days. Do not start before September 08, 2025. 112 tablet 025 2025 Active nortriptyline (Pamelor) 10 MG capsuleIndicatio ns:Degeneration of lumbar intervertebral disc TAKE 2 CAPSULES BY MOUTH EVERY DAY AT BEDTIME 60 capsule 11 025 2024 Discontinued oxyCODONE (Roxicodone) 5 MG immediate release tabletIndication s:Lumbar facet joint pain Take 1 tablet (5 mg) by mouth every 6 (six) hours if needed for severe pain for up to 28 days. 112 tablet 025 2024 Discontinued acetaminophen (Tylenol Extra Strength) 500 MG tablet Take 1 tablet (500 mg) by mouth every 6 (six) hours if needed for mild pain. 120 tablet 1 025 2024 oxyCODONE (Roxicodone) 5 MG immediate release tabletIndication s:Lumbar facet joint pain Take 1 tablet (5 mg) by mouth every 6 (six) hours if needed for severe pain. Do not start before August 11, 2025. 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: Tier II (visit every 4 [...] her oxycodone (she has stomach upset in 2017 with Percocet and has not taken Tylenol [...] testing, if that works, ideally would take [place] 7.5mg Hyperlipidemia 07/13/2015 Overview (08/26/2023): Last Assessment [...] Encounters Date Type Department Care Team Description 09/06/2025 Refill [facility] [address] [place] [address] Germaine Martinez MD Lumbar facet joint pain 08/27/2025 Refill [facility] [address] [place] [address] Germaine Martinez MD Degeneration of lumbar intervertebral disc 08/04/2025 Refill [facility] [address] [place] [address] Germaine Martinez MD Lumbar facet joint pain 08/03/2025 Refill [facility] [address] [place] [address] Germaine Martinez MD 07/29/2025 9:00 AM EST Telemedicine [facility] [address] [place] [address] Omayra Gudino RN [facility] current use of opiate analgesic 07/29/2025 Travel 07/20/2025 Orders Only GENERIC EXTERNAL DATA DEPARTMENT Provider, Generic External Data 07/09/2025 9:00 AM EDT Office Visit [facility] [address] [place] [address] Germaine Martinez MD Lumbar facet joint pain (Primary Dx); Type 2 diabetes mellitus with diabetic neuropathy, with long-term current use of insulin (HCC); Essential hypertension, benign; Type 2 diabetes mellitus with hyperglycemia, with long-term current use of insulin (HCC); 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; Mixed anxiety and depressive disorder; Degeneration of intervertebral disc of lumbar region with discogenic back pain and lower extremity pain 07/09/2025 Travel 07/08/2025 Telephone [facility] [address] [place] [address] Germaine Martinez MD chart prep 07/06/2025 Refill [facility] [address] [place], [place] [phone] Germaine Martinez MD Dermatitis 06/25/2025 1:30 PM EDT Telemedicine [facility] [address] [place] [address] Omayra Gudino, [place] 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 06/25/[address] [address] Omayra Gudino, RN Oxycodone count discrepancy 06/25/2025 Travel 06/17/2025 Telephone [facility] [address] [place] [address] Germaine Martinez MD RECALL NOV 06/15/2025 Refill [facility] [address] [place] [address] Germaine Martinez MD Degeneration of lumbar intervertebral [...] the past 12 months, has t he [employer], oil or water [employer] threatened to shut off services in your [...] EST Telemedicine [facility] [address] [place] [address] Omayra Gudino, RN Health Maintenance Due Date Last Done Comments RSV Patients and Patients Aged 60 years or older (1 - 1-dose 75+ series) 2023 Lipid Panel 04/19/2024 04/19/2023, 0703/2023, 01/30/2023, Additional history exists SDOH Screening 12/09/2024 12/10/2023 Diabetes: Urine Protein Screening 12/18/2024 12/19/2023, 05/09/2021, 11/02/2020, Additional history exists COVID-19 Vaccine ( season) 2025 09/16/2021, 12/15/2020, 11/24/2020 Diabetes: Foot Exam 07/13/2025 07/13/2024, 07/13/2024, 12/19/2023 Diabetes: Hemoglobin A1C 10/09/2025 025, 05/12/2025, 02/02/2025, Additional history exists Depression Screening 02/02/2026 02/02/2025, 02/03/20 Alcohol/Substance Use Screening 02/03/2026 02/03/2025 Eye Exam [...] type 2 diabetes No Omayra Gudino, RN Weekly blood pressure task Care Plan Weekly blood pressure task No Omayra Gudino RN Help patients manage their type 2 diabetes Care Plan Help patients manage their type 2 diabetes No Omayra Gudino RN Patient has chronic [...] chronic kidney disease No Corry Mehta RN Weekly blood pressure task Care Plan Weekly blood pressure task No Jay Mathis Weekly blood pressure task Care Plan Weekly blood pressure task No Jay Mathis Patient has chronic kidney disease Care Plan Patient has chronic kidney disease No Jay Mathis Patient has chronic kidney disease Care Plan Patient has chronic kidney disease No Jay Mathis Procedures Procedure Name Priority Date/Time Associated Diagnosis Comments HEMATOXYLIN AND EOSIN STAIN Routine 07/20/2025 8:36 AM EST GLUCOSE, WHOLE BLOOD Routine 07/20/2025 7:07 AM EST POCT GLYCATED HEMOGLOBIN, TOTAL Routine 07/09/2025 9:40 AM EDT Type 2 diabetes mellitus with diabetic neuropathy, with long-term current use of insulin ([facility]) POCT GLUCOSE (CPT-06802) Routine 07/09/2025 9:05 AM EDT Type 2 diabetes mellitus with diabetic neuropathy, with long-term current use of insulin ([facility]) HEPATITIS C AB W/REFL TO HCV RNA, QN, PCR Routine 12/19/2023 11:46 AM EDT Type 2 diabetes mellitus with diabetic neuropathy, with long-term current use of insulin (CMS/HCC) ALBUMIN, RANDOM URINE W/CREATININE Routine 12/19/2023 11:46 AM EDT Type 2 diabetes mellitus with diabetic neuropathy, with long-term current use of insulin (CMS/[facility]) LIPID PANEL, STANDARD Routine 01/30/2023 9:44 AM EDT Type 2 diabetes mellitus without complication, unspecified whether snf insulin use ([facility]) HM COLONOSCOPY Routine 03/23/2013 8:10 AM EDT from Last 3 Months or Most Recently Relevant to Health Maintenance Results * Hematoxylin and Eosin Stain (07/20/2025 8:36 AM EST) 07/20/2025 8:36 AM EST 07/20/2025 11:45 AM EST [facility] - 07/22/2025 2:52 PM EST ----- ------- Name: Tennille Philip Age/Sex: 74/F [facility] 1950 [id number] Unit#: [id number] Attend Dr: Connie Vaca MD Re07/20/25 Status: [facility] Location: [facility] Disch: ----- ------- SPEC : [id number] RECD: 07/20/25 STATUS: LAURENCE FUENTES NUM: [id number] ERLINDA: 07/20/2536 [facility] DR: Connie Vaca MD ENTERED: 07/20/25 SP TYPE: Surgical OTHR DR: Germaine Martinez [...] Tennille Philip Age/Sex: 74/F : 1950 Unit#: [id number] Attend Dr: Connie Vaca MD Re07/20/25 Status: [facility] Location: [facility] Disch: ----- ------- SPEC : [id number] RECD: 07/20/25 STATUS: LAURENCE FUENTES NUM: [id number] ERLINDA: 07/20/2536 [facility] DR: Connie Vaca MD ENTERED: 07/20/25-1223 SP TYPE: Surgical OTHR DR: Germaine Martinez ORDERED: HE Stain/12, Gross Micro L4/4, IHC/2, Special st. 2/, H. pylori/2, AB/PAS/4 Gross Description (Continued) cassette [...] developed and their performance characteristics determined by [facility]. They have not been cleared or approved by the U.S. Food and Drug Administration (FDA). However, the FDA has determined that such clearance or approval is not necessary. This laboratory is certified under the Clinical Laboratory Improvement Amendments of 1988 (CLIA) as qualified to perform high complexity clinical laboratory testing. Copies To: Germaine Martinez [address] [address] Connie Vaca MD [facility] [address] [place] [phone] [email or web address] ------- Signed (signature on file) Stephane Nguyen MD 07/22/25 1452 ----- ------- END OF REPORT Generic External Data Provider LAB BLOOD ORDERAB LES Final Result Performing Organization Address [facility]/ZIP Co de Phone Number [facility] [address] [place] [phone] * (ABNORMAL) Glucose, Whole Blood (07/20/2025 7:07 AM EST) [facility] Glucose, Whole Blood 146(H) 60 - 115 mg/dL [facility] Comment:METER #: [id number] 07/20/2025 7:07 AM EST 07/20/2025 7:10 AM EST Yo que Vos External Data Provider LAB BLOOD ORDERAB LES Final Result Performing Organization Address [facility] Co de Phone Number [facility] [address] [place] [address] [phone] * (ABNORMAL) POCT Hgb A1c (07/09/2025 9:40 AM EDT) Pathologist [facility] Hemoglobin A1C 8.5(A) 4.0 - 5.7 % QC Media Lot # [id number] Lot# Expiration Date [id number] Blood 07/09/2025 9:40 AM EDT Germaine Martinez MD POINT OF CARE TEST ENTER/EDIT ORDERABLES Final Result * (ABNORMAL) POCT Glucose (07/09/2025 9:05 AM EDT) Glucose Blood, POC 274(A) 60 - 200 mg/dL QC Media Lot # [id number] Lot# Expiration Date 31,126 Blood Capillary blood specimen / Unknown 07/09/2025 9:05 AM EDT Germaine Martinez MD POINT OF CARE TEST ENTER/EDIT ORDERABLES Final Result * Albumin, Random Urine W/Creatinine (12/19/2023 11:46 AM EDT) Creatinine, Urine 34.93 mg/dL [facility] Microalbumin Urine 8.0 mg/L [facility] Microalbum Creatinine Ratio Ur 22.9 <30 ug/mg cr [facility] Comment:Albumin/Creatinine R atio Reference Ranges: Normal: < 30 ug/mg creatinine Microalbuminuria: 30 - 300 ug/mg creatinineClinical Albuminuria: > 300 ug/mg creatinine Urine (Urine, Random) 12/19/2023 11:46 AM EDT 12/19/2023 1:10 PM EDT us Germaine Martinez MD LAB URINE ORDERABLES Final Res ult [facility] [address] [place] [phone] * Hepatitis C Antibody with Reflex to HCV, RNA, Quantitative, Real-Time PCR (12/19/2023 11:46 AM EDT) Hepatitis C Antibody Nonreactive Nonreactive [facility] Comment:Antibodies to HCV no t detected; does not exclude early acuteHCV infection. Blood Venous blood specimen / Unknown 12/19/2023 11:46 AM EDT 12/19/2023 1:16 PM EDT us Germaine Martinez MD LAB BLOOD ORDERABLES Final Res ult [facility] [address] [place] [address] [phone] * (ABNORMAL) Lipid Panel, Standard (01/30/2023 9:44 AM EDT) [facility] Cholesterol, Total 333(H) <200 mg/dL [facility] HDL Cholesterol 73 > OR = 50 mg/dL [facility] Triglycerides 107 <150 mg/dL [facility] LDL Cholesterol 236(H) mg/dL (calc) [facility] Comment: LDL-C levels > or = 190 [...] about testing for familial hypercholesterolemia, please call [facility] at .[email or web address]. Lawrence T, et al. J National Lipid Association Recommendations for Patient-Centered Management of Dyslipidemia: Part 1 Journal of Clinical Lipidology 2015;9(2), 129-169. Dick Perez et al. (2014). Homozygous familial hypercholesterolaemia: new insights and guidance for clinicians to improve detection and clinical management. Heart Journal, 35(32), 3947-1881. Reference range: <100 Desirable range <100 mg/dL for primary prevention; <70 mg/dL for patients with CHD or diabetic patients with > or = 2 CHD risk factors. LDL-C is now calculated using the Lokesh-Lev calculation, which is a validated novel method providing better accuracy than the Friedewald equation in the estimation of LDL-C. Lokesh SS et al. ESTHER. 2013;310(19): 3632-1075 (http://education.8th Story.Childcare Bridge/faq/XVJ196) Chol/HDLC Ratio 4.6 <5.0 (calc) [facility] Non-HDL Cholesterol 260(H) <130 mg/dL (calc) [facility] Comment: Non-HDL level > or = 220 [...] AM EDT 01/30/2023 9:45 AM EDT Narrative [facility] - 01/30/2023 7:51 PM EDT FASTING:YES PATIENT UNABLE TO VOID; ADVISED TO RETURN FOR COLLECTION. FASTING: YES Germaine Martinez MD LAB BLOOD ORDERABLES Final Res ult [address], [place] [address] [facility] [address] [place] [address] * Hm Colonoscopy (03/23/2013 8:10 AM EDT) [...] 08/04/2025 Patient has chronic kidney disease 08/04/2025 Weekly blood pressure task 09/06/2025 Weekly blood pressure task 09/06/2025 Patient has chronic kidney disease 09/06/2025 Patient has chronic kidney disease 09/06/2025 Insurance [facility] JAIL OPTIONS (HMO D-SNP) [facility] STANDARD Care Teams Mysql Dba Relationship Specialty Start Date End Date Germaine Martinez MD [address] [place] [phone] PCP - General Family Medicine 07/14/20
--- OUTSIDE RECORDS SUMMARY | 2025-09-08 08:07 | XMS_ITS | Encounter Summary ---
Author Organization [employer] Address [address] [place] [address] Care Team Providers Care Recooperer Name Role Phone Germaine Martinez MD Primary Care Provider [phone] Reason for Visit * Reason Onset Date Comments Med Refill 07/29/2024 Encounter Details Date Type Department Care Team ([facility] st Contact Info) Description 07/29/2024 Telephone [facility] [address] [place], [place] [phone] Germaine Martinez MD [address] [place], [place] [phone] Med Refill Social History Tobacco Use Types [...] immediate release tablet To be sent to: [facility] [place], [place] - [address] [place] [address] documented in this encounter Plan of Treatment Upcoming Encounters Date Type Department Care Team (Late st Contact Info) Description 11/05/2025 9:00 AM EST Telemedicine [facility] [address] [place] [address] Omayra Gudino, RN documented as of this encounter Visit Diagnoses Not on filedocumented in this encounter Additional Health Concerns Assessment Noted Time PHQ-9 Depression Total Score: 1 08/26/20 23 1:07 PM EST documented as of this encounter Care Teams Recooperer Relationship Specialty Start Date End Date Germaine Martinez MD [address] [place] [address] PCP - General Family Medicine 07/14/20 documented as of this encounter
--- OUTSIDE RECORDS SUMMARY | 2025-09-08 08:08 | XMS_ITS | Encounter Summary ---
Author Organization [employer] Address [address] [place] [address] Care Team Providers Care Power Line Installer Name Role Phone Germaine Martinez MD Primary Care Provider [phone] Reason for Visit * Reason Comments Med Refill Encounter Details Date Type Department Care Team (Late st Contact Info) Description 06/18/2023 Refill [facility] [address] [place], [place] [phone] Germaine Martinez MD [address] [place], [place] [phone] Degeneration of lumbar intervertebral disc Social History [...] Info) Description 11/05/2025 9:00 AM EST Telemedicine [facility] [address] [place] [address] Omayra Gudino RN documented as of this encounter Visit Diagnoses Diagnosis Degeneration of lumbar intervertebral disc Degeneration of lumbar or lumbosacral intervertebral disc documented in this encounter Care Teams Power Line Installer Relationship Specialty Start Date End Date Germaine Martinez MD [address] [place] [address] PCP - General Family Medicine 07/14/20 documented as of this encounter
--- OUTSIDE RECORDS SUMMARY | 2025-09-08 08:08 | XMS_ITS | Encounter Summary ---
Author Organization [facility] Address [address] [place] [address] Phone Care Team Providers Care Mushroom Laborer Name Role Phone Sanjay James OFFICE EQUIPMENT MECHANIC Primary Care Provider [phone] Sanjay James OFFICE EQUIPMENT MECHANIC Primary Care Provider [phone] Germaine Martinez MD Primary Care Provider + Germaine Martinez MD Primary Care Provider + Encounter Details Date Type Department Care Team (Latest Contact Info) Description 03/27/2018 Transcribe Orders [facility] [address], [address] [place], [place] [phone] Venessa Kaye MD [phone] [place] [address] [email or web address] Deep vein thrombosis (DVT) of distal vein [...] Description 10/08/2025 9:20 AM EST Office Visit [facility] [address] [place] [address] 3rd Floor, [address] [place] [address] Ray Cid MD [address] [place] [address], [address] [address] 11/08/2025 9:40 AM EST Office Visit [facility] [address] [place] [address] Aixa Kong MD [address] [place] [address], 1st [place] [address] 04/21/2026 9:10 AM EDT Office Visit [facility] [address] [place] [address] Hilario Peguero DO [address] [place] [phone] documented as of this encounter Visit Diagnoses Diagnosis Deep vein thrombosis (DVT) of distal vein of lower extremity, unspecified chronicity, unspecified laterality- Primary documented in this encounter Care Teams Mushroom Laborer Relationship Specialty Start Date End Date Sanjay James NP [address] [place] [address] PCP - General Family Medicine 07/18/17 03/13/21 Sanjay James NP [address] [place] [address] PCP - General Family Medicine 03/14/21 01/17/22 Germaine Martinez MD [address] [place] [address] PCP - General 01/18/22 09/14/24 Germaine Martinez MD [address] [facility] [place] [address] PCP - General Family Medicine 09/15/24 documented as of this encounter Additional Source Comments The information contained in this document represents components of the legal health record. It is not the complete legal health record.[facility]
--- OUTSIDE RECORDS SUMMARY | 2025-09-08 08:08 | XMS_ITS | Encounter Summary ---
Author Organization [facility] Address [address] [place] [address] Phone Care Team Providers Care Marine Equipment Preservation Inspector Name Role Phone Sanjay James NP Primary Care Provider [phone] Sanjay James NP Primary Care Provider [phone] Germaine Martinez MD Primary Care Provider + Germaine Martinez MD Primary Care Provider + Reason for Referral * MRI/CAT Scan - Closed Specialty Diagnoses / Procedures Referred By Contac t Referred To Contact Radiology Diagnoses Radiculopathy, lumbar region Procedures MRI Lumbar Spine Lisa Gudino NP Phone: tel: fax: mailto: abraham Referral ID Status Reason Start Date Expiration Date Visits Re quested Visits Authorized [id number] Closed 07/20/2020 10/20/2020 1 1 Encounter Details Date Type Department Care Team (Latest Contact Info) Description 09/07/2020 Transcribe Orders Virtual Department [address] [place] [address] Lisa Gudino NP [address] [place] [phone] [email or web address] Radiculopathy, lumbar region (Primary Dx) Social [...] Description 10/08/2025 9:20 AM EST Office Visit [facility] [address] [place] [address] 3rd [facility], [address] [place] [address] Ray Cid MD [address] [place] [address] 11/08/2025 9:40 AM EST Office Visit [facility] [address] [place] [address] [place] [address] Aixa Kong MD [address] [place] [address], 1st [place] [address] 04/21/2026 9:10 AM EDT Office Visit [facility] [address] [place] [address] [place] [address] Hilario Peguero DO [address] [place] [address] documented as of this encounter Results * [...] on the left at the L3 and B5rgtdj root exits. No high-grade central canal stenosis. Fibroids.Distended bladder. us Lisa Gudino NP IMG MR XSPECIALTY Final Result documented in this encounter Visit Diagnoses Diagnosis Radiculopathy, lumbar region- Primary Thoracic or lumbosacral neuritis or radiculitis, unspecified Radiculopathy, lumbar region Thoracic or lumbosacral neuritis or radiculitis, unspecified documented in this encounter Care Teams Marine Equipment Preservation Inspector Relationship Specialty Start Date End Date Sanjay James NP [address] [place] [address] PCP - General Family Medicine 07/18/17 03/13/21 Sanjay James NP [address] [place] [address] PCP - General Family Medicine 03/14/21 01/17/22 Germaine Martinez MD [address] [place] [address] PCP - General 01/18/22 09/14/24 Germaine Martinez MD [address] [place] [address] PCP - General Family Medicine 09/15/24 documented as of this encounter Additional Source Comments The information contained in this document represents components of the legal health record. It is not the complete legal health record.[facility]
--- OUTSIDE RECORDS SUMMARY | 2025-09-08 08:08 | XMS_ITS | Encounter Summary ---
Author Organization [employer] Address [address] 7t [place] [address] Care Team Providers Care Hairspring Setter Name Role Phone Germaine Martinez MD Primary Care Provider [phone] Reason for Visit * Reason Onset Date Comments Med Refill 09/06/2025 Encounter Details Date Type Department Care Team ([facility] st Contact Info) Description 09/06/2025 Refill [facility] [address] [place], [place] [phone] Germaine Martinez MD [address] [place], [place] [phone] Lumbar facet joint pain Social History Tobacco [...] encounter Miscellaneous Notes * Telephone Encounter - Jay Mathis - 09/06/2025 1:45 PM EST TC from pt requesting medication refill. Medications needing refill: oxyCODONE (Roxicodone) 5 MG immediate release tablet To be sent to: [facility] - [place], [place] - [address] [place] [address] documented in this encounter Plan of Treatment Upcoming Encounters Date Type Department Care Team (Late st Contact Info) Description 11/05/2025 9:00 AM EST Telemedicine [facility] [address] [place] [address] Omayra Gudino, STANTON documented as of this encounter Goals Goal Patient Goal Type Associated Problems Recent Progress Patient-Stated? Author Help patients manage their type 2 diabetes Care Plan Help patients manage their type 2 diabetes Omayra Donis, ST[place]ON Weekly blood pressure task Care Plan Weekly blood pressure task No Omayra Gudino, ST[place]ON Help patients manage their type 2 diabetes Care Plan Help patients manage their type 2 diabetes No Omayra Gudino, ST[place]ON Patient has chronic kidney disease Care Plan Patient has chronic kidney disease Omayra Donis RN Weekly blood pressure task Care Plan [...] has chronic kidney disease No Jay Mathis documented as of this encounter Visit Diagnoses [...] 09/06/2025 Patient has chronic kidney disease 09/06/2025 Assessment Noted Time PHQ-9 Depression Total Score: 0 02/03/20 25 10:52 AM EDT documented as of this encounter Care Teams Hairspring Setter Relationship Specialty Start Date End Date Germaine Martinez MD [address] [place] [address] PCP - General Family Medicine 07/14/20 documented as of this encounter
--- OUTSIDE RECORDS SUMMARY | 2025-09-08 08:08 | XMS_ITS | Encounter Summary ---
Author Organization [employer] Address [address] 7t [place] [address] Care Team Providers Care Gaming Host Name Role Phone Germaine Martinez MD Primary Care Provider [phone] Encounter Details Date Type Department Care Team ([facility] st Contact Info) Description 2023 Orders Only [facility] [address] [place], [place] [phone] Germaine Martinez MD [address] [place], [place] [phone] Elevated blood pressure reading (Primary Dx) Social [...] Info) Description 11/05/2025 9:00 AM EST Telemedicine [facility] 230 [place] [address] Omayra Gudino RN documented as of this encounter Visit Diagnoses Diagnosis Elevated blood pressure reading- Primary Elevated blood pressure reading without diagnosis of hypertension documented in this encounter Care Teams Gaming Host Relationship Specialty Start Date End Date Germaine Martinez MD [address] [place] [address] PCP - General Family Medicine 07/14/20 documented as of this encounter
--- OUTSIDE RECORDS SUMMARY | 2025-09-08 08:08 | XMS_ITS | Encounter Summary ---
Author Organization [facility] Address [address] [place] [address] Phone Care Team Providers Care Display Associate Name Role Phone Germaine Martinez MD Primary Care Provider + Germaine Martinez MD Primary Care Provider + Encounter Details Date Type Department Care Team (Late st Contact Info) Description 02/01/2024 Procedure Pass [facility], Ct [facility] [address] [place] [address] Social History Tobacco Use Types Packs/Day Years [...] Description 10/08/2025 9:20 AM EST Office Visit [facility] [address] [place] [address] 3rd Floor, [address] [place] [address] Ray Cid MD [address] [place] [address], [address] [address] 11/08/2025 9:40 AM EST Office Visit [facility] [address] [place] [address] Aixa Kong MD [address] [place] [address], 1st [place] [address] 04/21/2026 9:10 AM EDT Office Visit [facility] [address] [place] [address] Hilario Peguero DO [address] [place] [address] documented as of this encounter Visit Diagnoses Not on filedocumented in this encounter Care Teams Display Associate Relationship Specialty Start Date End Date Germaine Martinez MD PCP - General 01/18/22 09/14/24 Germaine Martinez MD PCP - General Family Medicine 09/15/24 documented as of this encounter Additional Source Comments The information contained in this document represents components of the legal health record. It is not the complete legal health record.[facility]
--- OUTSIDE RECORDS SUMMARY | 2025-09-08 08:08 | XMS_ITS | Encounter Summary ---
Author Organization [employer] Address [address] 7t [place] [address] Care Team Providers Care Land Sales Agent Name Role Phone Germaine Martinez MD Primary Care Provider [phone] Reason for Visit * Reason Comments Med Refill Encounter Details Date Type Department Care Team (Late st Contact Info) Description 07/25/2023 Refill [facility] [address] [place], [place] [phone] Germaine Martinez MD 230 [place] [address] Recurrent major depressive disorder, in partial remission [...] Info) Description 11/05/2025 9:00 AM EST Telemedicine [facility] 230 [place] [address] Omayra Gudino RN documented as of this encounter Visit Diagnoses Diagnosis Recurrent major depressive disorder, in partial remission (CMS/HCC) documented in this encounter Care Teams Land Sales Agent Relationship Specialty Start Date End Date Germaine Martinez MD 230 [place] [address] PCP - General Family Medicine 07/14/20 documented as of this encounter
--- OUTSIDE RECORDS SUMMARY | 2025-09-08 08:08 | XMS_ITS | Encounter Summary ---
Author Organization [facility] Address [address] [place] [address] Phone Care Team Providers Care Safety Administrator Name Role Phone Sanjay James OFFICE CLERK ASSISTANT Primary Care Provider Sanjay James OFFICE CLERK ASSISTANT Primary Care Provider [phone] Germaine Martinez MD Primary Care Provider + Germaine Martinez MD Primary Care Provider + Encounter Details Date Type Department Care Team (Late st Contact Info) Description 11/28/2018 Ancillary Orders [facility] [address] [place] [address] Venessa Kaye MD [phone] [place] [phone] [email or web address] PVD (peripheral vascular disease) Social History Tobacco [...] Description 10/08/2025 9:20 AM EST Office Visit [facility] [address] 3rd Floor, [address] [place] [address] Ray Cid MD [address] [place] [address], [address] [address] 11/08/2025 9:40 AM EST Office Visit [facility] [address] [place] [address] Aixa Kong MD [address] [place] [address], 1st [place] [address] 04/21/2026 9:10 AM EDT Office Visit [facility] 22 [place] [address] Hilario Peguero DO 22 [place] [address] documented as of this encounter Results * US Ankle/Brachial Indices (11/28/2018 11:14 AM EDT) Anatomical Region Laterality Modality Ankle Left, Ankle Right Ultrasou nd Narrative 12/01/2018 12:25 PM EDT See scanned report Procedure Note Levi Sheets DO - 12/01/2018 See scanned report Venessa Kaye MD CV US VASCULAR Final Result documented in this encounter Visit Diagnoses Diagnosis PVD (peripheral vascular disease) Unspecified peripheral vascular disease PVD (peripheral vascular disease) Unspecified peripheral vascular disease documented in this encounter Care Teams Safety Administrator Relationship Specialty Start Date End Date Sanjay James NP [address] [place] [address] PCP - General Family Medicine 07/18/17 03/13/21 Sanjay James NP [address] [facility] [place], [place] [phone] PCP - General Family Medicine 03/14/21 01/17/22 Germaine Martinez MD [address] [facility] [place], [place] [phone] PCP - General 01/18/22 09/14/24 Germaine Martinez MD [address] [facility] [place], [place] [phone] PCP - General Family Medicine 09/15/24 documented as of this encounter Additional Source Comments The information contained in this document represents components of the legal health record. It is not the complete legal health record.[facility]
--- OUTSIDE RECORDS SUMMARY | 2025-09-08 08:08 | XMS_ITS | Encounter Summary ---
Author Organization [employer] Address [address] 7t [place] [address] Care Team Providers Care Seed Laboratory Assistant Name Role Phone Germaine Martinez MD Primary Care Provider [phone] Reason for Visit * Reason Comments Med Refill Encounter Details Date Type Department Care Team (Late st Contact Info) Description 09/13/2023 Refill [facility] 230 [place], [place] [phone] Germaine Martinez MD [address] [place], [place] [phone] Degeneration of lumbar intervertebral disc; Type 2 diabetes mellitus with other specified complication, unspecified whether director long term care insulin use ([facility]) Social History Tobacco Use Types Packs/Day [...] Info) Description 11/05/2025 9:00 AM EST Telemedicine [facility] 230 [place] [address] Omayra Gudino RN documented as of this encounter Visit Diagnoses Diagnosis Degeneration of lumbar intervertebral disc Degeneration of lumbar or lumbosacral intervertebral disc Type 2 diabetes mellitus with other specified complication, unspecified whether director long term care insulin use (HCC) documented in this encounter Additional Health Concerns Assessment Noted Time PHQ-9 Depression Total Score: 1 08/26/20 23 1:07 PM EST documented as of this encounter Care Teams Seed Laboratory Assistant Relationship Specialty Start Date End Date Germaine Martinez MD [address] [place] [address] PCP - General Family Medicine 07/14/20 documented as of this encounter
--- OUTSIDE RECORDS SUMMARY | 2025-09-08 08:08 | XMS_ITS | Encounter Summary ---
Author Organization [facility] Address [address] [place] [address] Phone Care Team Providers Care Guard Lieutenant Name Role Phone Sanjay James CENTRAL STERILE TECH Primary Care Provider [phone] Sanjay James CENTRAL STERILE TECH Primary Care Provider [phone] Germaine Martinez MD Primary Care Provider + Germaine Martinez MD Primary Care Provider + Encounter Details Date Type Department Care Team (Late st Contact Info) Description 09/07/2020 Procedure Pass [facility], [address] [place] [address] Social History Tobacco Use Types Packs/Day Years [...] Description 10/08/2025 9:20 AM EST Office Visit [facility] [address] [place] [address] Dr 3rd Floor, [address] [place] [address] Ray Cid MD [address] [place] [address], [address] [place] [address] 11/08/2025 9:40 AM EST Office Visit [facility] Diabetes [address] [place] [address] Aixa Kong MD [address] [place] [address], 1st [place] [address] 04/21/2026 9:10 AM EDT Office Visit [facility] Endocrinology [address] [address] Hilario Peguero DO 22 [place] [address] documented as of this encounter Visit Diagnoses Not on filedocumented in this encounter Care Teams Guard Lieutenant Relationship Specialty Start Date End Date Sanjay James NP 230 [place] [address] PCP - General Family Medicine 07/18/17 03/13/21 Sanjay James NP 230 [place] [address] PCP - General Family Medicine 03/14/21 01/17/22 Germaine Martinez MD 230 [place] [address] PCP - General 01/18/22 09/14/24 Germaine Martinez MD 230 [place] [address] PCP - General Family Medicine 09/15/24 documented as of this encounter Additional Source Comments The information contained in this document represents components of the legal health record. It is not the complete legal health record.[facility]
--- OUTSIDE RECORDS SUMMARY | 2025-09-08 08:08 | XMS_ITS | Encounter Summary ---
Author Organization [employer] Address [address] 7t [place] [address] Care Team Providers Care Digester Name Role Phone Germaine Martinez MD Primary Care Provider [phone] Encounter Details Date Type Department Care Team ([facility] st Contact Info) Description 01/15/2024 Orders Only [facility] 230 [place], [place] [phone] ProviderRodrigo MD Social History Tobacco Use Types [...] Description 11/05/2025 9:00 AM EST Telemedicine [facility] 230 [place] [address] Omayra Gudino RN documented as of this [...] documented as of this encounter Care Teams Digester Relationship Specialty Start Date End Date Germaine Martinez MD 230 [place] [address] PCP - General Family Medicine 07/14/20 documented as of this encounter
--- OUTSIDE RECORDS SUMMARY | 2025-09-08 08:08 | XMS_ITS | Encounter Summary ---
Author Organization [employer] Address [address] 7t [place] [address] Care Team Providers Care Carpenter'S Helper Name Role Phone Germaine Martinez MD Primary Care Provider [phone] Reason for Visit * Reason Comments Med Refill Encounter Details Date Type Department Care Team (Late st Contact Info) Description 06/20/2023 Refill [facility] 230 [place], [place] [phone] Germaine Martinez MD 230 [place], [place] [phone] Degeneration of lumbar intervertebral disc Social History [...] oxyCODONE (Roxicodone) 5 MG immediate release tablet. Supervisor Lead Refinery sees script sent to pharmacy on 06/14/23, however senior writer called pharmacy and they don't have a script on file. Patient has been out of medication since 06/19/23. Please advise. documented in this encounter Plan of Treatment Upcoming Encounters Date Type Department Care Team (Late st Contact Info) Description 11/05/2025 9:00 AM EST Telemedicine [facility]INE 230 [place] [address] Omayra Gudino, ST[place]ON documented as of this encounter Visit Diagnoses Diagnosis Degeneration of lumbar intervertebral disc Degeneration of lumbar or lumbosacral intervertebral disc documented in this encounter Care Teams Carpenter'S Helper Relationship Specialty Start Date End Date Germaine Martinez MD 230 [place] [address] PCP - General Family Medicine 07/14/20 documented as of this encounter
--- OUTSIDE RECORDS SUMMARY | 2025-09-08 08:08 | XMS_ITS | Encounter Summary ---
Author Organization [employer] Address [address] 7t [place] [address] Care Team Providers Care Emergency Registrar Name Role Phone Germaine Martinez MD Primary Care Provider [phone] Reason for Visit * Reason Comments Med Refill Encounter Details Date Type Department Care Team (Late st Contact Info) Description 06/19/2023 Refill [facility] 230 [place], [place] [phone] Germaine Martinez MD 230 [place], [place] [phone] Degeneration of lumbar intervertebral disc Social History [...] Telemedicine [facility] [address] [place] [address] Omayra Gudino RN documented as of this encounter Visit Diagnoses Diagnosis Degeneration of lumbar intervertebral disc Degeneration of lumbar or lumbosacral intervertebral disc documented in this encounter Care Teams Emergency Registrar Relationship Specialty Start Date End Date Germaine Martinez MD 230 [place] [address] PCP - General Family Medicine 07/14/20 documented as of this encounter
--- OUTSIDE RECORDS SUMMARY | 2025-09-08 08:08 | XMS_ITS | Encounter Summary ---
Author Organization [employer] Address [address] 7t [place] [address] Care Team Providers Care Loading Checker Name Role Phone Germaine Martinez MD Primary Care Provider [phone] Reason for Visit * Reason Comments Med Refill Encounter Details Date Type Department Care Team (Late st Contact Info) Description 01/07/2025 Refill [facility] 230 [place], [place] [phone] Germaine Martinez MD 230 [place], [place] [phone] Social History Tobacco Use Types Packs/Day Years [...] Description 11/05/2025 9:00 AM EST Telemedicine [facility] 230 [place] [address] Omayra Gudino, STANTON documented as of this encounter Visit Diagnoses Not on filedocumented in this encounter Additional Health Concerns Assessment Noted Time PHQ-9 Depression Total Score: 1 08/26/20 23 1:07 PM EST documented as of this encounter Care Teams Loading Checker Relationship Specialty Start Date End Date Germaine Martinez MD 230 [place] [address] PCP - General Family Medicine 07/14/20 documented as of this encounter
--- OUTSIDE RECORDS SUMMARY | 2025-09-08 08:08 | XMS_ITS | Encounter Summary ---
Author Organization [facility] Address [address] [facility] [address] [place] [address] Phone Care Team Providers Care Paper Roller Name Role Phone Sanjay James WELCOME WAGON HOSTESS Primary Care Provider [phone] Sanjay James WELCOME WAGON HOSTESS Primary Care Provider Germaine Martinez MD Primary Care Provider + Germaine Martinez MD Primary Care Provider + Encounter Details Date Type Department Care Team (Latest Contact Info) Description 02/04/2018 Transcribe Orders [facility] [address] [place] [address] Teena Lindsey MD [address] [place] [address] Hypothyroidism following radioiodine therapy (Primary Dx) Social [...] Description 10/08/2025 9:20 AM EST Office Visit [facility] [address] [facility] 3rd Floor, [address] [place] [address] Ray Cid MD [address] [facility] [address] [place] [address] 11/08/2025 9:40 AM EST Office Visit [facility] Diabetes [address] [address] Aixa Kong MD [address] [place] [address], 1st [place] [address] 04/21/2026 9:10 AM EDT Office Visit [facility]ology [facility] 22 [place] [address] Hilario Peguero DO 22 [place] [address] documented as of this encounter Results * Free T3 (02/04/2018 8:19 AM EDT) FREE T3 2.3 2.0 - 4.4 pg/mL [facility] Blood 02/04/2018 8:19 AM EDT 02/04/2018 8:20 AM EDT us Teena Winkler MD LAB BLOOD BKR ORDERABL ES Final Result [facility] [address] [place] [address] * Free T4 (02/04/2018 8:19 AM EDT) FREE T4 1.4 0.9 - 1.7 ng/dL [facility] Blood 02/04/2018 8:19 AM EDT 02/04/2018 8:20 AM EDT us Teena Winkler MD LAB BLOOD BKR ORDERABL ES Final Result Performing Organization Address City/[facility]/ZIP Co de Phone Number [address] [address] * TSH (02/04/2018 8:19 AM EDT) TSH 1.65 0.27 - 4.20 uIU/mL [facility] Blood 02/04/2018 8:19 AM EDT 02/04/2018 8:20 AM EDT us Teena Winkler MD LAB BLOOD BKR ORDERABL ES Final Result Performing Organization Address City/[facility] Co de Phone Number [address] [address] documented in this encounter Visit Diagnoses Diagnosis Hypothyroidism following radioiodine therapy- Primary Other postablative hypothyroidism documented in this encounter Care Teams Paper Roller Relationship Specialty Start Date End Date Sanjay James NP 230 [place] [address] PCP - General Family Medicine 07/18/17 03/13/21 Sanjay James NP 230 [place] [address] PCP - General Family Medicine 03/14/21 01/17/22 Germaine Martinez MD 230 [place] [address] PCP - General 01/18/22 09/14/24 Germaine Martinez MD 230 [place] [address] PCP - General Family Medicine 09/15/24 documented as of this encounter Additional Source Comments The information contained in this document represents components of the legal health record. It is not the complete legal health record.[facility]
--- OUTSIDE RECORDS SUMMARY | 2025-09-08 08:08 | XMS_ITS | Encounter Summary ---
Author Organization [facility] Address [address] [place] [address] Phone Care Team Providers Care Escalation Engineer Name Role Phone Sanjay James ALTERATION MANAGER Primary Care Provider [phone] Sanjay James ALTERATION MANAGER Primary Care Provider [phone] Germaine Martinez MD Primary Care Provider + Germaine Martinez MD Primary Care Provider + Encounter Details Date Type Department Care Team (Latest Contact Info) Description 06/15/2020 Ancillary Orders [facility] [address], [address] [place], [place] [id number] Venessa Kaye MD [address] [place] [address] [email or web address] PVD (peripheral vascular disease) Social History [...] Description 10/08/2025 9:20 AM EST Office Visit [facility] [address] [place] [address] 3rd Floor, [address] [place] [address] Ray Cid MD [address] [place] [address], [address] [address] 11/08/2025 9:40 AM EST Office Visit [facility] [address] [place] [address] Aixa Kong MD [address] [place] [address], 1st [place] [address] 04/21/2026 9:10 AM EDT Office Visit [facility] [address] [place] [address] Hilario Peguero DO [address] [place] [address] documented as of this encounter Results * [...] disease documented in this encounter Care Teams Escalation Engineer Relationship Specialty Start Date End Date Sanjay James NP [address] [place] [address] PCP - General Family Medicine 07/18/17 03/13/21 Sanjay James NP [address] [place] [address] PCP - General Family Medicine 03/14/21 01/17/22 Germaine Martinez MD [address] [place] [address] PCP - General 01/18/22 09/14/24 Germaine Martinez MD [address] [place] [address] PCP - General Family Medicine 09/15/24 documented as of this encounter Additional Source Comments The information contained in this document represents components of the legal health record. It is not the complete legal health record.[facility]
--- OUTSIDE RECORDS SUMMARY | 2025-09-08 08:08 | XMS_ITS | Encounter Summary ---
Author Organization [facility] Address [address] [place] [address] Phone Care Team Providers Care High Density Finishing Operator Name Role Phone Sanjay James ABSTRACT SEARCHER Primary Care Provider [phone] Sanjay James ABSTRACT SEARCHER Primary Care Provider [phone] Germaine Martinez MD Primary Care Provider + Germaine Martinez MD Primary Care Provider + Encounter Details Date Type Department Care Team (Latest Contact Info) Description 08/12/2018 Ancillary Orders [facility] [address], [address] [place], [place] [phone] Venessa Kaye MD [address] [place] [address] [email or web address] PVD (peripheral vascular disease); Other specified symptoms [...] Description 10/08/2025 9:20 AM EST Office Visit [facility] [address] [place] [address] [address]rd Floor, [address] [place] [address] Ray Cid MD [address] [place] [address], [address] [address] 11/08/2025 9:40 AM EST Office Visit [facility] [address] [place] [address] Aixa Kong MD [address] [place] [address], 1st [place] [address] 04/21/2026 9:10 AM EDT Office Visit [facility] [address] [place] [address] Hilario Peguero DO [address] [place] [address] documented as of this encounter Results * [...] Cid MD - 08/13/2018 See scanned document. Venessa Kaye MD [facility]ASCULAR Final Result documented in this encounter Visit Diagnoses Diagnosis PVD (peripheral vascular disease) Unspecified peripheral vascular disease Other specified symptoms and signs involving the circulatory and respiratory systems PVD (peripheral vascular disease) Unspecified peripheral vascular disease Other specified symptoms and signs involving the circulatory and respiratory systems documented in this encounter Care Teams High Density Finishing Operator Relationship Specialty Start Date End Date Sanjay James NP [address] [facility] [place] [address] PCP - General Family Medicine 07/18/17 03/13/21 Sanjay James NP [address] [facility] [place] [address] PCP - General Family Medicine 03/14/21 01/17/22 Germaine Martinez MD [address] [facility] [place] [address] PCP - General 01/18/22 09/14/24 Germaine Martinez MD [address] [facility] [place] [address] PCP - General Family Medicine 09/15/24 documented as of this encounter Additional Source Comments The information contained in this document represents components of the legal health record. It is not the complete legal health record.[facility]
== END ==
LOC: HO.NUCMED 08:04
PROVIDERS: PCP General Practice; Visit Provider Nurse Practitioner
DX: K30 Functional dyspepsia (principal)
CPT/HCPCS: 78264; A9541

== ENCOUNTER → 2025-09-08 08:05 | Outpatient (BNV) | payer OTHER, SELFPAY | PROVIDERS: PCP General Practice; Visit Provider Radiology Diagnostic Radiology | DX: K30 Functional dyspepsia (principal); K31.84 Gastroparesis | CPT/HCPCS: 78264 ==